=== PATIENT | female | born 1975 | race Caucasian/White ===

== ENCOUNTER 2022-05-01 17:00 | Outpatient (REF) | payer BC, SELFPAY ==
[2022-05-01 22:01] LABS: Abs Immature Grans 0.02 10^3/uL (0.0-0.06); Absolute Basophil Count 0.07 10^3/uL (0.0-0.2); Absolute Eosinophil Count 0.19 10^3/uL (0.0-0.7); Absolute Lymphocyte Count 3.91 10^3/uL (1.2-3.4); Absolute Monocyte Count 0.69 10^3/uL (0.1-0.8); Absolute Neutrophil Count 3.97 10^3/uL (1.2-6.7); Basophils % 0.8; Eosinophils % 2.1; HCT 37.6 % (36.0-46.0); HGB 12.4 g/dL (11.2-15.7); Immature Grans % 0.2; Lymphocytes % 44.2; MCH 29.2 pg (27.0-33.0); MCV 89 fL (80-95); MPV 9.2 fL (8.0-11.0); Monocytes % 7.8; Neutrophils % 44.9; Platelet Count 400 10^3/uL (130-400); RBC 4.25 10^6/uL (3.93-5.22); RDW 12.2 % (11.7-14.6); RDW-SD 39.8 fL; WBC 8.85 10^3/uL (4.4-10.8)
[2022-05-01 22:15] LABS: ALT 19 U/L (14-59); AST 20 U/L (15-37); Albumin 4.2 g/dL (3.4-5.0); Alkaline Phosphatase 46 U/L (46-116); BUN 7 mg/dL (7-18); Bilirubin, Total 0.7 mg/dL (0.2-1.0); CREATININE 0.8 mg/dL (0.55-1.02); Calcium 9.1 mg/dL (8.5-10.1); Calculated LDL 116 mg/dL (<100); Chloride 105 mmol/L (98-107); Cholesterol 203 mg/dL (<200); Estimated GFR 91.97 (mL/min/1.73m2); Glucose 81 mg/dL (74-106); HDL Cholesterol 64 mg/dL (40-60); Potassium 3.8 mmol/L (3.5-5.1); Sodium 138 mmol/L (136-145); TSH (W/Ref FT4) 3.64 uIU/mL (0.36-3.74); Triglyceride 115 mg/dL (<150)
[2022-05-01 22:28] LABS: Hemoglobin A1C 5.6 % (<5.7)
[2022-05-02 19:33] LABS: Rheumatoid Factor <8.6 IU/mL (<12.0)
[2022-05-02 20:15] LABS: Prolactin 121.3 ng/mL (See Note)
== END 2022-05-01 17:01 | disposition home or self-care (01) ==
LOC: NCHCN 17:00
PROVIDERS: Visit Provider Nurse Practitioner Family
DX: E22.1 Hyperprolactinemia (principal); Z13.0 Encounter for screening for diseases of the blood and blood-forming organs and certain disorders involving the immune mechanism; Z13.1 Encounter for screening for diabetes mellitus; Z13.29 Encounter for screening for other suspected endocrine disorder; Z13.220 Encounter for screening for lipoid disorders; Z00.00 Encounter for general adult medical examination without abnormal findings
CPT/HCPCS: 80053; 80061; 83036; 84146; 84443; 85025; 86431

== ENCOUNTER → 2023-11-04 00:36 | Outpatient (CLI) | payer BC, SELFPAY ==
--- NOTE | 2023-11-04 | DI.MAMMO_ITS ---
Exam(s) MAMMO SCREENING EXAM: MAMMO SCREENING CLINICAL HISTORY: Screening, Z12.31 TECHNIQUE: Mammograms were interpreted according to the usual protocol including computer analysis w [employer] CAD system, tomosynthesis and C-view imaging. COMPARISON: 2021 FINDINGS: The breasts are composed of scattered fibroglandular densities, Breast Density category B. No suspicious masses or suspicious microcalcifications are seen. No skin thickening or abnormal axillary lymph nodes are seen. There has been no significant change from prior exams. IMPRESSION: BI-RADS Category 1, Negative mammogram Yearly screening mammography is recommended. Breast Density - Category B, scattered fibroglandular densities. A negative radiographic report should not delay biopsy if a dominant or clinically suspicious mass is present. Up to ten percent of cancers are not identified on mammography. A negative report may reinforce clinical impression. Adenosis and dense breasts may obscure an underlying neoplasm. False positive reports average 6 to 10%. Patient will receive a letter notifying them of these results.
== END ==
PROVIDERS: PCP Family Medicine; Visit Provider Family Medicine
DX: Z12.31 Encounter for screening mammogram for malignant neoplasm of breast (principal)
CPT/HCPCS: 77063; 77067

== ENCOUNTER 2023-11-04 09:11 | Outpatient (CLI) | payer BC, SELFPAY ==
[2023-11-04 20:02] LABS: Prolactin 104.3 ng/mL (See Note)
== END 2023-11-04 09:12 | disposition home or self-care (01) ==
LOC: LBO 09:12
PROVIDERS: PCP Family Medicine; Visit Provider Student in an Organized Health Care Education/Training Program
DX: D35.2 Benign neoplasm of pituitary gland (principal); E22.9 Hyperfunction of pituitary gland, unspecified
CPT/HCPCS: 36415; 84146

== ENCOUNTER 2024-04-20 14:18 | Outpatient (CLI) | payer BC, SELFPAY ==
--- OUTSIDE RECORDS SUMMARY | 2024-04-20 14:21 | XMS_ITS | Encounter Summary ---
Author Organization [facility] Address [facility] [place] [address] Care Team Providers Care Rail Assembler Name Role Phone Melinda Espinoza MD Primary Care Provider [phone] Encounter Details Date Type Department Care Team (Latest Contact Info) Description 11/17/2023 Orders [place] [phone] Xiao Worthington MD [facility] [place] [address] Pituitary microadenoma with hyperprolactinemia (Primary Dx) Social History Tobacco Use Types Packs/Day Years Used Date Smoking Tobacco: Former Cigarettes Q uit: 1996 Smokeless Tobacco: Never Sex and Gender Information Value Date Recorded Sex Assigned at Not on file Gender Identity Not on file Sexual Orientation Not on file documented as of this encounter Plan of Treatment Upcoming Encounters Date Type Department Care Team (Late st Contact Info) Description 04/20/2024 3:30 PM EST Office Visit Neurology at [address] [address] Lazara Amaya MD [facility] [place] [address] 04/29/2024 4:40 PM EST Office [place] [phone] Mecca Frazier MD [facility] [place] [address] Scheduled Orders Name Type Priority Associated Diagnoses Orde r Schedule Prolactin Lab Routine Pituitary microadenoma with hyperprolactinemia Expected: 12/18/2023, Expires: 06/18/2024 documented as of this encounter Visit Diagnoses Diagnosis Pituitary microadenoma with hyperprolactinemia- Primary Other and unspecified anterior pituitary hyperfunction documented in this encounter Care Teams Rail Assembler Relationship Specialty Start Date End Date Melinda Espinoza MD [address] [place] [address] PCP - General Family Medicine 12/24/22 documented as of this encounter
--- OUTSIDE RECORDS SUMMARY | 2024-04-20 14:21 | XMS_ITS | Encounter Summary ---
Author Organization [facility] Address [facility] [place] [address] Care Team Providers Care Radar Engineer Name Role Phone Melinda Espinoza MD Primary Care Provider [phone] Reason for Referral * Diagnostic Test (Routine) - New Request Specialty Diagnoses / Procedures Referred By Olamide aldana Referred To Contact Radiology Diagnoses Prolactinoma Procedures MRI Pituitary wwo Contrast Erica Barr MD [facility] DR ENDOCRIN[place]Y [place] [address] [place] [address] Referral ID Status Reason Start Date Expiration Date Visits Requested Visits Authorized [id number] New Request Specialty Service Requested 02/05/2024 08/04/2025 1 1 Encounter Details Date Type Department Care Team (Late st Contact Info) Description 02/05/2024 10:00 AM EDT TH Visit (TeleHealth) [place] [address] Erica Barr MD [facility] DR ENDOCRINOLOG[place] [address] Prolactinoma Social History Tobacco Use Types Packs/Day Years Used Date Smoking Tobacco: Former Cigarettes Q uit: 1996 Smokeless Tobacco: Never Sex and Gender Information Value Date Recorded Sex Assigned at Not on file Gender Identity Not on file Sexual Orientation Not on file documented as of this encounter Progress Notes * Erica Barr MD - 02/05/2024 10:00 AM EDT Images from the original note were not included. Endocrinology Outpatient Follow up Name of patient: Juliana Cooley : 1975 Date of visit: 02/05/24 Patient verbally consents to this telehealth visit and understands that this visit may be billed, similar to a clinic office visit. I provided care to the patient today via video call. The total time associated with this visit, chart review, documentation, and coordination of care was 30 minutes. Reason for follow up: microprolactinoma HPI: Ms. Juliana Cooley is a 47 y.o. female with a PMH significant for adjustment disorder/depression, arthritis, is here for follow up of microprolactinoma, previously seen by Dr. Worthington: Patient had amenorrhea (2-3 periods a year) starting around 2012. [facility] just [facility]. She had a work up found to have hyperprolactinemia and pituitary adenoma seen on non-contrast MRI 10/2020. The prolactin level ranges between 80-130 in the past. The adenoma is located on the right, measuring 6 x 6 x 5.5 mm. Patient did not follow up afterward. Not planning to get . Mom had reaction with MRI contrast. 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 Never loss consciousness. Had a head injury, maybe 3rd grade. She was running on the playground and slipped near an exposed drainage grate and hit her head andlost consciousness for a bit. No recent brain injury. Takes Astaxanthin in the past. Has some depression. Denied manic episode or hallucination. Patient does not take any antipsychotic medications. Denied nipple stimulation. Age of menarche: 16 yo Cycle length: regular, every month until her 30s. 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 Today She reports she was taking Cabergoline bt stopped recently. In the meantime she was diagnosed with headache - hemicrania continua. Last time she took cabergoline 4 weeks ago, she was taking 0.25 mg once weekly. Her LMP January 05. She says her headaches are worsening. She denies galactorrhea. She is concerned whether her microprolactinoma is associated with the worsening headaches. Physical Exam: Limited due to televisit. General appearance: No apparent distress, resting comfortably in chair. Social History: Social History Socioeconomic History Marital status: Unknown Spouse name: Not on file Number of children: Not on file Years of education: Not on file Highest education level: Not on file Occupational History Not on file Tobacco Use Smoking status: Former Current packs/day: 0.00 Types: Cigarettes Quit date: 1996 Years since quittin.7 Smokeless tobacco: Never Vaping Use Vaping status: Never Used Substance and Sexual Activity Alcohol use: Not on file Drug use: Not on file Sexual activity: Not on file Other Topics Concern Not on file Social History Narrative Not on file Social Determinants of Health Financial Resource Strain: Not on file Food Insecurity: Not on file Transportation Needs: Not on file Physical Activity: Not on file Intimate Partner Violence: Not on file Housing Stability: Not on file PMH: Past Medical History: Diagnosis Date Prolactinoma Family History: No family history on file. Allergies: Allergies Allergen Reactions Banana Raw; GI upset Current Medications: pantoprazole EC (Protonix) [address] tablet indomethacin (Indocin) 50 mg capsule cabergoline (Dostinex) 0.5 mg tablet cyclobenzaprine (Flexeril) 5 mg tablet cholecalciferol, Vitamin D3, 50 mcg (2,000 unit) Capsule Recent Imaging and Labs: Latest Reference Range & Units 12/24/22 16:59 T3, Total 80 - 200 ng/dL 108 T4, total 5.3 - 11.6 mcg/dL 7.9 Free T4 0.93 - 1.70 ng/dL 1.14 TSH 0.27 - 4.20 mcIU/mL 3.07 T Uptake 0.80 - 1.30 ratio 1.07 FTI 4.4 - 11.4 mcg/dL 7.4 Prolactin 4.8 - 23.3 ng/mL 50.0 (H) MRI pituitary 12/11/22 FINDINGS: 7 mm x 4 mm focus which is hypoenhancing to background pituitary parenchyma and heterogeneously T2 hyperintense in the RIGHT posterior aspect of the pituitary gland. No extension into the suprasellar recess. There the hypoenhancing region abuts the cavernous segment of the RIGHT carotid artery without extension into the cavernous sinus. No abnormality of the visualized intracranial contents. IMPRESSION 7 mm hypoenhancing well-circumscribed focus in the RIGHT aspect of the pituitary gland likely represents a pituitary microadenoma. Assessment and Plan: Ms. Juliana Cooley is a 47 y.o. female with a PMH significant for adjustment disorder/depression, arthritis, is here for follow up of microprolactinoma. Microprolactinoma Patient has improvement in her period after starting on cabergoline previously, but has hasd some issues with tolerance and with obtaining the medication. She was diagnosed with worsening headaches -hemicrania continua and wonders if prolactinoma could be associated with this. We have explained that this could potentially be associated with worsening headaches in case there was any increase in size of the tumor, therefore we have recommended to obtain a repeat MRI. We have also recommended obtaining prolactin since now she has been off of it for 4 weeks to evaluate if she still needs Cabergoline. She is reaching menopause soon and we are not worried about osteoporosis if she has amenorrhea. - hold cabergoline - Prolactin ([facility]) - pituitary MRI - F/u in 6 months Thank you for allowing us to provide care for your patient. D/W Dr. Kimball. Erica Barr MD, PhD PGY-5 Endocrinology fellow * Kianna Kimball MD - 02/05/2024 10:00 AM EDT I saw this patient with Dr. Barr. I reviewed the bain portions of the history and physical exam, and reviewed pertinent lab data. I answered all patient questions. I was involved in all medical decision making and agree with this plan. Kianna Kimball MD documented in this encounter Plan of Treatment Upcoming Encounters Date Type Department Care Team (Late st Contact Info) Description 04/20/2024 3:30 PM EST Office Visit Neurology at [address] [address] Lazara Amaya MD [facility] [place] [address] 04/29/2024 4:40 PM EST Office [place] [address] Mecca Frazier MD [facility] [place] [address] Scheduled Orders Name Type Priority Associated Diagnoses Orde r Schedule MRI Pituitary wwo Contrast Imaging Routine Prolactinoma Expected: 02/05/2024, Expires: 08/06/2024 Prolactin Lab Routine Prolactinoma Expected: 02/05/2024, Expires: 08/06/2024 documented as of this encounter Visit Diagnoses Diagnosis Prolactinoma Benign neoplasm of pituitary gland and craniopharyngeal duct (pouch) documented in this encounter Care Teams Radar Engineer Relationship Specialty Start Date End Date Melinda Espinoza MD [address] [place] [address] PCP - General Family Medicine 12/24/22 documented as of this encounter
--- OUTSIDE RECORDS SUMMARY | 2024-04-20 14:21 | XMS_ITS | Clinical Summary ---
Author Organization [facility] Address [facility] [address] [place] [address] Care Team Providers Care Database Security Administrator Name Role Phone Melinda Espinoza MD Primary Care Provider [phone] Allergies Active Allergy Reactions Criticality Noted Date Comments Banana 07/29/2022 Raw; GI upset Medications Medication Sig Dispensed Refills Start Date End Date Status cholecalciferol, Vitamin D3, 50 mcg (2,000 unit) Capsule Take by mouth. Active cyclobenzaprine (Flexeril) 5 mg tablet Take 1 tablet by mouth nightly. 30 tablet 5 01/15/2023 Active cabergoline (Dostinex) 0.5 mg tablet Take 0.5 tablets by mouth once a week. 6 tablet 1 12/14/2023 Active indomethacin (Indocin) 50 mg capsuleIndications:H eadache, cervicogenic,Hemicra sammy continua Take 1 capsule by mouth 3 times daily (with meals). 90 capsule 01/10/2024 Active pantoprazole EC (Protonix) [address] tablet TAKE 1 TABLET BY MOUTH DAILY 30 tablet 1 01/18/2024 Active Active Problems Problem Noted Date Diagnosed Date Irregular periods 09/02/2022 Pituitary adenoma 0.6 cm with hyperprolactinemia (80s-130s) 09/02/2022 Sinus pain 04/23/2020 Overview (09/02/2022): Pain located in the angle of the jaw and swooping up to the frontal sinus and near the medial right epicanthus She has lived with this pain for about 10 years. If she takes Zyrtec, it seems to help prevent the pain No sinus discharge or drainage but the right side sinuses can feel blocked No symptoms of allergies or allergy triggers. No prior x-rays but she was seen by multiple ENT's in [place] Prior question of ETD Last Assessment & Plan: Abnormal sinus pain with seemingly response to antihistamines but unclear etiology. I do not think this represents an active infection however frontal sinus disease needs to be ruled out with a CT scan. The CT scan will also be helpful to determine if there are other factors such as failure frontal sinus drainage that could account for her symptoms. Hyperprolactinemia 06/01/2018 Family history of colon cancer 06/01/2018 Overview (09/02/2022): Father from metastatic colon cancer age 67 (diagnosed at age 66) 06/01/18- recommended referral to discuss colonoscopy. She declines at this time. Mixed hyperlipidemia 10/29/2017 Overview (09/02/2022): Last Assessment & Plan: Does not require medication. Briefly discussed therapeutic lifestyle change. Encounters Date Type Department Care Team Description 04/20/2024 Travel 03/08/2024 [place] [phone] Jenn Carvajal, RN Appointment (MRI) 02/22/2024 [place] [phone] Jenn Carvajal RN Appointment (MRI) 02/05/2024 10:00 AM EDT TH Visit (TeleHealth) [place] [phone] Erica Barr MD Prolactinoma from Last 3 Months Social History Tobacco Use Types Packs/Day Years Used Date Smoking Tobacco: Former Cigarettes Q uit: 1996 Smokeless Tobacco: Never Tobacco Cessation:Counseling Given: Not Answered Sex and Gender Information Value Date Recorded Sex Assigned at Not on file Gender Identity Not on file Sexual Orientation Not on file Last Filed Vital Signs Vital Sign Reading Time Taken Comments Blood Pressure 105/69 12/11/2023 10:30 AM EDT Pulse 80 12/11/2023 10:30 AM EDT Temperature 36.7 ??C (98.1 ??F) 12/24/2022 3:07 PM ED T Respiratory Rate - - Oxygen Saturation 98% 12/24/2022 3:07 PM EDT Inhaled Oxygen Concentration - - Weight 73.2 kg (161 lb 6.4 oz) 12/24/2022 3:07 P M EDT Height 172.7 cm (5' 8) 12/24/2022 3:07 PM EDT Body Mass Index 24.54 12/24/2022 3:07 PM EDT Plan of Treatment Upcoming Encounters Date Type Department Care Team (Late st Contact Info) Description 04/20/2024 3:30 PM EST Office Visit Neurology at [address] [address] Lazara Amaya MD [facility] [place] [address] 04/29/2024 4:40 PM EST Office [place] [address] Mecca Frazier MD [facility] [place] [address] Health Maintenance Due Date Last Done Comments CT Colonography 1975 Colonoscopy 1975 Colorectal Cancer Screening 1975 FIT DNA 1975 FIT 1975 Sigmoidoscopy (10 year) with FIT yearly 1975 Sigmoidoscopy 1975 HIV screen 11/15/1993 Hepatitis C Screening 11/15/1993 Hepatitis B vaccine (0-59 yrs) (1) 11/15/1994 Tetanus/Diphtheria/Pertussis Vaccines (1 - Tdap) 11/15/1994 HPV test 11/15/2005 PAP Smear 11/15/2005 Breast Cancer Share Decision Needed 2015 Breast Cancer screening 2015 Covid-19 Vaccine (1 - season) 2024 Influenza (Flu) vaccine (1 o f 1 - Influenza standard series) 01/10/2024 Diabetes Screening (HgbA1C or Glucose) Discontinued , 09/02/2022 Procedures Procedure Name Priority Date/Time Associated Diagnosis Comments COMPREHENSIVE METABOLIC PANEL Routine 12/11/2023 11:26 AM EDT Encounter for long-term (current) use of other medications from Last 3 Months or Most Recently Relevant to Health Maintenance Results * Comprehensive metabolic panel (non-fasting) (12/11/2023 11:26 AM EDT) Glucose 96 65 - 199 mg/dL [facility] Comment:Diabetes: >=200 mg/d L plus symptoms Blood Urea Nitrogen 11 8 - 18 mg/dL [facility] Creatinine 0.77 0.70 - 1.20 mg/dL [facility] Sodium 142 135 - 145 mmol/L [facility] Potassium 4.3 3.5 - 5.0 mmol/L [facility] Comment: Please note: ??Patients with WBC >100,000 may have falsely elevated Potassium levels. ??For accurate Potassium quantification in these patients send serum separator tube (gold top) for subsequent determinations. ??Contact the Clinical Chemistry Laboratory if there are any questions. Chloride 106 98 - 107 mmol/L [facility] Carbon Dioxide 25 22 - 31 mmol/L [facility] Anion Gap 11 5 - 15 mmol/L [facility] Calcium 10.1 8.5 - 10.5 mg/dL [facility] Protein, Total 7.2 6.1 - 8.0 g/dL [facility] Albumin 4.8 3.2 - 5.2 g/dL [facility] Aspartate Aminotransferase 15 0 - 30 unit/L [facility] Alanine Aminotransferase 10 0 - 30 unit/L [facility] Alkaline Phosphatase 47 35 - 105 unit/L [facility] Bilirubin, Total 0.9 0.2 - 1.3 mg/dL [facility] Est Glomerular Filtration Rate 95 >=60 mL/min/1. 73 m?? [facility] Comment: This patient's estimated GFR was calculated using the 2020 CKD-EPI equation. The estimated GFR can vary from the measured GFR by up to 30% in the absence of rapidly changing kidney function. Assessment of the estimated GFR is not appropriate when creatinine concentrations are rapidly changing. For clinical situations in which a more precise estimate of GFR is necessary, consider alternative methods of GFR estimation such as a 24-hour urine creatinine clearance. Assignment of CKD stage 1-5 for patients with an eGFR near the transition point between stages may be based on clinical assessment of muscle mass and symptoms in addition to eGFR. Blood 12/11/2023 11:2 6 AM EDT 12/11/2023 1:19 PM EDT Narrative Resulting Agency Comment Spec In Lab Monica Bush APRN CHEMISTRY ORDERABL ES [facility] [address] [phone] from Last 3 Months or Most Recently Relevant to Health Maintenance Care Teams Database Security Administrator Relationship Specialty Start Date End Date Melinda Espinoza MD [address] [place], [place] [address] PCP - General Family Medicine 12/24/22
--- OUTSIDE RECORDS SUMMARY | 2024-04-20 14:21 | XMS_ITS | Encounter Summary ---
Author Organization [facility] [place] [address] Care Team Providers Care Manager Wastewater Name Role Phone Melinda Espinoza MD Primary Care Provider [phone] Encounter Details Date Type Department Care Team (Late st Contact Info) Description 01/10/2024 Telephone [place] [address] Matt Clemens DO [facility] [place] [address] Social History Tobacco Use Types Packs/Day Years Used Date Smoking Tobacco: Former Cigarettes Q uit: 1996 Smokeless Tobacco: Never Sex and Gender Information Value Date Recorded Sex Assigned at Not on file Gender Identity Not on file Sexual Orientation Not on file documented as of this encounter Miscellaneous Notes * Telephone Encounter - Matt Clemens DO - 01/10/2024 12:39 PM EDT Entered in error documented in this encounter Plan of Treatment Upcoming Encounters Date Type Department Care Team (Late st Contact Info) Description 04/20/2024 3:30 PM EST Office Visit Neurology at [address] [address] Lazara Amaya MD [facility] [place] [address] 04/29/2024 4:40 PM EST Office Visit [place] [address] Mecca Frazier MD [facility] [place] [address] documented as of this encounter Visit Diagnoses Not on filedocumented in this encounter Care Teams Manager Wastewater Relationship Specialty Start Date End Date Melinda Espinoza MD [address] [place] [address] PCP - General Family Medicine 12/24/22 documented as of this encounter
--- OUTSIDE RECORDS SUMMARY | 2024-04-20 14:21 | XMS_ITS ---
Author Organization Unknown Address [address] [place] [address] [phone] Phone Care Team Providers Care Radiologist Physician Name Role Phone ARMIDA PRINCE Registered Nurse Unavailable DEEPTHI GONZALEZ Attending Unavailable JAIDA Ayala Primary Unavailable UNLISTED PROVIDER - REQUESTED Xhandoff Un available Results TEST QUAL SERUM* - Collect Date/Time: 02/09/2024 08:07 [facility] ID: [id number] [address] [place] [address], [address] LOINC: 2118-8 Test Value Unit Reference Range Code Code System Flag TEST NEGATIVE 6-3 LOINC CBC W/ DIFFERENTIAL* - Colle ct Date/Time: 02/09/2024 08:07 [facility] ID: [id number] [address] [place] [address], [address] LOINC: 23750-1 Test Value Unit Reference Range Code Code System Flag WBC 14.25 th/cmm L=5.00 H=10.00 6690-2 LOINC H NEUT % 89.2 % L=40.0 H=80.0 H LYMPH % 7.7 % L=10.0 H=50.0 L MONO % 2.2 % L=2.0 H=12.0 48401-9 LOINC EOS % 0.0 % L=0.0 H=8.0 BASO % 0.3 % L=0.0 H=3.0 IG % 0.6 % L=0.0 H=1.1 2514-8 LOINC NRBC % 0.0 % L=0.0 H=0.0 53483-9 LOINC NEUT abs count 12.7 th/cmm L=1.6 H=8.4 751-8 LOINC H LYMPH abs count 1.1 th/cmm L=1.5 H=4.0 731-0 LOINC L MONO abs count 0.3 th/cmm L=0.2 H=1.0 742-7 LOINC EOS abs count 0.0 th/cmm L=0.0 H=0.5 711-2 LOINC BASO abs count 0.0 th/cmm L=0.0 H=0.2 704-7 LOINC IG abs count 0.1 th/cmm L=0.0 H=0.1 06750-8 LOINC NRBC abs count 0.0 mil/cmm L=0.0 H=0.0 06253-6 LOINC RBC 4.12 mil/cmm L=3.90 H=5.40 789-8 LOINC HEMOGLOBIN 12.0 gm/dL L=12.0 H=16.0 718-7 LOINC HEMATOCRIT 36 % L=37 H=47 4544-3 LOINC L MCV 88 fL L=82 H=92 787-2 LOINC MCH 29.1 pg L=27.0 H=31.0 785-6 LOINC MCHC 33.1 % L=32.0 H=36.0 786-4 LOINC RDW-SD 40.5 fL L=39.0 H=49.0 788-0 LOINC PLATELET COUNT 433 th/cmm L=150 H=450 777-3 LOINC BASIC METABOLIC PANEL (BMP) - Collect Date/Time: 02/09/2024 08:07 [facility] ID: [id number] [address] [place], [place], [address] LOINC: 06544-6 Test Value Unit Reference Range Code Code System Flag GLUCOSE 231 mg/dL L=70 H=116 2345-7 LOINC H BUN 16 mg/dL L=6 H=25 3094-0 LOINC CREATININE 0.93 mg/dL L=0.51 H=0.95 2160-0 LOINC SODIUM SERUM 137 mmol/L L=136 H=145 2951-2 LOINC POTASSIUM SERUM 3.7 mmol/L L=3.4 H=5.2 2823-3 LOINC CHLORIDE SERUM 100 mmol/L L=96 H=110 2074-0 LOINC CARBON DIOXIDE (CO2) 23 mmol/L L=22 H=34 2027-9 LOINC ANION GAP 13.6 mmol/L 88773-5 LOINC CALCIUM SERUM 9.6 mg/dL L=8.2 H=10.2 12866-3 LOINC AGE 48 years eGFR (non-Afr.Amer.) 64 mL/min 89896-1 LOINC eGFR (Afr-Guyanese) 78 mL/min 67840-8 [facility] Social History Type Status Start Date End Date Code Code Syst em Smoking History Never smoker (Never Smoked) 858296507 SNOMED CT Sex Female Vital Signs Vital Sign Value Unit Dundee Value Dundee Unit Date/Time Recent/Initial? Code Code System Body Mass Index 16.73 kg/m2 02/09/2024 08:11 Initial 08514 -5 INC Systolic Blood Pressure 94 mm[Hg] 02/09/2024 11:00 Most Recent 8480- 6 INC Diastolic Blood Pressure 50 mm[Hg] 02/09/2024 11:00 Most Recent 8462- 4 INC Systolic Blood Pressure 126 mm[Hg] 02/09/2024 09:30 Initial 8480- 6 LOINC Diastolic Blood Pressure 82 mm[Hg] 02/09/2024 09:30 Initial 8462- 4 LOINC Body Surface Area 1.55 m2 02/09/2024 08:11 Initial 3140- 1 LOINC Height 172.720 0 cm 68.00 in 02/09/2024 08:11 Initial 8302- 2 INC O2 Saturation 98 % 2023 11:00 Most Recent 42951 -5 LOINC O2 Saturation 100 % 2023 08:18 Initial 11116 -5 LOINC Pulse 92.0 /min 02/09/2024 11:00 Most Recent 8867- 4 LOINC Pulse 72.0 /min 02/09/2024 08:18 Initial 8867- 4 LOINC Respiration 16 /min 02/09/20 11:00 Most Recent 9279- 1 LOINC Respiration 17 /min 02/09/20 08:18 Initial 9279- 1 LOINC Temperature 36.2 Pia 97.2 F 02/09/20 08:18 Initial 8310- 5 [facility] Weight 49.90 kg 110.00 lbs 02/09/2024 08:11 Initial 61699 -7 [facility] Hospital Discharge Instructions Should you have any questions prior to discharge, please contact a member of your healthcare team. If you have left the hospital and have any questions, please contact your primary care physician. Reason For Referral No Data Found Problems Problem Start Date Resolved Date Status Code Code System HEMICRANIA CONTINUA 12/27/2023 resolved 523310662 SNOMED-CT Allergies and Adverse Reactions Allergy Substance Reaction Severity Start Date Concern Status Co de Code System No Known Drug Allergies Active 548153865 SNOMED-CT Plan of Treatment No Data Found Encounters Encounter Diagnosis Start Date Code Code Sys tem Status migrainosus 02/09/2024 803735636 SNOMED-CT Personal Care Team Section Performer Name Performer Role Active Date Inactive Da adolfo
--- OUTSIDE RECORDS SUMMARY | 2024-04-20 14:21 | XMS_ITS | Encounter Summary ---
Author Organization [facility] Address [facility] [place] [address] Care Team Providers Care Cook Railroad Name Role Phone Melinda Espinoza MD Primary Care Provider [phone] Encounter Details Date Type Department Care Team (Latest Contact Info) Description 11/03/2023 2:45 PM EDT TH Visit (TeleHealth) [place] [phone] Xiao Worthington MD [facility] DR [place] [address] Pituitary microadenoma with hyperprolactinemia (Primary Dx) Social History Tobacco Use Types Packs/Day Years Used Date Smoking Tobacco: Former Cigarettes Q uit: 1996 Smokeless Tobacco: Never Sex and Gender Information Value Date Recorded Sex Assigned at Not on file Gender Identity Not on file Sexual Orientation Not on file documented as of this encounter Progress Notes * Xiao Worthington MD - 11/03/2023 2:45 PM EDT Endocrinology Outpatient Follow up Name of patient: Juliana Cooley : 1975 Date of visit: 11/03/23 Patient verbally consents to this telehealth visit and understands that this visit may be billed, similar to a clinic office visit. I provided care to the patient today via video call. The total time associated with this visit, chart review, documentation, and coordination of care was 30 minutes. Reason for follow up: microprolactinoma Plan from previous office note on 12/24/22 Microprolactinoma Patient has repeat MRI which showed stable size of prolactinoma. She was started on cabergoline without serious side effects and now resuming her period. We plan to repeat prolactin level today and adjust the medication if needed. Plan for 2- year treatment and repeat MRI at 2-year period. Her FSH and LH were slightly elevated. Probably she may be entering perimenopause period. Low FT4 (central hypothyroidism vs normal variance) Patient has low FT4. No s/s hypothyroidism. Does not have AI. She was started on levothyroxine but stop due to side effect. We plan to switch to brand Synthroid and repeat blood work again to see if she has true hypothyroid or a normal variance. - continue cabergoline 0.25 mg twice weekly - change to brand Synthroid 25 mcg daily - prolactin, TSH, FT4, TT4, TT3, T uptake - f/u in 6 months Interval History: Thyroid function has improved and now is normal. We don't need levothyroxine. Patient had VF testing on 10/19/23 which was normal. Patient has a regular menses since last clinic visit. In Spring, her menses is becoming irregular. Her period skipped twice. She has some breast tenderness before havingthe period. No . Patient took cabergoline for about 6 months. She felt that she has urinary retention 48 hours after taking it. She has not taken cabergoline for about 6-7 months now. Patient does not have any headache and dizziness. Her family reached menopause in the 50s. Summary: Ms. Juliana Cooley is a 47 y.o. female with a PMH significant for adjustment disorder/depression, arthritis, is here for follow up of microprolactinoma. 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 Physical Exam: There were no vitals taken for this visit. General appearance: No apparent distress, resting comfortably in chair. Social History: Social History Socioeconomic History Marital status: Unknown Spouse name: Not on file Number of children: Not on file Years of education: Not on file Highest education level: Not on file Occupational History Not on file Tobacco Use Smoking status: Former Current packs/day: 0.00 Types: Cigarettes Quit date: 1996 Years since quittin.4 Smokeless tobacco: Never Vaping Use Vaping status: [...] Reactions Banana Raw; GI upset Current Medications: cyclobenzaprine (Flexeril) 5 mg tablet cabergoline (Dostinex) 0.5 mg tablet cholecalciferol, Vitamin D3, 50 mcg (2,000 unit) Capsule OMEGA3,5,6,7,9 NO.1-SALMON OIL ORAL Recent Imaging and Labs: Latest Reference Range [...] improvement in her period after starting on cabergoline. She took the medication for 6 months and then stopped due to urinary retention. She is now without medication for 6-7 months. Her period becomes irregular again. We discussed about repeating serum prolactin. If her prolactin is normal, we will continue to monitor the level every 6 months and not resuming the cabergoline. If prolactin is elevated, she can try resuming on the low dose once weekly cabergoline to see if she can tolerate the medication. If prolactin is extremely elevated or she does not want to be on the medication, we plan to repeat MRI of the pituitary. She has an option to stop the medication if her MRI is stable and she is not symptomatic (galactorrhea). She is reaching menopause soon and we are not worried about osteoporosis if she has amenorrhea. - hold cabergoline - Prolactin ([facility]) - F/u in 3 months Thank you for allowing us to provide care for your patient. D/W Dr. Kimball. Xiao Worthington MD [facility] [place] PGY-5, Fellow Pager #[phone] * Kianna Kimball MD - 11/03/2023 2:45 PM EDT I saw this patient with Dr. Worthington. I reviewed the bain portions of the [...] 3:30 PM EST Office Visit Neurology at [address] [phone] Lazara Amaya MD [facility] [place] [address] 04/29/2024 4:40 PM EST Office Visit [place] [address] Mecca Frazier MD [facility] [place] [address] Scheduled Orders Name Type Priority Associated Diagnoses Orde r Schedule Prolactin Lab Routine Pituitary microadenoma with hyperprolactinemia Expected: 11/03/2023, Expires: 05/04/2024 documented as of this encounter Visit Diagnoses Diagnosis Pituitary microadenoma with hyperprolactinemia- Primary Other and unspecified anterior pituitary hyperfunction documented in this encounter Care Teams Cook Railroad Relationship Specialty Start Date End Date Melinda Espinoza MD [address] [place] [address] PCP - General Family Medicine 12/24/22 documented as of this encounter
--- OUTSIDE RECORDS SUMMARY | 2024-04-20 14:21 | XMS_ITS | Encounter Summary ---
Author Organization [facility] Address [facility] [place] [address] Care Team Providers Care Metal Weather Stripper Name Role Phone Melinda Espinoza MD Primary Care Provider [phone] Encounter Details Date Type Department Care Team (Late st Contact Info) Description 12/27/2023 Interpretation Only [facility] in [facility] [address] [place] [phone] Sebastián Watts MD [address] [place] [phone] Social History Tobacco Use Types Packs/Day Years [...] 3:30 PM EST Office Visit Neurology at [address] [address] Lazara Amaya MD [facility] [place] [address] 04/29/2024 4:40 PM EST Office [place] [address] Mecca Frazier MD [facility] [place] [address] documented as of this encounter Procedures Procedure Name Priority Date/Time Associated Diagnosis Comments CT CERVICAL SPINE WO CONTRAST STAT 12/27/2023 11:36 AM EDT documented in this encounter Results * CT Cervical Spine wo Contrast (12/27/2023 11:36 AM EDT) PT CLASS E RAD ADMITDTTM [id number] RAD PT RAD MD INFO [id number]^ANGELICA OLIVARES^SEBASTIÁN RAD EXAM DESC CTCSPI^CT CSPINE WO CONTRAST^RIS [facility] WORKSTATION ID [id number] [facility] Anatomical Region Laterality Modality C-spine Computed Tomogra phy Impressions 12/27/2023 11:49 AM EDT Cervical degenerative changes at C5-C6 with moderate to severe bilateral neural foraminal narrowing. Moderate left-sided neural foraminal narrowing at C6-C7. No acute cervical spine process is identified. Thank you for letting us participate in the care of this patient. ??If you are a health care provider and have any questions regarding this report, please contact the number below. ??For patients who have questions please contact the health critical care physician that requested your imaging first. ? Electronically signed by: Branden Bain [facility] ([phone]), at 12/27/2023 11:49 AM Narrative 12/27/2023 11:49 AM EDT EXAMINATION: CT CSPINE WO CONTRAST CLINICAL HISTORY: ??Reason for Spine: ??Pain ??Add'l Info: TECHNIQUE: CT cervical spine performed without intravenous contrast administration. COMPARISON: CT neck dated 09/05/2022. FINDINGS: Mild cervical disc degenerative change at C5-C6 and C6-C7. Uncovertebral osteophytes at C5-C6 result in moderate to severe bilateral neural foraminal narrowing. Mild left-sided neural foraminal narrowing at C6-C7. Several millimeters of degenerative retrolisthesis at C5-C6. Associated straightening of the normal cervical lordosis. Normal craniocervical junction. Visualized soft tissues unremarkable. No aggressive osseous lesions. 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 Procedure Note Branden Bain MD - 12/27/2023 EXAMINATION: CT CSPINE WO CONTRAST CLINICAL HISTORY: Reason for Spine: Pain Add'l Info: TECHNIQUE: CT cervical spine performed without intravenous contrast administration. COMPARISON: CT neck dated 09/05/2022. FINDINGS: Mild cervical disc degenerative change at C5-C6 and C6-C7. Uncovertebral osteophytes at C5-C6 result in moderate to severe bilateral neuralforaminal narrowing. Mild left-sided neural foraminal narrowing at C6-C7. Several millimeters of degenerative retrolisthesis at C5-C6. Associatedstraightening of the normal cervical lordosis. Normal craniocervical junction. Visualized soft tissues unremarkable. 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 IMPRESSION Cervical degenerative changes at C5-C6 with moderate to severe bilateralneural foraminal narrowing. Moderate left-sided neural foraminal narrowing at C6-C7. No acute cervical spine process is identified. Thank you for letting us participate in the care of this patient. If youare a health care provider and have any questions regarding this report,please contact the number below. For patients who have questions please contactthe health critical care physician that requested your imaging first. Electronically signed by: Branden Bain [facility]([phone]), at 12/27/2023 11:49 AM Sebastián Watts MD IMG CT ORDERABLES documented in this encounter Visit Diagnoses Not on filedocumented in this encounter Care Teams Metal Weather Stripper Relationship Specialty Start Date End Date Melinda Espinoza MD [address] [place] [address] PCP - General Family Medicine 12/24/22 documented as of this encounter
--- OUTSIDE RECORDS SUMMARY | 2024-04-20 14:21 | XMS_ITS | Encounter Summary ---
Author Organization [facility] Address [facility] [place] [address] Care Team Providers Care Market Investigator Name Role Phone Melinda Espinoza MD Primary Care Provider [phone] Reason for Visit * Reason Onset Date Comments Appointment 03/08/2024 MRI Encounter Details Date Type Department Care Team (Late st Contact Info) Description 03/08/2024 [place] [phone] Jenn Carvajal RN Appointment (MRI) Social History Tobacco Use Types Packs/Day Years Used Date Smoking Tobacco: Former Cigarettes Q uit: 1996 Smokeless Tobacco: Never Sex and Gender Information Value Date Recorded Sex Assigned at Not on file Gender Identity Not on file Sexual Orientation Not on file documented as of this encounter Miscellaneous Notes * Telephone Encounter - Jenn Carvajal RN - 03/08/2024 10:29 AM EDT Reached out to Juliana to assist in scheduling MRI/Pituitary Dr. Erica Barr ordered 02/05/24 Spoke with patient and she stated she would call Radiology/MRI to schedule the above imaging documented in this encounter Plan of Treatment Upcoming Encounters Date Type Department Care Team (Late st Contact Info) Description 04/20/2024 3:30 PM EST Office Visit Neurology at [address] [phone] Lazara Amaya MD [facility] [place] [address] 04/29/2024 4:40 PM EST Office [place] [address] Mecca Frazier MD [facility] [place] [address] documented as of this encounter Visit Diagnoses Not on filedocumented in this encounter Care Teams Market Investigator Relationship Specialty Start Date End Date Melinda Espinoza MD [address] [place] [address] PCP - General Family Medicine 12/24/22 documented as of this encounter
--- OUTSIDE RECORDS SUMMARY | 2024-04-20 14:21 | XMS_ITS | Encounter Summary ---
Author Organization [facility] Address [facility] [place] [address] Care Team Providers Care Evp Head [employer] Experience Strategy Name Role Phone Melinda Espinoza MD Primary Care Provider [phone] Encounter Details Date Type Department Care Team (Latest Contact Info) Description 11/02/2023 Travel Social History Tobacco Use Types Packs/Day Years [...] 3:30 PM EST Office Visit Neurology at [address] [phone] Lazara Amaya MD [facility] [place] [address] 04/29/2024 4:40 PM EST Office [place] [address] Mecca Frazier MD [facility] [place] [address] documented as of this encounter Visit Diagnoses Not on filedocumented in this encounter Care Teams Evp [employer] Experience Strategy Relationship Specialty Start Date End Date Melinda Espinoza MD [address] [place] [address] PCP - General Family Medicine 12/24/22 documented as of this encounter
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
--- OUTSIDE RECORDS SUMMARY | 2024-04-20 14:21 | XMS_ITS | Encounter Summary ---
Author Organization [facility] Address [facility] [place] [address] Care Team Providers Care Manager Urology Name Role Phone Melinda Espinoza MD Primary Care Provider [phone] Encounter Details Date Type Department Care Team (Late st Contact Info) Description 12/27/2023 Interpretation Only [facility] [address] [place] [phone] Sebastián Watts MD [address] [place] [phone] Social History Tobacco Use Types Packs/Day Years [...] 3:30 PM EST Office Visit Neurology at [address] [address] Lazara Amaya MD [facility] [address] 04/29/2024 4:40 PM EST Office [place] [address] Mecca Frazier MD [facility] [place] [address] documented as of this encounter Procedures Procedure Name Priority Date/Time Associated Diagnosis Comments CT THORACIC SPINE WO CONTRAST STAT 12/27/2023 11:36 AM EDT documented in this encounter Results * CT Thoracic Spine wo Contrast (Generic) (12/27/2023 11:36 AM EDT) PT CLASS E RAD ADMITDTTM [id number] RAD PT RAD MD INFO [id number]^ANGELICA OLIVARES^SEBASTIÁN RAD EXAM DESC CTTSPI^CT THORACIC SPINE WO CONTRAST^RIS [facility] WORKSTATION ID [id number] [facility] Anatomical Region Laterality Modality T-spine Computed Tomogra phy Impressions 12/27/2023 11:45 AM EDT No acute thoracic spine findings. Calcified right-sided hilar lymph nodes consistent with chronic granulomatous disease. Consider CT scan chest for complete evaluation. Thank you for letting us participate in the care of this patient. ??If you are a health care provider and have any questions regarding this report, please contact the number below. ??For patients who have questions please contact the health pharmacy care coordinator that requested your imaging first. ? Narrative 12/27/2023 11:45 AM EDT EXAMINATION: CT THORACIC SPINE WO CONTRAST CLINICAL HISTORY: ??Reason for Spine: ??Pain ??Add'l Info: strap around neck when carrying log, c/f L arm radicular symptom TECHNIQUE: CT thoracic spine performed without intravenous contrast administration. COMPARISON: None FINDINGS: No acute malalignment. No acute fracture deformities. Mild degenerative change. No aggressive osseous lesions. Calcified right-sided hilar lymph nodes incidentally identified. Procedure Note Branden Bain MD - 12/27/2023 EXAMINATION: CT THORACIC SPINE WO CONTRAST CLINICAL HISTORY: Reason for Spine: Pain Add'l Info: strap around neckwhen carrying log, c/f L arm radicular symptom TECHNIQUE: CT thoracic spine performed without intravenous contrast administration. COMPARISON: None FINDINGS: No acute malalignment. No acute fracture deformities. Mild degenerativechange. No aggressive osseous lesions. Calcified right-sided hilar lymph nodes incidentally identified. IMPRESSION No acute thoracic spine findings. Calcified right-sided hilar lymph nodes consistent with chronicgranulomatous disease. Consider CT scan chest for complete evaluation. Thank you for letting us participate in the care of this patient. If youare a health care provider and have any questions regarding this report,please contact the number below. For patients who have questions please contactthe health pharmacy care coordinator that requested your imaging first. Sebastián Watts MD IMG CT ORDERABLES documented in this encounter Visit Diagnoses Not on filedocumented in this encounter Care Teams Manager Urology Relationship Specialty Start Date End Date Melinda Espinoza MD [address] [place] [address] PCP - General Family Medicine 12/24/22 documented as of this encounter
--- OUTSIDE RECORDS SUMMARY | 2024-04-20 14:21 | XMS_ITS | Encounter Summary ---
Author Organization [facility] Address [facility] [place] [address] Care Team Providers Care Analytical Data Miner Name Role Phone Melinda Espinoza MD Primary Care Provider [phone] Encounter Details Date Type Department Care Team (Latest Contact Info) Description 04/20/2024 Travel Social History Tobacco Use Types Packs/Day [...] 3:30 PM EST Office Visit Neurology at [address] [phone] Lazara Amaya MD [facility] [place] [address] 04/29/2024 4:40 PM EST Office [place] [address] Mecca Frazier MD [facility] [place] [address] documented as of this encounter Visit Diagnoses Not on filedocumented in this encounter Care Teams Analytical Data Miner Relationship Specialty Start Date End Date Melinda Espinoza MD [address] [place] [address] PCP - General Family Medicine 12/24/22 documented as of this encounter
--- OUTSIDE RECORDS SUMMARY | 2024-04-20 14:21 | XMS_ITS | Encounter Summary ---
Author Organization [facility] Address [facility] [place] [address] Care Team Providers Care International Marketing Executive Name Role Phone Melinda Espinoza MD Primary Care Provider [phone] Encounter Details Date Type Department Care Team (Latest Contact Info) Description 12/11/2023 Travel Social History Tobacco Use Types Packs/Day [...] 3:30 PM EST Office Visit Neurology at [address] [phone] Lazara Amaya MD [facility] [place] [address] 04/29/2024 4:40 PM EST Office [place] [address] Mecca Frazier MD [facility] [place] [address] documented as of this encounter Visit Diagnoses Not on filedocumented in this encounter Care Teams International Marketing Executive Relationship Specialty Start Date End Date Melinda Espinoza MD [address] [place] [address] PCP - General Family Medicine 12/24/22 documented as of this encounter
--- OUTSIDE RECORDS SUMMARY | 2024-04-20 14:21 | XMS_ITS | Encounter Summary ---
Author Organization [facility] Address [facility] [address] Care Team Providers Care Auctioneer Art Name Role Phone Melinda Espinoza MD Primary Care Provider [phone] Encounter Details Date Type Department Care Team (Latest Contact Info) Description 09/01/2023 Travel Social History Tobacco Use Types Packs/Day [...] 3:30 PM EST Office Visit Neurology at [address] [phone] Lazara Amaya MD [facility] [place] [address] 04/29/2024 4:40 PM EST Office [place] [address] Mecca Frazier MD [facility] [place] [address] documented as of this encounter Visit Diagnoses Not on filedocumented in this encounter Care Teams Auctioneer Art Relationship Specialty Start Date End Date Melinda Espinoza MD [address] [place] [address] PCP - General Family Medicine 12/24/22 documented as of this encounter
--- OUTSIDE RECORDS SUMMARY | 2024-04-20 14:21 | XMS_ITS | Encounter Summary ---
Author Organization [facility] Address [facility] [place] [address] Care Team Providers Care Bolt Cutter Name Role Phone Melinda Espinoza MD Primary Care Provider [phone] Encounter Details Date Type Department Care Team (Latest Contact Info) Description 12/11/2023 11:30 AM EDT Laboratory Appointment Lab at [address] [phone] Encounter for long-term (current) use of other [...] 3:30 PM EST Office Visit Neurology at [address] [phone] Lazara Amaya MD [facility] [address] 04/29/2024 4:40 PM EST Office [place] [phone] Mecca Frazier MD [facility] [place] [address] documented as of this encounter Procedures Procedure Name Priority Date/Time Associated Diagnosis Comments HEMOGRAM Routine 12/11/2023 11:26 AM EDT Encounter for long-term (current) use of other medications DIFFERENTIAL, AUTOMATED Routine 12/11/2023 11:26 AM EDT Encounter for long-term (current) use of other medications CBC (WITH DIFF) Routine 12/11/2023 11:26 AM EDT Encounter for long-term (current) use of other medications COMPREHENSIVE METABOLIC PANEL Routine 12/11/2023 11:26 AM EDT Encounter for long-term (current) use of other medications documented in this encounter Results * (ABNORMAL) Differential, Automated (12/11/2023 11:26 AM EDT) Neutrophil % 49.5 % [facility] Neutrophil Absolute 4.75 1.70 - 6.10 x10(3)/mc L [facility] Lymph % 38.7 % [facility] Lymphocytes Abs 3.7(H) 0.9 - 3.2 x10(3)/mc L [facility] Monocyte % 9.0 % [facility] Monocyte Abs 0.9 0.3 - 0.9 x10(3)/mc L [facility] Eos % 1.6 % [facility] Eosinophils Abs 0.2 0.0 - 0.4 x10(3)/mc L [facility] Basophil % 0.9 % [facility] Baso Absolute 0.1 0.0 - 0.1 x10(3)/mc L [facility] Immature Gran % 0.30 % [facility] Comment: Immature granulocytes(IG's)percentage and absolute count will include metamyelocytes, myelocytes, and promyelocytes. Blood smears from CBCs yielding IG's will be scanned manually for concordance. If this scan disagrees with the automated IG or if promyelocytes are noted, a manual differential will be performed. Immature Gran Absolute 0.03 0.00 - 0.04 x10(3)/mc L [facility] Blood 12/11/2023 11:2 6 AM EDT 12/11/2023 1:29 PM EDT Narrative Resulting Agency Comment Spec In Lab Monica M Bush CARMELINA HEMATOLOGY ORDERAB LES [facility] [place] [address] * (ABNORMAL) Hemogram (12/11/2023 11:26 AM EDT) White Blood Cell 9.6(H) 4.0 - 9.5 x10(3)/[facility] Red Blood Cell 4.36 4.00 - 5.21 x10(6)/[facility] Hemoglobin 13.2 11.7 - 15.5 g/dL [facility] Hematocrit 39.7 35.7 - 45.8 % [facility] Mean Cell Volume 91.1 82.6 - 94.4 fL [facility] Mean Cell Hemoglobin 30.3 27.1 - 32.0 pg [facility] Mean Cell Hemoglobin Concentration 33.2 31.7 - 35.0 g/dL [facility] Platelet 377(H) 145 - 357 x10(3)/[facility] RDW Standard Deviation 41.7 37.0 - 46.0 [facility] RDW coefficient of variation 12.7 11.5 - 14.1 % [facility] Mean Platelet Volume 9.3 7.6 - 12.9 fL [facility] NRBC% auto 0.0 % [facility] NRBC Absolute 0.000 0.000 - 0.000 x10(3)/[facility] Blood 12/11/2023 11:2 6 AM EDT 12/11/2023 1:29 PM EDT Narrative Resulting Agency Comment Spec In Lab Monica Camachoth CARMELINA HEMATOLOGY ORDERAB LES [facility] [place] [address] * Comprehensive metabolic panel (non-fasting) (12/11/2023 11:26 AM EDT) Glucose 96 65 - 199 mg/dL [facility] Comment:Diabetes: >=200 mg/d L plus symptoms Blood Urea Nitrogen 11 8 - 18 mg/dL [facility] Creatinine 0.77 0.70 - 1.20 mg/dL [facility] Sodium 142 135 - 145 mmol/L [facility] Potassium 4.3 3.5 - 5.0 mmol/L [facility] Comment: Please note: ??Patients with WBC >100,000 may have falsely elevated Potassium levels. ??For accurate Potassium quantification in these patients send serum separator tube (gold top) for subsequent determinations. ??Contact the Clinical Chemistry Laboratory if there are any questions. Chloride 106 98 - 107 mmol/L [facility] Carbon Dioxide 25 22 - 31 mmol/L [facility] Anion Gap 11 5 - 15 mmol/L [facility] Calcium 10.1 8.5 - 10.5 mg/dL [facility] Protein, Total 7.2 6.1 - 8.0 g/dL [facility] Albumin 4.8 3.2 - 5.2 g/dL [facility] Aspartate Aminotransferase 15 0 - 30 unit/L [facility] Alanine Aminotransferase 10 0 - 30 unit/L [facility] Alkaline Phosphatase 47 35 - 105 unit/L [facility] Bilirubin, Total 0.9 0.2 - 1.3 mg/dL [facility] Est Glomerular Filtration Rate 95 >=60 mL/min/1. 73 m?? [facility] Comment: This patient's estimated GFR [...] Lab Monica Bush [place] [address] documented in this encounter Visit Diagnoses Diagnosis Encounter for long-term (current) use of other medications documented in this encounter Care Teams Bolt Cutter Relationship Specialty Start Date End Date Melinda Espinoza MD [address] [place] [address] PCP - General Family Medicine 12/24/22 documented as of this encounter
--- OUTSIDE RECORDS SUMMARY | 2024-04-20 14:21 | XMS_ITS | Encounter Summary ---
Author Organization [facility] Address [facility] [place] [address] Care Team Providers Care Assistant Professor Of Physics Name Role Phone Melinda Espinoza MD Primary Care Provider [phone] Reason for Visit * Reason Onset Date Comments Appointment 02/22/2024 MRI Encounter Details Date Type Department Care Team (Late st Contact Info) Description 02/22/2024 [place] [phone] Jenn Carvajal RN Appointment (MRI) Social History Tobacco Use Types Packs/Day Years Used Date Smoking Tobacco: Former Cigarettes Q uit: 1996 Smokeless Tobacco: Never Sex and Gender Information Value Date Recorded Sex Assigned at Not on file Gender Identity Not on file Sexual Orientation Not on file documented as of this encounter Miscellaneous Notes * Telephone Encounter - Jenn Carvajal RN - 02/22/2024 1:12 PM EDT Reached out to Juliana to assist in scheduling MRI/Pituitary Dr. Erica Barr ordered 02/05/24 Unable to leave a message, mailbox full, [facility] message sent documented in this encounter Plan of Treatment Upcoming Encounters Date Type Department Care Team (Late st Contact Info) Description 04/20/2024 3:30 PM EST Office Visit Neurology at [address] [phone] Lazara Amaya MD [facility] [address] [place] [place], [place] [id number] 04/29/2024 4:40 PM EST Office [place] [address] Mecca Frazier MD [facility] [place] [address] documented as of this encounter Visit Diagnoses Not on filedocumented in this encounter Care Teams Assistant Professor Of Physics Relationship Specialty Start Date End Date Melinda Espinoza MD [address] [place] [address] PCP - General Family Medicine 12/24/22 documented as of this encounter
--- OUTSIDE RECORDS SUMMARY | 2024-04-20 14:21 | XMS_ITS | Encounter Summary ---
Author Organization [facility] [place] [address] Care Team Providers Care Behavioral Sciences Department Chair Name Role Phone Melinda Espinoza MD Primary Care Provider [phone] Encounter Details Date Type Department Care Team (Late st Contact Info) Description 09/08/2023 [place]phone [place] [address] Monica Rodney Social History Tobacco Use Types Packs/Day Years Used Date Smoking Tobacco: Former Cigarettes Q uit: 1996 Smokeless Tobacco: Never Sex and Gender Information Value Date Recorded Sex Assigned at Not on file Gender Identity Not on file Sexual Orientation Not on file documented as of this encounter Miscellaneous Notes * Telephone Encounter - Monica Rodney - 09/08/2023 8:00 AM EDTSummary: [facility] appt cancellation Appointment canceled for Juliana Cooley ([id number]) Visit Type: FOLLOW UP FELLOW ADV Date Time Length Provider Department 09/07/2023 9:30 AM 30 mins. Xiao Worthington [facility] ENDOCRINOLOGY 3B 09/07/2023 9:30 AM 30 mins. Preceptor, [facility] Endocrinology [facility] ENDOCRINOLOGY 3B Reason for Cancellation: P-FAMILY/PERSONAL EMERGENCY/PT ILL documented in this encounter Plan of Treatment Upcoming Encounters Date Type Department Care Team (Late st Contact Info) Description 04/20/2024 3:30 PM EST Office Visit Neurology at [facility] [address] [place] [phone] Lazara Amaya MD [facility] [place] [address] 04/29/2024 4:40 PM EST Office Visit Otolaryngology at [facility] [place] [address] eMcca Frazier MD [facility] [place] [address] documented as of this encounter Visit Diagnoses Not on filedocumented in this encounter Care Teams Behavioral Sciences Department Chair Relationship Specialty Start Date End Date Melinda Espinoza MD [address] [place] [address] PCP - General Family Medicine 12/24/22 documented as of this encounter
--- OUTSIDE RECORDS SUMMARY | 2024-04-20 14:21 | XMS_ITS | Encounter Summary ---
Author Organization [place] [address] Care Team Providers Care Software Product Specialist Name Role Phone Melinda Espinoza MD Primary Care Provider [phone] Reason for Visit * Reason Comments Medication Refill Encounter Details Date Type Department Care Team (Late st Contact Info) Description 12/14/2023 Refill Neurology at [address] [phone] Monica Bush APRN [facility] [place] [address] Social History Tobacco Use Types Packs/Day Years Used Date Smoking Tobacco: Former Cigarettes Q uit: 1996 Smokeless Tobacco: Never Sex and Gender Information Value Date Recorded Sex Assigned at Not on file Gender Identity Not on file Sexual Orientation Not on file documented as of this encounter Miscellaneous Notes * Telephone Encounter - Harriet Gonzales RN - 12/14/2023 10:44 AM EDT Prescription Renewal Request Name: Juliana Cooley : 1975 Prescription(s) Requested: Requested Prescriptions Refused Prescriptions Disp Refills indomethacin (Indocin) 25 mg capsule [Pharmacy Med Name: INDOMETHACIN 25MG CAPSULES] 30 capsule 0 Sig: TAKE 1 CAPSULE BY MOUTH THREE TIMES DAILY WITH MEALS FOR 3 DAYS, THEN 2 CAPSULES THREE TIMES DAILY FOR 3 DAYS Refill too soon, just sent in 12/11/2023 Last office visit: 12/11/2023 Eleazar(note not complete at this time) Status of request: Refused Allergies Allergen Reactions Banana Raw; GI upset Harriet Gonzales RN 12/14/23 10:44 AM documented in this encounter Plan of Treatment Upcoming Encounters Date Type Department Care Team (Late st Contact Info) Description 04/20/2024 3:30 PM EST Office Visit Neurology at [address] [address] Lazara Amaya MD [facility] [place] [address] 04/29/2024 4:40 PM EST Office [place] [address] Mecca Frazier MD [facility] [place] [address] documented as of this encounter Visit Diagnoses Not on filedocumented in this encounter Care Teams Software Product Specialist Relationship Specialty Start Date End Date Melinda Espinoza MD [address] [place] [address] PCP - General Family Medicine 12/24/22 documented as of this encounter
--- OUTSIDE RECORDS SUMMARY | 2024-04-20 14:21 | XMS_ITS | Encounter Summary ---
Author Organization [place] [address] Care Team Providers Care Tape Calender Name Role Phone Melinda Espinoza MD Primary Care Provider [phone] Encounter Details Date Type Department Care Team (Late st Contact Info) Description 01/14/2024 Telephone Neurology at [address] [phone] Joceline Astorga Social History Tobacco Use Types Packs/Day Years Used Date Smoking Tobacco: Former Cigarettes Q uit: 1996 Smokeless Tobacco: Never Sex and Gender Information Value Date Recorded Sex Assigned at Not on file Gender Identity Not on file Sexual Orientation Not on file documented as of this encounter Miscellaneous Notes * Telephone Encounter - Joceline Astorga - 01/14/2024 2:23 PM EDT Please follow scheduling instructions below Schedule in person visit around 03/17/2024. Appt Notes: MEG Bush Visit Type: RE-ESTABLISH Provider: Dr. Rm Additional Info Needed: * Telephone Encounter - Joceline Astorga - 01/14/2024 2:23 PM EDT Copied from [facility] #[id number]. Topic: Specialty Dept CRMs - Generic Call >> Jan 14, 2024 11:52 AM Michelle Pelletier wrote: Specialist: Monica Bush APRN Relationship (if other than patient-full name): Juliana Cooley Reason for Call: Called patient to reschedule their upcoming FUV on 03/16/2024. Left a voicemail requesting patient to call back. CALL CENTER: Please reschedule appointment accordingly when the patient returns call. documented in this encounter Plan of Treatment Upcoming Encounters Date Type Department Care Team (Late st Contact Info) Description 04/20/2024 3:30 PM EST Office Visit Neurology at [address] [address] Lazara Amaya MD [facility] [place] [address] 04/29/2024 4:40 PM EST Office [place] [address] Mecca Frazier MD [facility] [place] [address] documented as of this encounter Visit Diagnoses Not on filedocumented in this encounter Care Teams Tape Calender Relationship Specialty Start Date End Date Melinda Espinoza MD [address] [place] [address] PCP - General Family Medicine 12/24/22 documented as of this encounter
--- OUTSIDE RECORDS SUMMARY | 2024-04-20 14:21 | XMS_ITS | Encounter Summary ---
Author Organization [facility] [place] [address] Care Team Providers Care Marine Engineering Consultant Name Role Phone Melinda Espinoza MD Primary Care Provider [phone] Reason for Visit * Reason Comments Medication Refill Encounter Details Date Type Department Care Team (Late st Contact Info) Description 01/18/2024 Refill Neurology at [address] [phone] Monica Bush APRN [facility] [place] [address] Social History Tobacco Use Types Packs/Day Years Used Date Smoking Tobacco: Former Cigarettes Q uit: 1996 Smokeless Tobacco: Never Sex and Gender Information Value Date Recorded Sex Assigned at Not on file Gender Identity Not on file Sexual Orientation Not on file documented as of this encounter Miscellaneous Notes * Telephone Encounter - Joceline Astorga - 02/25/2024 6:34 PM EDT Please follow scheduling instructions outside of [facility] Schedule in person visit next available. Appt Notes: re-est MANZO Visit Type: RE-ESTABLISH Provider: Dr. Rm or Dr. Robledo Additional Info Needed: * Telephone Encounter - Harriet Gonzales RN - 01/18/2024 12:29 PM EDT Prescription Renewal Request Name: Juliaan Suzy Lenora : 1975 Prescription(s) Requested: Requested Prescriptions Pending Prescriptions Disp Refills pantoprazole EC (Protonix) [address] tablet [Pharmacy Med Name: PANTOPRAZOLE 40MG TABLETS] 30 tablet5 Sig: TAKE 1 TABLET BY MOUTH DAILY Date of Encounter last in This Dept (If need an appointment send to secretaries to schedule): Monica Bush APRN (Nurse Practitioner) Neurology Encounter Date: 12/11/2023 Signed Next Encounter in This Dept: not scheduled; Recommended RTC 3 mths Date of Last Refill (for each medication): 12/11/2023 #30: 0 Medication category requirements (labs etc): N/A Status of request: Pended Allergies Allergen Reactions Banana Raw; GI upset Harriet Gonzales RN 01/18/24 12:29 PM documented in this encounter Plan of Treatment Upcoming Encounters Date Type Department Care Team (Late st Contact Info) Description 04/20/2024 3:30 PM EST Office Visit Neurology at [address] [address] Lazara Amaya MD [facility] [place] [address] 04/29/2024 4:40 PM EST Office [place] [address] Mecca Frazier MD [facility] [place] [address] documented as of this encounter Visit Diagnoses Not on filedocumented in this encounter Care Teams Marine Engineering Consultant Relationship Specialty Start Date End Date Melinda Espinoza MD [address] [place] [address] PCP - General Family Medicine 12/24/22 documented as of this encounter
--- OUTSIDE RECORDS SUMMARY | 2024-04-20 14:21 | XMS_ITS | Encounter Summary ---
Author Organization [facility] [place] [address] Care Team Providers Care Insurance Administrator Name Role Phone Melinda Espinoza MD Primary Care Provider [phone] Reason for Visit * Reason Onset Date Comments Medication Refill 12/14/2023 Encounter Details Date Type Department Care Team (Late st Contact Info) Description 12/14/2023 [place] [phone] Abigail Garcia RN Social History Tobacco Use Types Packs/Day Years [...] 3:30 PM EST Office Visit Neurology at [address] [address] Lazara Amaya MD [facility] [place] [address] 04/29/2024 4:40 PM EST Office [place] [address] Mecca Frazier MD [facility] [place] [address] documented as of this encounter Visit Diagnoses Not on filedocumented in this encounter Care Teams Insurance Administrator Relationship Specialty Start Date End Date Melinda Espinoza MD [address] [place] [address] PCP - General Family Medicine 12/24/22 documented as of this encounter
--- OUTSIDE RECORDS SUMMARY | 2024-04-20 14:21 | XMS_ITS | Encounter Summary ---
Author Organization [facility] Address [facility] [place] [address] Care Team Providers Care Merchandise Clerk Name Role Phone Melinda Espinoza MD Primary Care Provider [phone] Reason for Visit * Reason Onset Date Comments Medication Refill 01/08/2024 Encounter Details Date Type Department Care Team (Late st Contact Info) Description 01/08/2024 Telephone Neurology at [address] [phone] Monica Bush APRN [facility] [address] [place] [address] Medication Refill Social History Tobacco Use Types Packs/Day Years Used Date Smoking Tobacco: Former Cigarettes Q uit: 1996 Smokeless Tobacco: Never Sex and Gender Information Value Date Recorded Sex Assigned at Not on file Gender Identity Not on file Sexual Orientation Not on file documented as of this encounter Miscellaneous Notes * Telephone Encounter - Mireille Jolley RN - 01/12/2024 1:21 PM EDT [facility] message to check-in s/p dose increase to TID RODERICK Bautista * Telephone Encounter - Matt Clemens DO - 01/10/2024 12:34 PM EDT I received a page while on-call regarding 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 She states that she is currently taking 50 mg capsules twice daily with meals. She notes that it is improving her headache. She and I reviewed the notes from her last clinic encounter with the intention to increase to 50 mg 3 times a day. I sent a 30-day supply of 50 mg of indomethacin to be taken 3 times daily with meals to her pharmacy. She was in understanding with the plan. * Telephone Encounter - Tyesha Saleh - 01/08/2024 2:43 PM EDT Patient was advised to call in and report how the medication is working. States the med is working well changed my life and would like to get refills. Call Center / [facility] Message Prescription Refill Request Clinical Rogers message Provider patient sees in Clinic: Lila Caller and relationship (if other than patient-full name): self Call back Number: [phone] Ok to leave a message: yes Any issues needing to be addressed prior to medication refill? (ex: dose increase, not at pharmacy): no Name of Med: indomethacin (Indocin) 25 mg capsule Strength of Pills: 25MG Dosing Directions: One tablet three times per day with meals for 3 days then 2 tablets three times per day for 3 days. How Patient is Currently Taking Medication: One tablet three times per day with meals for 3 days then 2 tablets three times per day for 3 days. 30 or 90 Day Supply: 30 Pharmacy: [id number] - [facility] [place] - [address] [facility] [address] [facility] [address], [facility] [id number] Last Appointment: 12/11/23 Next Appointment: (IF CALL IS FROM PATIENT/FAMILY AND THERE IS NO FOLLOW UP SCHEDULED REVIEW CHART TO SEE WHEN APPOINTMENT IS NEEDED AND SCHEDULE BEFORE SENDING MESSAGE) 03/16/24 Is Patient out of Medication?: no documented in this encounter Plan of Treatment Upcoming Encounters Date Type Department Care Team (Late st Contact Info) Description 04/20/2024 3:30 PM EST Office Visit Neurology at [facility] [address] [place] [address] Lazara Amaya MD [facility] [place] [address] 04/29/2024 4:40 PM EST Office [place] [phone] Mecca Frazier MD [facility] [place] [address] documented as of this encounter Visit Diagnoses Diagnosis Headache, cervicogenic Headache Hemicrania continua documented in this encounter Care Teams Merchandise Clerk Relationship Specialty Start Date End Date Melinda Espinoza MD [address] [place] [address] PCP - General Family Medicine 12/24/22 documented as of this encounter
--- OUTSIDE RECORDS SUMMARY | 2024-04-20 14:22 | XMS_ITS | Encounter Summary ---
Author Organization Replaced By [facility] Address [facility] [place] [address] Care Team Providers Care Bonsai Culturist Name Role Phone None Primary Care Provider Unavailabl e Encounter Details Date Type Department Care Team (Latest Contact Info) Description 12/11/2022 Travel Social History Tobacco Use Types Packs/Day [...] 3:30 PM EST Office Visit Neurology at [address] [address] Lazara Amaya MD [facility] [place] [address] 04/29/2024 4:40 PM EST Office [place] [address] Mecca Frazier MD [facility] [place] [address] documented as of this encounter Visit Diagnoses Not on filedocumented in this encounter Care Teams Bonsai Culturist Relationship Specialty Start Date End Date None None PCP - General 09/02/22 12/23/22 documented as of this encounter
--- OUTSIDE RECORDS SUMMARY | 2024-04-20 14:22 | XMS_ITS | Encounter Summary ---
Author Organization [facility] Address [facility] [place] [address] Care Team Providers Care Nuclear Medical Technologist Name Role Phone Melinda Espinoza MD Primary Care Provider [phone] Reason for Referral * Chiropractic (Routine) - Closed Specialty Diagnoses / Procedures Referred By Contac t Referred To Contact Chiropractic Medicine Diagnoses Headache, cervicogenic Iban Samayoa MD [facility] [place] [address] Unknown None Referral ID Status Reason Start Date Expiration Date V isits Requested Visits Authorized [id number] Closed Consult, Test & Treat Non [facility] 01/15/2023 07/14/2023 1 1 Reason for Visit * Consultation (Routine) - Closed Specialty Diagnoses / Procedures Referred By Contac t Referred To Contact Neurology Diagnoses Facial pain Chronic nonintractable headache, unspecified headache type Mecca Frazier MD [facility] [place] [address] [facility] Neurology [address] [place] [address] Referral ID Status Reason Start Date Expiration Date V isits Requested Visits Authorized [id number] Closed Consult, Test & Treat 07/31/2022 07/31/2023 1 1 Encounter Details Date Type Department Care Team (Late st Contact Info) Description 01/15/2023 4:00 PM EDT Office Visit Neurology at [facility] [place] [address] Iban Samayoa MD [facility] [address] [place] [address] Headache, cervicogenic Social History Tobacco Use Types Packs/Day Years Used Date Smoking Tobacco: Former Cigarettes Q uit: 1996 Smokeless Tobacco: Never Sex and Gender Information Value Date Recorded Sex Assigned at Not on file Gender Identity Not on file Sexual Orientation Not on file documented as of this encounter Progress Notes * Iban Samayoa MD - 01/15/2023 4:00 PM EDT Images from the original note were not included[place] [address] 01/15/2023 Patient name: Juliana Cooley Date of : 1975 Referring provider: Mecca Frazier MD [facility] [place] [address] HISTORY REASON FOR REFERRAL/CHIEF COMPLAINT: Facial pain/ headache HISTORY OF PRESENTING COMPLAINTS: She says that for few years, she has problems with sensation around her ear on R side with pain that shoots up the side of head. She can have nausea and vomiting with that. It can last 1-2 days. She has tried sumatriptan. She feels its related to tonsil stone. It has flared recently. She felt her tonsils were red and swollen. Tonsil stones were seen on CT. There was concern for [place]'s syndrome. She has history of head trauma. No concussive symptoms. When she was 8 years old, she had a head injury where she was knocked out. She was off for a few days after that. She played hockey in her 20s but never had a major injury. Recently the symptoms have affected quality of life. 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 She had two such days during past 5 weeks. She has seen Neurology in the past for Prolactinoma in [facility] in 2020 Fall and had some workup. She has seen endocrinology and is on Cabergoline. She has history of ear infections in the past. A tympanogram in the past showed mild eustachian insufficiency. Sometimes the pain comes through the sinus and comes up to the head. If she catches it early she takes an advil or so and it may help. She has popping sensation in her head. She has neck issues at times. She can't find a real trigger. PMHx: Past Medical History: Diagnosis Date Prolactinoma No past surgical history on file. Family History: No family history on file. No family history of neurologic problems. Social History: reports that she quit smoking about 26 years ago. Her smoking use included cigarettes. She has never used smokeless tobacco. No data to display Occasional alcohol. Lives with Review of systems: [x] Review of systems otherwise negative Medications: Current Outpatient Medications on File Prior to Visit Medication Sig Dispense Refill cabergoline (Dostinex) 0.5 mg tablet Take 0.5 tablets by mouth twice a week. 12 tablet 3 cholecalciferol, Vitamin D3, 50 mcg (2,000 unit) Capsule Take by mouth. OMEGA3,5,6,7,9 NO.1-SALMON OIL ORAL Take by mouth daily. No current facility-administered medications on file prior to visit. Allergies: Allergies Allergen Reactions Banana Raw; GI upset EXAMINATION Vitals: There were no vitals taken for this visit. General Examination: Appearance: alert, no distress Cardiovascular: Rate regular, S1S2 normal, no murmur Respiratory: Symmetric expansion, lungs clear to auscultation Extremity: no edema Skin: No rashes noted Neurological Examination Higher functions: Speech: fluent, no aphasia/dysarthria or dysphonia Alert and oriented. Cranial Nerves II-XII: Pupils bilaterally equal and symmetric conjugate gaze, reacting to light. No ptosis/nystagmus. Vision normal. No field deficits. EOMI. No facial droop. Fundus: normal vessels and disc margin. Reflexes +2 Bilaterally biceps, BR , knees. Motor and Coordination Normal tone, bulk strength and coordination of right and left sided muscles Sensory Normal sensations bilaterally. Skull and Spine/ Gait Neck paraspinal spasm Normal gait Tandem: Imbalance. LABS AND IMAGING Labs GENERAL THYROID: Lab Results Component Value Date TSH 3.07 12/24/2022 [id number] 108 12/24/2022 FREET4 1.14 12/24/2022 TT4 7.9 12/24/2022 FolateNo results found for: SFOLATE ESRNo results found for: SEDRATE CRPNo results found for: CRP B12No results found for: [id number] CKNo results found for: CK Angiotensin ConvertaseNo results found for: ADRI INFECTIONS HIVNo results found for: HIV12 HEPATITIS PANELNo results found for: HAV, HEPBSAB, HBEAG, HEPBSAG, HEPCAB AUTOIMMUNE PANEL ANANo results found for: BABAR DSDNANo results found for: DNAABDS Jose M results found for: RAULITO C3,C4, COMPLEMENTSNo results found for: C3, C4 CARDIOLIPIN, LUPUSNo components found for: CARDIOLIPINANTIBODY, LUPUS, ANTICOAGULANT CELIAC: TTG, GLIADIN, ENDOMYSIALNo components found for: TTRANSGLUTAMINASEANTIBODY ANTIGLIADINANTIBODY VASCULITIS: C,P,ANCA, MPONo results found for: PANCA, CANCA, MYELOP, PR3AB NMONo components found for: NEUROMYELITISOPTICAANTIBODY MG: ACHRAB, Anit MuSK, LEMSNo components found for: ACETYLCHOLINERECEPTORABBINDING, LEMSANTIBODY, ANTISKELETALMUSCLEANTIBODY CRYOGLOBULINSNo components found for: CRYOGLOBULINS METABOLIC CERULOPLASMINNo components found for: CERULOPLASMIN BETA 2 MICROGLOBULINNo results found for: B2MG No results found for: TPROTEINPEP, ALBELECT, ALPHA1, ALPHA2, GAMMAGLOB, APB1 CORTISOL Lab Results Component Value Date CORTISOL 6.7 09/02/2022 LDH No results found for: LDH NUTRITIONAL VITAMIN D Lab Results Component Value Date 25OHVITD 31 09/02/2022 PRE ALBUMINNo results found for: PREALBUMIN FERRITINNo results found for: IRON COPPERNo results found for: COPPER PERIPHERAL NEUROPATHY HEMOGLOBIN A1CNo results found for: HA1C LIPID PROFILENo results found for: CHLPL, HDL, CHOLHDL, TRIG, LDLCHOL, LDLDIRECT GUILLERMINA 65No results found for: [id number] ANTI GM1,ANTI SGPG, MAG@RESUFAST (MAGAUTOAB,SGPG,MAGWB,GM1AB)@ HEAVY METAL SCREENNo results found for: LEAD, ARSENIC METHYLMLONIC ACIDNo results found for: METHYLMAL IgA, IGG No results found for: IGA, IGG CSF PANEL No results found for: NUCCELMANCSF, RBCCSFCT, SEGSCSF, LYMPHSCSF, NUMCELLCTCSF, CSFGLUC, CSFPROTEIN, XANTHOCHROM, MCSBFTYPE, MCS, CSFIGGINDEX, LYMEAB, VDRLSCRNCSF, OLIGOCSF, HSVDNA, ARBOWNILECSF, ENTVPCR, VZVPCR PARANEOPLASTIC PANEL No results found for: PARANEOINTRP, ANNA1, ANNA2, ANNA3, AGNA1, PCA1, PCA2, PCATYPETR, AMPHIPHYSIN,PCTY1CZZ, STRIATMSCLAB, CACHABPQTYPE, CACHABNTYPE, ACHRBINDAB, NEUROKCHAB, NMDARECEPTOR, [id number] THROMBOSIS HOMEOCYSTEINENo results found for: HOMOCYSTEINE THROMBOSIS PANELNo results found for: ACAIGM, [id number] FACTOR V LEIDEN No components found for: FACTORVLEIDEN PROTEIN C,SNo components found for: PROTEINC, PROTEINS ANTITHROMBIN IIINo components found for: ANTITHROMBINIII Miscellaneous Send outsNo results found for: MISCSENDOUT, MISCMAYO MRI Brain: Pituitary adenoma. CT neck: DJD C spine changes, asymmetric enlarge R IJV ASSESSMENT, PLAN & RECOMMENDATIONS ASSESSMENT: 47 Y F with history of pituitary adenoma on carbegoline, R ear issues, referred for evaluation of neck and R ear , head pains ongoing for years with recent worsening. On evaluation she has limitation of neck ROM on R side with muscle spasm and tenderness. Imaging of brain showed pituitary adenoma, C spine spondylosis on CT neck. IMPRESSION: Cerivcogenic pain vs Carotidynia PLAN/RECOMMENDATIONS: Her symptoms could be cerivcogenic or related to carotidynia. Neck therapy referral placed. Flexeril HS initiated. Neck massages local applicants etc discussed. Will consider additional workup for carotidynia and medications based on response to above. Will also consider gabapentin in future. Follow up in 2 months. Iban Samayoa MD Department of Neurology [facility] documented in this encounter Plan of Treatment Upcoming Encounters Date Type Department Care Team (Late st Contact Info) Description 04/20/2024 3:30 PM EST Office Visit Neurology at [facility] [address] [place] [address] Lazara Amaya MD [facility] [place] [address] 04/29/2024 4:40 PM EST Office [place] [address] Mecca Frazier MD [facility] [place] [address] Scheduled Referrals Name Type Priority Associated Diagnoses Orde r Schedule Referral to Chiropractic Outpatient Referral Routine Headache, cervicogenic Ordered: 01/15/2023 documented as of this encounter Visit Diagnoses Diagnosis Headache, cervicogenic Headache documented in this encounter Care Teams Nuclear Medical Technologist Relationship Specialty Start Date End Date Melinda Espinoza MD [address] [place] [address] PCP - General Family Medicine 12/24/22 documented as of this encounter
--- OUTSIDE RECORDS SUMMARY | 2024-04-20 14:22 | XMS_ITS | Clinical Summary ---
Author Organization [facility] Address [address] [place] [address] Care Team Providers Care Remote Mortgage Underwriter Name Role Phone Danielle White MD Unavailable Allergies Active Allergy Reactions Criticality Noted Date Comments Banana 03/31/2017 Stomach pains Other Unknown - not noted in history 10/29 [place] Pineapple Nausea Only 05/14/2020 Stomach issues Medications cholecalciferol 1000 UNIT Tab Take 1,000 Units by mouth 3 times daily Active cetirizine 5 MG Tab Take 10 mg by mouth daily as needed for Allergies Active Cod Liver Oil Oil Take by mouth 0 0 Active Unclassified (NON FORMULARY) Vitex Nagel Ac tive SUMAtriptan 25 MG Tab Take 1 Tab (25 mg total) by mouth once as needed for Migraine 10 Tab 3 1 Active Active Problems Problem Noted Date Diagnosed Date Sinus pain 04/23/2020 Overview (04/23/2020): Pain located in the angle of the [...] she was seen by multiple ENT's in [place] Prior question of ETD Assessment & Plan (04/23/2020 4:52 PM EST): Abnormal sinus pain with seemingly response to antihistamines but unclear etiology. I do not think this represents an active infection however frontal sinus disease needs to be ruled out with a CT scan. The CT scan will also be helpful to determine if there are other factors such as failure frontal sinus drainage that could account for her symptoms. Family history of colon cancer 06/01/2018 Overview (06/01/2018): Father from metastatic colon cancer age 67 (diagnosed at age 66) 06/01/18- recommended referral to discuss colonoscopy. She declines at this time. Hyperprolactinemia ([facility] V24) ([facility]) 06/01 Mixed hyperlipidemia 10/29/2017 Assessment & Plan (10/29/2017 10:34 AM EDT): Does not require medication. Briefly discussed therapeutic lifestyle change. Irregular periods Resolved Problems Problem Noted Date Diagnosed Date Resolved Date H/O headache 10/29/2017 06/01/2018 H/O hyperprolactinemia 10/29/201706/01 Assessment & Plan (10/29/2017 10:27 AM EDT): Will recheck prolactin levels today. If they continue to be abnormal then we will pursue imaging. Constipation 10/29/2017 Immunizations Name Administration Dates Next Due Influenza Vaccine 01/29/2020 Family History Medical History Relation Name Comments PTSD Brother Suicide Brother Colon Cancer Father Melanoma Maternal Grandfather Anesthesia Problems Maternal Grandmother Other Maternal Grandmother un expectedly post operatively from neck surgery Alcohol Abuse Mother Relation Name Status Comments Brother Father Maternal Grandfather Maternal Grandmother sudden after anesthesia. pt's MGGM also from anesthesia issues. Mother Alive Paternal Grandfather Paternal Grandmother Sister 1 Alive Sister 2 Alive Sister 3 Alive Social History Tobacco Use Types Packs/Day Years Used Date Smoking Tobacco: Former Cigarettes Smokeless Tobacco: Never Tobacco Cessation:Counseling Given: No Alcohol Use Standard Drinks/Week Comments Yes 3 (1 standard drink = 0.6 oz pur e alcohol) PHQ-2 Answer Date Recorded PHQ9 SCORE - Follow-up recommended for a score o f 5+ 0 05/15/2020 Substance Use Types Use/Week Comments No Comments No Sex and Gender Information Value Date Recorded Sex Assigned at Not on file Legal Sex Female 3:57 PM EDT Gender Identity Not on file Sexual Orientation Not on file 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 Not on file Not on file Last Filed Vital Signs Vital Sign Reading Time Taken Comments Blood Pressure 109/62 10/29/2020 8:44 AM EDT Pulse 90 10/29/2020 8:44 AM EDT Temperature 35.2 ??C (95.4 ??F) 10/29/2020 8 :44 AM EDT Thermometer was cold Respiratory Rate 18 10/29/2020 8:44 AM EDT Oxygen Saturation 98% 10/29/2020 8:4 4 AM EDT Inhaled Oxygen Concentration 98% 10/29/2020 8:44 AM EDT Weight 76.4 kg (168 lb 6.4 oz) 10/29/2020 8:44 AM EDT Height 172.7 cm (5' 7.99) 10/29/2020 8 :44 AM EDT Body Mass Index 25.61 10/29/2020 8:44 AM EDT Plan of Treatment Health Maintenance Due Date Last Done Comments HIV Screening with Documented Verbal Consent 11/15/1990 Colonoscopy 11/15/1993 Colorectal Cancer Screening 11/15/1993 Hepatitis C Screening 11/15/1993 TDAP/TD Vaccine 18+ 11/15/1993 Hepatitis B Vaccines (1 of 3 - 19+ 3-dose series) 11/15/1994 CT Colonography 1995 FIT 1995 Sigmoidoscopy 1995 Stool DNA 1995 Breast Cancer Screening 11/15/2005 Depression Screening 05/15/2021 05/15/2020, 05/15/2020, 06/21/2019, Additional history exists COVID-19 Vaccine ( season) 2024 05/10/2020 Influenza Vaccine (#1) 2024 01/29/2020 Cervical Cancer Screening 05/15/2024 05/15/2019, 05/2013 Lipid Screening 07/10/2025 07/10/2020, 10/23/2017 Pneumococcal: Peds (0-5y) OR At-Risk Patient (6-64y) Aged Out No longer eligib le based on patient's age to complete this topic Procedures Procedure Name Priority Date/Time Associated Diagnosis Comments LIPID PANEL Routine 07/10/2020 3:43 PM EST Mixed hyperlipidemia PAP SMEAR THIN PREP SCREENING Routine 05/15/2019 12:00 AM EST Healthcare maintenance from Last 3 Months or Most Recently Relevant to Health Maintenance Results * (ABNORMAL) LIPID PANEL (07/10/2020 3:43 PM EST) Cholesterol 256(H) 112 - 199 mg/dL [facility] Triglycerides 109 mg/dL [facility] Comment: REFERENCE RANGE: < 150 mg/dl FOR FASTING < 175 mg/dl FOR NON-FASTING (BASED ON LITERATURE) HDL Cholesterol 72 40 - 100 mg/dL [facility] Comment: HDL REFERENCE RANGES Low: ? <40 mg/dL Normal: ?40-60 mg/dL Desirable: >60 mg/dL LDL Cholesterol Calculation 162(H) 0 - 99 mg/dL [facility] Non HDL Cholesterol Calculation 184.0(H) 0.0 - 129.0 mg/dL [facility] Blood 07/10/2020 3:43 PM EST 07/10/2020 3:43 PM EST Manisha Mane RETAIL SALESWORKER CHEMISTRY ORDERABLES nal Result [facility] [address] [place] [address] Sealer Sander: Laurie Kendall MD * Pap Smear Thin Prep, Screening (05/15/2019 12:00 AM EST) Genital 05/15/2019 05/16/2019 Narrative SERVICES PROVIDED BY [facility] - 05/21/2020 2:00 PM EST CASE: [id number] PATIENT: JULIANA KINNEY Cytology Report with HPV Clinical History: Previous Pap Results: None Provided Last Menstrual Period: 04/05/2020 Source of Specimen: Cervical/Endocervical Reason for Pap: Routine Pap Smear HPV: Regardless of Diagnosis ?Client: PLAB SPECIMEN: A. THINPREP PAP SMEAR, SCREENING SPECIMEN ADEQUACY: Satisfactory for evaluation. ? -Transformation zone component present. DESCRIPTIVE DIAGNOSIS Negative for intraepithelial lesion or malignancy. RECOMMENDATIONS: Appropriate management for women with negative cytology results is outlined in the current 2012 ASCCP Consensus guidelines as outlined by Tiff et al. Obstetrics ??Gynecology August 2012; 121: 829-46 or at the ASCCP website (www.asccp.org/Guidelines) Final Diagnoses performed by ??Lillie LUZ([facility]) Wind Turbine Sheet Metal Worker Electronically signed 05/18/2020 9:48:37AM The above diagnosis reflects review of microscopic slides. Technical Histology and Cytology services provided by [facility] [place], [place], , Ishaan Mcdonnell MD, Ream Cutter. This test performed at [facility], [address] [place] [address], [id number] ??NDX, , CLIA ID: [id number], Ishaan Mcdonnell MD, Director HPV RESULTS: HP1: NEGATIVE for HPV types: 16, 18, 31, 33, 35, 39, 45, 51, 52, 56, 58, 59, 66 and 68 DNA. INTERPRETATION: The absence of any detectable high risk HPV predicts a very low (<1-2%) likelihood of harboring an underlying high grade squamous lesion. METHOD: Real-time PCR is used to detect HPV DNA using the Perry Chaka(r) 4800 system. ??This test specifically identifies types HPV 16 and HPV 18, while concurrently detecting 12 other high risk types (31, 33, 35, 39, 45, 51, 52, 56, 58, 59, 66 and 68) as one group. A negative result does not preclude the presence of HPV infection because results depend on adequate specimen collection, absence of inhibitors and sufficient DNA to be detected. The PAP smear is a screening test designed to aid in the detection of premalignant and malignant conditions of the uterine cervix. It is not a diagnostic procedure and should not be used as the sole means of detecting cervical cancer. Both false-positive and false-negative results do occur. The PAP test is neither sensitive nor specific for the screening of endometrial lesions and should not be used as a follow-up in patients with clinical suspicion of endometrial pathology. Manisha Mane RETAIL SALESWORKER PATHOLOGY/CYTOLOGY TRELL GARCIA Final Result SERVICES PROVIDED BY [facility] from Last 3 Months or Most Recently Relevant to Health Maintenance Care Teams Remote Mortgage Underwriter Relationship Specialty Start Date End Date Danielle White MD [address] [place] [address] Physician Neurology 10/29/20
--- OUTSIDE RECORDS SUMMARY | 2024-04-20 14:22 | XMS_ITS | Encounter Summary ---
Author Organization [facility] Address [address] [place] [address] Care Team Providers Care Microbiology Professor Name Role Phone Manisha Mane Primary Care Provider Reason for Visit * Reason Onset Date Comments Other 06/27/2020 Encounter Details Date Type Department Care Team (Late st Contact Info) Description 06/27/2020 Telephone [facility] Primary Care Family Medicine [place] [address] [place] [address] Manisha Mane FNP [address] [place] [address] Other Social History Tobacco Use Types Packs/Day Years Used Date Smoking Tobacco: Former Cigarettes Smokeless Tobacco: Never Alcohol Use Standard Drinks/Week Comments Yes 3 [...] file Not on file Not on file documented as of this encounter Functional Status * Are you deaf or do you have serious difficulty hearing? Answer Date of Assessment Author Status No 10/29/2017 9:49 AM EDT Tari Hudson * Are you blind or do you have serious difficulty seeing, even when wearing glasses? Answer Date of Assessment Author Status No 10/29/2017 9:49 AM EDT Lead, Tari Ac tive * Do you have serious difficulty walking or climbing stairs? (5 years old or older) Answer Date of Assessment Author Status No 10/29/2017 9:49 AM EDT Tari Hudson Ac tive * Do you have difficulty dressing or bathing? (5 years old or older) Answer Date of Assessment Author Status No 10/29/2017 9:49 AM EDT TristanFarhan greenessy Ac tive * Because of a physical, mental, or emotional condition, do you have difficulty doing errands alone such as visiting a doctor's office or shopping? (15 years old or older) Answer Date of Assessment Author Status No 10/29/2017 9:49 AM EDT Tristan Tari Ac tive documented as of this encounter Mental Status * Because of a physical, mental, or emotional condition, do you have serious difficulty concentrating, remembering, or making decisions? (5 years old or older) Answer Entry Date Author Status No 10/29/2017 9:49 AM EDT Lead, Tari Ac tive documented in this encounter Miscellaneous Notes * Telephone Encounter - Margareth Barcenas RN - 07/02/2020 8:56 AM EST Attempted to reach patient regarding request for referral - unable to reach [facility] to call [facility] * Telephone Encounter - Margareth Barcenas RN - 06/29/2020 8:54 AM EST Attempted to reach patient - [facility] to call [facility] * Telephone Encounter - Manisha Mane FNP - 06/27/2020 10:11 AM EST I saw her in May, I have not seen her or spoken with her since she has gotten her second Covid vaccine. I have no idea who referred her to ENT to begin with. She may have made this appointment onher own. I strongly question why she needs to go to neurology at this point? I need to have a specific diagnoses in order to complete the referral * Telephone Encounter - Margareth Barcenas RN - 06/27/2020 9:50 AM EST Patient has ongoing symptoms after the covid shot Those symptoms include:Joint, muscle pain, swollen lymph nodes, fatigue and rash that is going away. Dr. Rowan (3rd ENT she has seen and pt states he thought she should have been to a neurologist) Dr. Rowan was going to do a referral to neurology She called Dr. Rowan's office today about and they are out this week. She would like to be referred to neurology as soon as possible and asked if Manisha Bernstein could do the referral documented in this encounter Plan of Treatment Not on file documented as of this encounter Visit Diagnoses Not on filedocumented in this encounter Care Teams Microbiology Professor Relationship Specialty Start Date End Date Manisha Mane FNP [address] [place] [address] PCP - General Nurse Practitioner 05/15/20 12/15/21 documented as of this encounter
--- OUTSIDE RECORDS SUMMARY | 2024-04-20 14:22 | XMS_ITS | Encounter Summary ---
Author Organization [facility] Address [address] [place] [address] Care Team Providers Care Compression Molding Machine Setter Name Role Phone Manisha Mane Primary Care Provider Reason for Visit * Radiology Services (Routine) - Closed Specialty Diagnoses / Procedures Referred By Contjose t Referred To Contact Radiology Diagnoses Increased prolactin level Procedures MR BRAIN WO CONTRAST MR BRAIN W WO CONTRAST MR BRAIN W CONTRAST Manisha Mane FNP [address] [place] [address] Phone: tel: fax: [facility] Radiology MRI [address] [place] [address] Phone: tel: fax: Referral ID Status Reason Start Date Expiration Date Visits Re quested Visits Authorized [id number] Closed 07/30/2020 07/30/2021 1 1 Encounter Details Date Type Department Care Team (Latest Contact Info) Description 10/10/2020 12:01 PM EDT - 10/10/2020 11:59 PM EDT Hospital Encounter [facility] Radiology MRI [address] [place] [address] Manisha Mane FNP [address] [place] [address] Discharge Disposition: Home or Self Care Social History Tobacco Use Types Packs/Day Years [...] Author Status No 10/29/2017 9:49 AM EDT TristanFarhanTari Ac tive * Are you blind or do you have serious difficulty seeing, even when wearing glasses? Answer Date of Assessment Author Status No 10/29/2017 9:49 AM EDT Farhan Hudsonssy Ac tive * Do you have serious difficulty walking or climbing stairs? (5 years old or older) Answer Date of Assessment Author Status No 10/29/2017 9:49 AM EDT Farhan Hudsonssy Ac tive * Do you have difficulty dressing or bathing? (5 years old or older) Answer Date of Assessment Author Status No 10/29/2017 9:49 AM EDT Tristan Tari Ac tive * Because of a physical, mental, or emotional condition, do you have difficulty doing errands alone such as visiting a doctor's office or shopping? (15 years old or older) Answer Date of Assessment Author Status No 10/29/2017 9:49 AM EDT Farhan Hudsonssy Ac tive documented as of this encounter Mental Status * Because of a physical, mental, or emotional condition, do you have serious difficulty concentrating, remembering, or making decisions? (5 years old or older) Answer Entry Date Author Status No 10/29/2017 9:49 AM EDT Farhan Hudsonssy Ac tive documented in this encounter Medications at Time of Discharge cetirizine 5 MG Tab Take 10 mg by mouth daily as needed for Allergies Cod Liver Oil Oil Take by mouth 0 04/23/2020 cholecalciferol 1000 UNIT Tab Take 1,000 Units by mouth 3 times daily documented as of this encounter Progress Notes * Manisha Mane FNP - 10/10/2020 12:30 PM EDT Could you please let patient know that radiology put in an addendum in her brain MRI report that states that patient does not have infertility or galactorrhea. Thank you * Emery Garcia MA - 10/10/2020 12:30 PM EDT See phone encounter documented in this encounter Plan of Treatment Not on file documented as of this encounter Procedures Procedure Name Priority Date/Time Associated Diagnosis Comments MR BRAIN WO CONTRAST Routine 10/10/2020 12:41 PM EDT Increased prolactin level ([facility]) documented in this encounter Results * MR Brain WO Contrast (10/10/2020 12:41 PM EDT) Anatomical Region Laterality Modality Head Magnetic Resonan ce 10/10/2020 12:3 0 PM EDT Narrative 10/10/2020 12:59 PM EDT ADDENDUM #1 BEGIN ADDENDUM: Addendum created to address error in autopopulated indication section. The patient does not have infertility or galactorrhea. * * ??THIS IS AN ELECTRONICALLY VERIFIED REPORT CREATED USING VOICE RECOGNITION * * 10/26/2020 6:01 PM ??Murray Mckeon MD END ADDENDUM ORIGINAL REPORT EXAM: MR BRAIN WO CONTRAST INDICATION: ??Infertility, galactorrhea. Patient has had an increasing prolactin level ??Patient is new to my practice, has had years of increased prolactin levels. ??Patient has had MRIs of her brain ordered in the past, but has not had these completed. ?? Her last prolactin level was elevated, has a appointment in neurology in October Recommend MRI of the pituitary with gadolinium COMPARISON: None. TECHNIQUE: Noncontrast sagittal T1-weighted, along with axial FLAIR and T2- weighted imaging of the brain. Axial diffusion imaging and axial susceptibility sequences. Coronal T2 imaging. ?? FINDINGS: There is asymmetrical thickening along the right pituitary with suggestion of a nodular density demonstrating slight T1 signal reduction compared to the surrounding gland with displacement of the posterior T1 bright spot. This area of abnormality measures approximately 6 mm craniocaudal by 6 mm AP by 5.5 mm transverse (see series 4 image 11, series 2 image 80). This lesion would be better assessed with the presence of dynamic contrast imaging if patient accepting future date. Roach and white matter demonstrate normal signal intensity pattern. There is suggestion of a dilated perivascular space in the posterior left parietal lobe. There is no evidence of any intracranial mass or mass effect. Ventricles are within normal limits in overall size and configuration and there is no evidence of midline shift. No hemorrhage. No abnormal extra-axial fluid collection is present. Vascular structures as covered demonstrate a normal flow void. Region of the craniocervical junction is normal. Bilateral maxillary retention cysts or polyps are seen. The bilateral orbits are unremarkable. IMPRESSION: Findings concerning for 6 x 6 x 5.5 mm right pituitary adenoma. Dynamic contrast enhanced imaging is offered when clinically appropriate if patient willing to receive contrast in the future. * * ??THIS IS AN ELECTRONICALLY VERIFIED REPORT CREATED USING VOICE RECOGNITION * * 10/10/2020 12:57 PM ??Murray Mckeon MD Procedure Note Murray Mckeon MD - 10/26/2020 ADDENDUM #1 BEGIN ADDENDUM: Addendum created to address error in autopopulated indication section. Thepatient does not have infertility or galactorrhea. * * THIS IS AN ELECTRONICALLY VERIFIED REPORT CREATED USING VOICERECOGNITION * * 10/26/2020 6:01 PM Murray Mckeon MD END ADDENDUM ORIGINAL REPORT EXAM: MR BRAIN WO CONTRAST INDICATION: Infertility, galactorrhea. Patient has had an increasingprolactin level Patient is new to my practice, has had years of increasedprolactin levels. Patient has had MRIs of her brain ordered in the past,but has not had these completed. Her last prolactin level was elevated, [facility] with gadolinium COMPARISON: None. TECHNIQUE: Noncontrast sagittal T1-weighted, along with axial FLAIR andT2- weighted imaging of the brain. Axial diffusion imaging and axialsusceptibility sequences. Coronal T2 imaging. FINDINGS: There is asymmetrical thickening along the right pituitary withsuggestion of a nodular density demonstrating slight T1 signal reductioncompared to the surrounding gland with displacement of the posterior [id number] spot. This area of abnormality measures approximately 6 mm craniocaudal by 6 mm AP by 5.5 mmtransverse (see series 4 image 11, series 2 image 80). This lesion wouldbe better assessed with the presence of dynamic contrast imaging ifpatient accepting future date. Roach and white matter demonstrate normal signal intensity pattern. Thereis suggestion of a dilated perivascular space in the posterior leftparietal lobe. There is no evidence of any intracranial mass or masseffect. Ventricles are within normal limits in overall size and configuration and there is no evidence of midlineshift. No hemorrhage. No abnormal extra-axial fluid collection is present.Vascular structures as covered demonstrate a normal flow void. Region of the craniocervical junction is normal. Bilateral maxillaryretention cysts or polyps are seen. The bilateral orbits areunremarkable. IMPRESSION: Findings concerning for 6 x 6 x 5.5 mm right pituitaryadenoma. Dynamic contrast enhanced imaging is offered when clinicallyappropriate if patient willing to receive contrast in the future. * * THIS IS AN ELECTRONICALLY VERIFIED REPORT CREATED USING VOICERECOGNITION * * 10/10/2020 12:57 PM Murray Mckeon MD Manisha TAYLOR IM MRI ORDERABLES Edit ed documented in this encounter Visit Diagnoses Diagnosis Increased prolactin level Other and unspecified anterior pituitary hyperfunction documented in this encounter Care Teams Compression Molding Machine Setter Relationship Specialty Start Date End Date Manisha Mane FNP [address] [place] [address] PCP - General Nurse Practitioner 05/15/20 12/15/21 documented as of this encounter
--- OUTSIDE RECORDS SUMMARY | 2024-04-20 14:22 | XMS_ITS | Encounter Summary ---
Author Organization [facility] Address [facility] [place] [address] Care Team Providers Care Carbonating Stone Cleaner Name Role Phone None Primary Care Provider Unavailabl e Encounter Details Date Type Department Care Team (Latest Contact Info) Description 09/05/2022 Travel Social History Tobacco Use Types Packs/Day [...] PM EST Office Visit Neurology at [address] [address] Lazara Amaya MD [facility] [place] [address] 04/29/2024 4:40 PM EST Office [place] [address] Mecca Frazier MD [facility] [place] [address] documented as of this encounter Visit Diagnoses Not on filedocumented in this encounter Care Teams Carbonating Stone Cleaner Relationship Specialty Start Date End Date None None PCP - General 09/02/22 12/23/22 documented as of this encounter
--- OUTSIDE RECORDS SUMMARY | 2024-04-20 14:22 | XMS_ITS | Encounter Summary ---
Author Organization [facility] Address [address] [place] [address] Care Team Providers Care Cell Attendant Helper Name Role Phone Manisha Mane TYPEWRITER ALIGNER Primary Care Provider Encounter Details Date Type Department Care Team (Late st Contact Info) Description 10/10/2020 Patient Outreach [facility] Care Management Virtual [address] [place] [phone] Betzy Gómez Social History Tobacco Use Types Packs/Day Years [...] Assessment Author Status No 10/29/2017 9:49 AM ALET Tari Hudson * Do you have serious difficulty walking or climbing stairs? (5 years old or older) Answer Date of Assessment Author Status No 10/29/2017 9:49 AM EDT Tari Hudson Ac tive * Do you have difficulty dressing or bathing? (5 years old or older) Answer Date of Assessment Author Status No 10/29/2017 9:49 AM EDT Tari Hudson Ac tive * Because of a physical, mental, or emotional condition, do you have difficulty doing errands alone such as visiting a doctor's office or shopping? (15 years old or older) Answer Date of Assessment Author Status No 10/29/2017 9:49 AM EDT Tari Hudson Ac tive documented as of this encounter Mental Status * Because of a physical, mental, or emotional condition, do you have serious difficulty concentrating, remembering, or making decisions? (5 years old or older) Answer Entry Date Author Status No 10/29/2017 9:49 AM EDT Tari Hudson Ac tive documented in this encounter Progress Notes * Betzy Gómez - 10/10/2020 12:33 PM EDT [facility] Per Access GABE note patient will call financial services independently, does not want assistance thru us, doesn ot think they will qualify. Has our phone number if needed documented in this encounter Plan of Treatment Not on file documented as of this encounter Visit Diagnoses Not on filedocumented in this encounter Care Teams Cell Attendant Helper Relationship Specialty Start Date End Date Manisha Mane, TYPEWRITER ALIGNER [address] [place] [address] PCP - General Nurse Practitioner 05/15/20 12/15/21 documented as of this encounter
--- OUTSIDE RECORDS SUMMARY | 2024-04-20 14:22 | XMS_ITS | Encounter Summary ---
Author Organization [place] [address] Care Team Providers Care Block Captain Name Role Phone Unavailable Primary Care Provider Unavailabl e Reason for Referral * Consultation (Routine) - Closed Specialty Diagnoses / Procedures Referred By Olamide aldana Referred To Contact Otolaryngology Diagnoses Frontal sinus pain Melinda Frias APRN [address] [place] [address] [facility] [address] [place] [phone] Referral ID Status Reason Start Date Expiration Date V isits Requested Visits Authorized [id number] Closed Consult, Test & Treat PCP Updated and/or Approved 06/07/2022 06/07/2023 1 1 Encounter Details Date Type Department Care Team (Late st Contact Info) Description 06/07/2022 Transcribe [place] [phone] Harriet Jameson Frontal sinus pain Social History Tobacco Use Types Packs/Day Years Used Date Smoking Tobacco: Never Assessed Sex and Gender Information Value Date Recorded Sex Assigned at Not on file Gender Identity Not on file Sexual Orientation Not on file documented as of this encounter Plan of Treatment Upcoming Encounters Date Type Department Care Team (Late st Contact Info) Description 04/20/2024 3:30 PM EST Office Visit Neurology at [facility] [address] [place] [phone] Lazara Amaya MD [facility] [place] [address] 04/29/2024 4:40 PM EST Office [place] [address] Mecca Frazier MD [facility] [place] [address] Scheduled Referrals Name Type Priority Associated Diagnoses Orde r Schedule Referral to ENT Outpatient Referral Routine Frontal sinus pain Ordered: 06/07/2022 documented as of this encounter Visit Diagnoses Diagnosis Frontal sinus pain Other diseases of nasal cavity and sinuses documented in this encounter
--- OUTSIDE RECORDS SUMMARY | 2024-04-20 14:22 | XMS_ITS | Encounter Summary ---
Author Organization [facility] Address [facility] [address] Care Team Providers Care Foundry Worker General Name Role Phone None Primary Care Provider Unavailabl e Encounter Details Date Type Department Care Team (Latest Contact Info) Description 12/23/2022 Travel Social History Tobacco Use Types Packs/Day [...] PM EST Office Visit Neurology at [address] [address] Lazara Amaya MD [facility] [place] [address] 04/29/2024 4:40 PM EST Office [place] [address] Mecca Frazier MD [facility] [place] [address] documented as of this encounter Visit Diagnoses Not on filedocumented in this encounter Care Teams Foundry Worker General Relationship Specialty Start Date End Date None None PCP - General 09/02/22 12/23/22 documented as of this encounter
--- OUTSIDE RECORDS SUMMARY | 2024-04-20 14:22 | XMS_ITS | Encounter Summary ---
Author Organization [facility] Address [facility] [place] [address] Care Team Providers Care Twist Tester Name Role Phone Melinda Espinoza MD Primary Care Provider [phone] Reason for Visit * Reason Onset Date Comments Appointment 01/16/2023 Encounter Details Date Type Department Care Team (Late st Contact Info) Description 01/16/2023 Telephone Neurology at [facility] [place] [phone] Iban Samayoa [place] [address] Appointment Social History Tobacco Use Types Packs/Day Years Used Date Smoking Tobacco: Former Cigarettes Q uit: 1996 Smokeless Tobacco: Never Sex and Gender Information Value Date Recorded Sex Assigned at Not on file Gender Identity Not on file Sexual Orientation Not on file documented as of this encounter Miscellaneous Notes * Telephone Encounter - Anna Cheatham - 01/16/2023 3:11 PM EDT Patient has been scheduled for 03/23/23 * Telephone Encounter - Susanna Chapa - 01/16/2023 9:20 AM EDT Scheduling Instructions Provider: Dr Samayoa Visit Type (paste EDWAR Instructions or manually enter): Return in about 2 months (around 03/17/2023) for Telehealth If EMG Visit needed list diagnosis for the EMG to be used in Decision Tree: Appt Note: Headache Additional Info Needed: documented in this encounter Plan of Treatment Upcoming Encounters Date Type Department Care Team (Late st Contact Info) Description 04/20/2024 3:30 PM EST Office Visit Neurology at [address] [address] Lazara Amaya MD [facility] [place] [address] 04/29/2024 4:40 PM EST Office [place] [address] Mecca Frazier MD [facility] [place] [address] documented as of this encounter Visit Diagnoses Not on filedocumented in this encounter Care Teams Twist Tester Relationship Specialty Start Date End Date Melinda Espinoza MD [address] [place] [address] PCP - General Family Medicine 12/24/22 documented as of this encounter
--- OUTSIDE RECORDS SUMMARY | 2024-04-20 14:22 | XMS_ITS | Encounter Summary ---
Author Organization [facility] [place] [address] Care Team Providers Care Fisher Hand Line Name Role Phone Melinda Espinoza MD Primary Care Provider [phone] Reason for Referral * Consultation (Routine) - Closed Specialty Diagnoses / Procedures Referred By Olamide t Referred To Contact Neurology Diagnoses Facial pain Chronic nonintractable headache, unspecified headache type Mecca Frazier MD [facility] [place] [address] [facility] Neurology [address] [place] [phone] Referral ID Status Reason Start Date Expiration Date V isits Requested Visits Authorized [id number] Closed Consult, Test & Treat 07/31/2022 07/31/2023 1 1 * Diagnostic Test (Routine) - Closed Specialty Diagnoses / Procedures Referred By Contac t Referred To Contact Radiology Diagnoses Facial pain Throat fullness Procedures CT Neck Soft Tissue w Contrast (Generic) Mecca Frazier MD [facility] [place] [address] [facility] [place] [address] Referral ID Status Reason Start Date Expiration Date V isits Requested Visits Authorized [id number] Closed Specialty Service Requested 07/31/2022 02/01/2024 1 1 Reason for Visit * Reason Comments Sinus Problem Head pain sinus pain * Consultation (Routine) - Closed Specialty Diagnoses / Procedures Referred By Olamide aldana Referred To Contact Otolaryngology Diagnoses Frontal sinus pain Melinda Frias APRN [address] [place] [address] [facility] Otolaryngology [address] [place] [phone] Referral ID Status Reason Start Date Expiration Date V isits Requested Visits Authorized [id number] Closed Consult, Test & Treat PCP Updated and/or Approved 06/07/2022 06/07/2023 1 1 Encounter Details Date Type Department Care Team (Latest Contact Info) Description 07/29/2022 1:40 PM EDT Office [place] [phone] Mecca Frazier MD [facility] [place] [address] Facial pain; Throat fullness; Chronic nonintractable headache, unspecified headache type Social History Tobacco Use Types Packs/Day Years [...] Sign Reading Time Taken Comments Blood Pressure - - Pulse - - Temperature - - Respiratory Rate - - Oxygen Saturation - - Inhaled Oxygen Concentration - - Weight 74.8 kg (165 lb) 07/29/2022 2:05 PM EDT Height 172.7 cm (5' 8) 07/29/2022 2:05 PM EDT Body Mass Index 25.09 07/29/2022 2:05 PM EDT documented in this encounter Progress Notes * Mecca Frazier MD - 07/29/2022 1:40 PM EDT [facility] Otolaryngology - Head and Neck Surgery Mecca Frazier MD 07/29/22 2:25 PM [place] [id number] Office Patient Name: Juliana Cooley Date of : 1975 PCP: No primary care provider on file. Chief Complaint/ History of Present Illness: Juliana Cooley is a 46 y.o. year old who was seen today at the request of Melinda Frias in consultation for facial pain, headaches, nausea. History was obtained from the patient as well as information from chart review. For years patient has had right sided facial pain and headaches. She notes at baseline she feels a sense of congestion and pressure, this also extends towards the throat as well at times. She will have episodes where she describes a sharp, stabbing pain over the right side of the face and neck as well as over the ear, this pain and pressure also extend up over the head as well. She also notes nausea and sometimes vomiting during these acute episodes. These typically last about a day and then improve. She has a history of a prolactinoma and has been seen by Neurology regarding this, per the patient she also mentioned the headaches and she was placed on a trial of sumatriptan without improvement. She has seen several otolaryngologists in the past, per the patient she hasundergone CT of the sinuses twice before and was told there were no abnormal findings. No bleeding from the nose. NO fevers or chills. No vision changes. No TMJ pain or tooth grinding. Patient becametearful during the visit discussing her symptoms. 10 point Review of Systems was normal except for pertinent positives and negatives included in the History of Present Illness. Past Medical and Surgical History There is no problem list on file for this patient. Current Outpatient Medications on File Prior to Visit Medication Sig Dispense Refill ??? cholecalciferol, Vitamin D3, 50 mcg (2,000 unit) Capsule Take by mouth. ??? OMEGA3,5,6,7,9 NO.1-SALMON OIL ORAL Take by mouth. No current facility-administered medications on file prior to visit. Allergies: Banana Surgical History: No past surgical history on file. Family and Social History Family History: No family history on file. Social History: Lives in [place] [address] Social History Socioeconomic History ??? Marital status: Not on file Spouse name: Not on file ??? Number of children: Not on file ??? Years of education: Not on file ??? Highest education level: Not on file Occupational History ??? Not on file Tobacco Use ??? Smoking status: Former Types: Cigarettes Quit date: 1996 Years since quittin.2 ??? Smokeless tobacco: Never Vaping Use ??? Vaping Use: Never used Substance and Sexual Activity ??? Alcohol use: Not on file ??? Drug use: Not on file ??? Sexual activity: Not on file Other Topics Concern ??? Not on file Social History Narrative ??? Not on file Social Determinants of Health Financial Resource Strain: Not on file Food Insecurity: Not on file Transportation Needs: Not on file Physical Activity: Not on file Housing Stability: Not on file Physical Exam Temperature: Heart Rate: Blood Pressure: Respiratory Rate: SpO2: General: Awake, alert, and oriented to person, place and time. No acute distress. Head and Face: Head is normocephalic, atraumatic. Facial resting tone symmetric. Eyes: Conjugate gaze, ocular motility intact bilaterally. PERRL. Neurologic: Cranial Nerves II-XII grossly intact and symmetric. Ears: External ear and ear canal are without deformity. Hearing is grossly normal. Nose: External nose is midline without deformity or lesion. Anterior rhinoscopy reveals a septal deviation to the left, healthy mucosa, turbinates normal in size. Oral: There are no visible or palpable buccal, gingival, lingual, or palatal lesions. The floor of mouth is soft and flat. Oropharynx: Symmetric without tonsillar pathology. No other concerning lesions or masses Larynx: No stridor, no hoarseness. External laryngeal structures normal to palpation. Face and sinuses are non tender. Salivary glands are soft, non tender, without palpable masses. No temporomandibular joint grinding or locking. Neck: Symmetric. No scars, palpable masses, or crepitus. Midline trachea. Thyroid normal in size, non tender, no palpable mass. Lymphatic: no palpable cervical lymphadenopathy. Pulmonary: Breathing comfortably. Symmetric chest expansion without use of accessory muscles or retraction. Skin: Good skin turgor, no pallor, no icterus. Extremities: No gross deformities, no peripheral edema. Labs and Imaging Significant lab values are as follows: I reviewed the following imaging studies: Procedures Flexible laryngoscopy was performed. The nose was sprayed with topical lidocaine and decongestant. Septum was deviated to the LEFT, middle meatus is without mucosal edema or drainage, no polyps or masses. Nasopharynx was normal without lesions or masses. Base of tongue wnl, pharyngeal clark wnl. Epiglottis and false cords were wnl. Piriform sinuses clear. True vocal cords were fully mobile without concerning lesions or masses noted. ASSESSMENT & RECOMMENDATIONS Juliana Cooley is a 46 y.o. with chronic right facial pain and headache. Recommendations: 1. Findings were reviewed with the patient. CT of the neck was ordered to rule out sinus disease aswell as any deep lobe parotid or pharyngeal lesions that could explain her symptoms of chronic pressure. We also offered a referral to Neurology/headache clinic as it sounds like she has not been seen for this issue specifically in the past, and it's possible she could have a variant of migraine orcluster headache. I will notify her with results of the CT when they are available, neurology referral has also been placed. Mecca Frazier MD Otolaryngology - Head and Neck Surgery 07/29/22 2:25 PM documented in this encounter Plan of Treatment Upcoming Encounters Date Type Department Care Team (Late st Contact Info) Description 04/20/2024 3:30 PM EST Office Visit Neurology at [facility] [address] [place] [address] Lazara Amaya MD [facility] [place] [address] 04/29/2024 4:40 PM EST Office [place] [address] Mecca Frazier MD [facility] [place] [address] Scheduled Referrals Name Type Priority Associated Diagnoses Orde r Schedule Referral to Neurology Outpatient Referral Routine Facial pain Chronic nonintractable headache, unspecified headache type Ordered: 07/31/2022 documented as of this encounter Results * CT Neck Soft Tissue w Contrast (Generic) (09/05/2022 9:58 AM EDT) Anatomical Region Laterality Modality Neck, Head Computed Tomogra phy Impressions 09/05/2022 11:57 AM EDT No soft tissue mass or evidence of infection in the neck. Possible microadenoma in the right pituitary gland. I have personally reviewed the image(s) and the resident's interpretation and agree with the findings, Carlita Ding at 09/05/2022 11:57 AM Thank you for letting us participate in the care of this patient. ??If you are a health care provider and have any questions regarding this report, please contact the number below. ??For patients who have questions please contact the health child care centre director that requested your imaging first. ? Electronically signed by: Carlita Ding [facility] ([phone]), at 09/05/2022 11:57 AM Narrative 09/05/2022 11:57 AM EDT EXAMINATION: CT NECK SOFT TISSUE W CONTRAST (GENERIC) CLINICAL HISTORY: throat pain, pressure TECHNIQUE: CT neck performed after the intravenous administration of contrast. COMPARISON: None FINDINGS: PHARYNGEAL MUCOSA: Normal nasopharynx, oropharynx and hypopharynx. ORAL CAVITY: Normal including tongue and floor of mouth. Multiple calcifications in the region of the palatine tonsils likely reflecting tonsilloliths. Unremarkable appearance of the lingual tonsils. LARYNX: Normal supraglottic, glottic and subglottic larynx. Parapharyngeal fat is normal. LYMPH NODES: No suspicious lymph nodes. SALIVARY GLANDS: Normal parotid, submandibular and sublingual glands. THYROID: Normal. VESSELS AND CAROTID SPACE: Normal. Asymmetrically prominent right external jugular vein. BONES: Mild changes of cervical spondylosis at C4-5, C5-6 and C6-7 without significant canal stenosis. C4-5 and C5-6 neural foraminal stenosis and mild to moderate left C7 neural foraminal narrowing. Uncovertebral arthropathy contributes to neural foraminal stenosis Left maxillary sinus mucous retention cyst. The remaining paranasal sinuses and mastoid air cells are clear. OTHER: Visualized lung apices are clear. Asymmetric fullness of the right pituitary gland, possibly reflecting underlying microadenoma. Visualized intracranial contents are otherwise unremarkable. Normal appearance of the skull base. Procedure Note Carlita Ding MD - 09/05/2022 EXAMINATION: CT NECK SOFT TISSUE W CONTRAST (GENERIC) CLINICAL HISTORY: throat pain, pressure TECHNIQUE: CT neck performed after the intravenous administration of contrast. COMPARISON: None FINDINGS: PHARYNGEAL MUCOSA: Normal nasopharynx, oropharynx and hypopharynx. ORAL CAVITY: Normal including tongue and floor of mouth. Multiplecalcifications in the region of the palatine tonsils likely reflecting tonsilloliths. Unremarkable appearance of the lingual tonsils. LARYNX: Normal supraglottic, glottic and subglottic larynx. Parapharyngealfat is normal. LYMPH NODES: No suspicious lymph nodes. SALIVARY GLANDS: Normal parotid, submandibular and sublingual glands. THYROID: Normal. VESSELS AND CAROTID SPACE: Normal. Asymmetrically prominent rightexternal jugular vein. BONES: Mild changes of cervical spondylosis at C4-5, C5-6 and C6-7without significant canal stenosis. C4-5 and C5-6 neural foraminal stenosis andmild to moderate left C7 neural foraminal narrowing. Uncovertebral arthropathy contributes to neural foraminal stenosis Left maxillary sinus mucousretention cyst. The remaining paranasal sinuses and mastoid air cells are clear. OTHER: Visualized lung apices are clear. Asymmetric fullness of theright pituitary gland, possibly reflecting underlying microadenoma. Visualized intracranial contents are otherwise unremarkable. Normal appearance of theskull base. IMPRESSION No soft tissue mass or evidence of infection in the neck. Possible microadenoma in the right pituitary gland. I have personally reviewed the image(s) and the resident's interpretationand agree with the findings, Carlita Ding at 09/05/2022 11:57 AM Thank you for letting us participate in the care of this patient. If youare a health care provider and have any questions regarding this report,please contact the number below. For patients who have questions please contactthe health child care centre director that requested your imaging first. Electronically signed by: Carlita Ding [facility]([phone]), at 09/05/2022 11:57 AM Mecca Frazier MD IMG CT ORDERABLES documented in this encounter Visit Diagnoses Diagnosis Facial pain Headache Throat fullness Other symptoms involving head and neck Chronic nonintractable headache, unspecified headache type Facial pain Headache Throat fullness Other symptoms involving head and neck documented in this encounter Care Teams Fisher Hand Line Relationship Specialty Start Date End Date Melinda Espinoza MD [address] [place] [address] PCP - General Family Medicine 12/24/22 documented as of this encounter
--- OUTSIDE RECORDS SUMMARY | 2024-04-20 14:22 | XMS_ITS | Encounter Summary ---
Author Organization [facility] Address [address] [place] [address] Care Team Providers Care Pilot Steam Yacht Name Role Phone Manisha ManeP Primary Care Provider Reason for Visit * Reason Onset Date Comments Discuss Patient Care 10/10/2020 Encounter Details Date Type Department Care Team (Late st Contact Info) Description 10/10/2020 Telephone [facility] Primary Care Family Medicine [place] [address] [place] [address] Manisha Mane FNP [address] [place] [address] Discuss Patient Care Social History Tobacco Use Types Packs/Day [...] [place] Ac tive * Do you have serious [...] 10/29/2017 9:49 AM EDT Tari Hudson Ac tikecia documented in this encounter Miscellaneous Notes * Telephone Encounter - Manisha Mane FNP - 10/10/2020 1:07 PM EDT I did receive the imaging results of patient's MRI of her brain. It does appear that she has a right pituitary adenoma. I did call and discuss this with her today. She does have an appointment to follow-up in neurology in a few weeks. documented in this encounter Plan of Treatment Not on file documented as of this encounter Visit Diagnoses Not on filedocumented in this encounter Care Teams Pilot Steam Yacht Relationship Specialty Start Date End Date Manisha Mane FNP [address] [place] [phone] PCP - General Nurse Practitioner 05/15/20 12/15/21 documented as of this encounter
--- OUTSIDE RECORDS SUMMARY | 2024-04-20 14:22 | XMS_ITS | Encounter Summary ---
Author Organization [facility] Address [address] [place] [address] Care Team Providers Care Research Center Director Name Role Phone Manisha Mane Primary Care Provider Danielle White MD Unavailable [phone] Reason for Referral * Consult, Test & Treat (Next available appt) - Closed Specialty Diagnoses / Procedures Referred By Contjose t Referred To Contact Endocrinology / Internal Medicine Diagnoses Pituitary adenoma ([facility]) Manisha Mane FNP [address] [place] [phone] Phone: tel: fax: Ishaan Matthew MD [address] [place] [address] Phone: tel: fax: Referral ID Status Reason Start Date Expiration Date Visits Re quested Visits Authorized [id number] Closed 10/31/2020 10/31/2021 6 6 Reason for Visit * Reason Onset Date Comments Referral 10/30/2020 Encounter Details Date Type Department Care Team (Late st Contact Info) Description 10/30/2020 Telephone [facility] Primary Care Family Medicine [place] [address] [place] [address] Manisha Mane FNP [address] [place] [address] Referral Social History Tobacco Use Types Packs/Day Years [...] AM EDT Tristan Tari Ac tive * Are you blind or do you have serious difficulty seeing, even when wearing glasses? Answer Date of Assessment Author Status No 10/29/2017 9:49 AM EDT Tristan Tari Ac tive * Do you have serious difficulty walking or climbing stairs? (5 years old or older) Answer Date of Assessment Author Status No 10/29/2017 9:49 AM EDT [place] Tari Ac tive * Do you have difficulty [...] Author Status No 10/29/2017 9:49 AM EDT [place], Tari Ac tive documented as of this encounter Mental Status * Because of a physical, mental, or emotional condition, do you have serious difficulty concentrating, remembering, or making decisions? (5 years old or older) Answer Entry Date Author Status No 10/29/2017 9:49 AM EDT [place] Tari Ac tive documented in this encounter Miscellaneous Notes * Telephone Encounter - Manisha Mane FNP - 10/31/2020 9:10 AM EDT I did place a referral today to endocrinology. * Telephone Encounter - Danielle White MD - 10/31/2020 7:47 AM EDT Olegario Dyer,This is in the latter part of my note, pretty far down:We agreed on several courses of action. First, I do think she should see an emergency medcl emt. This will allow for further testing of hormones that her presumed adenoma is producing. I think she probably can be premedicated for a study with contrast. If she cannot be premedicated for MRI contrast, a CT scan, with contrast, may provide the required information.The reason for referral is pituitary adenoma. This is clearly producing hormones, given her hyperprolactinemia. My question was whether it is producing other hormones, which could be influencing her headaches. I think, given that she has a mass, which is endocrinologically ac tive, it is reasonable for her to see an emergency medcl emt.Thanks, Danielle White * Telephone Encounter - Manisha Mane FNP - 10/30/2020 9:48 AM EDT Good morning, I just reviewed your note and I did not see anything about a referral to endocrinology. I will be happy to place the referral for her if you feel that she needs to go. I just need a diagnosis as well. Thank you * Telephone Encounter - Emery Garcia MA - 10/30/2020 9:40 AM EDT Spoke with patient she would like a referral to endocrinology, She saw neurology yesterday and thisis what they told her documented in this encounter Plan of Treatment Scheduled Referrals Name Type Priority Associated Diagnoses Order Schedule AMB REFERRAL TO [facility] Outpatient Referral Routine Pituitary adenoma ([facility]) Ordered: 10/31/2020 documented as of this encounter Visit Diagnoses Diagnosis Pituitary adenoma ([facility])- Primary Benign neoplasm of pituitary gland and craniopharyngeal duct (pouch) documented in this encounter Care Teams Research Center Director Relationship Specialty Start Date End Date Manisha Mane, [employer]STRUCTION [employer] TE[employer]ER [address] [place] [address] PCP - General Nurse Practitioner 05/15/20 12/15/21 Danielle White MD [address] [place] [address] Physician Neurology 10/29/20 documented as of this encounter
--- OUTSIDE RECORDS SUMMARY | 2024-04-20 14:22 | XMS_ITS | Encounter Summary ---
Author Organization [facility] Address [facility] [place] [address] Care Team Providers Care Data Analytics Architect Name Role Phone None Primary Care Provider Unavailabl e Encounter Details Date Type Department Care Team (Late st Contact Info) Description 09/04/2022 Orders [place] [phone] Xiao Worthington MD [facility] [place] [address] Social History Tobacco Use Types Packs/Day Years [...] 3:30 PM EST Office Visit Neurology at [address] [phone] Lazara Amaya MD [facility] [place] [address] 04/29/2024 4:40 PM EST Office [place] [phone] Mecca Frazier MD [facility] [place] [address] documented as of this encounter Visit Diagnoses Not on filedocumented in this encounter Care Teams Data Analytics Architect Relationship Specialty Start Date End Date None None PCP - General 09/02/22 12/23/22 documented as of this encounter
--- OUTSIDE RECORDS SUMMARY | 2024-04-20 14:22 | XMS_ITS | Encounter Summary ---
Author Organization [facility] Address [facility] [place] [address] Care Team Providers Care Track Supervisor Name Role Phone Melinda Espinoza MD Primary Care Provider Reason for Visit * Reason Onset Date Comments Bumped Appointment 04/07/2023 Encounter Details Date Type Department Care Team (Late st Contact Info) Description 04/07/2023 Telephone [place] [address] Iban Samayoa MD [facility] [address] [place] [address] Bumped Appointment Social History Tobacco Use Types Packs/Day Years Used Date Smoking Tobacco: Former Cigarettes Q uit: 1996 Smokeless Tobacco: Never Sex and Gender Information Value Date Recorded Sex Assigned at Not on file Gender Identity Not on file Sexual Orientation Not on file documented as of this encounter Miscellaneous Notes * Telephone Encounter - Abbie Escudero - 04/07/2023 12:08 PM EST Please warm transfer to Abbie 04/14/2023 MEG documented in this encounter Plan of Treatment Upcoming Encounters Date Type Department Care Team (Late st Contact Info) Description 04/20/2024 3:30 PM EST Office Visit Neurology at [address] [phone] Lazara Amaya MD [facility] [place] [address] 04/29/2024 4:40 PM EST Office Visit [place] [address] Mecca Frazier MD [facility] [place] [address] documented as of this encounter Visit Diagnoses Not on filedocumented in this encounter Care Teams Track Supervisor Relationship Specialty Start Date End Date Melinda Espinoza MD [address] [place] [address] PCP - General Family Medicine 12/24/22 documented as of this encounter
--- OUTSIDE RECORDS SUMMARY | 2024-04-20 14:22 | XMS_ITS | Encounter Summary ---
Author Organization [facility] Address [facility] [place] [address] Care Team Providers Care Coin Counter And Wrapper Name Role Phone Melinda Espinoza MD Primary Care Provider [phone] Encounter Details Date Type Department Care Team (Latest Contact Info) Description 12/24/2022 3:15 PM EDT Office [place] [phone] Xiao Worthington MD [facility] [place] [address] Pituitary microadenoma with hyperprolactinemia (Primary Dx); Hypothyroidism, unspecified type Social History Tobacco Use Types Packs/Day Years Used Date Smoking Tobacco: Former Cigarettes Q uit: 1996 Smokeless Tobacco: Never Sex and Gender Information Value Date Recorded Sex Assigned at Not on file Gender Identity Not on file Sexual Orientation Not on file documented as of this encounter Last Filed Vital Signs Vital Sign Reading Time Taken Comments Blood Pressure 106/64 12/24/2022 3:07 PM EDT Pulse 118 12/24/2022 3:07 PM EDT Temperature 36.7 ??C (98.1 ??F) 12/24/2022 3:07 PM ED T Respiratory Rate - - Oxygen Saturation 98% 12/24/2022 3:07 PM EDT Inhaled Oxygen Concentration - - Weight 73.2 kg (161 lb 6.4 oz) 12/24/2022 3:07 P M EDT Height 172.7 cm (5' 8) 12/24/2022 3:07 PM EDT Body Mass Index 24.54 12/24/2022 3:07 PM EDT documented in this encounter Progress Notes * Xiao Worthington MD - 12/24/2022 3:15 PM EDT Endocrinology Outpatient Follow up Name of patient: Juliana Cooley : 1975 Date of visit: 12/24/22 Reason for follow up: microprolactinoma Plan from previous office note on 09/02/22 Hyperprolactinemia and pituitary microadenoma Patient has history of secondary amenorrhea starting 10 years ago. She was found to have mildly elevated prolactin and found to have pituitary microadenoma 2 years ago. Was treated with 1 dose of cabergoline without any side effect at that time. Patient does not have galactorrhea, visual field defect or s/s other pituitary dysfunction. Patient does not have any other possible causes of hyperprolactinemia including medications, brain injury, liver/kidney disease. 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 We recommend getting MRI brain w wo contrast to better characterize the adenoma and getting blood work for pituitary hormone excess/deficiency. She will probably need DXA once she reaches menopause due to high risk of bone loss with amenorrhea history. We discuss the treatment including cabergoline and surgery. Due to small size of adenoma, cabergoline is the first line to decrease prolactin level and size of the tumor. We discussed about side effects of medication including orthostasis, somnolence, cardiac vulvulopathy (dose-dependent), and psychiatric disorder. Patient agrees with the plan. We plan to start the medication once the blood work is back with anticipation of 2-yearscourse of treatment. Will monitor prolactin level and MRI brain while patient is on the medication. - MRI w wo contrast (pituitary protocol), prolactin, FSH, LH, estradiol, IGF-1, ACTH, cortisol, TSH, FT4, CMP, vit D - plan to start cabergoline once result is back - DXA in the future - f/u in 3 months Interval History: Patient was started on cabergoline 0.25 mg twice a week due to elevated prolactin of 137 and levothyroxine 25 mcg daily due to low FT4 0.92. Patient has some flashing in her eyes while taking the levothyroxine. Patient took the medication only 2 weeks. Patient did not have much side effects from cabergoline only stomach upset which she managed to take it at night. She started having period 2 weeks after starting the medication. Her period has been regular every 4 weeks. Denied vision loss, . Patient is taking vitD 2000 units daily. Has some acne. Summary: Ms. Juliana Cooley is a 47 [...] college for 5-6 years. Never loss consciousness. No recent brain injury. 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 Physical Exam: BP 106/64 Pulse (!) 118 Temp 36.7 ??C (98.1 ??F) Ht 172.7 cm (5' 8) Wt 73.2 kg (161 lb 6.4oz) SpO2 98% BMI 24.54 kg/m?? General appearance: No apparent distress, resting comfortably in chair. HEENT: Moist mucous membranes, Neck supple CVS: Tachycardia, regular rhythm, normal S1/S2, No mumur. Pulmonary: equal chest expansion GI: Abdomen soft, no tenderness Derm: no hyperpigmentation, acanthosis nigricans, ulcers. Neuro: Grossly non focal. No peripheral vision loss Social History: Social History Socioeconomic History Marital status: Unknown Spouse name: Not on file Number of children: Not on file Years of education: Not on file Highest education level: Not on file Occupational History Not on file Tobacco Use Smoking status: Former Types: Cigarettes Quit date: 1996 Years since quittin.6 Smokeless tobacco: Never Vaping Use Vaping Use: Never used Substance and Sexual Activity Alcohol use: Not on file Drug use: Not on file Sexual activity: Not on file Other Topics Concern Not on file Social History Narrative Not on file Social Determinants of Health Financial Resource Strain: Not on file Food Insecurity: Not on file Transportation Needs: Not on file Physical Activity: Not on file Housing Stability: Not on file PMH: No past medical history on file. Family History: No family history on file. Allergies: Allergies Allergen Reactions Banana Raw; GI upset Current Medications: cabergoline (Dostinex) 0.5 mg tablet cholecalciferol, Vitamin D3, 50 mcg (2,000 unit) Capsule OMEGA3,5,6,7,9 NO.1-SALMON OIL ORAL Synthroid 25 mcg tablet Recent Imaging and Labs: Latest Reference Range & Units 09/02/22 12:37 Free T4 0.93 - 1.70 ng/dL 0.92 (L) TSH 0.27 - 4.20 mcIU/mL 1.72 Estradiol pg/mL 20 FSH mlU/ML 26.9 LH mlU/ML 16.0 Prolactin 4.8 - 23.3 ng/mL 137.0 (H) ACTH (Adrenocorticotropic Hormone) pg/mL 26 Cortisol mcg/dL 6.7 DHEAS 35.4 - 256.0 mcg/dL 255.0 IgF-1 44 - 227 ng/mL 128 IGF-1 Z-score -2.0 - 2.0 SD 0.39 Latest Reference Range & Units 09/02/22 12:37 Sodium 135 - 145 mmol/L 142 Potassium 3.5 - 5.0 mmol/L 4.4 Chloride 98 - 107 mmol/L 107 CO2 22 - 31 mmol/L 27 Anion Gap 5 - 15 mmol/L 8 BUN 8 - 18 mg/dL 11 Creatinine 0.70 - 1.20 mg/dL 0.74 Estimated GFR >=60 mL/min/1.73 m?? 101 Calcium 8.5 - 10.5 mg/dL 9.5 Glucose Lvl 65 - 199 mg/dL 88 Total Protein 6.1 - 8.0 g/dL 6.6 Albumin 3.2 - 5.2 g/dL 4.6 Total Bilirubin 0.2 - 1.3 mg/dL 0.6 Alk Phos 35 - 105 unit/L 42 AST 0 - 30 unit/L 13 ALT 0 - 30 unit/L 8 25-OH Vit D Total 21 - 100 ng/mL 31 25-OH Vit D Interp Sufficient MRI pituitary 12/11/22 FINDINGS: 7 mm x [...] follow up of microprolactinoma. Microprolactinoma Patient has repeat MRI which showed [...] T uptake - f/u in 6 months Thank you for allowing us to provide care for your patient. D/W Dr. Hayes. Xiao Worthington MD [facility] Endocrinology PGY-5, Fellow Pager #[phone] * Kenneth Hayes MD - 12/24/2022 3:15 PM EDT I have seen the patient and reviewed Dr Worthington's history and I agree with the details as written. The assessment and plan were formulated in discussion with me and I agree with them as documented. Her thyroid function returned as normal, so there is no indication to restart levothyroxine at thistime Component Latest Ref Rng 12/24/2022 TSH 0.27 - 4.20 mcIU/mL 3.07 Free T4 0.93 - 1.70 ng/dL 1.14 T4, total 5.3 - 11.6 mcg/dL 7.9 T3, Total 80 - 200 ng/dL 108 T Uptake 0.80 - 1.30 ratio 1.07 Prolactin 4.8 - 23.3 ng/mL 50.0 (H) FTI 4.4 - 11.4 mcg/dL 7.4 (H) High Kenneth Hayes MD Games Dealerautomotive glass installer Endocrinology Section [facility] documented in this encounter Miscellaneous Notes * Addendum Note - Kenneth Hayes MD - 12/24/2022 3:15 PM EDTAddended by: KENNETH HAYES on: 12/28/2022 07:33 PM Modules accepted: Level of Service documented in this encounter Plan of Treatment Upcoming Encounters Date Type Department Care Team (Late st Contact Info) Description 04/20/2024 3:30 PM EST Office Visit Neurology at [address] [address] Lazara Amaya MD [facility] [address] 04/29/2024 4:40 PM EST Office Visit [place] [address] Mecca Frazier MD [facility] [place] [address] Scheduled Orders Name Type Priority Associated Diagnoses Orde r Schedule T4, free Lab Routine Hypothyroidism, unspecified type Pituitary microadenoma with hyperprolactinemia Expected: 12/24/2022 (Approximate), Expires: 06/25/2023 TSH Lab Routine Hypothyroidism, unspecified type Pituitary microadenoma with hyperprolactinemia Expected: 12/24/2022 (Approximate), Expires: 06/25/2023 documented as of this encounter Procedures Procedure Name Priority Date/Time Associated Diagnosis Comments FREE THYROXINE INDEX Routine 12/24/2022 4:59 PM EDT PROLACTIN Routine 12/24/2022 4:59 PM EDT Hypothyroidism, unspecified type Pituitary microadenoma with hyperprolactinemia T3 TOTAL Routine 12/24/2022 4:59 PM EDT Hypothyroidism, unspecified type Pituitary microadenoma with hyperprolactinemia T UPTAKE Routine 12/24/2022 4:59 PM EDT Hypothyroidism, unspecified type Pituitary microadenoma with hyperprolactinemia TSH Routine 12/24/2022 4:59 PM EDT Hypothyroidism, unspecified type T4, FREE Routine 12/24/2022 4:59 PM EDT Hypothyroidism, unspecified type T4 TOTAL Routine 12/24/2022 4:59 PM EDT Hypothyroidism, unspecified type documented in this encounter Results * Free Thyroxine Index (12/24/2022 4:59 PM EDT) Free Thyroxine Index 7.4 4.4 - 11.4 mcg/dL [facility] Comment: FTI Reference Interval (mcg/dL): Females: First Trimester: 5.4-11.1 ??Second Trimester: 5.3-10.8 ??Third Trimester: 5.2-10.8 Blood 12/24/2022 4:59 PM EDT 12/24/2022 5:03 PM EDT Narrative Resulting Agency Comment Spec In Lab Xiao Worthington MD CHEMISTRY OR DERABLES Performing Organization Address [facility] Co de Phone Number [facility] [place] [address] * T4, free (12/24/2022 4:59 PM EDT) Free T4 1.14 0.93 - 1.70 ng/dL [facility] Comment: Reference Interval (ng/dL): Females: ??First Trimester: 0.97-1.68 ??Second Trimester: 0.77-1.51 ??Third Trimester: 0.77-1.49 Blood 12/24/2022 4:59 PM EDT 12/24/2022 5:03 PM EDT Narrative Resulting Agency Comment Spec In Lab Jose Mcleod MD CHEMISTRY ORDERAB LES Performing Organization Address [facility] Co de Phone Number [facility] [place] [address] * TSH (12/24/2022 4:59 PM EDT) Thyroid Stimulating Hormone 3.07 0.27 - 4.20 mcIU/mL [facility] Comment: Reference Interval (mcIU/mL): Females: ??First Trimester: 0.23-3.88 ??Second Trimester: 0.22-3.90 ??Third Trimester: 0.44-4.66 Blood 12/24/2022 4:59 PM EDT 12/24/2022 5:03 PM EDT Narrative Resulting Agency Comment Spec In Lab Jose Mcleod MD CHEMISTRY ORDERAB LES Performing Organization Address City/[facility] Co de Phone Number [facility] [place] [address] * T4 Total (12/24/2022 4:59 PM EDT) T4 Total 7.9 5.3 - 11.6 mcg/dL [facility] Comment: Reference Interval (mcg/dL): Females: ??First Trimester: 6.3-13.5 ??Second Trimester: 7.1-14.3 ??Third Trimester: 6.9-14.1 Blood 12/24/2022 4:59 PM EDT 12/24/2022 5:03 PM EDT Narrative Resulting Agency Comment Spec In Lab Kenneth Hayes MD CHEMISTRY ORDERABLE S Performing Organization Address City/[facility]/ZIP Co de Phone Number [facility] [place] [address] * T3 Total (12/24/2022 4:59 PM EDT) T3 Total 108 80 - 200 ng/dL [facility] Blood 12/24/2022 4:59 PM EDT 12/24/2022 5:03 PM EDT Narrative Resulting Agency Comment Spec In Lab Kenneth Hayes MD CHEMISTRY ORDERABLE S Performing Organization Address [facility] Co de Phone Number [facility] [place] [address] * T Uptake (12/24/2022 4:59 PM EDT) T Uptake 1.07 0.80 - 1.30 ratio [facility] Comment: T Uptake is directly proportional to thyroid binding protein concentration. Free Thyroxine Index = TT4/Tup. T Uptake Reference Interval: Females: ??First Trimester: 0.97-1.38 ??Second Trimester: 1.14-1.50 ??Third Trimester: 1.22-1.50 Blood 12/24/2022 4:59 PM EDT 12/24/2022 5:03 PM EDT Narrative Resulting Agency Comment Spec In Lab Kenneth Hayes MD CHEMISTRY ORDERABLE S Performing Organization Address City/[facility] Co de Phone Number [facility] [place] [address] * (ABNORMAL) Prolactin (12/24/2022 4:59 PM EDT) Prolactin 50.0(H) 4.8 - 23.3 ng/mL [facility] Blood 12/24/2022 4:59 PM EDT 12/24/2022 5:03 PM EDT Narrative Resulting Agency Comment Spec In Lab Kenneth Hayes MD CHEMISTRY ORDERABLE S Performing Organization Address City/State/[facility] Co de Phone Number [facility] [place] [address] documented in this encounter Visit Diagnoses Diagnosis Pituitary microadenoma with hyperprolactinemia- Primary Other and unspecified anterior pituitary hyperfunction Hypothyroidism, unspecified type documented in this encounter Care Teams Coin Counter And Wrapper Relationship Specialty Start Date End Date Melinda Espinoza MD [address] [place] [address] PCP - General Family Medicine 12/24/22 documented as of this encounter
--- OUTSIDE RECORDS SUMMARY | 2024-04-20 14:22 | XMS_ITS | Encounter Summary ---
Author Organization [facility] Address [facility] [place] [address] Care Team Providers Care Drilling Field Operator Name Role Phone None Primary Care Provider Unavailabl e Encounter Details Date Type Department Care Team (Late st Contact Info) Description 09/17/2022 Orders [place] [phone] Xiao Worthington MD [facility] [place] [address] Hypothyroidism, unspecified type (Primary Dx) Social History Tobacco Use Types [...] 3:30 PM EST Office Visit Neurology at [address] [phone] Lazara Amaya MD [facility] [place] [address] 04/29/2024 4:40 PM EST Office [place] [phone] Mecca Frazier MD [facility] [place] [address] documented as of this encounter Results * TSH (12/24/2022 4:59 PM EDT) Thyroid Stimulating Hormone 3.07 0.27 - 4.20 mcIU/mL [facility] Comment: Reference Interval (mcIU/mL): Females: ??First Trimester: 0.23-3.88 ??Second Trimester: 0.22-3.90 ??Third Trimester: 0.44-4.66 Blood 12/24/2022 4:59 PM EDT 12/24/2022 5:03 PM EDT Narrative Resulting Agency Comment Spec In Lab Jose Mcleod MD CHEMISTRY ORDERAB LES Performing Organization Address City/[facility] Co de Phone Number [facility] [address] * T4, free (12/24/2022 4:59 PM EDT) Free T4 1.14 0.93 - 1.70 ng/dL [facility] Comment: Reference Interval (ng/dL): Females: ??First Trimester: 0.97-1.68 ??Second Trimester: 0.77-1.51 ??Third Trimester: 0.77-1.49 Blood 12/24/2022 4:59 PM EDT 12/24/2022 5:03 PM EDT Narrative Resulting Agency Comment Spec In Lab Jose Mcleod MD CHEMISTRY ORDERAB LES [facility] [place] [address] documented in this encounter Visit Diagnoses Diagnosis Hypothyroidism, unspecified type- Primary documented in this encounter Care Teams Drilling Field Operator Relationship Specialty Start Date End Date None None PCP - General 09/02/22 12/23/22 documented as of this encounter
--- OUTSIDE RECORDS SUMMARY | 2024-04-20 14:22 | XMS_ITS | Encounter Summary ---
Author Organization [facility] Address [address] [place] [address] Care Team Providers Care Collarette Separator Name Role Phone Manisha Mane Primary Care Provider Danielle White MD Unavailable [phone] Reason for Visit * Reason Onset Date Comments Question 10/24/2020 Encounter Details Date Type Department Care Team (Late st Contact Info) Description 10/24/2020 Telephone [facility] Primary Care Family Medicine [place] [address] [place] [address] Manisha Mane FNP [address] [place] [address] Question Social History Tobacco Use Types Packs/Day Years [...] [place] [facility] documented in this encounter Miscellaneous Notes * Telephone Encounter - Manisha Mane FNP - 10/24/2020 7:55 AM EDT I did attempt to call Racheal back at radiology, she does have Wednesdays off. I did leave her message that I would be returning to the office on October 29, 2020 and that I would be happy to talk to her at that time. * Telephone Encounter - Emery Garcia MA - 10/24/2020 6:58 AM EDT Racheal from radiology would like her to call you back extension [phone] * Telephone Encounter - Emery Garcia MA - 10/24/2020 6:57 AM EDT ----- Message from Day Lew sent at 10/23/2020 5:24 PM EDT ----- Racheal from radiology called to talk to Manisha Mane regarding Juliana. If Manisha could call her back her extension is [phone]. Thank you. documented in this encounter Plan of Treatment Not on file documented as of this encounter Visit Diagnoses Not on filedocumented in this encounter Care Teams Collarette Separator Relationship Specialty Start Date End Date Manisha Mane, DATA COLLECTION INTERVIEWER [address] [place] [address] PCP - General Nurse Practitioner 05/15/20 12/15/21 Danielle White MD [address] [place] [address] Physician Neurology 10/29/20 documented as of this encounter
--- OUTSIDE RECORDS SUMMARY | 2024-04-20 14:22 | XMS_ITS | Encounter Summary ---
Author Organization [facility] [place] [address] Care Team Providers Care Inside Solar Sales Consultant Name Role Phone None Primary Care Provider Unavailabl e Reason for Visit * Reason Onset Date Comments Other 10/28/2022 LM for patient t o call MRI directly at [phone] to set up MRI Brain that was ordered 09/02/22. Encounter Details Date Type Department Care Team (Late st Contact Info) Description 10/28/2022 Telephone [place] [phone] Joceline Carrasco, RN Other (LM for patient to call MRI directly at [phone] to set up MRI Brain that was ordered 09/02/22.) Social History Tobacco Use Types Packs/Day Years Used Date Smoking Tobacco: Former Cigarettes Q uit: 1996 Smokeless Tobacco: Never Sex and Gender Information Value Date Recorded Sex Assigned at Not on file Gender Identity Not on file Sexual Orientation Not on file documented as of this encounter Miscellaneous Notes * Telephone Encounter - Joceline Carrasco RN - 10/28/2022 1:03 PM EDT LM for patient to call MRI directly at [phone] to set up MRI Brain that was ordered 09/02/22. documented in this encounter Plan of Treatment Upcoming Encounters Date Type Department Care Team (Late st Contact Info) Description 04/20/2024 3:30 PM EST Office Visit Neurology at [facility] [address] [place] [phone] Lazara Amaya MD [facility] [place] [address] 04/29/2024 4:40 PM EST Office [place] [address] Mecca Frazier MD [facility] [place] [address] documented as of this encounter Visit Diagnoses Not on filedocumented in this encounter Care Teams Inside Solar Sales Consultant Relationship Specialty Start Date End Date None None PCP - General 09/02/22 12/23/22 documented as of this encounter
--- OUTSIDE RECORDS SUMMARY | 2024-04-20 14:22 | XMS_ITS | Encounter Summary ---
Author Organization [facility] Address [facility] [place] [address] Care Team Providers Care Therapist Physical Name Role Phone Unavailable Primary Care Provider Unavailabl e Encounter Details Date Type Department Care Team (Latest Contact Info) Description 08/26/2022 Travel Social History Tobacco Use Types Packs/Day [...] 3:30 PM EST Office Visit Neurology at [address] [phone] Lazara Amaya MD [facility] [place] [address] 04/29/2024 4:40 PM EST Office [place] [address] Mecca Frazier MD [facility] [place] [address] documented as of this encounter Visit Diagnoses Not on filedocumented in this encounter
--- OUTSIDE RECORDS SUMMARY | 2024-04-20 14:22 | XMS_ITS | Encounter Summary ---
Author Organization [facility] Address [address] [place] [address] Care Team Providers Care Technical Sales Representatives Name Role Phone VenturaGerberDayManisha Lina ALARM INSTALLATION TECHNICIAN Primary Care Provider Danielle White MD Unavailable [phone] Reason for Visit * Reason Comments Consult Facial Pain Results MRI found Tumor * Consult, Test & Treat (Routine) - Closed Specialty Diagnoses / Procedures Referred By Olamide aldana Referred To Contact Neurology Diagnoses Facial pain Sinus pain Frederick Carrasco MD Phone: tel: fax: [facility] [place] [address] [place] [address] Phone: tel: fax: Referral ID Status Reason Start Date Expiration Date Visits Re quested Visits Authorized [id number] Closed 07/04/2020 07/04/2021 3 3 Encounter Details Date Type Department Care Team (Late st Contact Info) Description 10/29/2020 9:00 AM EDT Office Visit [facility] [place] [address] [place] [address] Danielle White MD [address] [place] [address] Atypical migraine (Primary Dx); Pituitary adenoma (CMS-HCC) Social History Tobacco Use Types Packs/Day Years [...] Mass Index 25.61 10/29/2020 8:44 AM EDT documented in this encounter Functional Status * Are you deaf or do you have serious difficulty hearing? Answer Date of Assessment Author Status No 10/29/2017 9:49 AM EDT Tari Hudson tive * Are you blind or do [...] Assessment Author Status No 10/29/2017 9:49 AM ALEElidia TristanLily greenealy heathkecia documented as of this encounter Mental Status * Because of a physical, mental, or emotional condition, do you have serious difficulty concentrating, remembering, or making decisions? (5 years old or older) Answer Entry Date Author Status No 10/29/2017 9:49 AM Tari Acosta documented in this encounter Progress Notes * Danielle White MD - 10/29/2020 6:38 PM EDT [facility] Neurology Consult Note Name: Juliana Cooley : 1975 MR#: [id number] CSN#: [id number] Age: 44 y.o. Sex: female Chief Complaint: Headache Juliana Cooley is a 44 y.o. year old female with a past medical Hx of a recently found pituitary mass,as well as hyperprolactinemia, whom Frederick Carrasco MD has asked us to see about unusual pain in the head. The history comes from chart review and my conversations with Ms. Cooley and her , Branden Crow, who accompanies her today. HPI: Describes episodes of discomfort in her face and head which began in approximately 2013. They have been increasing in frequency since then, such that they now interfere with her life. She has missed work because of them. She has anywhere from 3-6 of these events per month. She describes discomfort the begins in her right ear and radiates to the orbit. She says that her head feels stuffy. She has a constant dull pressure there, which becomes sharp from time to time. The episodes last anywhere from 6 to 8 hours. Sometimes, when the pain is especially severe, she vomits. There is no associated numbness or weakness, and no visual change. She manages them with ibuprofen, and has recently been taking of supplement which she finds helpful. The only identifiable trigger that she can pinpoint is alcohol. Even small amounts can precipitatethese events. She saw Dr. Wei Rowan, because of concern that there was fluid in her ear, or her sinuses.Imaging revealed these to be completely clear, and Dr. Rowan did not think that there was an ENT explanation for her symptoms. He wondered if she might have an atypical migraine. She gets motion sick in the car if she reads. She recently had an MRI scan of her brain, without contrast. This is completely normal, apart from the presence of an intrasellar pituitary mass. There is no impingement on the optic chiasm. Enhancement cannot be assessed. PMH: Notable For: She has had several concussions. She has hyperlipidemia. Her menstrual periods are regular; she has hyperprolactinemia. She only recently had an MRI scan, which was done without contrast; her mother had renal failure in response to gadolinium, and she prefers to avoid contrast. FH: Notable For: She has 1 adult daughter. Her daughter had migraines when she was an adolescent. Social Hx: She is oringinally from [place]. She lives at home with her . She went to school through 2 associates degrees.,. 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 ROS as per the HPI, as well as these questions: How is your sleep? Good, though she has occasionally been awakened by these headaches. Do you have pets? A dog, 2 cats, as well as goats and chickens. How is your mood ? Somewhat down What do you do for fun? She likes to garden, go boating, and hike. Do you exercise? She does yoga Current Medications: Current Outpatient Medications Medication ??? Unclassified (NON FORMULARY) ??? SUMAtriptan 25 MG Tab ??? cetirizine 5 MG Tab ??? Cod Liver Oil Oil ??? cholecalciferol 1000 UNIT Tab Allergies Allergen Reactions ??? Banana Stomach pains ??? Other Unknown - not noted in history [place] ??? Pineapple Nausea Only Stomach issues Neurologic Exam: BP 109/62 Pulse 90 Temp 35.2 ??C (95.4 ??F) (Tympanic) Comment: Thermometer was cold Resp 18 Ht 1.727 m (5' 7.99) Wt 76.4 kg (168 lb 6.4 oz) SpO2 98% BMI 25.61 kg/m?? On exam Juliana Cooley was a well-developed well-nourished middle-aged woman who was forthright and cooperative with the exam. Her neck was supple, without rigidity or tenderness. Mental Status: Was awake, alert, oriented, and attentive. Her speech was fluent, with normal use oflanguage. Her fund of knowledge was good. Her memory for the recent and remote details of her life and medical history was good. There was no left right confusion, apraxia, or neglect. Her comportment was appropriate. Cranial Nerves: Visual jha were full. The optic fundi were benign, with well- defined disc margins and spontaneous venous pulsations. The pupils were 3 mm and reactive. The extraocular movements were normal. Facial sensation was normal. Her face moved symmetrically. Her hearing was normal. Her palate flaco symmetrically. Her tongue was in the midline with normal movements. Her shrug was symmetric. Motor: Bulk, tone, and power were normal. The plantar response was flexor bilaterally. The reflexeswere normal and symmetrical. Sensory: Normal perception of light touch, temperature, and vibratory sense. Coordination: Ohbawv-ml-ijyn and rapid alternating movements were performed without difficulty. Gait & Station: Gait was steady and narrow based. There was no posturing on the stressed gait. The tandem gait was performed without difficulty. The Romberg was negative. Assessment & Plan: She is a woman with episodes of unilateral discomfort, involving her right shinto and periorbital region. Though she has a subjective sense that there is fluid either in her ear or her sinuses, thereis none visible on imaging. Her neurologic exam is normal. Imaging has identified a pituitary mass, which likely is the source of her hyperprolactinemia. I do not think that the pituitary mass is likely to be causing her symptoms on the basis of any mass-effect. I think it is reasonable to think of her episodes as manifestations of atypical migraine. They havemany migraine characteristics, including periodicity, triggering by alcohol, unilaterality, nausea and vomiting. She has a family history of migraine. We discussed the fact that migraines can be related to hormonal fluctuations. It is possible that her pituitary mass, given that it is presumably producing prolactin, may be having other hormonal effects, and thus contributing to her headaches. She understood. We agreed on several courses of action. First, I do think she should see an senior research associate. This will allow for further testing of hormones that her presumed adenoma is producing. I think she probably can be premedicated for a study with contrast. If she cannot be premedicated for MRI contrast, a CT scan, with contrast, may provide the required information. To help with her attacks, I think it is reasonable for her to start magnesium, between 205 100 mg daily, and riboflavin 400 mg a day. I think it is also reasonable for her to try Imitrex for rescue. We agreed that should return in 3 months. She will call and come back sooner if there are problems in the meantime. Danielle White MD 10/29/20 A total of 86 minutes were spent in the care and management of the patient today, including face toface time as well as activities including but not limited to case review, counseling, education, care coordination and documentation. Time excludes separately reportable procedures. This note was created using voice recognition software; despite proofreading, errors may be present. documented in this encounter Plan of Treatment Not on file documented as of this encounter Visit Diagnoses Diagnosis Atypical migraine- Primary Other forms of migraine, without mention of intractable migraine without mention of status migrainosus Pituitary adenoma ([facility]) Benign neoplasm of pituitary gland and craniopharyngeal duct (pouch) documented in this encounter Care Teams Technical Sales Representatives Relationship Specialty Start Date End Date Ventura-Manisha Bernstein, ALARM INSTALLATION TECHNICIAN [address] [place] [address] PCP - General Nurse Practitioner 05/15/20 12/15/21 Danielle White MD [address] [place], [place] [id number] Physician Neurology 10/29/20 documented as of this encounter
--- OUTSIDE RECORDS SUMMARY | 2024-04-20 14:22 | XMS_ITS | Encounter Summary ---
Author Organization [facility] Address [address] [place] [address] Care Team Providers Care Base Draw Operator Name Role Phone Manisha Mane Primary Care Provider Reason for Visit * Reason Onset Date Comments Returning Call 07/02/2020 Encounter Details Date Type Department Care Team (Late st Contact Info) Description 07/02/2020 Telephone [facility] [place] [address] [place] [address] Manisha Mane FNP [address] [place] [address] Returning Call Social History Tobacco Use Types Packs/Day Years [...] Author Status No 10/29/2017 9:49 AM EDT [place], Tari Ac tive * Because of a [...] Author Status No 10/29/2017 9:49 AM EDT [place], Tari Ac tive documented in this encounter Miscellaneous Notes * Telephone Encounter - Margareth Barcenas RN - 07/02/2020 11:18 AM EST CC: Previous phone calls regarding neurology referral Per Manisha Mane: I have no idea who referred her to ENT to begin with. She may have made this appointment on her own. I strongly question why she needs to go to neurology at this point? I needto have a specific diagnoses in order to complete the referral No idea who referred her to ENT. Patient notified PCP is not in the office this week but did offer to make an appointment if that would help. Patient stated neurology was because of the vomiting and headache or describes it as pressure Lately, she has baseline sinus pressure but has had she clear sinuses It's a sharpness that comes and goes PLAN: Patient declined to make appointment with PCP but asked her to call back if she has any further needs or if we can be of assistance She is going to wait to hear back from Dr. Rowan's office documented in this encounter Plan of Treatment Not on file documented as of this encounter Visit Diagnoses Not on filedocumented in this encounter Care Teams Base Draw Operator Relationship Specialty Start Date End Date Ventura-Manisha Bernstein, COLOR MAKER FORMULATOR [address] [place] [address] PCP - General Nurse Practitioner 05/15/20 12/15/21 documented as of this encounter
--- OUTSIDE RECORDS SUMMARY | 2024-04-20 14:22 | XMS_ITS | Encounter Summary ---
Author Organization [facility] [employer] [place] [address] Care Team Providers Care Crew Team Member Name Role Phone None Primary Care Provider Unavailabl e Reason for Visit * Reason Onset Date Comments Other 11/04/2022 LM to call MRI d irectly at [phone] to set up MRI Brain that was ordered 09/02/22. Encounter Details Date Type Department Care Team (Late Contact Info) Description 11/04/2022 Telephone [place] [phone] Joceline Carrasco, RN Other (LM to call MRI directly at [phone] to set up MRI Brain that was [...] Telephone Encounter - Joceline Carrasco RN - 11/04/2022 1:53 PM EDT LM to call MRI directly at [phone] to set up MRI Brain that was ordered 09/02/22. documented in this encounter Plan of Treatment Upcoming Encounters Date Type Department Care Team (Late st Contact Info) Description 04/20/2024 3:30 PM EST Office Visit Neurology at [facility] [address] [place] [phone] Lazara Amaya MD [facility] [address] 04/29/2024 4:40 PM EST Office Visit [place] [id number] Mecca Frazier MD [facility] [place] [address] documented as of this encounter Visit Diagnoses Not on filedocumented in this encounter Care Teams Crew Team Member Relationship Specialty Start Date End Date None None PCP - General 09/02/22 12/23/22 documented as of this encounter
--- OUTSIDE RECORDS SUMMARY | 2024-04-20 14:22 | XMS_ITS | Encounter Summary ---
Author Organization [facility] Address [address] [place] [address] Care Team Providers Care Administrator Pesticide Name Role Phone Manisha Mane Primary Care Provider Danielle White MD Unavailable [phone] Reason for Visit * Reason Onset Date Comments Results 10/29/2020 Encounter Details Date Type Department Care Team (Late st Contact Info) Description 10/29/2020 Telephone [facility] [place] [address] [place] [address] Manisha Mane FNP [address] [place] [address] Results Social History Tobacco Use Types Packs/Day Years [...] Author Status No 10/29/2017 9:49 AM EDT Lily Hudsony Ac tive * Do you have difficulty dressing or bathing? (5 years old or older) Answer Date of Assessment Author Status No 10/29/2017 9:49 AM EDT Lily Hudsony Ac tive * Because of a physical, mental, or emotional condition, do you have difficulty doing errands alone such as visiting a doctor's office or shopping? (15 years old or older) Answer Date of Assessment Author Status No 10/29/2017 9:49 AM EDT Lily Hudsony Ac tive documented as of this encounter Mental Status * Because of a physical, mental, or emotional condition, do you have serious difficulty concentrating, remembering, or making decisions? (5 years old or older) Answer Entry Date Author Status No 10/29/2017 9:49 AM EDT Tristan Tari Ac tive documented in this encounter Miscellaneous Notes * Telephone Encounter - Emery Garcia MA - 10/30/2020 9:38 AM EDT Patient notified of addenum * Telephone Encounter - Emery Garcia MA - 10/29/2020 10:43 AM EDT Could you please let patient know that radiology put in an addendum in her brain MRI report that states that patient does not have infertility or galactorrhea left message for patient to call back documented in this encounter Plan of Treatment Not on file documented as of this encounter Visit Diagnoses Not on filedocumented in this encounter Care Teams Administrator Pesticide Relationship Specialty Start Date End Date Manisha Mane, BRANDON [address] [place] [address] PCP - General Nurse Practitioner 05/15/20 12/15/21 Danielle White MD [address] [address] Physician Neurology 10/29/20 documented as of this encounter
--- OUTSIDE RECORDS SUMMARY | 2024-04-20 14:22 | XMS_ITS | Encounter Summary ---
Author Organization [facility] Address [address] [place] [address] Care Team Providers Care Development Technician Name Role Phone Manisha Mane Primary Care Provider Encounter Details Date Type Department Care Team (Latest Contact Info) Description 07/10/2020 3:37 PM EST - 07/10/2020 11:59 PM [facility] Hospital Encounter [facility] [address] [place] [phone] Manisha Mane FNP [address] [place] [phone] Discharge Disposition: Home or Self Care Social [...] Assessment Author Status No 10/29/2017 9:49 AM EDElidia VelazquezTristan Tari Ac tive * Do you have serious difficulty walking or climbing stairs? (5 years old or older) Answer Date of Assessment Author Status No 10/29/2017 9:49 AM RAQUEL VelazquezTristanTari greene Ac tive * Do you have difficulty dressing or bathing? (5 years old or older) Answer Date of Assessment Author Status No 10/29/2017 9:49 AM EDTari Contreras Ac tive * Because of a physical, mental, or emotional condition, do you have difficulty doing errands alone such as visiting a doctor's office or shopping? (15 years old or older) Answer Date of Assessment Author Status No 10/29/2017 9:49 AM ALETari Contreras Ac tive documented as of this encounter Mental Status * Because of a physical, mental, or emotional condition, do you have serious difficulty concentrating, remembering, or making decisions? (5 years old or older) Answer Entry Date Author Status No 10/29/2017 9:49 AM RAQUEL Pryor, Tari Ac tive documented in this encounter Medications at Time of Discharge cetirizine 5 MG Tab Take 10 mg by mouth daily as needed for Allergies Cod Liver Oil Oil Take by mouth 0 04/23/2020 cholecalciferol 1000 UNIT Tab Take 1,000 Units by mouth 3 times daily documented as of this encounter Plan of Treatment Not on file documented as of this encounter Procedures Procedure Name Priority Date/Time Associated Diagnosis Comments TICK PANEL PCR AND LYME SEROLOGY Routine 07/10/2020 3:43 PM EST Rash Night sweats COMMENT PROLACTIN Routine 07/10/2020 3:4 3 PM EST TSH REFLEX THYROXINE FREE Routine 07/10/2020 3:43 PM EST Hyperprolactinemia (CMS-HCC) PROLACTIN Routine 07/10/2020 3:43 PM EST Hyperprolactinemia (CMS-HCC) CBC W/O DIFFERENTIAL Routine 07/10/2020 3:43 PM EST Healthcare maintenance LIPID PANEL Routine 07/10/2020 3:43 PM EST Mixed hyperlipidemia COMPREHENSIVE METABOLIC PANEL Routine 07/10/2020 3:43 PM EST Healthcare maintenance documented in this encounter Results * Comment Prolactin (07/10/2020 3:43 PM EST) Pathologist [facility] Comment Prolactin see below [facility] Comment: Prolactin values greater than the reference range values may be due to macroprolactin (prolactin bound to immunoglobulin). If signs and symptoms of hyperprolactinemia are absent, the presence of macroprolactin should be evaluated. 07/10/2020 3:43 PM EST 07/10/2020 3:43 PM EST Manisha Mane FLATBED OWNER OPERATOR CHEMISTRY ORDERABLES Fi nal Result [facility] [address] [place] [address] * TICK PANEL PCR AND LYME SEROLOGY (07/10/2020 3:43 PM EST) Pathologist [facility] Lyme Disease Ab IgG IgM NEGATIVE NEGATIVE [facility] Comment: No detectable antibodies to B.burgdorferi. ??A negative result should not be the basis for excluding B. burgdorferi as the cause of illness. ??If Lyme disease is strongly suspected, a second specimen should be collected and tested 2 to 4 weeks after the first specimen. Anaplasma Phagocytophilum NOT DETECTED [facility] Babesia Microti DNA by PCR NOT DETECTED [facility] Test Method SEE BELOW [facility] Comment: Test Method: PCR-based test used for the detection Babesia, Anaplasma, and/or Ehrlichia DNA in whole blood specimens. This test was developed and its performance characteristics determined by [employer]. It has not been cleared or approved by the U.S. Food and Drug Administration (FDA). The FDA does not require this test to go through premarket FDA review. This test is used for clinical purposes. It should not be regarded as investigational or for research. This laboratory is certified under the Clinical Laboratory Improvement Amendments (CLIA) as qualified to perform high complexity clinical laboratory testing. Blood 07/10/2020 3:43 PM EST 07/10/2020 3:43 PM EST us Manisha Headley Antonietta FLATBED OWNER OPERATOR IMMUNOLOGY ORDERABLES F inal Result [facility] [address] [place] [id number] * (ABNORMAL) COMPREHENSIVE METABOLIC PANEL (07/10/2020 3:43 PM EST) Sodium 135 135 - 145 mEq/L [facility] Potassium 4.4 3.3 - 5.3 mEq/L [facility] Chloride 100 96 - 108 mEq/L [facility] Carbon Dioxide 25 21 - 30 mEq/L [facility] Anion Gap 10 mEq/L [facility] Blood Urea Nitrogen 14 6 - 19 mg/dL [facility] Creatinine 0.86 0.50 - 1.30 mg/dL [facility] BUN Creatinine Ratio 16.3 [facility] Glucose 104(H) 70 - 99 mg/dL [facility] Protein 7.1 5.9 - 8.4 g/dL [facility] Albumin 5.0 3.2 - 5.2 g/dL [facility] Globulin 2.1 g/dL [facility] Albumin/Globulin Ratio 2.4 [facility] Bilirubin 0.8 0.0 - 1.0 mg/dL [facility] Calcium 9.9 8.6 - 10.4 mg/dL [facility] Alkaline Phosphatase 61 39 - 117 U/L [facility] AST 21 5 - 37 IU/L [facility] ALT 18 0 - 40 U/L [facility] EGFR (MDRD) >60 >60 [facility] Comment: -- eGFR UNITS OF MEASURE -- mL/min/1.73m(2) Comment EGFR SEE BELOW [facility] Comment:This test has multip le limitations. Please see [email or web address]. Blood 07/10/2020 3:43 PM EST 07/10/2020 3:43 PM EST Manisha Mane FLATBED OWNER OPERATOR CHEMISTRY ORDERABLES Fi nal Result Performing Organization Address [facility] Co de Phone Number [facility] [address] [place] [address] Cashier Assistant: Laurie Kendall MD * CBC W/O DIFFERENTIAL (07/10/2020 3:43 PM EST) [facility] Leukocytes 8.9 4.2 - 10.2 thou/uL [facility] Erythrocytes 4.38 3.80 - 5.10 mil/uL [facility] Hemoglobin 12.8 11.8 - 15.8 g/dL [facility] Hematocrit 39.1 35.0 - 47.0 % [facility] Mean Corpuscular Volume 89.3 80.0 - 100.0 fL [facility] Mean Corpuscular Hemoglobin 29.2 26.0 - 34.0 pg [facility] Mean Corpuscular Hemoglobin Conc 32.7 32.0 - 36.0 g/dL [facility] Platelet Count 401 140 - 440 thou/uL [facility] Mean Platelet Volume 8.9 8.6 - 12.7 fL [facility] Erythrocyte Distribution Width SD 42.0 37.0 - 48.0 fL [facility] Erythrocyte Distribution Width CV 12.8 12.0 - 14.6 % [facility] Blood 07/10/2020 3:43 PM EST 07/10/2020 3:43 PM EST Manisha Mane FLATBED OWNER OPERATOR HEMATOLOGY ORDERABLES F inal Result Performing Organization Address City/[facility]/ZIP Co de Phone Number [facility] [address] [place] [address] Cashier Assistant: Laurie Kendall MD * (ABNORMAL) LIPID PANEL (07/10/2020 3:43 PM EST) Pathologist [facility] Cholesterol 256(H) 112 - 199 mg/dL [facility] Triglycerides 109 mg/dL [facility] Comment: REFERENCE RANGE: < 150 mg/dl FOR FASTING < 175 mg/dl FOR NON-FASTING (BASED ON LITERATURE) HDL Cholesterol 72 40 - 100 mg/dL [facility] Comment: HDL REFERENCE RANGES Low: ? <40 mg/dL Normal: ?40-60 mg/dL Desirable: >60 mg/dL LDL Cholesterol Calculation 162(H) 0 - 99 mg/dL [facility] Non HDL Cholesterol Calculation 184.0(H) 0.0 - 129.0 mg/dL [facility] Blood 07/10/2020 3:43 PM EST 07/10/2020 3:43 PM EST [facility] Fi nal Result Performing Organization Address [facility] Co de Phone Number [facility] [address] [place] [address] Cashier Assistant: Laurie Kendall MD * (ABNORMAL) PROLACTIN (07/10/2020 3:43 PM EST) Prolactin 145.0(H) 3.4 - 24.1 ng/mL [facility] Comment: Please interpret with caution. High doses of biotin (for MS treatment, oncology patients, or beauty products) can falsely decrease the result. Blood 07/10/2020 3:43 PM EST 07/10/2020 3:43 PM EST [facility] CHEMISTRY ORDERABLES Fi nal Result Performing Organization Address City/[facility]/ZIP Co de Phone Number [facility] [address] [place], [place] [id number] * TSH REFLEX THYROXINE FREE (07/10/2020 3:43 PM EST) TSH 1.270 0.270 - 4.200 uIU/mL [facility] Comment: Please interpret with caution. High doses of biotin (for MS treatment, oncology patients, or beauty products) can falsely decrease the result. Blood 07/10/2020 3:43 PM EST 07/10/2020 3:43 PM EST us Manisha TAYLOR CHEMISTRY ORDERABLES Fi nal Result [facility] [address] [place] [address] Cashier Assistant: Laurie Kendall MD documented in this encounter Visit Diagnoses Diagnosis Hyperprolactinemia (CMS-HCC V24) (CMS/HHS) Other and unspecified anterior pituitary hyperfunction Mixed hyperlipidemia Healthcare maintenance Routine general medical examination at a health care facility Rash Rash and other nonspecific skin eruption Night sweats Generalized hyperhidrosis documented in this encounter Care Teams Development Technician Relationship Specialty Start Date End Date Manisha Mane, BRANDON [address] [place] [phone] PCP - General Nurse Practitioner 05/15/20 12/15/21 documented as of this encounter
--- OUTSIDE RECORDS SUMMARY | 2024-04-20 14:22 | XMS_ITS | Referral Summary ---
Author Organization [facility] Address [address] [place] [address] Care Team Providers Care Display Associate Name Role Phone Danielle White MD Unavailable [phone] Allergies Active Allergy Reactions Criticality Noted Date [...] 0 0 Active Unclassified (NON FORMULARY) [employer] Angel Ac tive SUMAtriptan 25 MG Tab Take [...] she was seen by multiple ENT's in [place] Prior question of ETD Assessment & Plan [...] colonoscopy. She declines at this time. Hyperprolactinemia ([facility]-HCC V24) ([facility]) 06/01 Mixed hyperlipidemia 10/29/2017 Assessment & Plan [...] Administration Dates Next Due Influenza Vaccine 01/29/2020 Social History Tobacco Use Types Packs/Day Years [...] Mass Index 25.61 10/29/2020 8:44 AM EDT Functional Status * Are you deaf or do you have serious difficulty hearing? Answer Date of Assessment Author Status No 10/29/2017 9:49 AM EDT Tari Hudson Ac tive * Are you blind or [...] 9:49 AM EDT Tari Hudson Ac tive Mental Status * Because of a physical, mental, or emotional condition, do you have serious difficulty concentrating, remembering, or making decisions? (5 years old or older) Answer Entry Date Author Status No 10/29/2017 9:49 AM EDT Tari Hudson Ac tive Plan of Treatment Not on file Procedures Procedure Name Priority Date/Time Associated Diagnosis Comments LIPID PANEL Routine 07/10/2020 3:43 PM EST Mixed hyperlipidemia PAP SMEAR THIN PREP SCREENING Routine 05/15/2019 12:00 AM EST Healthcare maintenance from Last 3 Months or Most Recently Relevant to Health Maintenance Results * (ABNORMAL) LIPID PANEL (07/10/2020 3:43 PM EST) Cholesterol 256(H) 112 - 199 mg/dL [facility] Triglycerides 109 mg/dL [facility] Comment: REFERENCE RANGE: < 150 mg/dl FOR FASTING < 175 mg/dl FOR NON-FASTING (BASED ON LITERATURE) HDL Cholesterol 72 40 - 100 mg/dL [facility] Comment: HDL REFERENCE RANGES Low: ? <40 mg/dL Normal: ?40-60 mg/dL Desirable: >60 mg/dL LDL Cholesterol Calculation 162(H) 0 - 99 mg/dL [facility] Non HDL Cholesterol Calculation 184.0(H) 0.0 - 129.0 mg/dL [facility] Blood 07/10/2020 3:43 PM EST 07/10/2020 3:43 PM EST Manisha Mane PROOF TECHNICIAN CHEMISTRY ORDERABLES Fi nal Result [facility] [address] [place] [address] Tongue Stitcher: Laurie Kendall MD * Pap Smear Thin Prep, Screening (05/15/2019 12:00 AM EST) Genital 05/15/2019 05/16/2019 Narrative SERVICES PROVIDED BY [facility] - 05/21/2020 2:00 PM EST CASE: [id number] PATIENT: JULIANA KINNEY Cytology Report with HPV [...] website ([email or web address]/[email or web address]) Final Diagnoses performed by ??Lillie LUZ(ASC) Traffic Supervisor Electronically signed 05/18/2020 9:48:37AM The above diagnosis reflects review of microscopic slides. Technical Histology and Cytology services provided by [facility] [place], , Ishaan Mcdonnell MD, Mosaicist. This test performed at [facility], [address] [place] [address], [address] ??[place], , CLIA ID: [id number], Ishaan Mcdonnell MD, Director HPV RESULTS: HP1: [...] clinical suspicion of endometrial pathology. Manisha Mane PROOF TECHNICIAN PATHOLOGY/CYTOLOGY TRELL GARCIA Final Result SERVICES PROVIDED BY [facility] from Last 3 Months or Most Recently Relevant to Health Maintenance Care Teams Display Associate Relationship Specialty Start Date End Date Danielle White MD [address] [place] [address] Physician Neurology 10/29/20
--- OUTSIDE RECORDS SUMMARY | 2024-04-20 14:22 | XMS_ITS | Encounter Summary ---
Author Organization [facility] Address [address] [place] [id number] Care Team Providers Care Ball Winder Name Role Phone WhiteheadGerberDayManisha Lina FLOORMAN Primary Care Provider Encounter Details Date Type Department Care Team ([facility] st Contact Info) Description 06/18/2020 11:35 AM EST Clinical Support [facility] [address] [place] [id number] Social History Tobacco Use Types Packs/Day Years [...] 10/29/2017 9:49 AM ALET Tari Hudson * Are you blind or do you have serious difficulty seeing, even when wearing glasses? Answer Date of Assessment Author Status No 10/29/2017 9:49 AM Tari Acosta * Do you have serious difficulty walking or climbing stairs? (5 years old or older) Answer Date of Assessment Author Status No 10/29/2017 9:49 AM EDT Tristan, Tari Ac tive * Do you have [...] 10/29/2017 9:49 AM EDTari Contreras Ac tive documented as of this encounter Mental Status * Because of a physical, mental, or emotional condition, do you have serious difficulty concentrating, remembering, or making decisions? (5 years old or older) Answer Entry Date Author Status No 10/29/2017 9:49 AM Tari Acosta Ac tive documented in this encounter Progress Notes * Joceline Graham - 06/18/2020 12:55 PM EST Name and confirmed with patient at [facility]. Verbal consent obtained A Nasopharyngeal swab was collected Insert a swab into the nostril parallel to the palate. The swab was in place for a few seconds to absorb secretions. Swabs placed immediately into steriletubes containing 1ml of viral transport media. [facility] patient education for COVID 19 infection provided if results positive. Advised we will follow up with results. Appropriate PPE utilized. * Earnestine Velazco MA - 06/18/2020 11:58 AM EST Name and confirmed with patient at [facility]. Verbal consent obtained A Nasopharyngeal swab was collected Insert a swab into the nostril parallel to the palate. The swab was in place for a few seconds to absorb secretions. Swabs placed immediately into steriletubes containing 1ml of viral transport media. [facility] patient education for COVID 19 infection provided if results positive. Advised we will follow up with results. Appropriate PPE utilized. documented in this encounter Plan of Treatment Not on file documented as of this encounter Visit Diagnoses Diagnosis Suspected 2019 novel coronavirus infection- Primary documented in this encounter Additional Health Concerns Infection Onset Date Last Indicated Resolved Time R/O COVID-19 06/18/2020 06/18/2020 06/19/2020 12:2 4 AM EST documented as of this encounter Care Teams Ball Winder Relationship Specialty Start Date End Date Manisha Mane, FLOORMAN [address] [place] [phone] PCP - General Nurse Practitioner 05/15/20 12/15/21 documented as of this encounter
--- OUTSIDE RECORDS SUMMARY | 2024-04-20 14:22 | XMS_ITS | Encounter Summary ---
Author Organization [facility] [place] [address] Care Team Providers Care Bowling Alley Attendant Name Role Phone None Primary Care Provider Unavailabl e Encounter Details Date Type Department Care Team (Late st Contact Info) Description 08/26/2022 Telephone [place] [address] Abigail Garcia RN Social History Tobacco Use Types Packs/Day Years Used Date Smoking Tobacco: Former Cigarettes Q uit: 1996 Smokeless Tobacco: Never Sex and Gender Information Value Date Recorded Sex Assigned at Not on file Gender Identity Not on file Sexual Orientation Not on file documented as of this encounter Miscellaneous Notes * Telephone Encounter - Abigail Garcia RN - 08/26/2022 9:47 AM EDT Pt called saying that she has a order for a CT on her neck with contrast. She is wondering if you wanted to add her head as well. Her ct is on Thursday. documented in this encounter Plan of Treatment Upcoming Encounters Date Type Department Care Team (Late st Contact Info) Description 04/20/2024 3:30 PM EST Office Visit Neurology at [address] [phone] Lazara Amaya MD [facility] [place] [address] 04/29/2024 4:40 PM EST Office [place] [address] Mecca Frazier MD [facility] [place] [address] documented as of this encounter Visit Diagnoses Not on filedocumented in this encounter Care Teams Bowling Alley Attendant Relationship Specialty Start Date End Date None None PCP - General 09/02/22 12/23/22 documented as of this encounter
--- OUTSIDE RECORDS SUMMARY | 2024-04-20 14:22 | XMS_ITS | Encounter Summary ---
Author Organization [facility] Address [address] [place] [address] Care Team Providers Care Rn First Assist Name Role Phone Manisha Mane Primary Care Provider Dainelle Whiet MD Unavailable [phone] Reason for Visit * Reason Onset Date Comments Question 12/10/2021 Encounter Details Date Type Department Care Team (Late st Contact Info) Description 12/10/2021 Telephone [facility] [address] [place] [address] Manisha Mane FNP [address] [place] [address] Question Social History Tobacco Use [...] encounter Miscellaneous Notes * Telephone Encounter - Nancy Diaz MA - 12/10/2021 3:13 PM EDT Called pt and let her know she will need to call medical records at [phone]. Pt stated understanding * Telephone Encounter - Daniel Vaughn - 12/10/2021 1:21 PM EDT Patient left a message requesting a transfer of care as she has moved. She is requesting her records be sent to [facility]. [address] [facility] [address]. She is wanting her records be sent there but I dont think she can come in to fill out an EDIL. How do we go about this? [phone] fax number documented in this encounter Plan of Treatment Not on file documented as of this encounter Visit Diagnoses Not on filedocumented in this encounter Care Teams Rn First Assist Relationship Specialty Start Date End Date Manisha Mane, REGIONAL SALES CONSULTANT [address] [place] [address] PCP - General Nurse Practitioner 05/15/20 12/15/21 Danielle White MD [address] [place] [address] Physician Neurology 10/29/20 documented as of this encounter
--- OUTSIDE RECORDS SUMMARY | 2024-04-20 14:22 | XMS_ITS | Encounter Summary ---
Author Organization [facility] Address [facility] [place] [address] Care Team Providers Care Senior Chemist Name Role Phone None Primary Care Provider Unavailabl e Reason for Referral * Diagnostic Test (Routine) - Closed Specialty Diagnoses / Procedures Referred By Olamide aldana Referred To Contact Radiology Diagnoses Facial pain Throat fullness Procedures CT Neck Soft Tissue w Contrast (Generic) Mecca Frazier MD [facility] [place] [address] [facility] [place] [address] Referral ID Status Reason Start Date Expiration Date V isits Requested Visits Authorized [id number] Closed Specialty Service Requested 07/31/2022 02/01/2024 1 1 Reason for Visit * Diagnostic Test (Routine) - Closed Specialty Diagnoses / Procedures Referred By Contjose aldana Referred To Contact Radiology Diagnoses Facial pain Throat fullness Procedures CT Neck Soft Tissue w Contrast (Generic) Mecca Frazier MD [facility] [place] [address] [facility] [place] [address] Referral ID Status Reason Start Date Expiration Date V isits Requested Visits Authorized [id number] Closed Specialty Service Requested 07/31/2022 02/01/2024 1 1 Encounter Details Date Type Department Care Team (Latest Contact Info) Description 09/05/2022 9:31 AM EDT - 09/05/2022 11:59 PM EDT Hospital [place] [address] Mecca Frazier MD [facility] [place] [address] Facial pain; Throat fullness Discharge Disposition: Home Social History Tobacco Use Types Packs/Day Years Used Date Smoking Tobacco: Former Cigarettes Q uit: 1996 Smokeless Tobacco: Never Sex and Gender Information Value Date Recorded Sex Assigned at Not on file Gender Identity Not on file Sexual Orientation Not on file documented as of this encounter Medications at Time of Discharge Medication Sig Dispensed Refills Start Date End Date cholecalciferol, Vitamin D3, 50 mcg (2,000 unit) Capsule Take by mouth. cabergoline (Dostinex) 0.5 mg tablet Take 0.5 tablets by mouth twice a week. 12 tablet 3 09/04/2022 11/03/2023 OMEGA3,5,6,7,9 NO.1-SALMON OIL ORAL Take by mouth daily. 11/03/2023 documented as of this encounter Plan of Treatment Upcoming Encounters Date Type Department Care Team (Late st Contact Info) Description 04/20/2024 3:30 PM EST Office Visit Neurology at [address] [address] Lazara Amaya MD [facility] [place] [address] 04/29/2024 4:40 PM EST Office [place] [address] Mecca Frazier MD [facility] [place] [address] documented as of this encounter Procedures Procedure Name Priority Date/Time Associated Diagnosis Comments CT NECK SOFT TISSUE W CONTRAST Routine 09/05/2022 9:58 AM EDT Facial pain Throat fullness documented in this encounter Results * CT Neck Soft [...] who have questions please contact the health director of managed care that requested your imaging first. ? Narrative 09/05/2022 11:57 AM EDT EXAMINATION: CT [...] patients who have questions please contactthe health director of managed care that requested your imaging first. Mecca Frazier MD IMG CT ORDERABLES documented in this encounter Visit Diagnoses Diagnosis Facial pain Headache Throat fullness Other symptoms involving head and neck documented in this encounter Administered Medications Inactive Administered Medications - up to 3 most recent administrations Medication Order MAR Action Action Date Dose Rate Site iohexoL (Omnipaque) (350 mg/mL) solution 0-200 mL 0-200 mL, Intravenous, ONCE PRN, 1 dose, Starting on Thu09/05/22 at 0958, Until Thu09/05/22 at 0958, Per Protocol, Warning Vesicant/Irritant Medication , Radiology Contrast, Routine Given 09/05/2022 9:58 AM EDT 110 mLs documented in this encounter Care Teams Senior Chemist Relationship Specialty Start Date End Date None None PCP - General 09/02/22 12/23/22 documented as of this encounter
--- OUTSIDE RECORDS SUMMARY | 2024-04-20 14:22 | XMS_ITS | Encounter Summary ---
Author Organization [facility] Address [address] [place] [address] Care Team Providers Care Maint Mechanic Name Role Phone Manisha Mane Primary Care Provider Reason for Visit * Reason Onset Date Comments Advice Only 06/13/2020 Encounter Details Date Type Department Care Team (Late st Contact Info) Description 06/13/2020 Telephone [facility] [place] [address] [place] [address] Manisha Mane FNP [address] [place] [address] Advice Only Social History Tobacco Use Types Packs/Day Years [...] encounter Miscellaneous Notes * Telephone Encounter - Zandra Early RN - 06/13/2020 4:37 PM EST Pt notified. * Telephone Encounter - Manisha Mane FNP - 06/13/2020 3:52 PM EST I do think that her symptoms are most likely from her second Covid shot. Patients can have a delayed reaction. If she is Covid negative today, I do not feel that she needs to have any additional blood work at this time, instead we will wait and watch a few days. If her symptoms worsen she should certainly call back * Telephone Encounter - Zandra Early RN - 06/13/2020 3:42 PM EST Pt calls saying that she got her 2nd COVID vaccine on 06/07/20. She says that she has swelling in her L hand , the Side where she got the vaccine & swollen lymph nodes in her neck on the L side, muscle aches & joint pain. Today she has a temp 102. She did have a COVID test today. She is asking about some additional blood work if she is COVID negative? documented in this encounter Plan of Treatment Not on file documented as of this encounter Visit Diagnoses Not on filedocumented in this encounter Additional Health Concerns Infection Onset Date Last Indicated Resolved Time R/O COVID-19 06/13/2020 06/13/2020 06/13/2020 10:3 9 PM EST documented as of this encounter Care Teams Maint Mechanic Relationship Specialty Start Date End Date Manisha Mane, SIGN PAINTER [address] [place] [address] PCP - General Nurse Practitioner 05/15/20 12/15/21 documented as of this encounter
--- OUTSIDE RECORDS SUMMARY | 2024-04-20 14:22 | XMS_ITS | Encounter Summary ---
Author Organization [facility] Address [facility] [place] [address] Care Team Providers Care Multimedia Authoring Specialist Name Role Phone None Primary Care Provider Unavailabl e Encounter Details Date Type Department Care Team (Latest Contact Info) Description 09/02/2022 Travel Social History Tobacco Use Types Packs/Day [...] 3:30 PM EST Office Visit Neurology at [address] [address] Lazara Amaya MD [facility] [place] [address] 04/29/2024 4:40 PM EST Office [place] [address] Mecca Frazier MD [facility] [place] [address] documented as of this encounter Visit Diagnoses Not on filedocumented in this encounter Care Teams Multimedia Authoring Specialist Relationship Specialty Start Date End Date None None PCP - General 09/02/22 12/23/22 documented as of this encounter
--- OUTSIDE RECORDS SUMMARY | 2024-04-20 14:22 | XMS_ITS | Encounter Summary ---
Author Organization [facility] Address [address] [place] [address] Care Team Providers Care Credit Front Office Developer Name Role Phone Manisha Mane Primary Care Provider Reason for Visit * Reason Onset Date Comments Imaging Orders 07/30/2020 Encounter Details Date Type Department Care Team (Late st Contact Info) Description 07/30/2020 Telephone [facility] [place] [address] [place] [address] Manisha Mane FNP [address] [place] [address] Imaging Orders Social History Tobacco Use Types Packs/Day Years [...] Author Status No 10/29/2017 9:49 AM EDT [place], Jessy Ac tive * Do you have difficulty dressing or bathing? (5 years old or older) Answer Date of Assessment Author Status No 10/29/2017 9:49 AM EDT [place] green[place] Ac tive * Because of a physical, mental, or emotional condition, do you have difficulty doing errands alone such as visiting a doctor's office or shopping? (15 years old or older) Answer Date of Assessment Author Status No 10/29/2017 9:49 AM EDT [place] Tari Ac tive documented as of this encounter Mental Status * Because of a physical, mental, or emotional condition, do you have serious difficulty concentrating, remembering, or making decisions? (5 years old or older) Answer Entry Date Author Status No 10/29/2017 9:49 AM EDT Tari [place] Ac tive documented in this encounter Miscellaneous Notes * Telephone Encounter - Manisha Mane FNP - 07/30/2020 2:25 PM EDT I will go ahead and order a brain MRI due to her increased prolactin level. She has a history of elevated prolactin levels but has not had a brain MRI. She does have an appointment to see neurology in October documented in this encounter Plan of Treatment Not on file documented as of this encounter Visit Diagnoses Diagnosis Increased prolactin level- Primary Other and unspecified anterior pituitary hyperfunction documented in this encounter Care Teams Credit Front Office Developer Relationship Specialty Start Date End Date Manisha Mane FNP [address] [place] [phone] PCP - General Nurse Practitioner 05/15/20 12/15/21 documented as of this encounter
--- OUTSIDE RECORDS SUMMARY | 2024-04-20 14:22 | XMS_ITS | Encounter Summary ---
Author Organization [facility] Address [facility] [place] [address] Care Team Providers Care Electronic News Gathering Camera Person Name Role Phone Melinda Espinoza MD Primary Care Provider [phone] Encounter Details Date Type Department Care Team (Latest Contact Info) Description 01/15/2023 Travel Social History Tobacco Use Types Packs/Day [...] 3:30 PM EST Office Visit Neurology at [address] [phone] Lazara Amaya MD [facility] [place] [address] 04/29/2024 4:40 PM EST Office [place] [address] [facility] [place] [address] documented as of this encounter Visit Diagnoses Not on filedocumented in this encounter Care Teams Electronic News Gathering Camera Person Relationship Specialty Start Date End Date Melinda Espinoza MD [address] [place] [address] PCP - General Family Medicine 12/24/22 documented as of this encounter
--- OUTSIDE RECORDS SUMMARY | 2024-04-20 14:22 | XMS_ITS | Encounter Summary ---
[place] [address] Care Team Providers Care Digital Tech Name Role Phone None Primary Care Provider Unavailabl e Reason for Referral * Diagnostic Test (Routine) - Closed Specialty Diagnoses / Procedures Referred By Olamide aldana Referred To Contact Radiology Diagnoses Pituitary microadenoma with hyperprolactinemia Procedures MRI Pituitary wwo Contrast MRI Brain wwo Contrast (Generic) Susy Worthington MD [facility] ENDOCRIN[place] [address] [facility] [place] [address] Referral ID Status Reason Start Date Expiration Date V isits Requested Visits Authorized [id number] Closed Specialty Service Requested 12/10/2022 02/07/2023 1 1 Reason for Visit * Consultation (Routine) - Closed Specialty Diagnoses / Procedures Referred By Olamide aldana Referred To Contact Endocrinology Diagnoses Hyperprolactinemia Benign neoplasm of pituitary gland Melinda Frias APRN [address] [place] [address] [facility] [address] [place] [address] Referral ID Status Reason Start Date Expiration Date Visits Re quested Visits Authorized [id number] Closed 05/15/2022 05/15/2023 1 1 Encounter Details Date Type Department Care Team (Latest Contact Info) Description 09/02/2022 11:00 AM EDT Office [place] [address] Susy Worthington MD [facility] [place] [address] Pituitary microadenoma with hyperprolactinemia (Primary Dx) Social [...] Sign Reading Time Taken Comments Blood Pressure 102/49 09/02/2022 11:04 AM EDT Pulse 80 09/02/2022 11:04 AM EDT Temperature - - Respiratory Rate - - Oxygen Saturation 98% 09/02/2022 11:04 AM EDT Inhaled Oxygen Concentration - - Weight 77.6 kg (171 lb) 09/02/2022 11:04 AM EDT Height 172.7 cm (5' 8) 09/02/2022 11:04 AM EDT Body Mass Index 26 09/02/2022 11:04 AM EDT documented in this encounter Progress Notes * Susy Worthington MD - 09/02/2022 11:00 AM EDT Images from the original note were not included. Endocrinology Outpatient Visit Name: Juliana Cooley Date of visit: 09/02/22 Referral requested by: Melinda Frias APRN Reason for referral: hyperprolactinemia HPI: Ms. Juliana Cooley is a 46 y.o. female with a PMH significant for adjustment disorder/depression, arthritis, is here for evaluation of hyperprolactinemia. Patient had amenorrhea (2-3 periods a year) [...] . Mom had reaction with MRI contrast. Notices more acne 4-5 years ago. Last period was 5 months ago. Denied hot flashes. Played [employer] for 5-6 years. Never loss consciousness. No recent brain injury. Takes Astaxanthin in the past. Has some depression. Denied manic episode or hallucination. Patient does not take any antipsychotic medications. Denied nipple stimulation. Patient denied fatigue, cold intolerance, heat intolerance, constipation, diarrhea, muscle weakness, hair loss, hyperactivity, extremity edema, weight loss, easily bruising, purple striae, hirsutism,changing in shoe/glove size, joint pain, deepening of the voice, polyuria, polydipsia, nipple discharge, dizziness, orthostasis, abdominal pain, nausea, vomiting or vision changes Age of menarche: 16 yo Cycle length: regular, every month until her 30s. 6-8 years started to have period 3-4 times/year Duration: 5-7 days Child: no No family history of pituitary tumor or MEN Current Outpatient Medications: ??? cholecalciferol, Vitamin D3, 50 mcg (2,000 unit) Capsule, Take by mouth., Disp: , Rfl: ??? OMEGA3,5,6,7,9 NO.1-SALMON OIL ORAL, Take by mouth daily., Disp: , Rfl: has no past medical history on file. No past surgical history on file. Social History Tobacco Use ??? Smoking status: Former Types: Cigarettes Quit date: 1996 Years since quittin.3 ??? Smokeless tobacco: Never Vaping Use ??? Vaping Use: Never used family history is not on file. Allergies Allergen Reactions ??? Banana Raw; GI upset Physical Exam: Patient Vitals for the past 24 hrs: Pulse BP SpO2 09/02/22 1104 80 102/49 98 % General: No acute distress, pleasant, sitting comfortably Face: not round or red Eyes: no lid lag; normal eye movements Nose/mouth: Nose not enlarged, mucous membranes moist Neck: no supraclavicular fat pads; no palpable thyroid enlargement Lymphatic: no palpable cervical lymph nodes Respiratory: symmetrical chest expansion Cardiovascular: normal S1, S2 Musculoskeletal: normal gait; normal female musculature Skin: normal temperature/texture, no purple striae, no bruises Neurological: no tremors, no visual field defect Breast: no galactorrhea Radiology Studies: Laboratory Data: 05/01/22 Prolactin 121.3 A1C 5.6% Calcium 9.1 Alb 4.2 Cr 0.8 TSH 3.64 Hb 12.4 Hct 37.6 Assessment / Plan: Ms. Juliana Cooley is a 46 y.o. female with a PMH significant for adjustment disorder/depression, arthritis, is here for evaluation of hyperprolactinemia. Hyperprolactinemia and pituitary microadenoma Patient has history [...] the future - f/u in 3 months Thank you for allowing me participate in the care of this pleasant patient. D/W Dr. Shani Worthington MD [facility] Endocrinology PGY-4, Fellow Pager #[phone] * Jose Mcleod MD - 09/02/2022 11:00 AM EDT I have seen the patient and reviewed Dr. Soraya Worthington's above history and I agreewith the details as written. The assessment and plan were formulated in discussion with me and I agree with them as documented. Jose Mcleod MD, PhD, FACP, FACE documented in this encounter Miscellaneous Notes * Addendum Note - Susy Worthington MD - 09/02/2022 11:00 AM EDT Addended by: SUSY WORTHINGTON on: 09/04/2022 10:05 PM Modules accepted: Orders documented in this encounter Plan of Treatment Upcoming Encounters Date Type Department Care Team (Late st Contact Info) Description 04/20/2024 3:30 PM EST Office Visit Neurology at [address] [address] Lazara Amaya MD [facility] [place] [address] 04/29/2024 4:40 PM EST Office [place] [address] Mecca Frazier MD [facility] [place] [address] documented as of this encounter Procedures Procedure Name Priority Date/Time Associated Diagnosis Comments INSULIN LIKE GF-1 Routine 09/02/2022 12: 37 PM EDT Pituitary microadenoma with hyperprolactinemia HC VITAMIN D TOTAL-25 HYDROXY Routine 09/02/2022 12:37 PM EDT Pituitary microadenoma with hyperprolactinemia HC PROLACTIN ASSAY, SERUM Routine 09/02/2022 12:37 PM EDT Pituitary microadenoma with hyperprolactinemia DHEA-SULFATE Routine 09/02/2022 12:37 PM EDT ESTRADIOL Routine 09/02/2022 12:37 PM EDT Pituitary microadenoma with hyperprolactinemia ACTH Routine 09/02/2022 12:37 PM EDT Pituitary microadenoma with hyperprolactinemia TSH Routine 09/02/2022 12:37 PM EDT Pituitary microadenoma with hyperprolactinemia T4, FREE Routine 09/02/2022 12:37 PM EDT Pituitary microadenoma with hyperprolactinemia HC LH ASSAY, SERUM Routine 09/02/2022 12 :37 PM EDT Pituitary microadenoma with hyperprolactinemia FOLLICLE STIMULATING HORMONE Routine 09/02/2022 12:37 PM EDT Pituitary microadenoma with hyperprolactinemia CORTISOL Routine 09/02/2022 12:37 PM EDT Pituitary microadenoma with hyperprolactinemia COMPREHENSIVE METABOLIC PANEL Routine 09/02/2022 12:37 PM EDT Pituitary microadenoma with hyperprolactinemia documented in this encounter Results * MRI Pituitary wwo Contrast (12/11/2022 6:22 PM EDT) Anatomical Region Laterality Modality Head Magnetic Resonan ce Impressions 12/12/2022 4:56 PM EDT 7 mm hypoenhancing well-circumscribed focus in the RIGHT aspect of the pituitary gland likely represents a pituitary microadenoma. I have personally reviewed the image(s) and the resident's interpretation and agree with the findings, Vj Wheat MD at 12/12/2022 4:56 PM Thank you for letting us participate in the care of this patient. ??If you are a health care provider and have any questions regarding this report, please contact the number below. ??For patients who have questions please contact the health dog day care attendant that requested your imaging first. ? Narrative 12/12/2022 4:56 PM EDT EXAMINATION: MRI PITUITARY WWO CONTRAST CLINICAL HISTORY: Pituitary/endocrine dysfunction; pituitary adenoma 6 mm; elevated prolactin and pituitary adenoma 6 mm elevated prolactin and pituitary adenoma 6 mm TECHNIQUE: MRI of the pituitary was performed before and after the intravenous administration of 15cc Dotarem. COMPARISON: CT neck 08/28/2022 FINDINGS: 7 mm x 4 mm focus which is hypoenhancing to background pituitary parenchyma and heterogeneously T2 hyperintense in the RIGHT posterior aspect of the pituitary gland. No extension into the suprasellar recess. There the hypoenhancing region abuts the cavernous segment of the RIGHT carotid artery without extension into the cavernous sinus. No abnormality of the visualized intracranial contents. Procedure Note Vj Wheat MD - 12/12/2022 EXAMINATION: MRI PITUITARY WWO CONTRAST CLINICAL HISTORY: Pituitary/endocrine dysfunction; pituitary adenoma 6mm; elevated prolactin and pituitary adenoma 6 mm elevated prolactin and pituitary adenoma 6 mm TECHNIQUE: MRI of the pituitary was performed before and after the intravenous administration of 15cc Dotarem. COMPARISON: CT neck 08/28/2022 FINDINGS: 7 mm x 4 mm focus which is hypoenhancing to background pituitaryparenchyma and heterogeneously T2 hyperintense in the RIGHT posterior aspect of thepituitary gland. No extension into the suprasellar recess. There the hypoenhancingregion abuts the cavernous segment of the RIGHT carotid artery without extensioninto the cavernous sinus. No abnormality of the visualized intracranialcontents. IMPRESSION 7 mm hypoenhancing well-circumscribed focus in the RIGHT aspect of thepituitary gland likely represents a pituitary microadenoma. I have personally reviewed the image(s) and the resident's interpretationand agree with the findings, Vj Wheat MD at 12/12/2022 4:56 PM Thank you for letting us participate in the care of this patient. If youare a health care provider and have any questions regarding this report,please contact the number below. For patients who have questions please contactthe health dog day care attendant that requested your imaging first. Jose Mcleod MD IMG MRI ORDERABLE S * DHEA-sulfate (09/02/2022 12:37 PM EDT) Dehydroepiandrosterone Sulfate 255.0 35.4 - 256.0 mcg/dL [facility] Blood Venous Draw / Unknown 09/02/2022 12:37 PM EDT 09/02/2022 1:08 PM EDT Narrative Resulting Agency Comment Spec In Lab Susy Worthington MD CHEMISTRY OR DERABLES [facility] [place] [address] * TSH (09/02/2022 12:37 PM EDT) Thyroid Stimulating Hormone 1.72 0.27 - 4.20 mcIU/mL [facility] Comment: Reference Interval (mcIU/mL): Females: ??First Trimester: 0.23-3.88 ??Second Trimester: 0.22-3.90 ??Third Trimester: 0.44-4.66 Blood 09/02/2022 12:3 7 PM EDT 09/02/2022 1:00 PM EDT Narrative Resulting Agency Comment Spec In Lab Jose Mcleod MD CHEMISTRY ORDERAB LES Performing Organization Address [facility] Co de Phone Number [facility] [place] [address] * (ABNORMAL) T4, free (09/02/2022 12:37 PM EDT) Free T4 0.92(L) 0.93 - 1.70 ng/dL [facility] Comment: Reference Interval (ng/dL): Females: ??First Trimester: 0.97-1.68 ??Second Trimester: 0.77-1.51 ??Third Trimester: 0.77-1.49 Blood 09/02/2022 12:3 7 PM EDT 09/02/2022 1:00 PM EDT Narrative Resulting Agency Comment Spec In Lab Jose Mcleod MD CHEMISTRY ORDERAB LES Performing Organization Address [facility] Co de Phone Number [facility] [place] [address] * (ABNORMAL) Prolactin (09/02/2022 12:37 PM EDT) Prolactin 137.0(H) 4.8 - 23.3 ng/mL [facility] Blood 09/02/2022 12:3 7 PM EDT 09/02/2022 1:00 PM EDT Narrative Resulting Agency Comment Spec In Lab Jose Mcleod MD CHEMISTRY ORDERAB LES Performing Organization Address [facility] Co de Phone Number [facility] [place] [address] * Luteinizing Hormone (09/02/2022 12:37 PM EDT) Luteinizing Hormone 16.0 mlU/ML [facility] Comment: Reference Ranges Male: ? 1.7-8.6 mIU/mL Female ?? Follicular: ?2.4-12.6 mIU/mL ?? Ovulation: ? 14.0-95.6 mIU/mL ?? Luteal: ?1.0-11.4 mIU/mL ?? Postmenopausal: ?7.7-58.5 mIU/mL Blood 09/02/2022 12:3 7 PM EDT 09/02/2022 1:00 PM EDT Narrative Resulting Agency Comment Spec In Lab Jose Mcleod MD CHEMISTRY ORDERAB LES [facility] [place] [address] * Insulin Like GF-1 (09/02/2022 12:37 PM EDT) Igf-1 Z-Score (SEPTEMBER) 128 44 - 227 ng/mL [facility] Comment: Test Performed by: [facility] [place] [address] Guide Changer: Robert Aguila M.D. Ph.D.; CLIA# [id number] IGF-1 Z-score 0.39 -2.0 - 2.0 SD [facility] Comment: ADDITIONAL INFORMATION This test was developed and its performance characteristics determined by [facility] in a manner consistent with CLIA requirements. This test has not been cleared or approved by the U.S. Food and Drug Administration. Test Performed by: [facility] [place] [address] Guide Changer: Robert Aguila M.D. Ph.D.; CLIA# [id number] Blood 09/02/2022 12:3 7 PM EDT 09/02/2022 3:40 PM EDT Narrative Resulting Agency Comment Spec In Lab Jose Mcleod MD LAB SEND OUT ORDE RABLES Performing Organization Address [facility] Co de Phone Number [facility] [place] [address] * Follicle Stimulating Hormone (09/02/2022 12:37 PM EDT) Follicle Stimulating Hormone 26.9 mlU/ML [facility] Comment: Reference Ranges Male: ? 1.5-12.4 mIU/mL Female ?? Follicular: ?3.5-12.5 mIU/mL ?? Ovulation: ? 4.7-21.5 mIU/mL ?? Luteal: ?1.7-7.7 mIU/mL ?? Postmenopausal: ?25.8-134.8 mIU/mL Blood 09/02/2022 12:3 7 PM EDT 09/02/2022 1:00 PM EDT Narrative Resulting Agency Comment Spec In Lab Jose Mcleod MD CHEMISTRY ORDERAB LES Performing Organization Address [facility] de Phone Number [facility] [place] [address] * Estradiol (09/02/2022 12:37 PM EDT) Estradiol 20 pg/mL [facility] Comment: Reference ranges: Males: Adult: ? 11 to 43 pg/mL Females: Non- females: ?Follicular: ??12-233 pg/mL ?Ovulation: ?? 41-398 pg/mL ?Luteal: ?22-341 pg/mL ?Postmenopausal: ?? <5 - 138 pg/mL females: ?1st trimester: ??154-3243 pg/mL ?2nd trimester: ??1561-28981 pg/mL ?3rd trimester: ??8525- >89784 pg/mL Blood 09/02/2022 12:3 7 PM EDT 09/02/2022 1:00 PM EDT Narrative Resulting Agency Comment Spec In Lab Jose Mcleod MD CHEMISTRY ORDERAB LES Performing Organization Address [facility] Co de Phone Number [facility] [place] [address] * ACTH (09/02/2022 12:37 PM EDT) ACTH (SEPTEMBER) 26 pg/mL [facility] Comment: REFERENCE VALUE 7.2-63 (a.m. collection) Test Performed by: [facility] [address] [place] [address] Guide Changer: Robert Aguila M.D. Ph.D.; CLIA# [id number] Blood 09/02/2022 12:3 7 PM EDT 09/02/2022 3:40 PM EDT Narrative Resulting Agency Comment Spec In Lab Jose Mcleod MD LAB SEND OUT ORDE RABLES Performing Organization Address [facility] Co de Phone Number [facility] [place] [address] * Vitamin D, 25-Hydroxy (09/02/2022 12:37 PM EDT) Vitamin D Total 25 OH 31 21 - 100 ng/mL [facility] Vit D Interp Sufficient [facility] Blood 09/02/2022 12:3 7 PM EDT 09/02/2022 1:00 PM EDT Narrative Resulting Agency Comment Spec In Lab Jose Mcleod MD CHEMISTRY ORDERAB LES Performing Organization Address City/[facility]/ZIP Co de Phone Number [facility] [place] [address] * Cortisol (09/02/2022 12:37 PM EDT) Cortisol 6.7 mcg/dL [facility] Comment: Reference ranges: ??AM (6-10am): ??4.8-19.5 mcg/dL ??PM (4-8pm) : ??2.5-11.9 mcg/dL Blood 09/02/2022 12:3 7 PM EDT 09/02/2022 1:00 PM EDT Narrative Resulting Agency Comment Spec In Lab Jose Mcleod MD CHEMISTRY ORDERAB LES Performing Organization Address [facility] Co de Phone Number [facility] [place] [address] * Comprehensive metabolic panel (non-fasting) (09/02/2022 12:37 PM EDT) Glucose 88 65 - 199 mg/dL [facility] Comment:Diabetes: >=200 mg/d L plus symptoms Blood Urea Nitrogen 11 8 - 18 mg/dL [facility] Creatinine 0.74 0.70 - 1.20 mg/dL [facility] Sodium 142 135 - 145 mmol/L [facility] Potassium 4.4 3.5 - 5.0 mmol/L [facility] Comment: Please note: ??Patients with WBC >100,000 may have falsely elevated Potassium levels. ??For accurate Potassium quantification in these patients send serum separator tube (gold top) for subsequent determinations. ??Contact the Clinical Chemistry Laboratory if there are any questions. Chloride 107 98 - 107 mmol/L [facility] Carbon Dioxide 27 22 - 31 mmol/L [facility] Anion Gap 8 5 - 15 mmol/L [facility] Calcium 9.5 8.5 - 10.5 mg/dL [facility] Protein, Total 6.6 6.1 - 8.0 g/dL [facility] Albumin 4.6 3.2 - 5.2 g/dL [facility] Aspartate Aminotransferase 13 0 - 30 unit/L [facility] Alanine Aminotransferase 8 0 - 30 unit/L [facility] Alkaline Phosphatase 42 35 - 105 unit/L [facility] Bilirubin, Total 0.6 0.2 - 1.3 mg/dL [facility] Est Glomerular Filtration Rate 101 >=60 mL/min/1. 73 m?? [facility] Comment: This patient's estimated GFR was [...] and symptoms in addition to eGFR. Blood 09/02/2022 12:3 7 PM EDT 09/02/2022 1:00 PM EDT Narrative Resulting Agency Comment Spec In Lab Jose Mcleod MD CHEMISTRY ORDERAB LES [facility] [place] [address] documented in this encounter Visit Diagnoses Diagnosis Pituitary microadenoma with hyperprolactinemia- Primary Other and unspecified anterior pituitary hyperfunction Pituitary microadenoma with hyperprolactinemia Other and unspecified anterior pituitary hyperfunction documented in this encounter Care Teams Digital Tech Relationship Specialty Start Date End Date None None PCP - General 09/02/22 12/23/22 documented as of this encounter
--- OUTSIDE RECORDS SUMMARY | 2024-04-20 14:22 | XMS_ITS | Encounter Summary ---
Author Organization [facility] Address [facility] [place] [address] Care Team Providers Care Talent Engineer Name Role Phone Melinda Espinoza MD Primary Care Provider [phone] Encounter Details Date Type Department Care Team (Late st Contact Info) Description 06/30/2023 Telephone [place] [address] Monica Rodney Social History Tobacco Use Types [...] 3:30 PM EST Office Visit Neurology at [address] [address] Lazara Amaya MD [facility] [place] [address] 04/29/2024 4:40 PM EST Office Visit [place] [address] Mecca Frazier MD [facility] [place] [address] documented as of this encounter Visit Diagnoses Not on filedocumented in this encounter Care Teams Talent Engineer Relationship Specialty Start Date End Date Melinda Espinoza MD [address] [place] [address] PCP - General Family Medicine 12/24/22 documented as of this encounter
--- OUTSIDE RECORDS SUMMARY | 2024-04-20 14:22 | XMS_ITS | Encounter Summary ---
Author Organization [facility] Address [facility] [place] [address] Care Team Providers Care Shearing Supervisor Name Role Phone None Primary Care Provider Unavailabl e Reason for Referral * Diagnostic Test (Routine) - Closed Specialty Diagnoses / Procedures Referred By Olamide aldana Referred To Contact Radiology Diagnoses Pituitary microadenoma with hyperprolactinemia Procedures MRI Pituitary wwo Contrast MRI Brain wwo Contrast (Generic) Xiao Worthington MD [facility] [place] [address] [place] [address] Referral ID Status Reason Start Date Expiration Date V isits Requested Visits Authorized [id number] Closed Specialty Service Requested 12/10/2022 02/07/2023 1 1 Reason for Visit * Diagnostic Test (Routine) - Closed Specialty Diagnoses / Procedures Referred By Olamide aldana Referred To Contact Radiology Diagnoses Pituitary microadenoma with hyperprolactinemia Procedures MRI Pituitary wwo Contrast MRI Brain wwo Contrast (Generic) Xiao Worthington MD [facility] [place] [address] [place] [address] Referral ID Status Reason Start Date Expiration Date V isits Requested Visits Authorized [id number] Closed Specialty Service Requested 12/10/2022 02/07/2023 1 1 Encounter Details Date Type Department Care Team (Latest Contact Info) Description 12/11/2022 5:26 PM EDT - 12/11/2022 11:59 PM EDT Hospital [place] [phone] Jose Mcleod MD [facility] [address] Pituitary microadenoma with hyperprolactinemia Discharge Disposition: Home Social History Tobacco Use [...] mcg (2,000 unit) Capsule Take by mouth. levothyroxine (Synthroid) 25 mcg tablet Take 1 tablet by mouth daily. 90 tablet 3 09/17/2022 12/24/2022 cabergoline (Dostinex) 0.5 mg tablet Take 0.5 tablets by mouth twice a week. 12 tablet 3 09/04/2022 11/03/2023 OMEGA3,5,6,7,9 NO.1-SALMON OIL ORAL Take by mouth daily. 11/03/2023 documented as of this encounter Plan of Treatment Upcoming Encounters Date Type Department Care Team (Late st Contact Info) Description 04/20/2024 3:30 PM EST Office Visit Neurology at [address] [phone] Lazara Amaya MD [facility] [place] [address] 04/29/2024 4:40 PM EST Office [place] [phone] Mecca Frazier MD [facility] [address] documented as of this encounter Procedures Procedure Name Priority Date/Time Associated Diagnosis Comments MRI PITUITARY WWO CONTRAST Routine 12/11/2022 6:22 PM EDT Pituitary microadenoma with hyperprolactinemia documented [...] who have questions please contact the health ambulatory care that requested your imaging first. ? Electronically signed by: Vj Wheat MD, [facility] ([phone]), at 12/12/2022 4:56 PM Narrative 12/12/2022 4:56 PM EDT EXAMINATION: MRI [...] patients who have questions please contactthe health ambulatory care that requested your imaging first. Jose Mcleod MD IMG MRI ORDERABLE S documented in this encounter Visit Diagnoses Diagnosis Pituitary microadenoma with hyperprolactinemia Other and unspecified anterior pituitary hyperfunction documented in this encounter Administered Medications Inactive Administered Medications - up to 3 most recent administrations Medication Order MAR Action Action Date Dose Rate Site gadoterate meglumine (Dotarem) (0.5 mMol/mL) injection solution 0-100 mL 0-100 mL, Intravenous, ONCE PRN, 1 dose, Starting on Mandie 12/11/22 at 1746, Until Mandie 12/11/22 at 1810, Per Protocol, Radiology Contrast, Routine Given 12/11/2022 6:10 PM EDT 15 mLs documented in this encounter Care Teams Shearing Supervisor Relationship Specialty Start Date End Date None None PCP - General 09/02/22 12/23/22 documented as of this encounter
--- OUTSIDE RECORDS SUMMARY | 2024-04-20 14:22 | XMS_ITS | Encounter Summary ---
Author Organization [facility] Address [facility] [place] [address] Care Team Providers Care Manager Behavior Name Role Phone Unavailable Primary Care Provider Unavailabl e Encounter Details Date Type Department Care Team (Latest Contact Info) Description 07/29/2022 Travel Social History Tobacco Use Types Packs/Day [...] 3:30 PM EST Office Visit Neurology at [address] [phone] Lazara Amaya MD [facility] [place] [address] 04/29/2024 4:40 PM EST Office [place] [address] Mecca Frazier MD [facility] [place] [address] documented as of this encounter Visit Diagnoses Not on filedocumented in this encounter
--- OUTSIDE RECORDS SUMMARY | 2024-04-20 14:22 | XMS_ITS | Encounter Summary ---
Author Organization [facility] Address [address] [place] [address] Care Team Providers Care Financial Administrator Name Role Phone Manisha Mane CASTING MACHINE ADJUSTER Primary Care Provider Reason for Visit * Reason Onset Date Comments Appointment 06/18/2020 Covid Test 06/18/2020 Encounter Details Date Type Department Care Team (Late st Contact Info) Description 06/18/2020 Telephone [facility] [address] [place] [address] Ishaan Falk MD [address] [phone] Appointment; Covid Test Social History Tobacco Use Types Packs/Day Years [...] Status No 10/29/2017 9:49 AM EDTari Contreras tive documented as of this encounter Mental Status * Because of a physical, mental, or emotional condition, do you have serious difficulty concentrating, remembering, or making decisions? 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 No terminal operations manager care or senior living? No Does the patient live in a congregate setting No Patient above 60: No Any known exposure to confirmed case? No Any recent travel? 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 If yes please schedule. If unknown ask patient Patient has been scheduled for testing ??? Does patient have mychart: yes . ??? If no please get their email and send them an activation code to create account to receive covid test results if done . ??? If pediatric patient ages 0-11 yo please use the [email or web address] to get verbal permission to activate their mychart account COVID-19 Risk of Complications: 0 Values used to calculate this score: Age: 44 Sex: Female Has Congestive Heart Failure: No Has Congenital Heart Disease : No Has Coronary Artery Disease: No Has End-Stage Renal Disease: No Has End-Stage Liver Disease: No Has Chronic Obstructive Pulmonary Disease: No Has Hypertension: No Has Diabetes: No Is Obese : No Is Immunocompromised : No Resides in Retirement: No : No documented in this encounter Plan of Treatment Not on file documented as of this encounter Procedures Procedure Name Priority Date/Time Associated Diagnosis Comments CORONAVIRUS COVID-19 STAT 06/18/2020 11:15 AM EST Exposure to 2019 novel coronavirus documented in this encounter Results * CORONAVIRUS COVID-19 (06/18/2020 11:15 AM EST) Coronavirus COVID-19 NOT DETECTED NOT DETECTED [facility] Comment: NOTE: Negative results do not preclude SARS-CoV-2 infection and should not be used as the sole basis for patient management decisions. This SARS-CoV-2 assay is a real-time RT-PCR test intended for the qualitative detection of nucleic acid from the SARS-CoV-2 in respiratory specimens from individuals suspected of having COVID-19 infection. This test was developed and its performance characteristics determined by [facility]. This test has not been FDA cleared or approved. This test has been authorized by the FDA under an Emergency Use Authorization (EUA). This test has been validated in accordance with the FDA's Guidance Document Policy for Diagnostics Testing in Laboratories Certified to Perform High Complexity Testing under CLIA prior to Emergency Use Authorization for Coronavirus Disease-2019 during the Public Health Emergency issued on July 09, 2019. CDC 2019-nCoV Real Time RT-PCR Diagnostic Panel (CDC) Centers for Disease Control and Preventions (CDC) Swab 06/18/2020 11:1 5 AM EST 06/18/2020 2:38 PM EST us Ishaan Falk MD MICROBIOLOGY - GENERAL ORDER LEO Final Result [id number] [place] [address] documented in this encounter Visit Diagnoses Diagnosis Exposure to 2019 novel coronavirus- Primary documented in this encounter Additional Health Concerns Infection Onset Date Last Indicated Resolved Time R/O COVID-19 06/18/2020 06/18/2020 06/19/2020 12:2 4 AM EST documented as of this encounter Care Teams Financial Administrator Relationship Specialty Start Date End Date Manisha Mane, CASTING MACHINE ADJUSTER [address] [place] [address] PCP - General Nurse Practitioner 05/15/20 12/15/21 documented as of this encounter
--- OUTSIDE RECORDS SUMMARY | 2024-04-20 14:23 | XMS_ITS | Encounter Summary ---
Author Organization [facility] Address [address] [place] [address] Care Team Providers Care Founder President And Ceo Name Role Phone Eliseo Quinonez MD Primary Care Provider Reason for Visit * Reason Comments New Patient Return To Work Encounter Details Date Type Department Care Team (Late st Contact Info) Description 06/01/2018 1:15 PM EST Office Visit [facility] Primary Care [address] [place] [address] Mariann Rangel, EDGER MACHINE SETTER [address] [place] [address] Return to work exam (Primary Dx); Elevated prolactin level (CMS-HCC); Family history of colon cancer Social History Tobacco Use Types Packs/Day Years Used Date Smoking Tobacco: Former Cigarettes Smokeless Tobacco: Never Alcohol Use Standard Drinks/Week Comments Yes 3 (1 standard drink = 0.6 oz pur e alcohol) Substance Use Types Use/Week Comments No Comments [...] Sign Reading Time Taken Comments Blood Pressure 106/80 06/01/2018 1:19 PM EST Pulse - - Temperature - - Respiratory Rate - - Oxygen Saturation - - Inhaled Oxygen Concentration - - Weight 74.8 kg (165 lb) 06/01/2018 1:19 PM EST Height 172.7 cm (5' 8) 06/01/2018 1:19 PM EST Body Mass Index 25.09 06/01/2018 1:19 PM EST documented in this encounter Functional Status * Are you deaf or do you have serious difficulty hearing? Answer Date of Assessment Author Status No 10/29/2017 9:49 AM EDT [place] Tari Ac tive * Are you blind or do you have serious difficulty seeing, even when wearing glasses? Answer Date of Assessment Author Status No 10/29/2017 9:49 AM EDT [place] Tari Ac tive * Do you have serious difficulty walking or climbing stairs? (5 years old or older) Answer Date of Assessment Author Status No 10/29/2017 9:49 AM EDT [place], Tari Ac tive * Do you have difficulty dressing or bathing? (5 years old or older) Answer Date of Assessment Author Status No 10/29/2017 9:49 AM EDT [place], Tari Ac tive * Because of a physical, mental, or emotional condition, do you have difficulty doing errands alone such as visiting a doctor's office or shopping? (15 years old or older) Answer Date of Assessment Author Status No 10/29/2017 9:49 AM EDT [place], Tari Ac tive documented as of this encounter Mental Status * Because of a physical, mental, or emotional condition, do you have serious difficulty concentrating, remembering, or making decisions? (5 years old or older) Answer Entry Date Author Status No 10/29/2017 9:49 AM EDT [place] Tari Ac tive documented in this encounter Progress Notes * Mariann Rangel NP - 06/01/2018 1:22 PM EST Juliana Cooley is a 42 y.o. female Chief Complaint Patient presents with ??? New Patient ??? Return To Work S:Juliana presents to establish care and return to work note. HPI- Here to get a note allowing her to return to work. She missed 3 days due to viral gastroenteritis 2 weeks ago. She has been symptom free for the last week. Normal bowel movements, appetite is normal, no vomiting. 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 She also has history of hyperprolactinemia for the last 3-4 years. Was diagnosed due to her irregular menses. She has 3-4 periods per month. Denies any breast discharge. She has not pursued any imaging for this. Had MRI ordered, but did not follow through to concern about IV contrast. Reports her mother almost lost her kidneys due to IV contrast dye. She denies any hot/cold intolerance, constipation, dry skin, fatigue, palpitations, unexplained weight loss/gain, headaches, vision changes. Shereports that prior provider tested full hormones at time of diagnosis. Father from metastatic colon cancer at age 66. Was stage 4 when diagnosed. Juliana has not done any colon cancer screening at this point. She is concerned about colonoscopy procedure. Wants to do pill camera endoscopy instead. ROS- no CP, SOB, coughing. O: Blood pressure 106/80, height 1.727 m (5' 8), weight 74.8 kg (165 lb), last menstrual period 03/11/2018. Physical Examination: alert, not distressed Neck- no thyromegaly or adenopathy Cardiac- HR regular rate and rhythm. No murmur, rub, or gallop. Skin warm and pink. No edema Resp- Lungs clear with good air movement. No cough or SOB. GI- Abd soft, non distended. Active bowel sounds. No tenderness, rebound, or guarding. No HSM or mass. Prolactin level 124.3 on 01/27/18 A/P: Orders Placed This Encounter Procedures ??? TSH REFLEX THYROXINE FREE ??? LUTEINIZING HORMONE ??? FOLLICLE STIMULATING HORMONE ??? INSULIN GROWTH FACTOR 1 1. Return to work exam Resolved viral gastroenteritis. Work note provided. 2. Elevated prolactin level Not on any medications that could be causing elevated prolactin. Discussed importance of determining cause of her hyperprolactinemia. She will consider MRI, but does not want to use contrast. Will discuss recommendations with Dr Ambrosio, who will be her PCP. OrderedTSH, LH, FSH, insulin growth factor labs. TSH REFLEX THYROXINE FREE LUTEINIZING HORMONE FOLLICLE STIMULATING HORMONE INSULIN GROWTH FACTOR 1 3. Family history of colon cancer Recommended referral for colonoscopy. She declines at this time. Reviewed early detection benefits, earlier screening with family history, and colonoscopy safety. Return for Annual physical with PCP. Future Appointments Date Time Provider Department Center 12/24/2018 11:00 AM Eliseo Quinonez MD [facility] Patient was discussed at daily huddle. The benefits and risks of preventive health measures were discussed: ?? Influenza immunization was declined by the patient ([id number], [id number]) documented in this encounter Plan of Treatment Not on file documented as of this encounter Visit Diagnoses Diagnosis Return to work exam- Primary Other specified examination Elevated prolactin level Other and unspecified anterior pituitary hyperfunction Family history of colon cancer Family history of malignant neoplasm of gastrointestinal tract documented in this encounter Care Teams Founder President And Ceo Relationship Specialty Start Date End Date Eliseo Quinonez MD PCP - General Internal Medicine 06/01/18 10/19/18 documented as of this encounter
--- OUTSIDE RECORDS SUMMARY | 2024-04-20 14:23 | XMS_ITS | Encounter Summary ---
Author Organization [facility] Address [address] [place] [address] Care Team Providers Care Plastic Printer Name Role Phone Lelia Valle MD Primary Care Provider Unavail able Reason for Visit * Reason Onset Date Comments Covid Test 01/26/2020 Encounter Details Date Type Department Care Team (Late st Contact Info) Description 01/26/2020 1:10 PM EDT Clinical Support [facility] [address] [place] [id number] Social History Tobacco Use Types Packs/Day Years Used Date Smoking Tobacco: Former Cigarettes Smokeless Tobacco: Never Alcohol Use Standard Drinks/Week Comments Yes 3 (1 standard drink = 0.6 oz pur e alcohol) PHQ-2 Answer Date Recorded PHQ-2 Score 0 06/21/2019 Substance Use Types Use/Week Comments No Comments [...] AM Tari Acosta * Do you have difficulty dressing or bathing? (5 years old or older) Answer Date of Assessment Author Status No 10/29/2017 9:49 AM EDT Tari Hudson * Because of a physical, mental, or emotional condition, do you have difficulty doing errands alone such as visiting a doctor's office or shopping? (15 years old or older) Answer Date of Assessment Author Status No 10/29/2017 9:49 AM EDT Tari Hudson documented as of this encounter Mental Status * Because of a physical, mental, or emotional condition, do you have serious difficulty concentrating, remembering, or making decisions? (5 years old or older) Answer Entry Date Author Status No 10/29/2017 9:49 AM EDT Tari Hudson documented in this encounter Progress Notes * Pamela Ang MA - 01/26/2020 10:48 AM EDT Name and confirmed with patient at [facility] thru testing site. Verbal consent obtained A Nasopharyngeal swab was collected Insert a swab into the nostril parallel to the palate. The swab was in place for a few seconds to absorb secretions. Swabs placed immediately into steriletubes containing 1ml of viral transport media. CDC patient education for COVID 19 infection provided if results positive. Advised we will follow up with results. Appropriate PPE utilized. documented in this encounter Plan of Treatment Not on file documented as of this encounter Procedures Procedure Name Priority Date/Time Associated Diagnosis Comments CORONAVIRUS COVID-19 STAT 01/26/2020 1:10 PM EDT Suspected 2019 novel coronavirus infection documented in this encounter Results * CORONAVIRUS COVID-19 (01/26/2020 1:10 PM EDT) Coronavirus COVID-19 NOT DETECTED NOT DETECTED [facility] Comment: NOTE: Negative results do not preclude SARS-CoV-2 infection and should not be used as the sole basis for patient management decisions. This SARS-CoV-2 assay is a real-time RT-PCR test intended for the qualitative detection of nucleic acid from the SARS-CoV-2 in respiratory specimens from individuals suspected of having COVID-19 infection. This test was developed and its performance characteristics determined by [facility]. This test has not been FDA cleared [...] Centers for Disease Control and Preventions (CDC) Specimen from nasopharyngeal structure (specimen) 01/26/2020 1:10 PM EDT 01/26/2020 2:20 PM EDT us Chica Leija CORK FLOOR INSTALLER MICROBIOLOGY - GENERAL ORDERABLE S Final Result [facility] [place] [place] [id number] [place] [address] documented in this encounter Visit Diagnoses Diagnosis Suspected 2019 novel coronavirus infection- Primary documented in this encounter Additional Health Concerns Infection Onset Date Last Indicated Resolved Time R/O COVID-19 01/26/2020 01/26/2020 01/26/2020 11:3 6 PM EDT documented as of this encounter Care Teams Plastic Printer Relationship Specialty Start Date End Date Lelia Valle MD PCP - General Internal Medicine 10/20/18 05/14/20 documented as of this encounter
--- OUTSIDE RECORDS SUMMARY | 2024-04-20 14:23 | XMS_ITS | Encounter Summary ---
Author Organization [facility] Address [address] [place] [address] Care Team Providers Care Blender / Cook Name Role Phone Debra Tyson MD Primary Care Provider [phone] Encounter Details Date Type Department Care Team (Latest Contact Info) Description 01/27/2018 11:51 AM EDT - 01/27/2018 1:18 PM EDT Hospital Encounter [facility] [address] [place] [address] Debra Tyson MD [address] [place] [address] Discharge Disposition: Home or Self Care Social History Tobacco Use Types Packs/Day Years Used Date Smoking Tobacco: Never Smokeless Tobacco: Never Comments Unknown Sex and Gender Information Value Date Recorded [...] 10/29/2017 9:49 AM EDT Tari Hudson * Do you have serious difficulty walking or climbing stairs? (5 years old or older) Answer Date of Assessment Author Status No 10/29/2017 9:49 AM ALETari Contreras * Do you have difficulty dressing or bathing? (5 years old or older) Answer Date of Assessment Author Status No 10/29/2017 9:49 AM Tari Acosta * Because of a physical, mental, or emotional condition, do you have difficulty doing errands alone such as visiting a doctor's office or shopping? (15 years old or older) Answer Date of Assessment Author Status No 10/29/2017 9:49 AM Tari Acosta documented as of this encounter Mental Status * Because of a physical, mental, or emotional condition, do you have serious difficulty concentrating, remembering, or making decisions? (5 years old or older) Answer Entry Date Author Status No 10/29/2017 9:49 AM Tari Acosta documented in this encounter Medications at Time of Discharge cholecalciferol 1000 UNIT Tab Take 1,000 Units by mouth 3 times daily documented as of this encounter Plan of Treatment Not on file documented as of this encounter Visit Diagnoses Not on filedocumented in this encounter Care Teams Blender / Cook Relationship Specialty Start Date End Date Debra Tyson MD PCP - General Family Medicine 10/23/17 03/06/18 documented as of this encounter
--- OUTSIDE RECORDS SUMMARY | 2024-04-20 14:23 | XMS_ITS | Encounter Summary ---
[facility] [address] [place] [address] Care Team Providers Care Child Caregiver Private Home Name Role Phone Lelia Valle MD Primary Care Provider Unavail able Reason for Referral * Radiology Services (Routine) - Closed Specialty Diagnoses / Procedures Referred By Olamide aldana Referred To Contact Radiology Diagnoses Sinus pain Facial pain Procedures CT SINUS WO CONTRAST Frederick Carrasco MD Phone: tel: fax: [facility] Radiology CT Scan [address] [place] [address] Phone: tel: fax: Referral ID Status Reason Start Date Expiration Date Visits Re quested Visits Authorized [id number] Closed 04/23/2020 04/23/2021 1 1 Reason for Visit * Reason Comments Sinus Problems * Consult, Test & Treat (Routine) - Closed Specialty Diagnoses / Procedures Referred By Olamide aldana Referred To Contact Otolaryngology Diagnoses Chronic sinusitis, unspecified location Michelle Irwin DO [address] [place] [address] Phone: tel: fax: [facility] [address] [place] [address] Phone: tel: fax: Referral ID Status Reason Start Date Expiration Date Visits Re quested Visits Authorized [id number] Closed 01/27/2020 01/26/2021 6 6 Encounter Details Date Type Department Care Team (Late st Contact Info) Description 04/23/2020 3:40 PM EST Office Visit [facility] [address] [place] [address] Frederick Carrasco MD [address] [place] [address] Facial pain (Primary Dx); Sinus pain Social History Tobacco Use Types Packs/Day [...] Sign Reading Time Taken Comments Blood Pressure 137/79 04/23/2020 3:54 PM EST Pulse 80 04/23/2020 3:54 PM EST Temperature - - Respiratory Rate - - Oxygen Saturation 98% 04/23/2020 3:54 PM EST Inhaled Oxygen Concentration 98% 04/23/2020 3 :54 PM EST Weight - - Height - - Body Mass Index - - documented in this encounter Functional Status * Are you deaf or do you have serious difficulty hearing? Answer Date of Assessment Author Status No 10/29/2017 9:49 AM ALET Tari Hudson * Are you blind or do you have serious difficulty seeing, even when wearing glasses? Answer Date of Assessment Author Status No 10/29/2017 9:49 AM Tari Acostave * Do you have serious difficulty walking or climbing stairs? (5 years old or older) Answer Date of Assessment Author Status No 10/29/2017 9:49 AM Tari Acostave * Do you have difficulty dressing or [...] Status No 10/29/2017 9:49 AM Tari Acosta tikecia documented as of this encounter Mental Status * Because of a physical, mental, or emotional condition, do you have serious difficulty concentrating, remembering, or making decisions? (5 years old or older) Answer Entry Date Author Status No 10/29/2017 9:49 AM EDElidia VelazquezTristan, Jessy Ac tive documented in this encounter Progress Notes * Frederick Carrasco MD - 04/23/2020 4:52 PM EST Subjective Patient ID: Juliana Cooley is an 44 y.o. female. She is a new patient. Chief Complaint Patient presents with ??? Sinus Problems HPI Problem Sinus Pain Pain located in the angle of the jaw and swooping up to the frontal sinus and near the medial rightepicanthus She has lived with this pain for about 10 years. If she takes Zyrtec, it seems to help prevent the pain No sinus discharge or drainage but the right side sinuses can feel blocked No symptoms of allergies or allergy triggers. No prior x-rays but she was seen by multiple ENT's in [place] Prior question of ETD ROS A comprehensive review of systems was performed and documented in the electronic record dated 04/23/2020. Allergies: ??? Banana Current Medications (taking): ??? cetirizine 5 MG Tab, Take 10 mg by mouth daily as needed for Allergies Vitals: 04/23/20 1554 BP: 137/79 Pulse: 80 SpO2: 98% PainSc: 0 - No pain Physical Exam General: Healthy, alert, cooperative, oriented, and in no acute distress Speech: No observed speech problems. Communicates without difficulty. Face: Good facial symmetry. Normal ocular mobility. No masses or lesions. No sinus tenderness. Salivary glands are normal to palpation. Healthy appearing skin of ears and nose. Left Ear: EAC is patent. Tympanic membrane is intact and mobile. No fluid or infection. Right Ear: EAC is patent. Tympanic membrane is intact and mobile. No fluid or infection. Hearing: Hearing intact to clinical conversation Nose: Nares normal. Mucosa normal. No drainage or sinus tenderness. Septum healthy and intact. Middle meatus is clear bilaterally with no edema or obstruction. No purulence is seen. No polyps. Oral: Mucous membranes moist, pharynx normal without lesions. Tongue normal. Palate normal. Tonsilsnormal. Dental hygiene good. No trismus and no temporomandibular joint tenderness. Neck: Adenopathy:none; Tissues are soft to palpation. Heart: Regular rate and rhythm Lung: Bilateral breath sounds, clear to auscultation ASSESSMENT & PLAN: 1. Facial pain (Primary) - CT Sinus WO Contrast; Future; Expected date: 04/23/2020 2. Sinus pain Assessment & Plan: Abnormal sinus pain with seemingly response to antihistamines but unclear etiology. I do not think this represents an active infection however frontal sinus disease needs to be ruled out with a CT scan. The CT scan will also be helpful to determine if there are other factors such as failure frontal sinus drainage that could account for her symptoms. Orders: - CT Sinus WO Contrast; Future; Expected date: 04/23/2020 * Frederick Carrasco MD - 04/23/2020 4:51 PM ESTAssociated Problem(s): Sinus pain Abnormal sinus pain with seemingly response to antihistamines but unclear etiology. I do not think this represents an active infection however frontal sinus disease needs to be ruled out with a CT scan. The CT scan will also be helpful to determine if there are other factors such as failure frontal sinus drainage that could account for her symptoms. * Janine Ward - 04/23/2020 3:53 PM EST Review of Systems Constitutional: Negative. HENT: Negative. Eyes: Negative. Respiratory: Negative. Cardiovascular: Negative. Gastrointestinal: Negative. Genitourinary: Negative. Musculoskeletal: Negative. Skin: Negative. Neurological: Negative. Endo/Heme/Allergies: Negative. Psychiatric/Behavioral: Positive for depression. documented in this encounter Plan of Treatment Not on file documented as of this encounter Results * CT Sinus WO Contrast (06/04/2020 11:38 AM EST) Anatomical Region Laterality Modality Head Computed Tomogra phy 06/04/2020 11:4 0 AM EST Narrative 06/04/2020 11:48 AM EST EXAM: CT SINUS WO CONTRAST INDICATION: ??sinus pain, facial pain. ??third ENT provider with no help so far. ?? COMPARISON: None. TECHNIQUE: Axial noncontrast 2.[address] images through the paranasal sinuses were obtained. Coronal and sagittal reformats were created. FINDINGS: The paranasal sinuses are well-aerated with no active mucosal disease. The infundibulae, frontal and sphenoethmoidal recesses are patent. There are no erosive or chronic proliferative changes. The nasal septum is midline. Mastoid air cells and middle ear cavities are clear. Brain shows no mass effect or midline shift. No hydrocephalus. The orbits are within normal limits. IMPRESSION: No evidence for active or chronic sinusitis. * * ??THIS IS AN ELECTRONICALLY VERIFIED REPORT CREATED USING VOICE RECOGNITION * * 06/04/2020 11:46 AM ??Willard Fang MD Procedure Note Willard Fang MD - 06/04/2020 EXAM: CT SINUS WO CONTRAST INDICATION: sinus pain, facial pain. third ENT provider with no help sofar. COMPARISON: None. TECHNIQUE: Axial noncontrast 2.[address] images through the paranasalsinuses were obtained. Coronal and sagittal reformats were created. FINDINGS: The paranasal sinuses are well-aerated with no active mucosaldisease. The infundibulae, frontal and sphenoethmoidal recesses arepatent. There are no erosive or chronic proliferative changes. The nasalseptum is midline. Mastoid air cells and middle ear cavities are clear. Brain shows no masseffect or midline shift. No hydrocephalus. The orbits are within normallimits. IMPRESSION: No evidence for active or chronic sinusitis. * * THIS IS AN ELECTRONICALLY VERIFIED REPORT CREATED USING VOICERECOGNITION * * 06/04/2020 11:46 AM Willard Fang MD [facility] Wei Carrasco MD IMG CT ORDERABLES Final R esult documented in this encounter Visit Diagnoses Diagnosis Facial pain- Primary Headache Sinus pain Other diseases of nasal cavity and sinuses Sinus pain Other diseases of nasal cavity and sinuses Facial pain Headache documented in this encounter Care Teams Child Caregiver Private Home Relationship Specialty Start Date End Date Lelia Valle MD PCP - General Internal Medicine 10/20/18 05/14/20 documented as of this encounter
--- OUTSIDE RECORDS SUMMARY | 2024-04-20 14:23 | XMS_ITS | Encounter Summary ---
Author Organization [facility] Address [address] [place] [address] Care Team Providers Care Traffic Workforce Representative Name Role Phone Manisha Mane Primary Care Provider Reason for Visit * Reason Comments Annual Exam Encounter Details Date Type Department Care Team (Latest Contact Info) Description 05/15/2020 3:00 PM EST Office Visit [facility] Family [facility] [place] [address] [place] [address] Manisha Mane FNP [address] [place] [address] Healthcare maintenance (Primary Dx); Hyperprolactinemia (CMS-HCC); Mixed hyperlipidemia Social History Tobacco Use Types Packs/Day Years [...] Sign Reading Time Taken Comments Blood Pressure 128/74 05/15/2020 3:02 PM EST Pulse 68 05/15/2020 3:02 PM EST Temperature 36.3 ??C (97.4 ??F) 05/15/2020 3:02 PM ES T Respiratory Rate 16 05/15/2020 3:02 PM EST Oxygen Saturation 99% 05/15/2020 3:02 PM EST Inhaled Oxygen Concentration 99% 05/15/2020 3 :02 PM EST Weight 83.9 kg (185 lb) 05/15/2020 3:02 PM EST Height 172.7 cm (5' 8) 05/15/2020 3:02 PM EST Body Mass Index 28.13 05/15/2020 3:02 PM EST documented in this encounter Functional Status * Are you deaf or do you have serious difficulty hearing? Answer Date of Assessment Author Status No 10/29/2017 9:49 AM EDT TristanFarhanTari Ac tive * Are you blind or do you have serious difficulty seeing, even when wearing glasses? Answer Date of Assessment Author Status No 10/29/2017 9:49 AM EDT RosineFarhan greenessy Ac tive * Do you have serious difficulty walking or climbing stairs? (5 years old or older) Answer Date of Assessment Author Status No 10/29/2017 9:49 AM EDT TristanFarhanTari Ac tive * Do you have difficulty [...] Hudsonssy Ac tive documented in this encounter Patient Instructions * Patient Instructions* Manisha Mane, BRANDON - 05/15/2020 3:17 PM EST Images from the original note were not included. Well Visit, Ages 18 to 50: Care Instructions Your Care Instructions Physical exams can help you stay healthy. Your doctor has checked your overall health and may have suggested ways to take good care of yourself. He or she also may have recommended tests. At home, you can help prevent illness with healthy eating, regular exercise, and other steps. Follow-up care is a bain part of your treatment and safety. Be sure to make and go to all appointments, and call your doctor if you are having problems. It's also a good idea to know your test resultsand keep a list of the medicines you take. How can you care for yourself at home? ?? Reach and stay at a healthy weight. This will lower your risk for many problems, such as obesity, diabetes, heart disease, and high blood pressure. ?? Get at least 30 minutes of physical activity on most days of the week. Walking is a good choice.You also may want to do other activities, such as running, swimming, cycling, or playing tennis or team sports. Discuss any changes in your exercise program with your doctor. ?? Do not smoke or allow others to smoke around you. If you need help quitting, talk to your doctorabout stop-smoking programs and medicines. These can increase your chances of quitting for good. ?? Talk to your doctor about whether you have any risk factors for sexually transmitted infections (STIs). Having one sex partner (who does not have STIs and does not have sex with anyone else) is a good way to avoid these infections. ?? Use control if you do not want to have children at this time. Talk with your doctor about the choices available and what might be best for you. ?? Protect your skin from too much sun. When you're outdoors from 10 a.m. to 4 p.m., stay in the shade or cover up with clothing and a hat with a wide brim. Wear sunglasses that block UV rays. Even when it's cloudy, put broad-spectrum sunscreen (SPF 30 or higher) on any exposed skin. ?? See a dentist one or two times a year for checkups and to have your teeth cleaned. ?? Wear a seat belt in the car. ?? Drink alcohol in moderation, if at all. That means no more than 2 drinks a day for men and 1 drink a day for women. Follow your doctor's advice about when to have certain tests. These tests can spot problems early. For everyone ?? Cholesterol. Have the fat (cholesterol) in your blood tested after age 20. Your doctor will tellyou how often to have this done based on your age, family history, or other things that can increase your risk for heart disease. ?? Blood pressure. Have your blood pressure checked during a routine doctor visit. Your doctor willtell you how often to check your blood pressure based on your age, your blood pressure results, andother factors. ?? Vision. Talk with your doctor about how often to have a glaucoma test. ?? Diabetes. Ask your doctor whether you should have tests for diabetes. ?? Colon cancer. Have a test for colon cancer at age 50. You may have one of several tests. If you are younger than 50, you may need a test earlier if you have any risk factors. Risk factors include whether you already had a precancerous polyp removed from your colon or whether your parent, brother, sister, or child has had colon cancer. For women ?? Breast exam and mammogram. Talk to your doctor about when you should have a clinical breast examand a mammogram. Medical experts differ on whether and how often women under 50 should have these tests. Your doctor can help you decide what is right for you. ?? Pap test and pelvic exam. Begin Pap tests at age 21. A Pap test is the best way to find cervicalcancer. The test often is part of a pelvic exam. Ask how often to have this test. ?? Tests for sexually transmitted infections (STIs). Ask whether you should have tests for STIs. You may be at risk if you have sex with more than one person, especially if your partners do not wear condoms. For men ?? Tests for sexually transmitted infections (STIs). Ask whether you should have tests for STIs. You may be at risk if you have sex with more than one person, especially if you do not wear a condom. ?? Testicular cancer exam. Ask your doctor whether you should check your testicles regularly. ?? Prostate exam. Talk to your doctor about whether you should have a blood test (called a PSA test) for prostate cancer. Experts differ on whether and when men should have this test. Some experts suggest it if you are older than 45 and are -[place] or have a father or brother who got prostate cancer when he was younger than 65. When should you call for help? Watch closely for changes in your health, and be sure to contact your doctor if you have any problems or symptoms that concern you. Where can you learn more? Visit [employer]'s health reference library for more information on Well Visit, Ages 18 to 50: Care Instructions and other health topics. In Be Here https://TM3 Software.Gritness.org, go to the Resources icon, and then click ???Search [employer] Reference Library?? . Enter P072 in the search box. You can also get to the library through the [employer] website at https://www.Splinter.me/[employer]ness. Current as of: September 23, 2016 Content Version: 11.6 ?? [id number] [employer]. Care instructions adapted under license by [employer]. Thiscare instruction is for use with your licensed healthcare professional AND IS NOT A SUBSTITUTE FOR PROFESSIONAL MEDICAL ADVICE. If you have questions about a medical condition or this instruction, always ask your healthcare professional. [employer] disclaims any warranty or liability for your use of this information. documented in this encounter Progress Notes * Manisha Mane FNP - 05/15/2020 3:36 PM EST Subjective: Chief Complaint Patient presents with ??? Annual Exam HPI: Juliana Kinney is a 44 y.o. female who presents for a routine health care maintenance exam. Patient is new to the practice today. She is here for new patient physical. 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 She does not use any alcohol or any recreational drugs. She does drink occasional alcohol. She states that she does enjoy walking, hiking, skiing, and boating. She is active 5 times per week for at least 20 minutes to 3 hours. She does have a daughter who is in medical school who is 26 years old. She has received her first Covid vaccine, toleratedwell mild side effects noted Patient does have a history of elevated prolactin levels. She states that she was [place] at for a brain MRI, was canceled due to questions about contrast. She also saw Dr. London April 23, [address] scan appointment ROS: History obtained from the patient General: denies sleep disturbance, weight loss; fatigue, weakness or fevers Psychological: negative Ophthalmic: negative for - changes in vision, no recent eye pain, redness, or excessive tearing, orblurred vision Head: No new head trauma, dizziness, lightheadedness ENT: no hearing change or visual changes, no enlarged lymph nodes; no tinnitus, vertigo, earaches; no changes in dentition, bleeding gums, dry mouth; hoarseness Neck: no new lumps, bumps, swelling, redness, stiffness Endocrine: no breast changes, galactorrhea, skin changes or unexpected weight changes; no heat or cold intolerances; No excessive sweating or hunger, polyuria, Breast: no galactorrhea, new or changing breast lumps, nipple changes or nipple discharge; no breast pain Respiratory: no cough, shortness of breath, or wheezing Cardiovascular: no chest pain, dyspnea on exertion, leg edema; no palpitations, Gastrointestinal: no abdominal pain, change in bowel habits, or black or bloody stools; no heartburn, troubles swallowing, constipation, diarrhea; no excessive belching or gas Urinary: no hematuria Female Reproductive: no abnormal vaginal bleeding or discharge Musculoskeletal: negative Neurological: negative Dermatological: No mole changes or skin lesion changes; no skin dryness, color changes, changes in hair or nails. Allergies Allergen Reactions ??? Banana Stomach pains ??? Pineapple Nausea Only Stomach issues Past Medical History: Diagnosis Date ??? Constipation ??? Irregular periods Past Surgical History: Procedure Laterality Date ??? HX WISDOM TOOTH EXTRACTION Bilateral 1993 Social History Socioeconomic History ??? Marital status: Spouse name: Not on file ??? Number of children: 1 ??? Years of education: Associates Degree ??? Highest education level: Not on file Occupational History ??? 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 Financial resource strain: Not on file ??? Food insecurity Worry: Not on file Inability: Not on file ??? Transportation needs Medical: Not on file Non-medical: Not on file Tobacco Use ??? Smoking status: Former Smoker Years: 10.00 ??? Smokeless tobacco: Never Used Substance and Sexual Activity ??? Alcohol use: Yes Alcohol/week: 3.0 - 4.0 standard drinks Types: 3 - 4 Standard drinks or equivalent per week ??? Drug use: No ??? Sexual activity: Yes Partners: Male Lifestyle ??? Physical activity Days per week: Not on file Minutes per session: Not on file ??? Stress: Not on file Relationships ??? Social connections Talks on phone: Not on file Gets together: Not on file Attends scientology service: Not on file Active member of club or organization: Not on file Attends meetings of clubs or organizations: Not on file Relationship status: Not on file ??? Intimate partner violence Fear of current or ex partner: Not on file Emotionally abused: Not on file Physically abused: Not on file Forced sexual activity: Not on file Other Topics Concern ??? Not on file Social History Narrative ??? Not on file Family History Problem Relation Age of Onset ??? Alcohol Abuse Mother ??? Colon Cancer Father 67 ??? Suicide Brother ??? PTSD Brother ??? Other Maternal Grandmother unexpectedly post operatively from neck surgery ??? Anesthesia Problems Maternal Grandmother ??? Melanoma Maternal Grandfather Medications, labs, recent imaging and consults reviewed Current Outpatient Medications on File Prior to Visit Medication Sig Dispense Refill ??? cetirizine 5 MG Tab Take 10 mg by mouth daily as needed for Allergies ??? Cod Liver Oil Oil Take by mouth 0 ??? cholecalciferol 1000 UNIT Tab Take 1,000 Units by mouth 3 times daily No current facility-administered medications on file prior to visit. Results for orders placed or performed in visit on 01/26/20 CORONAVIRUS COVID-19 Specimen: Nasopharyngeal Result Value Ref Range Coronavirus COVID-19 NOT DETECTED NOT DETECTED Objective: Vitals: 05/15/20 1502 BP: 128/74 Pulse: 68 Resp: 16 Temp: 36.3 ??C (97.4 ??F) SpO2: 99% PE: General: Alert, cooperative, no distress, normal. Head: Normocephalic, without obvious abnormality, atraumatic. Eyes: Lids and conjunctivae normal, sclera non icteric, PERRL. Ears: External exam normal. TM's normal. Hearing grossly intact Nose: Wearing a mask Throat: Wearing a mask Neck: Supple, symmetrical, trachea midline. Thyroid: no enlargement/tenderness/nodules. Back: Symmetric, no curvature. Lungs: Clear to auscultation bilaterally. Chest wall: Normal shape and expansion. Heart: Normal rate, regular rhythm, no murmur. Breast Exam: Patient deferred Abdomen: Soft, non-tender. Bowel sounds normal. No masses, No organomegaly. Gynecology: normal external genitalia, labia - unremarkable, vagina - pink moist mucosa, no lesionsor abnormal discharge, cervix- no discharge or lesions or CMT, adnexa - no masses or tenderness, uterus - nontender and normal size on palpation, rectal exam deferred Extremities: Unremarkable, no edema. Psychiatric: Alert and oriented, Eye contact is direct, Speech is coherent, Appears to have good judgement, Affect appropriate, Linear thought, Properly dressed and groomed. Pulses: Normal pulse. Skin: Warm, no rashes or lesions, benign appearing moles Lymph Nodes: No cervical, supraclavicular, and axillary nodes. Neurologic: Unremarkable. Juliana was seen today for annual exam. Diagnoses and all orders for this visit: Healthcare maintenance - PAP SMEAR THIN PREP SCREENING; Future - COMPREHENSIVE METABOLIC PANEL; Future - CBC W/O DIFFERENTIAL; Future Hyperprolactinemia (CMS-HCC) - PROLACTIN; Future - TSH REFLEX THYROXINE FREE; Future Mixed hyperlipidemia - LIPID PANEL; Future Age and gender related screenings/recommendations and health promotion/counseling provided. Patientallowed time to ask questions and voice concerns. Diet recommendations provided according to age and current diagnoses/symtoms Daily Moderate exercise for at least 30 minutes recommended. Screening for colorectal cancer discussed. Pap-2013, repeat Pap and HPV today Mammogram-patient declines Colonoscopy-initial colonoscopy at age 45 due to family history, will order next year I will go ahead and order fasting labs at this time. I will also include a prolactin level and a TSH. We will reevaluate the need for head imaging after labs have resulted. We did discuss this today We will plan to follow-up in 1 year, sooner if needed Patient agrees with this plan documented in this encounter Plan of Treatment Not on file documented as of this encounter Results * TSH REFLEX THYROXINE FREE (07/10/2020 3:43 PM EST) TSH 1.270 0.270 - 4.200 uIU/mL [facility] Comment: Please interpret with caution. High doses of biotin (for MS treatment, oncology patients, or beauty products) can falsely decrease the result. Blood 07/10/2020 3:43 PM EST 07/10/2020 3:43 PM EST [facility] CHEMISTRY ORDERABLES Fi nal Result Performing Organization Address [facility] Co de Phone Number [facility] [address] [place] [address] Cotton Expert: Laurie Kendall MD * (ABNORMAL) PROLACTIN (07/10/2020 3:43 PM EST) Pathologist [facility] Prolactin 145.0(H) 3.4 - 24.1 ng/mL [facility] Comment: Please interpret with caution. High doses of biotin (for MS treatment, oncology patients, or beauty products) can falsely decrease the result. Blood 07/10/2020 3:43 PM EST 07/10/2020 3:43 PM EST [facility] CHEMISTRY ORDERABLES nal Result Performing Organization Address [facility] de Phone Number [facility] [address] [place], [place] [id number] * (ABNORMAL) LIPID PANEL (07/10/2020 3:43 PM EST) Cholesterol 256(H) 112 - 199 mg/dL [facility] Triglycerides 109 mg/dL [facility] Comment: REFERENCE RANGE: < 150 mg/dl FOR FASTING < 175 mg/dl FOR NON-FASTING (BASED ON LITERATURE) HDL Cholesterol 72 40 - 100 mg/dL [facility] Comment: HDL REFERENCE RANGES Low: ? <40 mg/dL Normal: ?40-60 mg/dL Desirable: >60 mg/dL LDL Cholesterol Calculation 162(H) 0 - 99 mg/dL [facility] Non HDL Cholesterol Calculation 184.0(H) 0.0 - 129.0 mg/dL [facility] Blood 07/10/2020 3:43 PM EST 07/10/2020 3:43 PM EST Manisha Mane PAINT LINE SUPERVISOR CHEMISTRY ORDERABLES Fi nal Result Performing Organization Address City/[facility]/ZIP Co de Phone Number [facility] [address] [place] [address] Cotton Expert: Laurie Kendall MD * CBC W/O DIFFERENTIAL (07/10/2020 3:43 PM EST) Leukocytes 8.9 4.2 - 10.2 thou/uL [facility] Erythrocytes 4.38 3.80 - 5.10 mil/uL [facility] Hemoglobin 12.8 11.8 - 15.8 g/dL [facility] Hematocrit 39.1 35.0 - 47.0 % [facility] Mean Corpuscular Volume 89.3 80.0 - 100.0 fL [facility] Mean Corpuscular Hemoglobin 29.2 26.0 - 34.0 pg [facility] Mean Corpuscular Hemoglobin Conc 32.7 32.0 - 36.0 g/dL [facility] Platelet Count 401 140 - 440 thou/uL [facility] Mean Platelet Volume 8.9 8.6 - 12.7 fL [facility] Erythrocyte Distribution Width SD 42.0 37.0 - 48.0 fL [facility] Erythrocyte Distribution Width CV 12.8 12.0 - 14.6 % [facility] Blood 07/10/2020 3:43 PM EST 07/10/2020 3:43 PM EST Manisha Mane PAINT LINE SUPERVISOR HEMATOLOGY ORDERABLES F inal Result Performing Organization Address City/[facility]/ZIP Co de Phone Number [facility] [address] [place] [address] Cotton Expert: Laurie Kendall MD * (ABNORMAL) COMPREHENSIVE METABOLIC PANEL (07/10/2020 3:43 PM EST) Sodium 135 135 - 145 mEq/L [facility] Potassium 4.4 3.3 - 5.3 mEq/L [facility] Chloride 100 96 - 108 mEq/L [facility] Carbon Dioxide 25 21 - 30 mEq/L [facility] Anion Gap 10 mEq/L [facility] Blood Urea Nitrogen 14 6 - 19 mg/dL [facility] Creatinine 0.86 0.50 - 1.30 mg/dL [facility] BUN Creatinine Ratio 16.3 [facility] Glucose 104(H) 70 - 99 mg/dL [facility] Protein 7.1 5.9 - 8.4 g/dL [facility] Albumin 5.0 3.2 - 5.2 g/dL [facility] Globulin 2.1 g/dL [facility] Albumin/Globulin Ratio 2.4 [facility] Bilirubin 0.8 0.0 - 1.0 mg/dL [facility] Calcium 9.9 8.6 - 10.4 mg/dL [facility] Alkaline Phosphatase 61 39 - 117 U/L [facility] AST 21 5 - 37 IU/L [facility] ALT 18 0 - 40 U/L [facility] EGFR (MDRD) >60 >60 [facility] Comment: -- eGFR UNITS OF MEASURE -- mL/min/1.73m(2) Comment EGFR SEE BELOW [facility] Comment:This test has multip le limitations. Please see www.[employer].org. Blood 07/10/2020 3:43 PM EST 07/10/2020 3:43 PM EST us Manisha Mane PAINT LINE SUPERVISOR CHEMISTRY ORDERABLES Fi nal Result [facility] [address] [place] [address] Cotton Expert: Laurie Kendall MD * Pap Smear Thin Prep, Screening (05/15/2019 12:00 AM EST) Genital 05/15/2019 05/16/2019 Narrative SERVICES PROVIDED BY [email or web address] - 05/21/2020 2:00 PM EST CASE: [id number] PATIENT: JULIANA KINNEY Cytology Report with HPV [...] 2012 ASCCP Consensus guidelines as outlined by Hayesad et al. Obstetrics ??Gynecology August 2012; 121: 829-46 or at the ASCCP website (www.asccp.org/Guidelines) Final Diagnoses performed by ??Lillie LUZ([facility]) Electrical Panel Builder Electronically signed 05/18/2020 9:48:37AM The above diagnosis reflects review of microscopic slides. Technical Histology and Cytology services provided by [facility] [place], [place], , Ishaan Mcdonnell MD, Principal Systems Architect. This test performed at [facility], [address] [place] [address], [id number] ??NDX, , CLIA ID: [id number], Ishaan Mcdonnell MD, Director HPV RESULTS: HP1: [...] with clinical suspicion of endometrial pathology. Manisha TAYLOR PATHOLOGY/CYTOLOGY TRELL GARCIA Final Result SERVICES PROVIDED BY [email or web address] documented in this encounter Visit Diagnoses Diagnosis Healthcare maintenance- Primary Routine general medical examination at a health care facility Hyperprolactinemia ([facility]-HCC V24) (CMS/[facility]) Other and unspecified anterior pituitary hyperfunction Mixed hyperlipidemia Healthcare maintenance Routine general medical examination at a health care facility documented in this encounter Care Teams Traffic Workforce Representative Relationship Specialty Start Date End Date Manisha Mane, BRANDON [address] [place] [address] PCP - General Nurse Practitioner 05/15/20 12/15/21 documented as of this encounter
--- OUTSIDE RECORDS SUMMARY | 2024-04-20 14:23 | XMS_ITS | Encounter Summary ---
Author Organization [facility] Address [address] [place] [address] Care Team Providers Care Corrosion Technician Name Role Phone Lelia Valle MD Primary Care Provider Unavail able Encounter Details Date Type Department Care Team (Latest Contact Info) Description 11/17/2018 6:05 PM EDT - 11/17/2018 11:59 PM EDT Hospital Encounter [facility] [address] [place] [phone] Margareth Oliveira, LAURIE [address] [place] [address] Discharge Disposition: Home or Self Care Social [...] AM EDT Lily Hudsony Ac tive documented in this encounter Medications at Time of Discharge cholecalciferol 1000 UNIT Tab Take 1,000 Units by mouth 3 times daily documented as of this encounter Progress Notes * Pauline Alcazar RN - 11/17/2018 11:59 PM EDT Pt notified by letter. documented in this encounter Plan of Treatment Not on file documented as of this encounter Procedures Procedure Name Priority Date/Time Associated Diagnosis Comments CULTURE THROAT Routine 11/17/2018 2:27 PM EDT Tonsillar enlargement documented in this encounter Results * CULTURE THROAT (11/17/2018 2:27 PM EDT) Culture Throat NO BETA STREP TO DATE FURTHER EVALUATION TO FOLLOW FINAL REPORT: NO BETA STREP [facility] Comment:All routine bacterio logical identification and susceptibility testing is performed at the [facility] Specimen from throat (specimen) 11/17/2018 2:27 PM EDT 11/17/2018 6:38 PM EDT us Margareth Oliveira NP MICROBIOLOGY - GENERAL ORDERA BLES Final Result [facility] [address] [place] [address] [place] [id number] [place] [address] [place] [address] documented in this encounter Visit Diagnoses Diagnosis Tonsillar enlargement Hypertrophy of tonsils alone documented in this encounter Care Teams Corrosion Technician Relationship Specialty Start Date End Date Lelia Valle MD PCP - General Internal Medicine 10/20/18 05/14/20 documented as of this encounter
--- OUTSIDE RECORDS SUMMARY | 2024-04-20 14:23 | XMS_ITS | Encounter Summary ---
Author Organization [facility] Address [address] [place] [address] Care Team Providers Care Database Programmer Analyst Name Role Phone Lelia Valle MD Primary Care Provider Unavail able Reason for Referral * Consult, Test & Treat (Routine) - Closed Specialty Diagnoses / Procedures Referred By Olamide aldana Referred To Contact Otolaryngology Diagnoses Chronic sinusitis, unspecified location Michelle Irwin DO [address] [place] [address] Phone: tel: fax: [facility] [address] [place] [phone] Phone: tel: fax: Referral ID Status Reason Start Date Expiration Date Visits Re quested Visits Authorized [id number] Closed 01/27/2020 01/26/2021 6 6 Reason for Visit * Reason Onset Date Comments Referral 01/27/2020 Encounter Details Date Type Department Care Team (Late st Contact Info) Description 01/27/2020 Telephone [facility] [place] [address] [place] [phone] Michelle Irwin DO [address] [place] [address] Referral Social History Tobacco Use Types Packs/Day [...] Status No 10/29/2017 9:49 AM EDT [place] Tari Ac tive * Are you blind or do you have serious difficulty seeing, even when wearing glasses? Answer Date of Assessment Author Status No 10/29/2017 9:49 AM EDT [place] Tari Ac tive * Do you have serious difficulty walking or climbing stairs? (5 years old or older) Answer Date of Assessment Author Status No 10/29/2017 9:49 AM EDT [place] Tari Ac tive * Do you have difficulty dressing or bathing? (5 years old or older) Answer Date of Assessment Author Status No 10/29/2017 9:49 AM EDT [place] Tari Ac tive * Because of a [...] Status No 10/29/2017 9:49 AM EDT [place] Tari Ac tive documented in this encounter Miscellaneous Notes * Telephone Encounter - Samantha Payne RN - 01/27/2020 10:56 AM EDT Call from pt stating that she had a previous referral to [facility] for chronic sinus issues but was never able to get an appointment d/t COVID. She is now asking for referral to be changed to Dr Carrasco at [facility]. She also reports that she had vomiting yesterday and her employee health recommended that she checkin with PCP. COVID yesterday was negative. She says that she has not vomited today and thinks that it was something that she ate. She says that she will f/u if she needs to. Previous referral canceled. New referral pended. documented in this encounter Plan of Treatment Scheduled Referrals Name Type Priority Associated Diagnoses Orde r Schedule AMB [facility] Outpatient Referral Routine Chronic sinusitis, unspecified location Ordered: 01/27/2020 documented as of this encounter Visit Diagnoses Diagnosis Chronic sinusitis, unspecified location- Primary documented in this encounter Care Teams Database Programmer Analyst Relationship Specialty Start Date End Date Lelia Valle MD PCP - General Internal Medicine 10/20/18 05/14/20 documented as of this encounter
--- OUTSIDE RECORDS SUMMARY | 2024-04-20 14:23 | XMS_ITS | Encounter Summary ---
Author Organization [facility] Address [address] [place] [address] Care Team Providers Care Principal Systems Engineer Name Role Phone Manisha Mane Primary Care Provider Reason for Visit * Reason Onset Date Comments Chills 06/12/2020 Fatigue 06/12/2020 Nausea 06/12/2020 Nasal Congestion 06/12/2020 Swollen Lymph Nodes 06/12/2020 Encounter Details Date Type Department Care Team (Late st Contact Info) Description 06/12/2020 Telephone [facility] [address] [place] [address] Manisha Mane FNP [address] [place] [phone] Chills; Fatigue; Nausea; Nasal Congestion; Swollen Lymph Nodes Social History Tobacco Use Types Packs/Day Years [...] Author Status No 10/29/2017 9:49 AM EDT [place], Tari Ac tive * Are you blind or do you have serious difficulty seeing, even when wearing glasses? Answer Date of Assessment Author Status No 10/29/2017 9:49 AM EDT Lily Hudsony Ac tive * Do you have serious difficulty walking or climbing stairs? (5 years old or older) Answer Date of Assessment Author Status No 10/29/2017 9:49 AM EDT Lily Hudsony Ac tive * Do you have difficulty dressing or bathing? 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 No assisted care or detention? No Does the patient live in a congregate setting No Patient above 60: No Any known exposure to confirmed case? No Any recent travel? 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 they attended work: 06/07/2020 Does Employee Health RN think this patient [...] patient ages 0-11 yo please use the smartphrase .proxyconsent to get verbal permission to activate their [employer] labshart account COVID-19 Risk of Complications: 0 Values [...] No Is Immunocompromised : No Resides in Long-Term: No : No * Telephone Encounter - Ursula Nair - 06/12/2020 12:17 PM EST From EH hot line that patient needed to be tested Left message for patient to call back documented in this encounter Plan of Treatment Not on file documented as of this encounter Visit Diagnoses Not on filedocumented in this encounter Care Teams Principal Systems Engineer Relationship Specialty Start Date End Date Manisha Mane, WAFER SUBSTRATE TESTER [address] [place] [phone] PCP - General Nurse Practitioner 05/15/20 12/15/21 documented as of this encounter
--- OUTSIDE RECORDS SUMMARY | 2024-04-20 14:23 | XMS_ITS | Encounter Summary ---
Author Organization [facility] Address [address] [place] [address] Care Team Providers Care Furnace Reliner Name Role Phone WhiteheadGerberDayManisha Lina [employer] Primary Care Provider Reason for Visit * Reason Onset Date Comments Covid Test 05/17/2020 Encounter Details Date Type Department Care Team ([facility] st Contact Info) Description 05/17/2020 10:20 AM EST Clinical Support [facility] [address] [place] [id number] Social History Tobacco Use Types Packs/Day Years [...] encounter Progress Notes * Joceline Graham - 05/17/2020 10:46 AM EST Name and confirmed with patient at [facility] testing site. Verbal consent obtained A Nasopharyngeal [...] Date/Time Associated Diagnosis Comments CORONAVIRUS COVID-19 STAT 05/17/2020 10:20 AM EST Exposure to 2019 novel coronavirus documented in this encounter Results * CORONAVIRUS COVID-19 (05/17/2020 10:20 AM EST) Coronavirus COVID-19 NOT DETECTED NOT DETECTED [facility] Comment: NOTE: Negative results do not preclude SARS-CoV-2 infection and should not be used as the sole basis for patient management decisions. This SARS-CoV-2 assay is a real-time RT-PCR test intended for the qualitative detection of nucleic acid from the SARS-CoV-2 in respiratory specimens from individuals suspected of having COVID-19 infection. This test was developed and its performance characteristics determined by [facility]. This test has not been FDA [...] for Disease Control and Preventions (CDC) Swab 05/17/2020 10:2 0 AM EST 05/17/2020 2:44 PM EST Jannet Ferguson PAC MICROBIOLOGY - GENERAL ORDER LEO Final Result Performing Organization Address City/State/[facility] Co de Phone Number [place] [id number] [place] [address] documented in this encounter Visit Diagnoses Diagnosis Exposure to 2019 novel coronavirus- Primary documented in this encounter Additional Health Concerns Infection Onset Date Last Indicated Resolved Time R/O COVID-19 05/17/2020 05/17/2020 05/17/2020 10:3 2 PM EST documented as of this encounter Care Teams Furnace Reliner Relationship Specialty Start Date End Date Manisha Mane, [employer] [address] [place] [phone] PCP - General Nurse Practitioner 05/15/20 12/15/21 documented as of this encounter
--- OUTSIDE RECORDS SUMMARY | 2024-04-20 14:23 | XMS_ITS | Encounter Summary ---
Author Organization [facility] Address [address] [place] [address] Care Team Providers Care Agricultural Service Worker Name Role Phone Lelia Valle MD Primary Care Provider Unavail able Reason for Visit * Reason Onset Date Comments Emesis 09/05/2019 Encounter Details Date Type Department Care Team (Late st Contact Info) Description 09/05/2019 Telephone [facility] [place] [address] [place] [phone] Lelia Valle MD Emesis Social History Tobacco Use Types Packs/Day Years [...] 9:49 AM EDT Tari Hudson tive * Do you have difficulty dressing [...] Author Status No 10/29/2017 9:49 AM EDT [place]Tari Ac tive documented as of this encounter Mental Status * Because of a physical, mental, or emotional condition, do you have serious difficulty concentrating, remembering, or making decisions? (5 years old or older) Answer Entry Date Author Status No 10/29/2017 9:49 AM EDT Tari Hudson tive documented in this encounter Miscellaneous Notes * Telephone Encounter - Samantha Payne RN - 09/05/2019 1:40 PM EDT Message from answering service from 09/03/19 at 11:02 am. Pt states that she has non-stop vomiting episodes, abd pain, fever, diarrhea, COVID-19 questions. 09/05/19 at 8:01 am. Call to pt, LM to call office. documented in this encounter Plan of Treatment Not on file documented as of this encounter Visit Diagnoses Not on filedocumented in this encounter Care Teams Agricultural Service Worker Relationship Specialty Start Date End Date Lelia Valle MD PCP - General Internal Medicine 10/20/18 05/14/20 documented as of this encounter
--- OUTSIDE RECORDS SUMMARY | 2024-04-20 14:23 | XMS_ITS | Encounter Summary ---
Author Organization [facility] Address [address] [place] [address] Care Team Providers Care Security Researcher Name Role Phone Eliseo Quinonez MD Primary Care Provider Reason for Visit * Reason Comments Cough Fever Encounter Details Date Type Department Care Team (Latest Contact Info) Description 07/23/2018 10:45 AM EDT [facility] [place] [address] [place] [phone] Neida Mccabe NP [address] [place] [address] Nonintractable headache, unspecified chronicity pattern, unspecified headache type (Primary Dx); Fever, unspecified fever cause; Cough; Body aches Social History Tobacco Use Types Packs/Day Years [...] Sign Reading Time Taken Comments Blood Pressure 102/60 07/23/2018 10:55 AM EDT Pulse 70 07/23/2018 10:55 AM EDT Temperature 36.7 ??C (98 ??F) 07/23/2018 10:55 AM EDT Respiratory Rate - - Oxygen Saturation 97% 07/23/2018 10:55 AM EDT Inhaled Oxygen Concentration 97% 07/23/2018 1 0:55 AM EDT Weight - - Height - - Body [...] documented in this encounter Progress Notes * Neida Mccabe NP - 07/23/2018 11:02 AM EDT Juliana returns due to onset of fever, chills, body aches and cough yesterday. No ear pain, no sore throat. No nausea/vomiting. Nonsmoker, no asthma. 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 Meant to get flu shot but did not. Chief Complaint Patient presents with ??? Cough ??? Fever Review of Systems Constitutional: Positive for chills, fever and malaise/fatigue. HENT: Positive for congestion (mild). Negative for ear pain and sore throat. Respiratory: Positive for cough. Negative for shortness of breath and wheezing. Gastrointestinal: Negative for nausea. Musculoskeletal: Positive for myalgias. Neurological: Positive for headaches. Blood pressure 102/60, pulse 70, temperature 36.7 ??C (98 ??F), temperature source Oral, SpO2 97 %. Physical Exam Constitutional: She is oriented to person, place, and time and well-developed, well-nourished, and in no distress. HENT: Right Ear: External ear normal. Left Ear: External ear normal. Mouth/Throat: Oropharynx is clear and moist. Eyes: Conjunctivae are normal. Neck: Neck supple. Cardiovascular: Normal rate and regular rhythm. Pulmonary/Chest: Effort normal and breath sounds normal. No respiratory distress. She has no wheezes. Lymphadenopathy: She has no cervical adenopathy. Neurological: She is alert and oriented to person, place, and time. Skin: Skin is warm and dry. Psychiatric: Memory and affect normal. 1. Nonintractable headache, unspecified chronicity pattern, unspecified headache type oseltamivir (TAMIFLU) 75 MG Cap INFLUENZA A+B PCR, [facility]APID [facility] 2. Fever, unspecified fever cause oseltamivir (TAMIFLU) 75 MG Cap INFLUENZA A+B PCR, [facility] 3. Cough oseltamivir (TAMIFLU) 75 MG Cap INFLUENZA A+B PCR, [facility] 4. Body aches oseltamivir (TAMIFLU) 75 MG Cap INFLUENZA A+B PCR, [facility]ID [facility] Influenza positive, called with results. Call if no improvement or worsening symptoms * Marisa Whitfield MA - 07/23/2018 10:50 AM EDT Juliana Cooley has been roomed and discussed at daily huddle Health Maintenance Due Topic Date Due ??? TDAP/TD Vaccine 18+ 11/15/1993 ??? Influenza Vaccine (1) 01/09/2018 ??? Cervical Cancer Screening 05/11/2018 documented in this encounter Plan of Treatment Not on file documented as of this encounter Results * (ABNORMAL) INFLUENZA A+B PCR, [facility]APID [facility] (07/23/2018 11:10 AM EDT) Influenza A Rapid PCR DETECTED(A) NOT DETECT [facility] Influenza B Rapid PCR NOT DETECTED NOT DETECT [facility] Nasal / Nasopharyngeal 07/23/2018 11:10 AM EDT 07/23/2018 11:51 AM EDT Neida Mccabe NP MICROBIOLOGY - GENERAL ORDERA BLES Final Result [facility] [address] [place] [address] Avionics Installer: Jovi Barton, PhD [phone] documented in this encounter Visit Diagnoses Diagnosis Nonintractable headache, unspecified chronicity pattern, unspecified headache type- Primary Fever, unspecified fever cause Cough Body aches Generalized pain documented in this encounter Care Teams Security Researcher Relationship Specialty Start Date End Date Eliseo Quinonez MD PCP - General Internal Medicine 06/01/18 10/19/18 documented as of this encounter
--- OUTSIDE RECORDS SUMMARY | 2024-04-20 14:23 | XMS_ITS | Encounter Summary ---
Author Organization [facility] Address [address] [place] [address] Care Team Providers Care Job Tracer Name Role Phone Unavailable Primary Care Provider Unavailabl e Encounter Details Date Type Department Care Team ([facility] st Contact Info) Description 03/31/2017 Abstract [facility] Primary Care Family Medicine [address] [phone] Debra Tyson MD [facility] [place] [phone] Social History Tobacco Use Types Packs/Day Years Used Date Smoking Tobacco: Never Assessed Comments Unknown Sex and Gender Information Value [...] as of this encounter Visit Diagnoses Diagnosis Constipation, unspecified constipation type Irregular periods Irregular menstrual cycle documented in this encounter
--- OUTSIDE RECORDS SUMMARY | 2024-04-20 14:23 | XMS_ITS | Encounter Summary ---
Author Organization [facility] Address [address] [place] [address] Care Team Providers Care Ob/Gyn Nurse Name Role Phone Unavailable Primary Care Provider Unavailabl e Reason for Visit * Reason Onset Date Comments Orders 07/01/2017 Encounter Details Date Type Department Care Team ([facility] st Contact Info) Description 07/01/2017 Telephone [facility] Primary Care Family Medicine [address] [phone] Debra Tyson MD [address] [place] [phone] Orders Social History Tobacco Use Types Packs/Day [...] encounter Miscellaneous Notes * Telephone Encounter - Manasa Pollack - 07/01/2017 12:08 PM EST ----- Message from Svetlana Leiva sent at 07/01/2017 11:15 AM EST ----- Regarding: Order Bloodwork Please order bloodwork for Juliana Cooley scheduled for labs 08/11/17 and new patient physical 08/17/17. Thank you. documented in this encounter Plan of Treatment Not on file documented as of this encounter Visit Diagnoses Diagnosis Wellness examination- Primary Constipation, unspecified constipation type documented in this encounter
--- OUTSIDE RECORDS SUMMARY | 2024-04-20 14:23 | XMS_ITS | Encounter Summary ---
Author Organization [facility] Address [address] [place] [address] Care Team Providers Care Financial Services Associate Name Role Phone Lelia Valle MD Primary Care Provider Unavail able Reason for Visit * Reason Onset Date Comments Pharyngitis 2018 Encounter Details Date Type Department Care Team (Late st Contact Info) Description 2018 Telephone [facility] [place] [address] [place] [phone] Lelia Valle MD Pharyngitis Social History Tobacco Use Types Packs/Day Years [...] No 10/29/2017 9:49 AM Tari Acosta * Are you blind or do you have serious difficulty seeing, even when wearing glasses? Answer Date of Assessment Author Status No 10/29/2017 9:49 AM Tari Acosta * Do you have serious difficulty walking or climbing stairs? (5 years old or older) Answer Date of Assessment Author Status No 10/29/2017 9:49 AM EDT [place], Tari Ac tive * Do you have difficulty dressing or bathing? (5 years old or older) Answer Date of Assessment Author Status No 10/29/2017 9:49 AM EDT Tari Hudson tive * Because of a physical, mental, or emotional condition, do you have difficulty doing errands alone such as visiting a doctor's office or shopping? (15 years old or older) Answer Date of Assessment Author Status No 10/29/2017 9:49 AM EDT Tari Hudson tive documented as of this encounter Mental Status * Because of a physical, mental, or emotional condition, do you have serious difficulty concentrating, remembering, or making decisions? (5 years old or older) Answer Entry Date Author Status No 10/29/2017 9:49 AM EDT Tari Hudson tive documented in this encounter Miscellaneous Notes * Telephone Encounter - Jennifer La RN - 2018 5:18 PM EDT Left message reporting sore throat on one side and looks like a tonsil stone. Questioning if Referral is necessary. Called patient back and no answer. Left message recommending an OV and to call the office starting at 8AM tomorrow for an appt. FYI documented in this encounter Plan of Treatment Not on file documented as of this encounter Visit Diagnoses Not on filedocumented in this encounter Care Teams Financial Services Associate Relationship Specialty Start Date End Date Lelia Valle MD PCP - General Internal Medicine 10/20/18 05/14/20 documented as of this encounter
--- OUTSIDE RECORDS SUMMARY | 2024-04-20 14:23 | XMS_ITS | Encounter Summary ---
Author Organization [facility] Address [address] [place] [address] Care Team Providers Care Rehab Services Aide Name Role Phone Lelia Valle MD Primary Care Provider Unavail able Reason for Visit * Reason Onset Date Comments Tick Bite 02/20/2020 Encounter Details Date Type Department Care Team (Late st Contact Info) Description 02/20/2020 Telephone [facility] [place] [address] [place] [phone] Lelia Valle MD Tick Bite Social History Tobacco Use Types Packs/Day Years [...] No 10/29/2017 9:49 AM ALET Tari Hudson Ac tive * Do you [...] encounter Miscellaneous Notes * Telephone Encounter - Beth Orozco RN - 02/20/2020 5:08 PM EDT EW sent script for doxycycline. Informed Branden that script for doxycycline was sent to [facility]. He will let Juliana know. * Telephone Encounter - Beth Orozco RN - 02/20/2020 4:44 PM EDT Juliana calls stating tick bite. Date first noticed: 02/19/2020 8 pm Tick observed: deer tick, uncertain if engorged or not Removed: yes Duration: Less than 24 hours Symptoms: Mid abdomen reddened area less than dime sized. No s/sx of infection. No other symptoms. Patient is requesting prophylactic doxycycline. Advised not indicated if attached for less than 24 hours. Patient would still like prescription. Pended script. Juliana will monitor for symptoms of increased erythema, swelling, drainage, infection, fever, chills, flu like symptoms and seek medical attention if any occur. documented in this encounter Plan of Treatment Not on file documented as of this encounter Visit Diagnoses Not on filedocumented in this encounter Care Teams Rehab Services Aide Relationship Specialty Start Date End Date Lelia Valle MD PCP - General Internal Medicine 10/20/18 05/14/20 documented as of this encounter
--- OUTSIDE RECORDS SUMMARY | 2024-04-20 14:23 | XMS_ITS | Encounter Summary ---
Author Organization [facility] Address [address] [place] [address] Care Team Providers Care Mold Repairer Name Role Phone Lelia Valle MD Primary Care Provider Unavail able Reason for Visit * Reason Comments Pharyngitis Encounter Details Date Type Department Care Team ([facility] st Contact Info) Description 11/17/2018 11:00 AM EDT Office Visit [facility] Primary Care Family Medicine [place] [address] [place] [address] Margareth Oliveira NP [address] [place] [address] Tonsillar enlargement (Primary Dx) Social History Tobacco Use Types [...] Sign Reading Time Taken Comments Blood Pressure 100/59 11/17/2018 11:12 AM EDT Pulse 69 11/17/2018 11:12 AM EDT Temperature 36.3 ??C (97.4 ??F) 11/17/2018 11:12 AM E DT Respiratory Rate - - Oxygen Saturation 99% 11/17/2018 11:12 AM EDT Inhaled Oxygen Concentration 99% 11/17/2018 1 1:12 AM EDT Weight - - Height - - Body Mass Index - - documented in this encounter Functional Status * Are you deaf or do you have serious difficulty hearing? Answer Date of Assessment Author Status No 10/29/2017 9:49 AM EDT Lily Hudsony Ac tive * Are you blind or [...] Author Status No 10/29/2017 9:49 AM EDT [place] * Because of a physical, mental, or emotional condition, do you have difficulty doing errands alone such as visiting a doctor's office or shopping? (15 years old or older) Answer Date of Assessment Author Status No 10/29/2017 9:49 AM EDT [place] t[place] documented as of this encounter Mental Status * Because of a physical, mental, or emotional condition, do you have serious difficulty concentrating, remembering, or making decisions? (5 years old or older) Answer Entry Date Author Status No 10/29/2017 9:49 AM EDT Lily Hudsony Ac tive documented in this encounter Progress Notes * Margareth Oliveira NP - 11/17/2018 11:20 AM EDT Juliana Cooley is a 43 y.o. female Chief Complaint Patient presents with ??? Pharyngitis SUBJECTIVE: Juliana comes to the office today for the following reasons: 1. Right swollen tonsil Juliana is a Dr. Valle patient here today complaining of about a week or so of swelling of the right tonsil without pain or any discomfort. She can feel it when she swallows and feels strange and swollen but is not uncomfortable. She has had a little bit of throat clearing and postnasal drainage and did start some Zyrtec. This has helped. She has not had fever, chills, malaise, nausea, cough, earache or facial pain. Past Medical History: Diagnosis Date ??? Constipation ??? Irregular periods No past surgical history on file. Current Outpatient Medications on File Prior to Visit Medication Sig Dispense Refill ??? cholecalciferol 1000 UNIT Tab Take 1,000 Units by mouth 3 times daily No current facility-administered medications on file prior to visit. Allergies Allergen Reactions ??? Banana Stomach pains OBJECTIVE: Blood pressure 100/59, pulse 69, temperature 36.3 ??C (97.4 ??F), temperature source Tympanic, SpO2 99 %. Physical Examination: GENERAL: alert, non toxic appearing, in no distress. Ear exam : bilateral normal, TM's intact without perforation or effusion, external canal normal. Mouth / Oral Pharynx:Throat exam normal. Oral cavity, tongue, pharynx and palate have no inflammation or suspicious lesions. Tonsils: The right tonsil is very minimally enlarged without significant erythema or exudate. There does appear to be a small somewhere at the base of the tonsil. Negative rapid strep. Neck: supple and free of adenopathy or masses DIAGNOSES / PATIENT INSTRUCTIONS / ASSESSMENT AND PLANS: 1. Tonsillar enlargement POC RAPID STREP A CULTURE THROAT ?? Right tonsillar enlargement without evidence of strep throat or tonsillar abscess at this point. ?? Culture sent ?? Monitor and reviewed comfort measures including gargling with salt water. ?? Encouraged prompt follow-up if developing fever, worsening tonsillar enlargement or change in symptoms Future Appointments Date Time Provider Department Center 12/24/2018 11:00 AM Neida Mccabe NP [facility] (Documentation by [employer] Naturally Speaking voice recognition) * Monique Williamson MA - 11/17/2018 11:17 AM EDT Pt roomed and vital signs obtained. Chief complaint noted. Blood pressure 100/59, pulse 69, temperature 36.3 ??C (97.4 ??F), temperature source Tympanic, [id number] %. Ht Readings from Last 1 Encounters: 06/01/18 1.727 m (5' 8) Referred self to specialist: no Advanced Directive: None in Existence Pre-visit planning done for this visit. Facility Charge Documentation Column A Review of chief complaint Vital signs (at least 3 of 7) Column B Column C 1 or more lab tests/x-rays are ordered or scheduled documented in this encounter Plan of Treatment Not on file documented as of this encounter Procedures Procedure Name Priority Date/Time Associated Diagnosis Comments POC RAPID STREP A Routine 11/17/2018 11: 33 AM EDT Tonsillar enlargement documented in this encounter Results * CULTURE THROAT (11/17/2018 2:27 PM EDT) Culture Throat NO BETA STREP TO DATE FURTHER EVALUATION TO FOLLOW FINAL REPORT: NO BETA STREP ISOLATED [facility] Comment:All routine bacterio logical identification and susceptibility testing is performed at the [facility] [place] Specimen from throat (specimen) 11/17/2018 2:27 PM EDT 11/17/2018 6:38 PM EDT us Margareth Oliveira NP MICROBIOLOGY - GENERAL ORDERA BLES Final Result Performing Organization Address [facility] Co de Phone Number [place] [id number] [place] [address] [facility] [address] [place] [address] [place] [address] * POC RAPID STREP A (11/17/2018 11:33 AM EDT) Strep A Ag, POC Negative Negative, Indeterminate .MANUAL ENTRY (EXTERNAL LAB) Margareth Oliveira NP POINT OF CARE TEST ENTER/EDIT ORDERABLES Final Result Performing Organization Address [facility]/ZIP Co de Phone Number .MANUAL ENTRY (EXTERNAL LAB) Please Refer to Scanned Lab Report documented in this encounter Visit Diagnoses Diagnosis Tonsillar enlargement- Primary Hypertrophy of tonsils alone documented in this encounter Care Teams Mold Repairer Relationship Specialty Start Date End Date Lelia Valle MD PCP - General Internal Medicine 10/20/18 05/14/20 documented as of this encounter
--- OUTSIDE RECORDS SUMMARY | 2024-04-20 14:23 | XMS_ITS | Encounter Summary ---
Author Organization [facility] Address [address] [place] [address] Care Team Providers Care Gluing Pressman Name Role Phone Debra Tyson MD Primary Care Provider [phone] Reason for Visit * Reason Comments Annual Exam Encounter Details Date Type Department Care Team (Late st Contact Info) Description 10/29/2017 10:00 AM EDT Office Visit [facility] Primary Care Family Medicine [address] [address] Debra Tyson MD [address] [place] [address] Routine general medical examination at a health care facility (Primary Dx); H/O headache; H/O hyperprolactinemia; Mixed hyperlipidemia Social History Tobacco Use Types [...] Sign Reading Time Taken Comments Blood Pressure 115/74 10/29/2017 9:45 AM EDT Pulse 88 10/29/2017 9:45 AM EDT Temperature - - Respiratory Rate - - Oxygen Saturation - - Inhaled Oxygen Concentration - - Weight 68.9 kg (152 lb) 10/29/2017 9:45 AM EDT Height 172.7 cm (5' 8) 10/29/2017 9:45 AM EDT Body Mass Index 23.11 10/29/2017 9:45 AM EDT documented in this encounter Functional [...] Author Status No 10/29/2017 9:49 AM EDT [place], Tari Ac tive documented in this encounter Progress Notes * Debra Tyson MD - 10/29/2017 10:34 AM EDTAssociated Problem(s): Mixed hyperlipidemia Does not require medication. Briefly discussed therapeutic lifestyle change. * Debra Tyson MD - 10/29/2017 10:32 AM EDT Chief complaint: Annual Exam Subjective: This is a very pleasant 41-year-old female who comes in today as a new patient for an annual physical. She is overall in excellent health. She reports that 4 years ago when she had her Pap smear she had laboratory evaluation to see why she had only 3-4 menstrual cycles a year. They found her prolactin level was slightly elevated. They recommended a hate head CT but this was never approved by her health insurance so it was not pursued. She has had no change in her menstrual cycles and would like to evaluate this again. She does occasionally have headaches but notes no vision changes.She has occasional acne but not severe. She otherwise has no chronic medical problems and takes no prescription medications. She is not on control at this time and does not desire to start. Recent lab work is reviewed with patient. Show slight hyperlipidemia with an elevated LDL but an excellent HDL. The remainder of her lab work is normal. Review of systems Gen: No significant weight change, sleep disturbance, night sweats, HEENT: No decreased hearing acuity, tinnitus, changes in vision, change in voice, difficulty swallowing, sore throat Respiratory: No shortness of breath, cough, Cardiovascular: No chest pain, palpitations, dyspnea on exertion, claudication, edema GI: No heartburn, nausea, vomiting, change of stools, melena, abdominal pain : No dysuria, urgency, frequency, hematuria, + only 3-4 menstrual cycles a year. Musculoskeletal: No joint or muscle pain Psychiatric: Normal affect. No mental status changes Neurologic: No focal weakness or numbness, + occasional headaches. Skin: No lesions of concern Allergies Allergen Reactions ??? Banana Stomach pains No outpatient prescriptions have been marked as taking for the 10/29/17 encounter (Office Visit) with Debra Tyson MD. Patient Active Problem List Diagnosis ??? Irregular periods ??? H/O headache ??? H/O hyperprolactinemia No past surgical history on file. Social History Social History ??? Marital status: Spouse name: N/A ??? Number of children: 1 ??? 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 Smoking status: Never Smoker ??? Smokeless tobacco: Never Used ??? Alcohol use Not on file ??? Drug use: Unknown ??? Sexual activity: Not on file Other Topics Concern ??? Not on file Social History Narrative ??? No narrative on file Family History Problem Relation Age of Onset ??? Alcohol Abuse Mother ??? Colon Cancer Father ??? Suicide Brother ??? PTSD Brother ??? Mental Retardation Sister Objective: BP 115/74 Pulse 88 Ht 1.727 m (5' 8) Wt 68.9 kg (152 lb) LMP 10/24/2017 (Exact Date) BMI 23.11 kg/m?? General: Alert, cooperative, no distress. HEENT: Normocephalic, Conjunctivae clear, EOMI. Normal TMs and external canals. Normal posterior oropharynx, gingiva and dentition. Neck: Supple, symmetrical,no adenopathy. Normal thyroid: no enlargment/tenderness/nodules. Lungs: Clear to auscultation without rales, rhonchi or wheezing. Normal work of breathing. Cardiac: Regular rate, Regular rhythm. No rubs, murmurs or gallops. No lower extremity edema, no carotid bruits. Normal distal pulses. Abdomen: Soft, non-tender, non-distended, positive bowel sounds, no masses. Musculoskeletal: 5/5 strength throughout, range of motion within normal limits. Neurologic: No focal weakness or numbness. Normal tone. Skin: No abnormal lesions noted. No abnormal hair growth noted. Psychiatric: Normal affect. Assessment and Plan: H/O hyperprolactinemia Will recheck prolactin levels today. If they continue to be abnormal then we will pursue imaging. Mixed hyperlipidemia Does not require medication. Briefly discussed therapeutic lifestyle change. Health maintenance. Consider Pap smear next year, Tdap was given through her employer. Will notify patient of results of prolactin lab test. Follow up : 1 year. * Debra Tyson MD - 10/29/2017 10:27 AM EDTAssociated Problem(s): H/O hyperprolactinemia (Resolved 06/01/2018) Will recheck prolactin levels today. If they continue to be abnormal then we will pursue imaging. documented in this encounter Plan of Treatment Not on file documented as of this encounter Procedures Procedure Name Priority Date/Time Associated Diagnosis Comments PAP SMEAR THIN PREP SCREENING Routine 05/11/2013 documented in this encounter Results * PAP SMEAR THIN PREP SCREENING (05/11/2013) Specimen from genital system (specimen) 05/11/2013 us Historical Provider PATHOLOGY/CYTOLOGY ORDERABLE S Final Result .MANUAL ENTRY (EXTERNAL LAB) Please Refer to Scanned Lab Report documented in this encounter Visit Diagnoses Diagnosis Routine general medical examination at a health care facility- Primary H/O headache Personal history of other specified diseases H/O hyperprolactinemia Personal history of other endocrine, metabolic, and immunity disorders Mixed hyperlipidemia documented in this encounter Care Teams Gluing Pressman Relationship Specialty Start Date End Date Debra Tyson MD PCP - General Family Medicine 10/23/17 03/06/18 documented as of this encounter
--- OUTSIDE RECORDS SUMMARY | 2024-04-20 14:23 | XMS_ITS | Encounter Summary ---
Author Organization [facility] Address [address] [place] [address] Care Team Providers Care Cardiology Clinical Consultant Name Role Phone Manisha Mane Primary Care Provider Encounter Details Date Type Department Care Team (Latest Contact Info) Description 05/15/2020 12:10 AM EST - 05/15/2020 11:59 PM [facility] Hospital Encounter [facility] [address] [place] [phone] Manisha Mane FNP [address] [place] [phone] Discharge Disposition: Home or Self Care Social [...] Author Status No 10/29/2017 9:49 AM EDT Tair Hudson * Are you blind or do you have serious difficulty seeing, even when wearing glasses? Answer Date of Assessment Author Status No 10/29/2017 9:49 AM Tari Acosta tive * Do you have serious difficulty walking or climbing stairs? (5 years old or older) Answer Date of Assessment Author Status No 10/29/2017 9:49 AM Tari Acosta tive * Do you have difficulty dressing or bathing? (5 years old or older) Answer Date of Assessment Author Status No 10/29/2017 9:49 AM Tari Acosta tive * Because of a physical, mental, or emotional condition, do you have difficulty doing errands alone such as visiting a doctor's office or shopping? (15 years old or older) Answer Date of Assessment Author Status No 10/29/2017 9:49 AM Tari Acosta tive documented as of this encounter Mental Status * Because of a physical, mental, or emotional condition, do you have serious difficulty concentrating, remembering, or making decisions? (5 years old or older) Answer Entry Date Author Status No 10/29/2017 9:49 AM Tari Acosta tive documented in this encounter Medications at [...] Comments PAP SMEAR THIN PREP SCREENING Routine 05/15/2019 12:00 AM EST Healthcare maintenance documented in this encounter Results * Pap Smear Thin Prep, Screening (05/15/2019 12:00 AM EST) Genital 05/15/2019 05/16/2019 Narrative SERVICES PROVIDED BY [facility] - 05/21/2020 2:00 PM EST CASE: [id number] PATIENT: JULIANA KINNEY Cytology Report with HPV [...] website (www.asccp.org/Guidelines) Final Diagnoses performed by ??Lillie LUZ([facility]) Salt Maker Electronically signed 05/18/2020 9:48:37AM The above diagnosis reflects review of microscopic slides. Technical Histology and Cytology services provided by [facility], [place], , Ishaan Mcdonnell MD, Institutional Cook. This test performed at [facility], [address] [place] [address], [address] ??NDX, , CLIA ID: [id number], Ishaan Mcdonnell MD, Director HPV RESULTS: HP1: [...] TRELL GARCIA Final Result SERVICES PROVIDED BY [facility] documented in this encounter Visit Diagnoses Diagnosis Healthcare maintenance Routine general medical examination at a health care facility documented in this encounter Care Teams Cardiology Clinical Consultant Relationship Specialty Start Date End Date Manisha Mane, BRANDON [address] [place] [address] PCP - General Nurse Practitioner 05/15/20 12/15/21 documented as of this encounter
--- OUTSIDE RECORDS SUMMARY | 2024-04-20 14:23 | XMS_ITS | Encounter Summary ---
Author Organization [facility] Address [address] [place] [address] Care Team Providers Care Boilermaker Fitter Name Role Phone Eliseo Quinonez MD Primary Care Provider Reason for Visit * Reason Onset Date Comments Fever 07/22/2018 Encounter Details Date Type Department Care Team (Late st Contact Info) Description 07/22/2018 Telephone [facility] [address] [place] [phone] Neida Mccabe NP [address] [place] [address] Fever Social History Tobacco Use Types Packs/Day Years [...] Telephone Encounter - Samantha Payne RN - 07/22/2018 5:19 PM EDT Call from pt stating that this morning she developed fever, chills, bad cough with minimal sputum, congested nose. 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 Request appointment, none available today. OV scheduled tomorrow at 1045. documented in this encounter Plan of Treatment Not on file documented as of this encounter Visit Diagnoses Not on filedocumented in this encounter Care Teams Boilermaker Fitter Relationship Specialty Start Date End Date Eliseo Quinonez MD PCP - General Internal Medicine 06/01/18 10/19/18 documented as of this encounter
--- OUTSIDE RECORDS SUMMARY | 2024-04-20 14:23 | XMS_ITS | Encounter Summary ---
Author Organization [facility] Address [address] [place] [address] Care Team Providers Care Rv Service Technician Name Role Phone Manisha Mane PRIMARY EDUCATION PROFESSOR Primary Care Provider Reason for Referral * Radiology Services (Routine) - Closed Specialty Diagnoses / Procedures Referred By Olamide aldana Referred To Contact Radiology Diagnoses Sinus pain Facial pain Procedures CT SINUS WO CONTRAST Frederick Carrasco MD Phone: tel: fax: [facility] Radiology CT Scan [address] [place] [address] Phone: tel: fax: Referral ID Status Reason Start Date Expiration Date Visits Re quested Visits Authorized [id number] Closed 04/23/2020 04/23/2021 1 1 Reason for Visit * Radiology Services (Routine) - Closed Specialty Diagnoses / Procedures Referred By Olamide aldana Referred To Contact Radiology Diagnoses Sinus pain Facial pain Procedures CT SINUS WO CONTRAST Frederick Carrasco MD Phone: tel: fax: [facility] Radiology CT Scan [address] [place] [address] Phone: tel: fax: Referral ID Status Reason Start Date Expiration Date Visits Re quested Visits Authorized [id number] Closed 04/23/2020 04/23/2021 1 1 Encounter Details Date Type Department Care Team (Latest Contact Info) Description 06/04/2020 11:29 AM EST - 06/04/2020 11:59 PM EST Hospital Encounter [facility] Radiology CT Scan [address] [place] [address] Frederick Carrasco MD [address] [place] [phone] Discharge Disposition: Home or Self Care Social [...] 10/29/2017 9:49 AM Tari Acosta tive * Are you blind or do you have serious difficulty seeing, even when wearing glasses? Answer Date of Assessment Author Status No 10/29/2017 9:49 AM Tari Acosta Ac tive * Do you have serious difficulty walking or climbing stairs? (5 years old or older) Answer Date of Assessment Author Status No 10/29/2017 9:49 AM Tari Acosta Ac tive * Do you have difficulty [...] EDT Tari Hudson documented in this encounter Medications at Time [...] Name Priority Date/Time Associated Diagnosis Comments CT SINUS WO CONTRAST Routine 06/04/2020 11:38 AM EST Sinus pain Facial pain documented in this encounter Results * CT Sinus WO [...] * 06/04/2020 11:46 AM Willard Fang MD [facility] Wei Carrasco MD IMG CT ORDERABLES Final R esult documented in this encounter Visit Diagnoses Diagnosis Sinus pain Other diseases of nasal cavity and sinuses Facial pain Headache documented in this encounter Care Teams Rv Service Technician Relationship Specialty Start Date End Date Manisha Mane, BRANDON [address] [place] [address] PCP - General Nurse Practitioner 05/15/20 12/15/21 documented as of this encounter
--- OUTSIDE RECORDS SUMMARY | 2024-04-20 14:23 | XMS_ITS | Encounter Summary ---
Author Organization [facility] Address [address] [place] [address] Care Team Providers Care Data Entry Assistant Name Role Phone Lelia Valle MD Primary Care Provider Unavail able Encounter Details Date Type Department Care Team (Late st Contact Info) Description 06/21/2019 11:00 AM EST Office Visit [facility] Primary Care [address] [place] [address] Lelia Valle MD Chronic sinusitis, unspecified location (Primary Dx) Social History Tobacco Use Types [...] Sign Reading Time Taken Comments Blood Pressure 130/75 06/21/2019 11:09 AM EST Pulse 79 06/21/2019 11:09 AM EST Temperature - - Respiratory Rate - - Oxygen Saturation 97% 06/21/2019 11:09 AM EST Inhaled Oxygen Concentration 97% 06/21/2019 1 1:09 AM EST Weight 72.6 kg (160 lb) 06/21/2019 11:09 AM EST Height 172.7 cm (5' 8) 06/21/2019 11:09 AM EST Body Mass Index 24.33 06/21/2019 11:09 AM EST documented in this encounter Functional Status [...] [place] Ac tive documented in this encounter Patient Instructions * Patient Instructions* Lelia Valle MD - 06/21/2019 11:32 AM EST Images from the original note were not included. Chronic Sinusitis: Care Instructions Your Care Instructions Sinusitis is an infection of the lining of the sinus cavities in your head. It causes pain and pressure in your head and face. Sinusitis can be short-term (acute) or long-term (chronic). Chronic sinusitis lasts 12 weeks or longer. It is often caused by a bacterial or fungal infection. Other things, such as allergies, may also be involved. Chronic sinusitis may be hard to treat. It can lead to permanent changes in the mucous membranes that line the sinuses. It may make future sinus infections more likely. The infection may take some time to treat. Antibiotics are usually used if the infection is caused by bacteria. You may also need to use a corticosteroid nasal spray. If the infection is not cured after you try two or more different antibiotics, you may want to talk with your doctor about surgery or allergy testing. If the sinusitis is caused by a fungal infection, you may need to take antifungals or other medicines. You may also need surgery. Follow-up care is a bain part of your treatment and safety. Be sure to make and go to all appointments, and call your doctor if you are having problems. It's also a good idea to know your test resultsand keep a list of the medicines you take. How can you care for yourself at home? Medicines ? Be safe with medicines. Take your medicines exactly as prescribed. Call your doctor if you think you are having a problem with your medicine. You will get more details on the specific medicinesyour doctor prescribes. ? Take your antibiotics as directed. Do not stop taking them just because you feel better. You need to take the full course of antibiotics. ? Your doctor may recommend a corticosteroid nasal spray, wash, drops, or pills. Take this medicine exactly as prescribed. ??At home ? Breathe warm, moist air. You can use a steamy shower, a hot bath, or a sink filled with hot water. Avoid cold, dry air. Using a humidifier in your home may help. Follow the instructions for cleaning the machine. ? Use saline (saltwater) nasal washes every day. This helps keep your nasal passages open. It also can wash out mucus and bacteria. ?? You can buy saline nose drops at a grocery store or drugstore. ?? You can make your own at home. Add 1 teaspoon of salt and 1 teaspoon of baking soda to 2 cups ofdistilled water. If you make your own, fill a bulb syringe with the solution. Then insert the tip into your nostril and squeeze gently. Blow your nose. ? Put a warm, wet towel or a warm gel pack on your face 3 or 4 times a day. Leave it on 5 to 10minutes each time. ? Do not smoke or breathe secondhand smoke. Smoking can make sinusitis worse. If you need help quitting, talk to your doctor about stop-smoking programs and medicines. These can increase your chances of quitting for good. When should you call for help? Call your doctor now or seek immediate medical care if: ? You have new or worse symptoms of infection, such as: ?? Increased pain, swelling, warmth, or redness. ?? Red streaks leading from the area. ?? Pus draining from the area. ?? A fever. ??Watch closely for changes in your health, and be sure to contact your doctor if: ? The mucus from your nose becomes thicker (like pus) or has new blood in it. ? You do not get better as expected. Where can you learn more? Visit [employer]'s [employer] reference library for more information on Chronic Sinusitis: Care Instructions and other health topics. In [employer] https://[employer].Mobile Pulse, go to the Resources icon, and then click ???Search [employer]?? . Enter F824 in the search box. You can also get to the library through the [employer] website at https://www.[employer]/Yoopay. Current as of: September 19, 2016 Content Version: 11.6 ?? [id number] [employer]. Care instructions adapted under license by [employer]. Thiscare instruction is for use with your licensed healthcare professional AND IS NOT A SUBSTITUTE FOR PROFESSIONAL MEDICAL ADVICE. If you have questions about a medical condition or this instruction, always ask your healthcare professional. [employer] disclaims any warranty or liability for your use of this information. documented in this encounter Progress Notes * Diomedes Acosta RN - 07/11/2019 10:40 AM ESTAddended by: DIOMEDES ACOSTA on: 07/11/2019 10:40 AM Modules accepted: Orders * Lelia Valle MD - 06/21/2019 11:32 AM EST [facility] Office Visit Note No chief complaint on file. SUBJECTIVE: Juliana is a 43 y.o. female here today with complaint of ongoing chronic sinus issues. Patient reports that in the past she has seen ENT twice, was recommended to be on allergy medication, patient reports because it did not work she stopped taking it. She is very emotional and frustrated because of her ongoing sinus issues. Currently denies nasal congestion, cough, fevers, ear pressure. States it is more right-sided and inside of her face. Denies headache, eye pain, fevers, weight loss. Reports she is suffered with this for greater than 10 years and wants to get to the bottom of it. 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 Review of Systems Constitutional: Negative. HENT: Positive for sinus pain. Negative for congestion, ear discharge, ear pain, hearing loss, nosebleeds, sore throat and tinnitus. Eyes: Negative. Respiratory: Negative. Negative for stridor. Cardiovascular: Negative. Gastrointestinal: Negative. Genitourinary: Negative. Musculoskeletal: Negative. Skin: Negative. Neurological: Negative. Psychiatric/Behavioral: Negative for depression, hallucinations, memory loss, substance abuse and suicidal ideas. The patient is nervous/anxious. The patient does not have insomnia. Past Medical History: Diagnosis Date ??? Constipation ??? Irregular periods No past surgical history on file. Family History Problem Relation Name Age of Onset ??? Alcohol Abuse Mother ??? Colon Cancer Father 67 ??? Suicide Brother ??? PTSD Brother ??? Other Maternal Grandmother unexpectedly post operatively from neck surgery ??? Melanoma Maternal Grandfather Current allergies and medications confirmed. OBJECTIVE: Vitals: 06/21/19 1109 BP: 130/75 Pulse: 79 SpO2: 97% Gen: Pleasant, emotional HEENT: PERRL, conjunctiva pink, sclera non-injected and anicteric, tympanic membranes pearly castorena with normal landmarks, oropharynx free of exudate and erythema. Sinus: report no tenderness , but states its in the inside of right side of face. No redness , swelling or warmth present. Neck: supple, no palpable lymphadenopathy Resp: CTAB no wheezing, rales or rhonchi, moving air well CV: RRR, no murmurs, rubs or gallops ASSESSMENT/PLAN: Diagnoses and all orders for this visit: Chronic sinusitis, unspecified location Comments: Patient states that she was advised Zyrtec in past which has not worked We will send to ENT further for further evaluation Orders: - AMB REFERRAL TO [facility] Defers flu shot #) HCM Health Maintenance Due Topic Date Due ??? TDAP/TD Vaccine 18+ 11/15/1993 ??? Cervical Cancer Screening 05/11/2018 ??? Influenza Vaccine (1) 01/09/2019 Note: Please be advised that portions of the text in this document were created using voice recognition software and may contain verbal and syntax anomalies. If you find language that is silly, confusing, nonsensical, or ridiculous and you require clarification then please contact me and I will do my best to reconstruct the intended meaning. * Tyesha Cooper - 06/21/2019 11:10 AM EST Juliana Cooley has been roomed and discussed at daily huddle Health Maintenance Due Topic Date Due ??? TDAP/TD Vaccine 18+ 11/15/1993 ??? Cervical Cancer Screening 05/11/2018 ??? Depression Screening 10/29/2018 ??? Influenza Vaccine (1) 01/09/2019 documented in this encounter Plan of Treatment Not on file documented as of this encounter Visit Diagnoses Diagnosis Chronic sinusitis, unspecified location- Primary documented in this encounter Care Teams Data Entry Assistant Relationship Specialty Start Date End Date Lelia Valle MD PCP - General Internal Medicine 10/20/18 05/14/20 documented as of this encounter
--- OUTSIDE RECORDS SUMMARY | 2024-04-20 14:23 | XMS_ITS | Encounter Summary ---
Author Organization [facility] Address [address] [place] [address] Care Team Providers Care Stroke Belt Sander Operator Name Role Phone Lelia Valle MD Primary Care Provider Unavail able Reason for Visit * Reason Onset Date Comments Swollen Lymph Nodes 11/23/2018 Encounter Details Date Type Department Care Team (Late st Contact Info) Description 11/23/2018 Telephone [facility] Primary [facility] [place] [address] [place] [address] Lelia Valle MD Swollen Lymph Nodes Social History Tobacco Use [...] encounter Miscellaneous Notes * Telephone Encounter - Denisse Esparza RN - 11/23/2018 10:23 AM EDT LM informing patient of below. Advised to call office back with further questions. * Telephone Encounter - Michelle Irwin DO - 11/23/2018 10:15 AM EDT Would advise her to monitor the site for the next couple of days and call if it is worsening or notimproving * Telephone Encounter - Denisse Esparza RN - 11/23/2018 9:58 AM EDT Swollen lymph node on back of neck, removed tick from that area. Was seen in [facility] for this same issue. Denies rash, joint pain, fever. Sore around the bite. Dr. Irwin - Should patient be seen again? documented in this encounter Plan of Treatment Not on file documented as of this encounter Visit Diagnoses Not on filedocumented in this encounter Care Teams Stroke Belt Sander Operator Relationship Specialty Start Date End Date Lelia Valle MD PCP - General Internal Medicine 10/20/18 05/14/20 documented as of this encounter
--- OUTSIDE RECORDS SUMMARY | 2024-04-20 14:23 | XMS_ITS | Encounter Summary ---
Author Organization [facility] Address [address] [place] [id number] Care Team Providers Care Custodial Operations Manager Name Role Phone WhiteheadGerberDayManisha Lina SENIOR QA TESTER Primary Care Provider Reason for Visit * Reason Onset Date Comments Covid Test 06/13/2020 Encounter Details Date Type Department Care Team ([facility] st Contact Info) Description 06/13/2020 9:15 AM EST Clinical Support [facility] [address] [place] [id number] Social History Tobacco Use Types Packs/Day Years [...] documented in this encounter Progress Notes * Marielle Randolph - 06/13/2020 11:10 AM EST Name and confirmed with patient at [facility] testing site. Verbal consent obtained A Nasopharyngeal [...] Date/Time Associated Diagnosis Comments CORONAVIRUS COVID-19 STAT 06/13/2020 9:15 AM EST Exposure to 2019 novel coronavirus documented in this encounter Results * CORONAVIRUS COVID-19 (06/13/2020 9:15 AM EST) Coronavirus COVID-19 NOT DETECTED NOT DETECTED [facility] Comment: NOTE: Negative results do not preclude SARS-CoV-2 infection and should not be used as the sole basis for patient management decisions. This SARS-CoV-2 assay is a real-time RT-PCR test intended for the qualitative detection of nucleic acid from the SARS-CoV-2 in respiratory specimens from individuals suspected of having COVID-19 infection. This test was developed and its performance characteristics determined by [facility]. This test has not been FDA cleared [...] for Disease Control and Preventions (CDC) Swab 06/13/2020 9:15 AM EST 06/13/2020 2:28 PM EST Jannet Ferguson PAC MICROBIOLOGY - GENERAL ORDER LEO Final Result Performing Organization Address City/State/[facility] Co de Phone Number [facility] [place] [id number] [place] [address] documented in this encounter Visit Diagnoses Diagnosis Exposure to 2019 novel coronavirus- Primary documented in this encounter Additional Health Concerns Infection Onset Date Last Indicated Resolved Time R/O COVID-19 06/13/2020 06/13/2020 06/13/2020 10:3 9 PM EST documented as of this encounter Care Teams Custodial Operations Manager Relationship Specialty Start Date End Date Manisha Mane, BRANDON [address] [place] [address] PCP - General Nurse Practitioner 05/15/20 12/15/21 documented as of this encounter
--- OUTSIDE RECORDS SUMMARY | 2024-04-20 14:23 | XMS_ITS | Encounter Summary ---
Author Organization [facility] Address [address] [place] [address] Care Team Providers Care Quill Picking Machine Operator Name Role Phone Debra Tyson MD Primary Care Provider [phone] Reason for Visit * Reason Onset Date Comments Updates 11/06/2017 Encounter Details Date Type Department Care Team ([facility] st Contact Info) Description 11/06/2017 Telephone [facility] Primary Care Family [address] [address] Debra Tyson MD [facility] [place] [address] Updates Social History Tobacco Use Types Packs/Day Years [...] Status No 10/29/2017 9:49 AM EDT Tari Hudsonve documented in this encounter Miscellaneous Notes * Telephone Encounter - Tari Hudson - 11/06/2017 8:09 AM EDT Patient called to say that when she was here for her physical blood work was ordered. The MA attempted to get her blood however the vein rolled and the patient jump. The patient did not want a secondattempt done. She reports that her arm really hurt after that and continued to hurt. She believes that she may have nerve damage and wanted to make us aware. She feels that we may need more training with blood draws over here. documented in this encounter Plan of Treatment Not on file documented as of this encounter Visit Diagnoses Not on filedocumented in this encounter Care Teams Quill Picking Machine Operator Relationship Specialty Start Date End Date Debra Tyson MD PCP - General Family Medicine 10/23/17 03/06/18 documented as of this encounter
--- OUTSIDE RECORDS SUMMARY | 2024-04-20 14:23 | XMS_ITS | Encounter Summary ---
Author Organization [facility] Address [address] [place] [address] Care Team Providers Care Exchange Administrator Name Role Phone Eliseo Quinonez MD Primary Care Provider Encounter Details Date Type Department Care Team (Latest Contact Info) Description 07/23/2018 11:48 AM EDT - 07/23/2018 11:59 PM EDT Hospital Encounter [facility] [address] [place] [phone] Neida Mccabe, LAURIE [address] [place] [address] Discharge Disposition: Home or Self Care Social [...] Author Status No 10/29/2017 9:49 AM EDT Kunia Tari Ac tive * Because of a [...] Author Status No 10/29/2017 9:49 AM EDT Kunia, Tari Ac tive documented in this encounter Medications at Time of Discharge cholecalciferol 1000 UNIT Tab Take 1,000 Units by mouth 3 times daily documented as of this encounter Progress Notes * Neida Mccabe NP - 07/23/2018 1:03 PM EDT Called with result documented in this encounter Plan of Treatment Not on file documented as of this encounter Procedures Procedure Name Priority Date/Time Associated Diagnosis Comments INFLUENZA A+B PCR, [facility]ID [facility] TEST Routine 07/23/2018 11:10 AM EDT Nonintractable headache, unspecified chronicity pattern, unspecified headache type Fever, unspecified fever cause Cough Body aches documented in this encounter Results * (ABNORMAL) INFLUENZA A+B PCR, [facility]APID [facility] TEST (07/23/2018 11:10 AM EDT) Pathologist [facility] Influenza A Rapid PCR DETECTED(A) NOT DETECT [facility] Influenza B Rapid PCR NOT DETECTED NOT DETECT [facility] Nasal / Nasopharyngeal 07/23/2018 11:10 AM EDT 07/23/2018 11:51 AM EDT us Neida Mccabe NP MICROBIOLOGY - GENERAL ORDERA BLES Final Result Performing Organization Address City/State/[facility] Co de Phone Number [facility] [address] [address] Literacy Coordinator: Jovi Barton, PhD [phone] documented in this encounter Visit Diagnoses Diagnosis Nonintractable headache, unspecified chronicity pattern, unspecified headache type Fever, unspecified fever cause Cough Body aches Generalized pain documented in this encounter Care Teams Exchange Administrator Relationship Specialty Start Date End Date Eliseo Quinonez MD PCP - General Internal Medicine 06/01/18 10/19/18 documented as of this encounter
--- OUTSIDE RECORDS SUMMARY | 2024-04-20 14:23 | XMS_ITS | Encounter Summary ---
Author Organization [facility] Address [address] [place] [address] Care Team Providers Care Sugar Laboratory Assistant Name Role Phone WhiteheadGerberDayManisha Lina ELECTRICAL DESIGN TECHNOLOGIST Primary Care Provider Reason for Visit * Reason Onset Date Comments Appointment 06/05/2020 Encounter Details Date Type Department Care Team (Late st Contact Info) Description 06/05/2020 Telephone [facility] Procedure [place] [address] [place] [address] Frederick Carrasco MD [address] [place] [address] Appointment Social History Tobacco Use Types Packs/Day [...] encounter Miscellaneous Notes * Telephone Encounter - Janine Ward - 06/05/2020 8:47 AM EST Called and left a message for patient to call to schedule a follow up appointment to go over the results of her CT scan. * Telephone Encounter - Janine Ward - 06/05/2020 8:46 AM EST ----- Message from Frederick Carrasco MD sent at 06/04/2020 4:38 PM EST ----- Please schedule patient for follow-up to review CT scan and treatment options. 30 minutes but wouldbe ideal. documented in this encounter Plan of Treatment Not on file documented as of this encounter Visit Diagnoses Not on filedocumented in this encounter Care Teams Sugar Laboratory Assistant Relationship Specialty Start Date End Date Manisha Mane, BRANDON [address] [phone] PCP - General Nurse Practitioner 05/15/20 12/15/21 documented as of this encounter
--- OUTSIDE RECORDS SUMMARY | 2024-04-20 14:23 | XMS_ITS | Clinical Summary ---
Author Organization [facility] Address [address] [place] [address] Care Team Providers Care Director Of Entertainment Name Role Phone Out Of Area, Pcp-Mp Primary Care Provider Honey ceja Allergies No known active allergies Medications Cod Liver Oil oil Take 750 mg by mouth daily. Active MAGNESIUM ORAL Take by mouth daily. Active ibuprofen (ADVIL) 200 mg tablet Take 400 mg by mouth every 6 hours as needed for Pain. Active B Complex Vitamins tablet Take 1 Tablet by mouth if needed. Active acetaminophen (TYLENOL) 500 mg tablet Take 500 mg by mouth every 6 hours as needed for Pain. Active TURMERIC ORALIndications: supplement Take 1 Each by mouth. Active Active Problems No known active problems Surgical History Surgery Date Site/Laterality Comments BREAST BIOPSY 05/11/1993 - 05/10/1994 Left Benign Family History Medical History Relation Comments Cancer Father Colon Cancer Father Relation Status Comments Father colon CA Mother Alive spinal stenosis Social History Tobacco Use Types Packs/Day Years Used Date Smoking Tobacco: Former Cigarettes Smokeless Tobacco: Never Alcohol Use Standard Drinks/Week Comments Yes 2 (1 standard drink = 0.6 oz pur e alcohol) Comments No Sex and Gender Information Value Date Recorded Sex Assigned at Not on file Legal Sex Female 18:01 EST Gender Identity Female 03/07/2021 13:29 EDT Sexual Orientation Not on file Obstetrics History Para Term AB IAB SAB Ectopic Multiple Livin g Live Births 1 1 Date Outcome GA Total Labor Labor/2nd/3rd Weight Sex Type Anes PTL Eunice A1 A5 Name Clin Para Last Filed Vital Signs Vital Sign Reading Time Taken Comments Blood Pressure 107/74 10/28/2021 0924 EDT Pulse 91 07/11/2021 0833 EST Temperature 36.7 ??C (98 ??F) 10/28/2021 0820 EDT Respiratory Rate 25 10/28/2021 0924 EDT Oxygen Saturation 88% 10/28/2021 0924 EDT Inhaled Oxygen Concentration - - Weight 73 kg (161 lb) 10/28/2021 0820 EDT Height 172.7 cm (5' 8) 10/28/2021 0820 EDT Body Mass Index 24.48 10/28/2021 0820 EDT Plan of Treatment Health Maintenance Due Date Last Done Comments Hepatitis C Screen 1975 Hepatitis B Vaccine (1 of 3 - 19+ 3-dose series) 11/15 COVID-19 Vaccine (2023- season) 2024 Insurance [facility] [address] [address] [facility] Care Teams Director Of Entertainment Relationship Specialty Start Date End Date Out Of Area, Pcp-Mp PCP - General 06/21/21
--- OUTSIDE RECORDS SUMMARY | 2024-04-20 14:23 | XMS_ITS | Encounter Summary ---
Author Organization [facility] Address [address] [place] [address] Care Team Providers Care Expert Medical Writer Name Role Phone Manisha Mane Primary Care Provider Reason for Visit * Reason Onset Date Comments Nausea 05/17/2020 Emesis 05/17/2020 Headache 05/17/2020 Encounter Details Date Type Department Care Team ([facility] st Contact Info) Description 05/17/2020 Telephone [facility] [address] [place] [address] Manisha Mane FNP [address] [place] [phone] Nausea; Emesis; Headache Social History Tobacco Use Types Packs/Day Years [...] encounter Miscellaneous Notes * Telephone Encounter - Rebecca Graff - 05/17/2020 9:12 AM EST Shanon from Employee line left message: .Called by [employer] or patient has been notified by [employer] of need for covid testing: Date of Symptom Onset: 05/17/20 Is this your first covid test No 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 No intermediate designer care or custodial? No Does the patient live in a congregate setting No Patient above 60: No Any known exposure to confirmed case? No Any recent travel? 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 If yes please schedule. Ifunknown ask patient Patient has been scheduled for testing ??? Does patient have mychart: yes . ??? If no please get their email and send them an activation code to create account to receive covid test results if done . ??? If pediatric patient ages 0-11 yo please use the smartphrase .[email or web address] to get verbal permission to activate their [employer] account COVID-19 Risk of Complications: 0 Values [...] No Is Immunocompromised : No Resides in Correction: No : No documented in this encounter Plan of Treatment Not on file documented as of this encounter Visit Diagnoses Not on filedocumented in this encounter Care Teams Expert Medical Writer Relationship Specialty Start Date End Date Manisha Mane, SALES CLERK SUPERVISOR [address] [place] [phone] PCP - General Nurse Practitioner 05/15/20 12/15/21 documented as of this encounter
--- OUTSIDE RECORDS SUMMARY | 2024-04-20 14:23 | XMS_ITS | Encounter Summary ---
Author Organization [facility] Address [address] [place] [address] Care Team Providers Care Summer Counselor Name Role Phone Debra Tyson MD Primary Care Provider [phone] Reason for Visit * Reason Onset Date Comments Labs Only 01/27/2018 Encounter Details Date Type Department Care Team ([facility] st Contact Info) Description 01/27/2018 Telephone [facility] [place] [address] [place] [address] Kate Castillo, LAURIE [address] [address] Labs Only Social History Tobacco Use Types Packs/Day [...] Author Status No 10/29/2017 9:49 AM Tari Acsota * Do you have serious difficulty walking or climbing stairs? (5 years old or older) Answer Date of Assessment Author Status No 10/29/2017 9:49 AM EDT [place], Tari Ac tive * Do you have [...] EDT Tari Hudson documented in this encounter Miscellaneous Notes * Telephone Encounter - Lynn Reese MA - 01/27/2018 12:08 PM EDT [facility] called order put in from placed new order. documented in this encounter Plan of Treatment Not on file documented as of this encounter Results * (ABNORMAL) PROLACTIN (01/27/2018 12:00 PM EDT) Prolactin 124.3(H) 3.4 - 24.1 ng/mL [facility] Comment: Please interpret with caution. High doses of biotin (for MS treatment, oncology patients, or beauty products) can falsely decrease the result. Blood specimen (specimen) 01/27/2018 12:00 PM EDT 01/27/2018 1:22 PM EDT us Kate Castillo NP CHEMISTRY ORDERABLES Final Resu lt [facility] [address] [place] [address] documented in this encounter Visit Diagnoses Diagnosis H/O hyperprolactinemia- Primary Personal history of other endocrine, metabolic, and immunity disorders documented in this encounter Care Teams Summer Counselor Relationship Specialty Start Date End Date Debra Tyson MD PCP - General Family Medicine 10/23/17 03/06/18 documented as of this encounter
--- OUTSIDE RECORDS SUMMARY | 2024-04-20 14:23 | XMS_ITS | Encounter Summary ---
Author Organization [facility] Address [address] [place] [address] Care Team Providers Care Sap Basis Administrator Name Role Phone Debra Tyson MD Primary Care Provider [phone] Encounter Details Date Type Department Care Team (Latest Contact Info) Description 01/27/2018 11:45 AM EDT - 01/27/2018 11:50 AM EDT Hospital Encounter [facility] [address] [place] [address] Jameson Orellana, PAC [address] [place] [phone] Discharge Disposition: Home or Self Care Social [...] on filedocumented in this encounter Care Teams Sap Basis Administrator Relationship Specialty Start Date End Date Debra Tyson MD PCP - General Family Medicine 10/23/17 03/06/18 documented as of this encounter
--- OUTSIDE RECORDS SUMMARY | 2024-04-20 14:23 | XMS_ITS | Encounter Summary ---
Author Organization [facility] Address [address] [place] [address] Care Team Providers Care Dental Technician Instructor Name Role Phone Debra Tyson MD Primary Care Provider [phone] Reason for Visit * Reason Onset Date Comments Error 10/23/2017 Encounter Details Date Type Department Care Team ([facility] st Contact Info) Description 10/23/[address] [facility] Family [address] [address] Ana Porter FNP [address] [place] [address] [phone] [place] [address] Error Social History Tobacco Use Types Packs/Day Years [...] encounter Miscellaneous Notes * Telephone Encounter - Ana Porter FNP - 10/23/2017 8:46 PM EDT A user error has taken place: encounter opened in error, closed for administrative reasons. documented in this encounter Plan of Treatment Not on file documented as of this encounter Visit Diagnoses Not on filedocumented in this encounter Care Teams Dental Technician Instructor Relationship Specialty Start Date End Date Debra Tyson MD PCP - General Family Medicine 10/23/17 03/06/18 documented as of this encounter
--- OUTSIDE RECORDS SUMMARY | 2024-04-20 14:23 | XMS_ITS | Encounter Summary ---
Author Organization [facility] Address [address] [place] [address] Care Team Providers Care Pump Oiler Name Role Phone Debra Tyson MD Primary Care Provider [phone] Encounter Details Date Type Department Care Team (Latest Contact Info) Description 10/23/2017 12:36 PM EDT - 10/23/2017 11:59 PM EDT Hospital Encounter [facility] [address] [place] [phone] Debra Tyson MD [facility] [place] [address] Discharge Disposition: Home or Self [...] Procedure Name Priority Date/Time Associated Diagnosis Comments CBC W/O DIFFERENTIAL Routine 10/23/2017 12:37 PM EDT Annual physical exam LIPID PANEL Routine 10/23/2017 12:37 PM EDT Annual physical exam COMPREHENSIVE METABOLIC PANEL Routine 10/23/2017 12:37 PM EDT Annual physical exam documented in this encounter Results * (ABNORMAL) LIPID PANEL (10/23/2017 12:37 PM EDT) [facility] Cholesterol 260(H) 112 - 199 mg/dL [facility] Triglycerides 112 mg/dL [facility] Comment: REFERENCE RANGE: < 150 mg/dl FOR FASTING < 175 mg/dl FOR NON-FASTING (BASED ON LITERATURE) HDL Cholesterol 79 40 - 100 mg/dL [facility] Comment: HDL REFERENCE RANGES Low: ? <40 mg/dL Normal: ?40-60 mg/dL Desirable: >60 mg/dL LDL Cholesterol Calculation 159(H) 57 - 99 mg/dL [facility] Blood specimen (specimen) 10/23/2017 12:37 PM EDT 10/23/2017 12:37 PM EDT Debra Tyson MD CHEMISTRY ORDERABLES Final Resul t [facility] [address] [place] [address] Spray Operator: Laurie Kendall MD * CBC W/O DIFFERENTIAL (10/23/2017 12:37 PM EDT) [facility] Leukocytes 6.9 4.2 - 10.2 thou/uL [facility] Erythrocytes 4.48 3.80 - 5.10 mil/uL [facility] Hemoglobin 13.3 11.8 - 15.8 g/dL [facility] Hematocrit 40.0 35.0 - 47.0 % [facility] Mean Corpuscular Volume 89.3 80.0 - 100.0 fL [facility] Mean Corpuscular Hemoglobin 29.7 26.0 - 34.0 pg [facility] Mean Corpuscular Hemoglobin Conc 33.3 32.0 - 36.0 g/dL [facility] Platelet Count 396 140 - 440 thou/uL [facility] Mean Platelet Volume 9.6 8.6 - 12.7 fL [facility] Erythrocyte Distribution Width SD 42.0 37.0 - 48.0 fL [facility] Erythrocyte Distribution Width CV 13.0 12.0 - 14.6 % [facility] Blood specimen (specimen) 10/23/2017 12:37 PM EDT 10/23/2017 12:37 PM EDT Debra Tyson MD HEMATOLOGY ORDERABLES Final Resu lt [facility] [address] [place] [address] Spray Operator: Laurie Kendall MD * (ABNORMAL) COMPREHENSIVE METABOLIC PANEL (10/23/2017 12:37 PM EDT) Sodium 139 135 - 145 mEq/L [facility] Potassium 4.7 3.3 - 5.3 mEq/L [facility] Chloride 102 96 - 108 mEq/L [facility] Carbon Dioxide 24 21 - 30 mEq/L [facility] Anion Gap 13 mEq/L [facility] Blood Urea Nitrogen 10 6 - 19 mg/dL [facility] Creatinine 0.77 0.50 - 1.30 mg/dL [facility] BUN Creatinine Ratio 13.0 [facility] Glucose 94 70 - 99 mg/dL [facility] Protein 6.9 5.9 - 8.4 g/dL [facility] Albumin 4.9 3.2 - 5.2 g/dL [facility] Globulin 2.0 g/dL [facility] Albumin/Globulin Ratio 2.5 [facility] Bilirubin 1.4(H) 0.0 - 1.0 mg/dL [facility] Calcium 10.1 8.6 - 10.4 mg/dL [facility] Alkaline Phosphatase 40 39 - 117 U/L [facility] AST 15 5 - 37 IU/L [facility] ALT 9 0 - 40 U/L [facility] EGFR Non- >60 >60 [facility] EGFR >60 >60 [facility] Comment: -- eGFR UNITS OF MEASURE -- mL/min/1.73m(2) Comment EGFR SEE BELOW MARLENE Ayala [facility] Comment:This test has multip le limitations. Please see [email or web address]. Blood specimen (specimen) 10/23/2017 12:37 PM EDT 10/23/2017 12:37 PM EDT us Debra Tyson MD CHEMISTRY ORDERABLES Final Resul t [facility] [address] [place] [address] Spray Operator: Laurie Kendall MD documented in this encounter Visit Diagnoses Diagnosis Annual physical exam Routine general medical examination at a health care facility documented in this encounter Care Teams Pump Oiler Relationship Specialty Start Date End Date Debra Tyson MD PCP - General Family Medicine 10/23/17 03/06/18 documented as of this encounter
--- OUTSIDE RECORDS SUMMARY | 2024-04-20 14:23 | XMS_ITS | Encounter Summary ---
Author Organization [facility] Address [address] [place] [address] Care Team Providers Care Pot Filler Name Role Phone Lelia Valle MD Primary Care Provider Unavail able Reason for Visit * Reason Onset Date Comments Covid Test 01/17/2020 Encounter Details Date Type Department Care Team (Late st Contact Info) Description 01/17/2020 2:00 PM EDT Clinical Support [facility] [address] [place] [address] Social History Tobacco Use Types Packs/Day Years [...] documented in this encounter Progress Notes * Yumiko Barnes MD - 01/18/2020 5:36 AM EDT Please notify patient of the following: Negative Result: Your Covid-19 Results are negative please contact your employer, if applicable. Please follow-up with your primary care physician with any worsening or changes in symptoms. If you donot have a PCP please call [employer] at [phone] If you are a [employer] employee please call [phone] for return to work. Reminder if you have had a confirmed COVID -19 positive contact you must remain in quarantine for 14 days from your day of exposure. * Katheryn Murguia DO - 01/18/2020 5:35 AM EDT Negative Result: Your Covid-19 Results are negative please contact your employer, if applicable. Please follow-up with your primary care physician with any worsening or changes in symptoms. If you donot have a PCP please call [employer] at [phone] If you are a [employer] employee please call [phone] for return to work. Reminder if you have had a confirmed COVID -19 positive contact you must remain in quarantine for 14 days from your day of exposure. documented in this encounter Plan of Treatment Not on file documented as of this encounter Procedures Procedure Name Priority Date/Time Associated Diagnosis Comments CORONAVIRUS COVID-19 STAT 01/17/2020 9:39 AM EDT Suspected 2019 novel coronavirus infection documented in this encounter Results * CORONAVIRUS COVID-19 (01/17/2020 9:39 AM EDT) Coronavirus COVID-19 NOT DETECTED NOT DETECTED [facility] Comment: NOTE: Negative results do not preclude SARS-CoV-2 infection and should not be used as the sole basis for patient management decisions. This SARS-CoV-2 assay is a real-time RT-PCR test intended for the qualitative detection of nucleic acid from the SARS-CoV-2 in respiratory specimens from individuals suspected of having COVID-19 infection. This test was developed and its performance characteristics determined by [facility]. This test has not been FDA [...] Preventions (CDC) Specimen from nasopharyngeal structure (specimen) 01/17/2020 9:39 AM EDT 01/17/2020 2:49 PM EDT us Yumiko Barnes MD MICROBIOLOGY - GENERAL OR DERABLES Final Result [facility] [address] [place] [address] documented in this encounter Visit Diagnoses Diagnosis Suspected 2019 novel coronavirus infection- Primary documented in this encounter Additional Health Concerns Infection Onset Date Last Indicated Resolved Time R/O COVID-19 01/17/2020 01/17/2020 01/18/2020 12:3 5 AM EDT documented as of this encounter Care Teams Pot Filler Relationship Specialty Start Date End Date Lelia Valle MD PCP - General Internal Medicine 6/12/19 1/4/21 documented as of this encounter
--- OUTSIDE RECORDS SUMMARY | 2024-04-20 14:23 | XMS_ITS | Encounter Summary ---
Author Organization [facility] Address [address] [place] [address] Care Team Providers Care Welding Supervisor Name Role Phone Lelia Valle MD Primary Care Provider Unavail able Reason for Visit * Reason Comments Cough Encounter Details Date Type Department Care Team ([facility] st Contact Info) Description 01/26/2020 Telephone [facility] [address] [place] [phone] Chica Leija, LAURIE [address] [place] [phone] Cough Social History Tobacco Use Types Packs/Day Years [...] encounter Miscellaneous Notes * Telephone Encounter - Pamela Ang MA - 01/26/2020 10:39 AM EDT [facility] hotline calls requesting testing for Juliana. She is experiencing cough, congestion and vomiting. DTT 1 scheduled today @ 1:10 PM documented in this encounter Plan of Treatment Not on file documented as of this encounter Visit Diagnoses Not on filedocumented in this encounter Care Teams Welding Supervisor Relationship Specialty Start Date End Date Lelia Valle MD PCP - General Internal Medicine 10/20/18 05/14/20 documented as of this encounter
--- OUTSIDE RECORDS SUMMARY | 2024-04-20 14:23 | XMS_ITS | Encounter Summary ---
Author Organization [facility] Address [address] [place] [address] Care Team Providers Care Financial Assistance Specialist Name Role Phone Debra Tyson MD Primary Care Provider [phone] Reason for Visit * Reason Comments Labs Only Encounter Details Date Type Department Care Team ([facility] st Contact Info) Description 10/23/2017 7:30 AM EDT Clinical Support [facility] [address] [address] Social History Tobacco Use Types Packs/Day Years [...] as of this encounter Results * (ABNORMAL) LIPID PANEL (10/23/2017 12:37 PM EDT) Cholesterol 260(H) 112 - 199 mg/dL [facility] Triglycerides 112 mg/dL [facility] Comment: REFERENCE RANGE: < 150 mg/dl FOR FASTING < 175 mg/dl FOR NON-FASTING (BASED ON LITERATURE) HDL Cholesterol 79 40 - 100 mg/dL [facility] Comment: HDL REFERENCE RANGES Low: ? <40 mg/dL Normal: ?40-60 mg/dL Desirable: >60 mg/dL LDL Cholesterol Calculation 159(H) 57 - 99 mg/dL [facility] Blood specimen (specimen) 10/23/2017 12:37 PM EDT 10/23/2017 12:37 PM EDT Debra Tyson MD CHEMISTRY ORDERABLES Final Resul t Performing Organization Address [facility] Co de Phone Number [facility] [address] [place] [address] Ehs Specialist: Laurie Kendall MD * CBC W/O DIFFERENTIAL (10/23/2017 12:37 PM EDT) Pathologist [facility] Leukocytes 6.9 4.2 - 10.2 thou/uL [facility] Erythrocytes 4.48 3.80 - 5.10 mil/uL [facility] Hemoglobin 13.3 11.8 - 15.8 g/dL [facility] Hematocrit 40.0 35.0 - 47.0 % [facility] Mean Corpuscular Volume 89.3 80.0 - 100.0 fL [facility] Mean Corpuscular Hemoglobin 29.7 26.0 - 34.0 pg [facility] Mean Corpuscular Hemoglobin Conc 33.3 32.0 - 36.0 g/dL [facility] Platelet Count 396 140 - 440 thou/uL [facility] Mean Platelet Volume 9.6 8.6 - 12.7 fL [facility] Erythrocyte Distribution Width SD 42.0 37.0 - 48.0 fL [facility] Erythrocyte Distribution Width CV 13.0 12.0 - 14.6 % [facility] Blood specimen (specimen) 10/23/2017 12:37 PM EDT 10/23/2017 12:37 PM EDT us Debra Tyson MD HEMATOLOGY ORDERABLES Final Resu lt Performing Organization Address City/[facility]/ZIP Co de Phone Number [facility] [address] [place] [address] Ehs Specialist: Laurie Kendall MD * (ABNORMAL) COMPREHENSIVE METABOLIC PANEL (10/23/2017 12:37 PM EDT) Sodium 139 135 - 145 mEq/L [facility] Potassium 4.7 3.3 - 5.3 mEq/L [facility] Chloride 102 96 - 108 mEq/L [facility] Carbon Dioxide 24 21 - 30 mEq/L [facility] Anion Gap 13 mEq/L [facility] Blood Urea Nitrogen 10 6 - 19 mg/dL [facility] Creatinine 0.77 0.50 - 1.30 mg/dL [facility] BUN Creatinine Ratio 13.0 [facility] Glucose 94 70 - 99 mg/dL [facility] Protein 6.9 5.9 - 8.4 g/dL [facility] Albumin 4.9 3.2 - 5.2 g/dL [facility] Globulin 2.0 g/dL [facility] Albumin/Globulin Ratio 2.5 [facility] Bilirubin 1.4(H) 0.0 - 1.0 mg/dL [facility] Calcium 10.1 8.6 - 10.4 mg/dL [facility] Alkaline Phosphatase 40 39 - 117 U/L [facility] AST 15 5 - 37 IU/L [facility] ALT 9 0 - 40 U/L [facility] EGFR Non- >60 >60 [facility] EGFR >60 >60 [facility] Comment: -- eGFR UNITS OF MEASURE -- mL/min/1.73m(2) Comment EGFR SEE BELOW [facility] Comment:This test has multip le limitations. Please see [email or web address]. Blood specimen (specimen) 10/23/2017 12:37 PM EDT 10/23/2017 12:37 PM EDT us Debra Tyson MD CHEMISTRY ORDERABLES Final Resul t [facility] [address] [place] [address] Ehs Specialist: Laurie Kendall MD documented in this encounter Visit Diagnoses Diagnosis Annual physical exam- Primary Routine general medical examination at a health care facility documented in this encounter Care Teams Financial Assistance Specialist Relationship Specialty Start Date End Date Debra Tyson MD PCP - General Family Medicine 6/15/18 10/27/18 documented as of this encounter
--- OUTSIDE RECORDS SUMMARY | 2024-04-20 14:23 | XMS_ITS | Encounter Summary ---
Author Organization [facility] Address [address] [place] [address] Care Team Providers Care Conciliation Court Judge Name Role Phone Debra Tyson MD Primary Care Provider [phone] Encounter Details Date Type Department Care Team (Latest Contact Info) Description 01/27/2018 1:19 PM EDT - 01/27/2018 11:59 PM EDT Hospital Encounter [facility] [address] [place] [address] Kate Castillo, LAURIE [address] [address] Discharge Disposition: Home or Self Care Social [...] Author Status No 10/29/2017 9:49 AM EDT BaudetteTari tikecia documented as of this encounter Mental [...] as of this encounter Progress Notes * Kate Castillo NP - 01/27/2018 11:59 PM EDT Juliana's prolactin remains elevated. I have never seen her. We need to get her in for exam and to look into reasons for her elevated prolactin (will include MRI of the brain) documented in this encounter Plan of Treatment Not on file documented as of this encounter Procedures Procedure Name Priority Date/Time Associated Diagnosis Comments COMMENT PROLACTIN Routine 01/27/2018 12: 00 PM EDT PROLACTIN Routine 01/27/2018 12:00 PM EDT H/O hyperprolactinemia documented in this encounter Results * Comment Prolactin (01/27/2018 12:00 PM EDT) Comment Prolactin see below [facility] Comment: Prolactin values greater than the reference range values may be due to macroprolactin (prolactin bound to immunoglobulin). If signs and symptoms of hyperprolactinemia are absent, the presence of macroprolactin should be evaluated. 01/27/2018 12:0 0 PM EDT 01/27/2018 1:22 PM EDT Kate Castillo COMMUNITY REPRESENTATIVE CHEMISTRY ORDERABLES Final Resu Performing Organization Address [facility] de Phone Number [place] [phone] [place] [address] * (ABNORMAL) PROLACTIN (01/27/2018 12:00 PM EDT) Prolactin 124.3(H) 3.4 - 24.1 ng/mL [facility] Comment: Please interpret with caution. High doses of biotin (for MS treatment, oncology patients, or beauty products) can falsely decrease the result. Blood specimen (specimen) 01/27/2018 12:00 PM EDT 01/27/2018 1:22 PM EDT Kate Castillo NP CHEMISTRY ORDERABLES Final Resu Performing Organization Address [facility] Co de Phone Number [address] [place] [address] documented in this encounter Visit Diagnoses Diagnosis H/O hyperprolactinemia Personal history of other endocrine, metabolic, and immunity disorders documented in this encounter Care Teams Conciliation Court Judge Relationship Specialty Start Date End Date Debra Tyson MD PCP - General Family Medicine 10/23/17 03/06/18 documented as of this encounter
--- OUTSIDE RECORDS SUMMARY | 2024-04-20 14:23 | XMS_ITS | Encounter Summary ---
Author Organization [facility] Address [address] [place] [address] Care Team Providers Care Reporting Consultant Name Role Phone Lelia Valle MD Primary Care Provider Unavail able Reason for Visit * Reason Onset Date Comments Pharyngitis 01/17/2020 Encounter Details Date Type Department Care Team (Late st Contact Info) Description 01/17/2020 Telephone [facility] [address] [place] [address] Lelia Valle MD Pharyngitis Social History Tobacco [...] encounter Miscellaneous Notes * Telephone Encounter - Ave Forte - 01/17/2020 9:11 AM EDT Patient works for [employer]. She has a new sore throat. Called and scheduled DTT 1 for today. documented in this encounter Plan of Treatment Not on file documented as of this encounter Visit Diagnoses Not on filedocumented in this encounter Care Teams Reporting Consultant Relationship Specialty Start Date End Date Lelia Valle MD PCP - General Internal Medicine 10/20/18 05/14/20 documented as of this encounter
--- OUTSIDE RECORDS SUMMARY | 2024-04-20 14:23 | XMS_ITS | Encounter Summary ---
Author Organization [facility] Address [address] [place] [address] Care Team Providers Care Production Support Supervisor Name Role Phone Unavailable Primary Care Provider Unavailabl e Reason for Visit * Reason Onset Date Comments New Patient 02/11/2017 Encounter Details Date Type Department Care Team (Late st Contact Info) Description 02/11/2017 Telephone [facility] Family Medicine [address] [phone] Debra Tyson MD [address] [place] [address] New Patient Social History Tobacco Use Types Packs/Day Years Used Date Smoking Tobacco: Never Assessed Comments Unknown Sex and Gender Information Value Date Recorded Sex Assigned at Not on file Legal Sex Female 3:57 PM EDT Gender Identity Not on file Sexual Orientation Not on file documented as of this encounter Miscellaneous Notes * Telephone Encounter - Zandra Sánchez - 03/09/2017 11:24 AM EDT LEFT MESSAGE TO CALL TO BOOK APPOINTMENT * Telephone Encounter - Zandra Sánchez - 03/09/2017 11:17 AM EDT RECEIVED PATIENT'S INFORMATION BACK WILL LET HER KNOW IT IS OK TO BOOK APPOINTMENT * Telephone Encounter - Kat Sewell - 02/11/2017 4:00 PM EDT Juliana called in would like to become a new patient of Dr. Tyson. Will send out new patient packet & she will call [facility] to let them know she will be coming here. documented in this encounter Plan of Treatment Not on file documented as of this encounter Visit Diagnoses Not on filedocumented in this encounter
--- OUTSIDE RECORDS SUMMARY | 2024-04-20 14:23 | XMS_ITS | Encounter Summary ---
Author Organization [facility] Address [address] [place] [address] Care Team Providers Care Record Producer Name Role Phone Lelia Valle MD Primary Care Provider Unavail able Reason for Visit * Reason Onset Date Comments Referral 07/11/2019 Encounter Details Date Type Department Care Team (Late st Contact Info) Description 07/11/2019 Telephone [facility] [address] [place] [address] Lelia Valle MD Referral Social History Tobacco Use Types Packs/Day [...] Tari Hudson tive documented in this encounter Progress Notes * Diomedes Acosta RN - 01/27/2020 11:03 AM EDTAddended by: DIOMEDES ACOSTA on: 01/27/2020 11:03 AM Modules accepted: Orders documented in this encounter Miscellaneous Notes * Telephone Encounter - Diomedes Acosta RN - 07/11/2019 10:34 AM EST VM from pt stating that she was seen her a couple weeks ago and a referral to [facility], Dr Rowan. She states that she would like this changed to [facility], phone [phone], fax [phone]. Previous referral canceled. New one done. documented in this encounter Plan of Treatment Not on file documented as of this encounter Visit Diagnoses Diagnosis Chronic sinusitis, unspecified location- Primary documented in this encounter Additional Health Concerns Infection Onset Date Last Indicated Resolved Time R/O COVID-19 01/17/2020 01/17/2020 01/18/2020 12:3 5 AM EDT R/O COVID-19 01/26/2020 01/26/2020 01/26/2020 11:3 6 PM EDT documented as of this encounter Care Teams Record Producer Relationship Specialty Start Date End Date Lelia Valle MD PCP - General Internal Medicine 10/20/18 05/14/20 documented as of this encounter
--- OUTSIDE RECORDS SUMMARY | 2024-04-20 14:24 | XMS_ITS | Encounter Summary ---
Author Organization [facility] Address [address] [place] [address] Care Team Providers Care Engagement Director Name Role Phone Out Of Area, Pcp-Mp Primary Care Provider Honey ceja Encounter Details Date Type Department Care Team (Late st Contact Info) Description 10/28/2021 Prep for Procedure [facility] Endoscopy [address] [place] [address] Avi Pedraza MD [facility] [address] [place] [address] Social History Tobacco Use Types Packs/Day Years Used Date Smoking Tobacco: Former Cigarettes Smokeless Tobacco: Never Alcohol Use Standard Drinks/Week Comments Yes 2 (1 standard drink = 0.6 oz pur e alcohol) Comments No Sex and Gender Information Value Date Recorded Sex Assigned at Not on file Legal Sex Female 18:01 EST Gender Identity Female 03/07/2021 13:29 EDT Sexual Orientation Not on file documented as of this encounter Functional Status * Are you deaf or do you have serious difficulty hearing? Answer Date of Assessment Author No 06/21/2021 18:32 EST Moni Painter RN * Because of a physical, mental, or emotional condition, does this person have difficulty doing errands alone such as visiting a doctor's office or shopping? Answer Date of Assessment Author No 07/11/2021 8:33 EST documented as of this encounter Mental Status * Because of a physical, mental, or emotional condition, does this person have serious difficulty concentrating, remembering, or making decisions? Answer Entry Date Author No 07/11/2021 8:33 EST documented in this encounter Plan of Treatment Not on file documented as of this encounter Visit Diagnoses Not on filedocumented in this encounter Care Teams Engagement Director Relationship Specialty Start Date End Date Out Of Area, Pcp-Mp PCP - General 06/21/21 documented as of this encounter
--- OUTSIDE RECORDS SUMMARY | 2024-04-20 14:24 | XMS_ITS | Encounter Summary ---
Author Organization [facility] Address [address] [place] [address] Care Team Providers Care Stone Splitter Name Role Phone Blanche Holder NP Primary Care Provider Encounter Details Date Type Department Care Team ([facility] st Contact Info) Description 03/07/2021 13:30 EDT Phlebotomy Only [facility] Laboratory Services - [address] [address] [facility] Lab Immunity status testing; Screening examination for pulmonary tuberculosis Social History Tobacco Use Types Packs/Day Years [...] Procedure Name Priority Date/Time Associated Diagnosis Comments QUANTIFERON MITOGEN (PERFORMABLE) Routine 03/07/2021 13:36 EDT Screening examination for pulmonary tuberculosis QUANTIFERON TB2 (PERFORMABLE) Routine 03/07/2021 13:36 EDT Screening examination for pulmonary tuberculosis QUANTIFERON TB1 (PERFORMABLE) Routine 03/07/2021 13:36 EDT Screening examination for pulmonary tuberculosis QUANTIFERON NIL (PERFORMABLE) Routine 03/07/2021 13:36 EDT Screening examination for pulmonary tuberculosis QUANTIFERON INTERPRETATION (PERFORMABLE) Today 03/07/2021 13:36 EDT Screening examination for pulmonary tuberculosis QUANTIFERON TB GOLD PLUS Routine 03/07/2021 13:36 EDT Screening examination for pulmonary tuberculosis HEPATITIS B SURFACE ANTIBODY Routine 03/07/2021 13:36 EDT Immunity status testing VARICELLA IGG ANTIBODY Routine 13:36 EDT Immunity status testing documented in this encounter Results * QUANTIFERON INTERPRETATION (PERFORMABLE) (03/07/2021 13:36 EDT) Quantiferon Interpretation Negative Negative 03/08/2021 13:[address] [facility] Comment:No interferon-gamma response to M. tuberculosis antigens was detected. ??Infection with M. tuberculosis is unlikely. A single negative result does not exclude infection with M. tuberculosis. ??In patients at high risk for M. tuberculosis infection, a second test should be considered. TB1 Ag minus Nil 0.03 IU/ml 03/08/20 13:[address] [facility] TB2 Ag minus Nil 0.33 IU/mL 03/08/20 13:[address] [facility] Blood VENOUS BLOOD / Unknown Venipuncture / Unknown 03/07/2021 13:36 EDT 03/08/2021 12:41 EDT Narrative [facility] - 03/08/2021 13:42 EDT Results were obtained with the [employer] QuantiFERON-TB Gold Plus CLIA. New platform in use 01/16/2021 Roger Pabon MD IMMUNOLOGY AND SEROLOGY ORDERABLES Final Result Performing Organization Address City/State/[facility] Co de Phone Number [facility] [address] [place] [address] * QUANTIFERON MITOGEN (PERFORMABLE) (03/07/2021 13:36 EDT) Blood VENOUS BLOOD / Unknown Venipuncture / Unknown 03/07/2021 13:36 EDT 03/07/2021 13:36 EDT us Roger Pabon MD IMMUNOLOGY AND SEROLOGY ORDERABLES Final Result [facility] [address] [place] [address] * QUANTIFERON TB2 (PERFORMABLE) (03/07/2021 13:36 EDT) Blood VENOUS BLOOD / Unknown Venipuncture / Unknown 03/07/2021 13:36 EDT 03/07/2021 13:36 EDT Roger Pabon MD IMMUNOLOGY AND SEROLOGY ORDERABLES Final Result [facility] [address] [place] [address] * QUANTIFERON TB1 (PERFORMABLE) (03/07/2021 13:36 EDT) Blood VENOUS BLOOD / Unknown Venipuncture / Unknown 03/07/2021 13:36 EDT 03/07/2021 13:36 EDT Roger Pabon MD IMMUNOLOGY AND SEROLOGY ORDERABLES Final Result Performing Organization Address City/[facility]/ZIP Co de Phone Number [facility] [address] [place] [address] * QUANTIFERON NIL (PERFORMABLE) (03/07/2021 13:36 EDT) Blood VENOUS BLOOD / Unknown Venipuncture / Unknown 03/07/2021 13:36 EDT 03/07/2021 13:36 EDT Roger Pabon MD IMMUNOLOGY AND SEROLOGY ORDERABLES Final Result [facility] [address] [place] [address] * HEPATITIS B SURFACE ANTIBODY (03/07/2021 13:36 EDT) Hep B Surface Ab, Quantitative 517.3 See Note mIU/mL 03/08/2021 9:[address] [facility] Comment: Reference Range for Hep B Surface Ab, Quant: Positive: >= 10.0 mIU/mL Negative: ??< 10.0 mIU/mL Patient is presumed to be immune to infection with Hepatitis B Virus. Hep B Surface Ab, Qualitative Positive See Note 03/08/2021 9:[address] ED[address] [facility] Comment: Reference Range for Hep B Surface Ab, Qual: Unvaccinated: ??Negative Vaccinated: ??Positive Blood VENOUS BLOOD / Unknown Venipuncture / Unknown 03/07/2021 13:36 EDT 03/07/2021 13:36 EDT us Roger Pabon MD CHEMISTRY & BLOOD GAS O RDERABLES Final Result Performing Organization Address [facility] Co de Phone Number [facility] [address] [place] [address] * VARICELLA IGG ANTIBODY (03/07/2021 13:36 EDT) Varicella IgG Ab Positive See Note 03/08/2021 11:[address] [facility] Comment:Presence of detectab le Varicella Zoster virus IgG antibodies. Blood VENOUS BLOOD / Unknown Venipuncture / Unknown 03/07/2021 13:36 EDT 03/07/2021 13:36 EDT us Roger Pabon MD IMMUNOLOGY AND SEROLOGY ORDERABLES Final Result Performing Organization Address [facility] Co de Phone Number [facility] [address] [place] [address] documented in this encounter Visit Diagnoses Diagnosis Immunity status testing Antibody response examination Screening examination for pulmonary tuberculosis documented in this encounter Care Teams Stone Splitter Relationship Specialty Start Date End Date Blanche Holder NP [address] [place] [address] PCP - General 03/21/15 06/20/21 documented as of this encounter
--- OUTSIDE RECORDS SUMMARY | 2024-04-20 14:24 | XMS_ITS | Encounter Summary ---
Author Organization [facility] Address [address] [place] [address] Care Team Providers Care Caterer Helper Name Role Phone Unavailable Primary Care Provider Unavailabl e Encounter Details Date Type Department Care Team (Late st Contact Info) Description 09/07/2002 Results Only [facility] [address] [place] [address] Sung Holder NP [address] [place], [place] [address] Social History Tobacco Use Types Packs/Day Years [...] Procedure Name Priority Date/Time Associated Diagnosis Comments CYTOPATHOLOGY Routine 09/07/2002 0:00 EDT documented in this encounter Results * CYTOPATHOLOGY (09/07/2002 0:00 EDT) Pathology Report: CYTOPATHOLOGY REPORT Reports generated via electronic interface contain original data; however they are lacking the format of the original report. Caution should be taken when reading/interpreti ng unformatted reports. Name: ? JULIANA KINNEY ? Accession #: ? [id number] : ? 1975 (Age: 26) ??F ?Collect Date: ? 09/07/2002 Location: ? [facility] ? Receive Date: ? 09/09/2002 Provider: ?SUNG GRIJALVAGRACE PHYSICIST [facility] Copy to: ? Specimen/Source: ?ThinPrep Pap Test, Endocervix Last Menstrual Period: ? 08/20/02 Previous Gynecologic Pathology: ? ASC-US: Other: ? HPVL - HPV testing requested if LSIL/ASCUS/MALENA on the current ThinPrep Pap test. ? SPECIMEN ADEQUACY ? Satisfactory for Evaluation - transformation zone component present GENERAL CATEGORIZATION ? Negative for Intraepithelial Lesion or Malignancy ? Document reviewed and electronically signed by: ? JANELL Velazquez(ASCP) ? Report Date: ??09/15/2002 14:49 End of Report [facility] 09/07/2002 09/09/2002 us Sung GrijalvaGrace PHYSICIST [facility] PATHOLOGY ORDERABLES Fi nal Result [facility] [address] [place] [address] documented in this encounter Visit Diagnoses Not on filedocumented in this encounter
--- OUTSIDE RECORDS SUMMARY | 2024-04-20 14:24 | XMS_ITS | Encounter Summary ---
Author Organization [facility] Address [address] [place] [address] Care Team Providers Care Welfare Centre Manager Name Role Phone Out Of Area, Pcp-Mp Primary Care Provider Honey ceja Reason for Referral * Referral (Routine/Next Available) - Receiving Office to Obtain Authorization Specialty Diagnoses / Procedures Referred By Olamide aldana Referred To Contact Diagnoses Encounter for screening for malignant neoplasm of colon Family history of malignant neoplasm of digestive organs Procedures COLONOSCOPY Manisha Mane FNP-BC [address] [place] [address] Phone: tel: fax: Referral ID Status Reason Start Date Expiration Date Visits Requested Visits Authorized [id number] Receiving Office to Obtain Authorization 08/30/2021 1 1 Reason for Visit * Referral (Routine/Next Available) - Receiving Office to Obtain Authorization Specialty Diagnoses / Procedures Referred By Olamide aldana Referred To Contact Diagnoses Encounter for screening for malignant neoplasm of colon Family history of malignant neoplasm of digestive organs Procedures COLONOSCOPY Manisha Mane FNP-BC [address] [place] [address] Phone: tel: fax: Referral ID Status Reason Start Date Expiration Date Visits Requested Visits Authorized [id number] Receiving Office to Obtain Authorization 08/30/2021 1 1 Encounter Details Date Type Department Care Team (Latest Contact Info) Description 10/28/2021 8:01 EDT - 10/28/2021 23:59 EDT Hospital Encounter [facility] Endoscopy [address] [place] [address] Avi Pedraza MD [facility] [address] [place] [address] Encounter for screening for malignant neoplasm of colon; Family history of malignant neoplasm of digestive organs Discharge Disposition: Home or Self Care Social [...] Blood Pressure 107/74 10/28/2021 0924 EDT Pulse - - Temperature 36.7 ??C (98 ??F) 10/28/2021 0820 EDT Respiratory Rate 25 10/28/2021 0924 EDT Oxygen Saturation 88% 10/28/2021 0924 EDT Inhaled Oxygen Concentration - - Weight 73 kg (161 lb) 10/28/2021 0820 EDT Height 172.7 cm (5' 8) 10/28/2021 0820 EDT Body Mass Index 24.48 10/28/2021 0820 EDT documented in this encounter Functional Status * Are you deaf or do you have serious difficulty hearing? Answer Date of Assessment Author No 06/21/2021 18:32 EST Moni Painter, RN * Because of a physical, mental, [...] 07/11/2021 8:33 EST documented in this encounter Medications at Time of Discharge acetaminophen (TYLENOL) 500 mg tablet Take 500 mg by mouth every 6 hours as needed for Pain. B Complex Vitamins tablet Take 1 Tablet by mouth if needed. Cod Liver Oil oil Take 750 mg by mouth daily. ibuprofen (ADVIL) 200 mg tablet Take 400 mg by mouth every 6 hours as needed for Pain. MAGNESIUM ORAL Take by mouth daily. TURMERIC ORALIndications:s upplement Take 1 Each by mouth. documented as of this encounter Discharge Disposition Disposition Code Departure Means Destination Home or Self Prison documented in this encounter H&P Notes * Avi Pedraza MD - 10/28/2021 0900 EDT Endoscopy Sedation for Procedure History & Physical Date: 10/28/2021 Time: 8:54 Location: [facility] Endoscopy Planned Procedure: Colonoscopy Chief Complaint/Indications for Procedure: Encounter for screening for malignant neoplasm of colon.Father with colon cancer Dx 65yo History Previous Complication with Sedation and/or Anesthesia? No Allergies: No Known Allergies Current Medications: Current Outpatient Medications Medication ??? acetaminophen (TYLENOL) 500 mg tablet ??? B Complex Vitamins tablet ??? Cod Liver Oil oil ??? ibuprofen (ADVIL) 200 mg tablet ??? MAGNESIUM ORAL ??? TURMERIC ORAL Current Facility-Administered Medications Medication Route Frequency ??? sodium chloride 0.9 % (NS) infusion intravenous PRN Or ??? lactated ringers (LR) infusion intravenous PRN ??? lidocaine (PF) 10 mg/mL (1 %) injection 2 mg intradermal PRN ??? lidocaine (PF) 10 mg/mL (1 %) injection 2 mg intradermal PRN ??? ondansetron (PF) (ZOFRAN) injection 4 mg intravenous Once PRN ??? sodium chloride 0.9 % (flush) flush 5 mL intravenous PRN Past Medical History: History reviewed. No pertinent past medical history. Social History: Past Surgical History: Procedure Laterality Date ??? BREAST BIOPSY Left 1993 Benign Social History Tobacco Use ??? Smoking status: Former Smoker Types: Cigarettes ??? Smokeless tobacco: Never Used Substance Use Topics ??? Alcohol use: Yes Alcohol/week: 2.0 standard drinks Types: 2 Cans of beer per week Family History: Family History Problem Relation Age of Onset ??? Cancer Father ??? Colon Cancer Father 65 Review of Systems as pertinent: Physical Exam Vital Signs: BP 117/68 Temp 36.7 ??C (98 ??F) (Oral) Resp 12 Ht 172.7 cm (68) Wt 73 kg (161 lb) SpO2 97% BMI 24.48 kg/m?? Heart Examination: Cardiac Regularity: Regular Respiratory Examination: Respiratory Pattern: Regular Breath Sounds Right: Clear Breath Sounds Left: Clear Abdominal Examination: Additional physical exam related to the proposed procedure, patient activity, disease state and treatment as pertinent: Assessment Previous complications with sedation or anesthesia?: No Airway Concerns: None/NA Anesthesia Classification: ASA 1 Plan: Proceed with sedation for procedure Fasting Time: Date of Last Liquid: 10/28/21 Time of Last Liquid: 0400 Date of Last Solid: 10/27/21 Time of Last Solid: 1000 Patient Appropriate Candidate for Planned Sedation?: Yes Avi Pedraza MD 10/28/2021 8:54 documented in this encounter Plan of Treatment Not on file documented as of this encounter Procedures Procedure Name Priority Date/Time Associated Diagnosis Comments ECG REPORT - SCANNED 10/31/2021 9:35 EDT COLONOSCOPY Routine 10/28/2021 9:00 EDT Encounter for screening for malignant neoplasm of colon Family history of malignant neoplasm of digestive organs documented in this encounter Results * ECG REPORT - SCANNED (10/31/2021 9:35 EDT) 10/31/2021 9:35 EDT us Scan 2 [employer] PROCEDURE/MINOR SURGICAL OR DERABLES Final Result * COLONOSCOPY (10/28/2021 9:00 EDT) Anatomical Region Laterality Modality Endoscopy Narrative 10/28/2021 9:00 EDT [facility] ?? [address], [place], [place] [address] ?? Patient Name ? JULIANA KINNEY Date of ? 1975 Record Number ? [id number] Date/Time of Procedure ?10/28/2021, 09:00:00 AM Endoscopist ?Avi Pedraza ?? Chief Estimator ? Referring Physician(s) ?? Gabrielle Cody Anesthesiologist ? PROCEDURE PERFORMED: COLONOSCOPY INDICATIONS FOR EXAMINATION: Screening Colonoscopy. Father with colon cancer age 65 Instruments: ? [facility]-[id number] ([id number]) Medications: ?None ? Visualization: ? Good ?Tolerance: Good ?Complications: None ? Extent of Exam: ?terminal ileum ? Limitations: ?? Procedure Technique: A physical exam was performed. Informed consent was obtained from the patient after explaining all the risks (perforation, bleeding, infection and adverse effects to the medicine) , benefits and alternatives to the procedure which the patient appeared to understand and so stated. ??The patient was connected to the monitoring devices and placed in the left lateral position. A digital exam was performed and the colonoscope introduced into the rectum and advanced under direct visualization to the terminal ileum which was identified by visual landmarks. The scope was subsequently removed slowly while carefully examining the color, texture, anatomy, and integrity of the mucosa on the way out. In the rectum the scope was retroflexed to evaluate for internal hemorrhoids and anorectal pathology. ?? The patient was subsequently transferred to the recovery area in satisfactory condition. The following findings were noted: FINDINGS: 2 to 4 mm sessile polyp in the rectum. Polypectomy performed with cold snare. Polyp completely removed, but failed to be captured by the trap despite suctioning into the colonoscope ENDOSCOPIC DIAGNOSIS: Colon polyp RECOMMENDATIONS: Repeat colonoscopy in 5 years due to family history of colon cancer Sedation Start: ?Sedation End: Signature: Avi Pedraza M.D. This note was electronically signed on 10/28/2021 09:22:13 AM By Avi Pedraza M.D. Manisha Mills Antonietta DIABETES EDUCATION COORDINATOR- GI PROCEDURE ORDERAB LES Final Result documented in this encounter Visit Diagnoses Diagnosis Encounter for screening for malignant neoplasm of colon Special screening for malignant neoplasms, colon Family history of malignant neoplasm of digestive organs documented in this encounter Discontinued Medications Medication Sig Discontinue Reason Start Date End Da te UNABLE TO FIND Tumeric as needed Error 10/28/2021 documented as of this encounter Historical Medications * This list may reflect changes made after this encounter. TURMERIC ORALIndications:ricks pplement Take 1 Each by mouth. added in this encounter Orders Medications Ordered That Eliel ht Not Have Been Administered Count Last Ordered Date First Ordered Date lactated ringers (LR) infusion 1 10/28/2021 lidocaine (PF) 10 mg/mL (1 % ) injection 2 mg 2 10/28/2021 ondansetron (PF) (ZOFRAN) injection 4 mg 1 10/28/2021 sodium chloride 0.9 % (flush) flush 5 mL 1 10/28/2021 sodium chloride 0.9 % (NS) infusion 1 10/28 documented in this encounter Care Teams Welfare Centre Manager Relationship Specialty Start Date End Date Out Of Area, Pcp-Mp PCP - General 06/21/21 documented as of this encounter
--- OUTSIDE RECORDS SUMMARY | 2024-04-20 14:24 | XMS_ITS | Encounter Summary ---
Author Organization [facility] Address [address] [place] [address] Care Team Providers Care Electrocardiograph Repairer Name Role Phone Blanche Holder MANAGER STORY Primary Care Provider Encounter Details Date Type Department Care Team ([facility] st Contact Info) Description 03/07/2021 Orders Only [facility] [place] [facility] [address] [address] Morenita Nieves, RN [address] [place] [address] Social History Tobacco Use Types Packs/Day Years [...] on filedocumented in this encounter Care Teams Electrocardiograph Repairer Relationship Specialty Start Date End Date Blanche Holder NP [address] [place] [address] PCP - General 03/21/15 06/20/21 documented as of this encounter
--- OUTSIDE RECORDS SUMMARY | 2024-04-20 14:24 | XMS_ITS | Encounter Summary ---
Author Organization [facility] Address [address] [place] [address] Care Team Providers Care Residential Living Assistant Name Role Phone Out Of Area, Pcp-Mp Primary Care Provider Honey ceja Reason for Referral * Radiology Services (STAT) - Authorization Not Required Specialty Diagnoses / Procedures Referred By Contac t Referred To Contact Diagnoses Strain of muscle, fascia and tendon at neck level, initial encounter Procedures XR CERVICAL SPINE 4-5 VIEWS Dania Linton MD [facility] [employer] [address] [place] [address] Phone: tel: fax: [facility] Referral ID Status Reason Start Date Expiration Date Visits Requested Visits Authorized [id number] Authorization Not Required 10/18/2021 1 1 Reason for Visit * Radiology Services (STAT) - Authorization Not Required Specialty Diagnoses / Procedures Referred By Contac t Referred To Contact Diagnoses Strain of muscle, fascia and tendon at neck level, initial encounter Procedures XR CERVICAL SPINE 4-5 VIEWS Dania Linton MD [facility] [employer] [address] [place] [address] Phone: tel: fax: [facility] Referral ID Status Reason Start Date Expiration Date Visits Requested Visits Authorized [id number] Authorization Not Required 10/18/2021 1 1 Encounter Details Date Type Department Care Team (Latest Contact Info) Description 10/18/2021 9:52 EDT - 10/18/2021 23:59 EDT Hospital Encounter [facility] Xray [address] [place] [address] Strain of muscle, fascia and tendon at neck level, initial encounter Discharge Disposition: Home or Self Care Social [...] Pain. MAGNESIUM ORAL Take by mouth daily. UNABLE TO FIND Tumeric as needed 10/28/2021 documented as of this encounter Discharge Disposition Disposition Code Departure Means Destination Home or Self Care documented in this encounter Plan of Treatment Not on file documented as of this encounter Procedures Procedure Name Priority Date/Time Associated Diagnosis Comments XR CERVICAL SPINE 4-5 VIEWS STAT 10/18/2021 10:17 EDT Strain of muscle, fascia and tendon at neck level, initial encounter documented in this encounter Results * XR CERVICAL SPINE 4-5 VIEWS (10/18/2021 10:17 EDT) Anatomical Region Laterality Modality Left Computed Radiogr aphy 10/18/2021 10:2 7 EDT Narrative 10/18/2021 10:27 EDT INDICATION: Neck Strain TECHNIQUE: 4 views cervical spine COMPARISON: None FINDINGS: There is mild degenerative straightening of the cervical lordosis. Cervical spine disc space narrowing and endplate osteophyte formation as well as hypertrophic facet disease is seen more advanced spanning C5-7. On oblique imaging, there are uncovertebral osteophytes and degenerative facet changes with mild/moderate bilateral osseous neural foraminal narrowing at C4/5 and C5/6. Procedure Note Vj Rodriguez MD - 10/18/2021 INDICATION: Neck Strain TECHNIQUE: 4 views cervical spine COMPARISON: None FINDINGS: There is mild degenerative straightening of the cervicallordosis. Cervical spine disc space narrowing and endplate osteophyteformation as well as hypertrophic facet disease is seen more advancedspanning C5-7. On oblique imaging, there are uncovertebral osteophytes anddegenerative facet changes with mild/moderate bilateral osseous neuralforaminal narrowing at C4/5 and C5/6. Dania Linton MD IMG DIAGNOSTIC IMAGING ORDERABLES Final Result documented in this encounter Visit Diagnoses Diagnosis Strain of muscle, fascia and tendon at neck level, initial encounter documented in this encounter Care Teams Residential Living Assistant Relationship Specialty Start Date End Date Out Of Area, Pcp-Mp PCP - General 06/21/21 documented as of this encounter
--- OUTSIDE RECORDS SUMMARY | 2024-04-20 14:24 | XMS_ITS | Encounter Summary ---
Author Organization [facility] Address [address] [place] [address] Care Team Providers Care Patient Support Tech Name Role Phone Blanche Holder NP Primary Care Provider Encounter Details Date Type Department Care Team ([facility] st Contact Info) Description 03/06/2021 Orders Only [facility] [place] [address] [address] Morenita Nieves, RN [address] [place] [address] Screening examination for pulmonary tuberculosis (Primary Dx); Immunity status testing Social History Tobacco Use Types Packs/Day Years Used Date Smoking Tobacco: Never Assessed Comments Unknown Sex and Gender Information Value Date Recorded Sex Assigned at Not on file Legal Sex Female 18:01 EST Gender Identity Female 03/07/2021 13:29 EDT Sexual Orientation Not on file documented as of this encounter Plan of Treatment Not on file documented as of this encounter Results * HEPATITIS B SURFACE ANTIBODY (03/07/2021 13:36 EDT) Hep B Surface Ab, Quantitative 517.3 See Note mIU/mL 03/08/2021 9:27 EDT [facility] Comment: Reference Range for Hep B Surface Ab, Quant: Positive: >= 10.0 mIU/mL Negative: ??< 10.0 mIU/mL Patient is presumed to be immune to infection with Hepatitis B Virus. Hep B Surface Ab, Qualitative Positive See Note 03/08/2021 9:27 EDT [facility] Comment: Reference Range for Hep B Surface Ab, Qual: Unvaccinated: ??Negative Vaccinated: ??Positive Blood VENOUS BLOOD / Unknown Venipuncture / Unknown 03/07/2021 13:36 EDT 03/07/2021 13:36 EDT us Roger Pabon MD CHEMISTRY & BLOOD GAS O RDERABLES Final Result Performing Organization Address City/[facility]/ZIP Co de Phone Number [facility] [address] [place] [address] * VARICELLA IGG ANTIBODY (03/07/2021 13:36 EDT) Varicella IgG Ab Positive See Note 03/08/2021 11:25 EDT [facility] Comment:Presence of detectab le Varicella Zoster virus IgG antibodies. Blood VENOUS BLOOD / Unknown Venipuncture / Unknown 03/07/2021 13:36 EDT 03/07/2021 13:36 EDT Roger Pabon MD IMMUNOLOGY AND SEROLOGY ORDERABLES Final Result Performing Organization Address City/[facility] Co de Phone Number [facility] [address] [place] [address] documented in this encounter Visit Diagnoses Diagnosis Screening examination for pulmonary tuberculosis- Primary Immunity status testing Antibody response examination documented in this encounter Care Teams Patient Support Tech Relationship Specialty Start Date End Date Blanche Holder NP [address] [place] [address] PCP - General 03/21/15 06/20/21 documented as of this encounter
--- OUTSIDE RECORDS SUMMARY | 2024-04-20 14:24 | XMS_ITS | Encounter Summary ---
Author Organization [facility] Address [address] [place] [address] Care Team Providers Care Service Operator Name Role Phone Blanche Holder CLIPPER MACHINE Primary Care Provider Out Of Area, Pcp-Mp Primary Care Provider Honey ceja Encounter Details Date Type Department Care Team (Late st Contact Info) Description 04/12/2021 Lab Requisition [facility] - [address] [address] Social History Tobacco Use Types Packs/Day Years [...] on filedocumented in this encounter Care Teams Service Operator Relationship Specialty Start Date End Date Blanche Holder NP [address] [place] [address] PCP - General 03/21/15 06/20/21 Out Of Area, Pcp-Mp PCP - General 06/21/21 documented as of this encounter
--- OUTSIDE RECORDS SUMMARY | 2024-04-20 14:24 | XMS_ITS | Encounter Summary ---
Author Organization [facility] Address [address] [place] [address] Care Team Providers Care Customer Leader Name Role Phone Unavailable Primary Care Provider Unavailabl e Encounter Details Date Type Department Care Team (Late st Contact Info) Description 04/21/2000 18:53 EST Hospital Encounter [facility] - Other [address] [place] [address] Sung Holder NP [address] [place] [address] Unknown, Provider, Social History Tobacco Use Types Packs/Day Years Used Date Smoking Tobacco: Former Cigarettes Smokeless Tobacco: Never Alcohol Use Standard Drinks/Week Comments Yes 2 (1 standard drink = 0.6 oz pur e alcohol) Comments No Sex and Gender Information Value Date Recorded Sex Assigned at Not on file Legal Sex Female 18:01 EST Gender Identity Female 03/07/2021 13:29 EDT Sexual Orientation Not on file COVID-19 Exposure Response Date Recorded In the last month, have you been in contact with someone who was confirmed or suspected to have Coronavirus / COVID-19? No / Unsure 07/11/2021 8:24 EST documented as of this encounter Plan of Treatment Not on file documented as of this encounter Procedures Procedure Name Priority Date/Time Associated Diagnosis Comments CYTOPATHOLOGY Routine 04/21/2000 0:00 EST documented in this encounter Results * CYTOPATHOLOGY (04/21/2000 0:00 EST) Pathology Report: CYTOPATHOLOGY REPORT Reports generated via electronic interface contain original data; however they are lacking the format of the original report. Caution should be taken when reading/interpreti ng unformatted reports. Name: ? JULIANA KINNEY ? Accession #: ? [id number] : ? 1975 (Age: 24) ??F ?Collect Date: ? 04/21/2000 Location: ? [facility] ? Receive Date: ? 04/24/2000 Provider: ?SUNG GRIJALVA-[employer] Copy to: ? Specimen/Source: ?ThinPrep Pap Test, Endocervix Last Menstrual Period: ? 04/13/00 Previous Gynecologic Pathology: ? RONY ASC-US: with low grade HPV Treatment History: ? LEEP: 1998 Other: ? Additional clinical information: Hx HSV ? SPECIMEN ADEQUACY ? Satisfactory for evaluation but limited by an absence of a transformation zone component. GENERAL CATEGORIZATION ? Benign Cellular Changes DESCRIPTIVE DIAGNOSIS ? Parakeratosis - surface reaction present. ? Document reviewed and electronically signed by: ? AURORA MAURER MD [facility] ? Report Date: ??05/08/2000 17:22 End of Report [facility]IA MADRID 04/21/2000 04/24/2000 us Sungtomas Grijalva-[employer] PATHOLOGY ORDERABLES Fi nal Result SAMARIA MADRID [address] [place] [address] documented in this encounter Visit Diagnoses Not on filedocumented in this encounter
--- OUTSIDE RECORDS SUMMARY | 2024-04-20 14:24 | XMS_ITS | Encounter Summary ---
Author Organization [facility] Address [address] [place] [address] Care Team Providers Care Paint Grinder Name Role Phone Out Of Area, Pcp-Mp Primary Care Provider Honey ceja Reason for Visit * Reason Onset Date Comments Follow-up 10/25/2021 Encounter Details Date Type Department Care Team (Late st Contact Info) Description 10/25/2021 Telephone [facility] [place] [address] [place], [place] [id number] Mecca Beltre MD [address] [facility] [address] [address] Follow-up Social History Tobacco Use Types Packs/Day Years [...] 07/11/2021 8:33 EST documented in this encounter Miscellaneous Notes * Telephone Encounter - Mecca Beltre MD - 10/25/2021 1430 EDT I informed Ms. Cooley that a family member tested positive for COVID and if I develop COVID over theeke, then Dr. Pedraza of gastroenterology has agreed to step in and do my procedures for me on Thursday10/28/2021. She was fine with this arrangement. Mecca Beltre MD documented in this encounter Plan of Treatment Not on file documented as of this encounter Visit Diagnoses Not on filedocumented in this encounter Care Teams Paint Grinder Relationship Specialty Start Date End Date Out Of Area, Pcp-Mp PCP - General 06/21/21 documented as of this encounter
--- OUTSIDE RECORDS SUMMARY | 2024-04-20 14:24 | XMS_ITS | Encounter Summary ---
Author Organization [facility] Address [address] [place] [address] Care Team Providers Care Stitching Machine Setter Name Role Phone Out Of Area, Pcp-Mp Primary Care Provider Honey ceja Encounter Details Date Type Department Care Team ([facility] st Contact Info) Description 09/26/2021 Orders Only [facility] [place] - [address] [id number] Roger Pabon MD [address] [place] [address] [address] [place] [address] Social History Tobacco Use Types Packs/Day Years Used Date Smoking Tobacco: Former Cigarettes Smokeless Tobacco: Never Alcohol Use Standard Drinks/Week Comments Yes 2 (1 standard drink = 0.6 oz pur e alcohol) Comments Unknown Sex and Gender Information Value [...] on filedocumented in this encounter Care Teams Stitching Machine Setter Relationship Specialty Start Date End Date Out Of Area, Pcp-Mp PCP - General 06/21/21 documented as of this encounter
--- OUTSIDE RECORDS SUMMARY | 2024-04-20 14:24 | XMS_ITS | Encounter Summary ---
Author Organization [facility] Address [address] [place] [address] Care Team Providers Care Support Clerk Name Role Phone Unavailable Primary Care Provider Unavailabl e Encounter Details Date Type Department Care Team (Late st Contact Info) Description 01/08/2004 Results Only [facility] [place] [facility] [address] [place] [address] Valerio Holm MD Social History Tobacco Use Types Packs/Day Years [...] Procedure Name Priority Date/Time Associated Diagnosis Comments MONO-TEST Routine 01/08/2004 13:27 EDT SED RATE Routine 01/08/2004 13:27 EDT COMPLETE BLOOD COUNT AND DIFFERENTIAL Routine 01/08/2004 13:27 EDT HIV 1/2 ANTIGEN AND ANTIBODY, 4TH GENERATION Routine 01/08/2004 13:27 EDT C REACTIVE PROTEIN Routine 01/08/2004 13 :27 EDT documented in this encounter Results * SED. RATE:THADDEUS (01/08/2004 13:27 EDT) Sed. Rate Westergren 1 0 - 20 mm/hr [facility] 01/08/2004 13:2 7 EDT 01/08/2004 13:28 EDT Valerio Holm MD HEMATOLOGY & PF4 ORDERABLES Final Result Performing Organization Address [facility] Co de Phone Number [facility] [address] [place] [address] * MONO-TEST (01/08/2004 13:27 EDT) Dimmit-Test Neg NEG [facility] 01/08/2004 13:2 7 EDT 01/08/2004 13:28 EDT Valerio Holm MD CHEMISTRY & BLOOD GAS ORDERA BLES Final Result Performing Organization Address [facility] de Phone Number [facility] [address] [place] [address] * HIV ANTIBODY (01/08/2004 13:27 EDT) Pathologist [facility] HIV 1/2 Antibody NONREACT. NR [facility] 01/08/2004 13:2 7 EDT 01/08/2004 13:28 EDT Valerio Holm MD IMMUNOLOGY AND SEROLOGY ORDE RABLES Final Result Performing Organization Address [facility] de Phone Number [facility] [address] [place] [address] * C-REACTIVE PROTEIN (01/08/2004 13:27 EDT) Pathologist [facility] C-Reactive Protein <0.7 <1.0 mg/dl [facility] 01/08/2004 13:2 7 EDT 01/08/2004 13:28 EDT Valerio Holm MD CHEMISTRY & BLOOD GAS ORDERA BLES Final Result Performing Organization Address [facility] Co de Phone Number [facility] [address] [place] [phone] * (ABNORMAL) HEMAGRAM AND DIFFERENTIAL (01/08/2004 13:27 EDT) WBC 7.93 4.0 - 12.4 K/cmm [facility] RBC 4.35 3.86 - 5.04 M/cmm [facility] Hemoglobin 13.2 11.6 - 15.2 gm/dl [facility] HCT 39.7 34.9 - 44.4 % [facility] MCV 91 81 - 98 fl [facility] MCH 30.3 26.7 - 33.3 pg [facility] MCHC 33.2 32.1 - 35.9 gm/dl [facility] PLT 315 141 - 320 K/cmm [facility] RDW-CV 11.2(L) 11.7 - 14.6 % [facility] % Neutrophils 68.5 45.5 - 79.7 % [facility] % Lymphocytes 21.5 15.0 - 46.8 % [facility] % Monocytes 7.4 1.8 - 12.0 % [facility] % Eosinophils 1.3 0.6 - 6.9 % [facility] % Basophils 1.3 0.2 - 1.4 % [facility] ABS Neutrophils 5.44 2.20 - 8.85 K/cmm [facility] ABS Lymphs 1.70 1.09 - 3.30 K/cmm [facility] ABS Monocytes 0.59 0.1 - 0.8 K/cmm [facility] ABS Eosinophils 0.10 0.03 - 0.61 K/cmm [facility] ABS Basophils 0.10 0.01 - 0.11 K/cmm [facility] Type of Diff: Automated [facility] 01/08/2004 13:2 7 EDT 01/08/2004 13:28 EDT us Valerio Holm MD PACKAGES & DNA PROBE ORDERAB LES Final Result [facility] [address] [place] [address] documented in this encounter Visit Diagnoses Not on filedocumented in this encounter
--- OUTSIDE RECORDS SUMMARY | 2024-04-20 14:24 | XMS_ITS | Encounter Summary ---
Author Organization [facility] Address [address] [place] [address] Care Team Providers Care Dining Car Waiter/Waitress Name Role Phone Out Of Area, Pcp-Mp Primary Care Provider Honey ceja Reason for Visit * Reason Comments Fall PT FELL ABOUT 2 OVIDIO HS AGO OFF GOAT STAND.STILL HAS RT HIP PAIN Encounter Details Date Type Department Care Team (Late st Contact Info) Description 06/21/2021 12:45 EST Walk[facility] [address] [place] [address] Zaira Roberts PA-C [address] [place] [address] [address] [place], [place] [phone] Hip pain (Primary Dx) Social History Tobacco Use Types Packs/Day Years Used Date Smoking Tobacco: Never Smokeless Tobacco: Never Alcohol Use Standard Drinks/Week [...] have Coronavirus / COVID-19? No / Unsure 06/21/2021 18:35 EST documented as of this encounter Last Filed Vital Signs Vital Sign Reading Time Taken Comments Blood Pressure 127/68 06/21/2021 1255 EST Pulse 62 06/21/2021 1255 EST Temperature 36.1 ??C (96.9 ??F) 06/21/2021 1255 EST Respiratory Rate - - Oxygen Saturation 97% 06/21/2021 1255 EST Inhaled Oxygen Concentration - - Weight - - Height - - Body Mass Index - - documented in this encounter Functional Status * Are you deaf or do you have serious difficulty hearing? Answer Date of Assessment Author No 06/21/2021 18:32 EST Moni Painter RN documented as of this encounter Progress Notes * Louise Garcia LPN - 06/21/2021 1245 EST CC/HPI: Covid Screening: In the last 72 hours, has the patient had: New or unusual cough, shortness of breath, new nasal congestion, sore throat, fever, chills, body aches, or new loss of taste or smell without a reasonable alternative diagnosis*? (If yes, assign to ARC) NO In the past 10 days, has the patient had a positive Covid test OR a confirmed close Covid exposure (<6ft for > 15mins in 24hr period)? (if yes, assign to ARC, regardless of vaccination status) NO Is the patient fully Covid vaccinated? YES-PLUS BOOSTER Approximate date of last dose? 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 Musculoskeletal: Positive for falls and joint pain. Right hip and buttock pain x2 months s/p fall Objective: Examination: Vitals: BP 127/68 Pulse 62 Temp 36.1 ??C (96.9 ??F) (Skin) SpO2 97% Physical Exam Vitals reviewed. Constitutional: General: She is not in acute distress. Appearance: She is not ill-appearing. Pulmonary: Effort: Pulmonary effort is normal. No respiratory distress. Musculoskeletal: General: No swelling, tenderness, deformity or signs of injury. Comments: No discomfort with internal or external rotation of the right hip, skin is intact, no erythema or ecchymosis, patient can fully flex and extend left leg, no discomfort over the greater trochanter Neurological: Mental Status: She is alert. Gait: Gait normal. Procedures Assessment & Plan: 1. Hip pain - XR HIP RIGHT 2-3 VIEWS, OPTIONAL PELVIS Visit was not completed as patient reported she was not able to stay any longer to 10 strengths, patient reported that her lunch hour from the hospital was one hour, AVS was not given-pt left before visit was complete documented in this encounter Plan of Treatment Not on file documented as of this encounter Visit Diagnoses Diagnosis Hip pain- Primary Pain in joint, pelvic region and thigh documented in this encounter Historical Medications * This list may reflect changes made after this encounter. ibuprofen (ADVIL) 200 mg tablet Take 400 mg by mouth every 6 hours as needed for Pain. MAGNESIUM ORAL Take by mouth daily. Cod Liver Oil oil Take 750 mg by mouth daily. added in this encounter Care Teams Dining Car Waiter/Waitress Relationship Specialty Start Date End Date Out Of Area, Pcp-Mp PCP - General 06/21/21 documented as of this encounter
--- OUTSIDE RECORDS SUMMARY | 2024-04-20 14:24 | XMS_ITS | Encounter Summary ---
Author Organization [facility] Address [address] [place] [address] Care Team Providers Care Medical Underwriter Name Role Phone Out Of Area, Pcp-Mp Primary Care Provider Honey ceja Reason for Visit * Reason Onset Date Comments Colonoscopy 10/22/2021 Encounter Details Date Type Department Care Team (Late st Contact Info) Description 10/22/[address] [facility] General Surgery [address] [place] [address] Mecca Beltre MD [address] [facility] [address] [address] Colonoscopy Social History Tobacco Use Types Packs/Day Years [...] Miscellaneous Notes * Telephone Encounter - Zandra Guerrero - 10/22/2021 1516 EDT Called pt Asked her to call endo to confirm * Telephone Encounter - Opal Almanza - 10/22/2021 1507 EDT FYI. Patient is calling back to confirm her colonoscopy on 10/28/[address] Beltre. She received a message to call back to confirm. documented in this encounter Plan of Treatment Not on file documented as of this encounter Visit Diagnoses Not on filedocumented in this encounter Care Teams Medical Underwriter Relationship Specialty Start Date End Date Out Of Area, Pcp-Mp PCP - General 06/21/21 documented as of this encounter
--- OUTSIDE RECORDS SUMMARY | 2024-04-20 14:24 | XMS_ITS | Encounter Summary ---
Author Organization [facility] Address [address] [place] [address] Care Team Providers Care Chief Mate Name Role Phone Out Of Area, Pcp-Mp Primary Care Provider Honey ceja Encounter Details Date Type Department Care Team (Late st Contact Info) Description 11/04/2023 Lab Requisition [facility] Pathology & Laboratory Medicine - [facility] [address] [place] [address] Outr Resulting Lab, Provider Social History Tobacco Use Types Packs/Day Years [...] Procedure Name Priority Date/Time Associated Diagnosis Comments PROLACTIN Routine 11/04/2023 8:50 EDT documented in this encounter Results * PROLACTIN (11/04/2023 8:50 EDT) Prolactin 104.3 See Note ng/mL 11/04/2023 19:56 EDT [facility] Comment: NOTE: Female Reference Ranges: PHYSIOLOGICAL STATUS ?REFERENCE RANGE ? Postmenopausal ?1.8 - 20.3 ng/mL ?9.7 - 208.5 ng/mL Non- ?2.8 - 29.2 ng/mL Blood VENOUS BLOOD / Unknown 11/04/2023 8:50 EDT 11/04/2023 19:26 EDT us Provider Outr Resulting Lab CHEMISTRY & BLOOD GA S ORDERABLES Final Result [facility] [address] [place], [place] [address] documented in this encounter Visit Diagnoses Not on filedocumented in this encounter Care Teams Chief Mate Relationship Specialty Start Date End Date Out Of Area, Pcp-Mp PCP - General 06/21/21 documented as of this encounter
--- OUTSIDE RECORDS SUMMARY | 2024-04-20 14:24 | XMS_ITS | Encounter Summary ---
Author Organization [facility] Address [address] [place] [address] Care Team Providers Care Principal Software Architect Name Role Phone Out Of Area, Pcp-Mp Primary Care Provider Honey ceja Reason for Visit * Reason Comments Pain buttock Pain * Consult (See Order Priority) - Order Cancelled Specialty Diagnoses / Procedures Referred By Olamide aldana Referred To Contact Orthopedic Surgery Diagnoses Right-sided low back pain without sciatica, unspecified chronicity Cleveland Escobar PA-C Phone: tel: fax: Mecca Hsu NP Phone: tel: fax: Referral ID Status Reason Start Date Expiration Date Visits Requested Visits Authorized [id number] Order Cancelled Specialty Services Required 06/21/2021 1 1 Encounter Details Date Type Department Care Team (Late st Contact Info) Description 07/11/2021 8:15 EST Office Visit [facility]opedics & Sp[facility] Medicine [address], [address] [place], [place] [address] Mecca Hsu NP [address] [place] [address] [place] [address] Lumbar pain (Primary Dx); Right buttock pain Social History Tobacco Use Types Packs/Day [...] 8:24 EST documented as of this encounter Last Filed Vital Signs Vital Sign Reading Time Taken Comments Blood Pressure 102/56 07/11/2021 0833 EST Pulse 91 07/11/2021 0833 EST Temperature - - Respiratory Rate - - Oxygen Saturation 98% 07/11/2021 0833 EST Inhaled Oxygen Concentration - - Weight 73.8 kg (162 lb 12.8 oz) 07/11/2021 0833 EST Height 172.7 cm (5' 8) 07/11/2021 0833 EST Body Mass Index 24.75 07/11/2021 0833 EST documented in this encounter Functional Status [...] 07/11/2021 8:33 EST documented in this encounter Patient Instructions * Patient Instructions* Mecca Hsu NP - 07/11/2021 8:15 EST [facility] [address] [place] [address], [address] [place], [place] [address] Website: [email or web address] documented in this encounter Progress Notes * Mecca Hsu NP - 07/11/2021 0815 EST Medical Decision Making Juliana is a pleasant 45 y.o. female seen in evaluation for her chief complaint of right buttock and slightly lateral hip discomfort. Today, I discussed with the patient that her x-rays were quite encouraging. She has some mild degenerative facet arthropathy on the right greater than the left at L5-S1 but this is not in the region where her pain seems to be localized. Additionally, physical stress t esting of the SI joints did not elicit pain and there were no significant abnormalities noted on her x-rays and subsequently, I discussed with the patient that she reasonably could have irritated herright piriformis muscle which would correlate with the mechanism of her injury. She could reasonably consider a trigger point injection of the piriformis but really has not trialed an extensive amount of conservative treatment at this point. Thus, we discussed a trial of massage therapy as well as physical therapy to see if this could improve any of her symptoms. The patient is amenable to both of these options. I gave her the contact information for [facility] who employs a massage therapist that I think could adequately meet this patient's needs. I will also place a formalreferral to physical therapy. I am happy to see the patient back at any point if she has any issuesor does not feel as though she is moving in the right direction at which point, we could explore her injection options. The patient has mentioned some right-sided upper cervical spine complaints and she will consider making an additional appointment for evaluation of this specific issue. I spent a total of 30 minutes on the date of this encounter meeting with the patient and reviewing documentation/coordinating care as described in this note. No procedure was performed at today's visit. Imaging/Test Review On the day of this encounter, I reviewed x-rays of the lumbar spine completed 07/11/2021 demonstrating overall good alignment and good preservation of disc height. There is some mild degenerative facetchanges at L5-S1 on the right greater than the left. No instability is noted on flexion versus extension views. Imaging was reviewed by me. Diagnosis 1. Lumbar pain XR LUMBAR SPINE 4 OR MORE VIEWS AMB CONS/FOLLOW UP PHYSICAL THERAPY - [facility] 2. Right buttock pain AMB CONS/FOLLOW UP PHYSICAL THERAPY - [facility] Plan 1. Consider massage therapy-information given for [facility]-massage therapist 2. Physical therapy-referral given 3. Follow-up with me as needed for this issue with consideration of trigger point/piriformis injections if needed HPI Juliana is a 45 y.o. female seen in referral today upon the request of Cleveland Escobar PA-C for evaluation of a chief complaint of right-sided hip and low back pain. The patient was seen at the [facility] emergency room on 06/21/2021 reporting right hip and right-sided lower back pain that have been presentfor approximately 2 months after falling approximately 2 feet onto her right posterior lateral buttock region after slipping while stepping off of a goat milking platform. At the emergency room, she had normal range of motion and no tenderness elicited. She was neurologically intact. X-rays of the right hip did not demonstrate a fracture and subsequently, she was advised to trial some gentle stretches and utilize ibuprofen and Tylenol. She was subsequently referred here for further evaluation. Currently, the patient endorses 100% right posterior buttock pain that seems to be over the mid to slightly lateral aspect of the buttock. She does endorse that the pain can refer to the lateral aspect of the hip but not necessarily into the groin. She denies any radiating pain to the lower extremities. She denies any numbness, tingling, or sense of weakness. She denies any alteration in bowel or bladder function. The severity of pain today is a 3-4 over 10. No neurogenic claudication is present. The patient's medical profile was reviewed and dated today. It contains a detailed past medical history, past surgical history, list of medications, allergies, social history and family medical history and was reviewed and updated in the EMR. reports that she has quit smoking. Her smoking use included cigarettes. She has never used smokeless tobacco. She reports current alcohol use of about 2.0 standard drinks of alcohol per week. Conservative Treatment: Physical Therapy: She was given some gentle stretching exercises from her emergency room visit Home Exercise Program: She performs as tolerated Medications: Tylenol, ibuprofen Other: None Injections: 1. None ROS A 10 point review of systems was completed today and of note, pertinent positives and negatives areindicated in the HPI. Physical Examination BP 102/56 (BP Cuff Location: Left arm, BP Patient Position: Sitting, BP Cuff Sizes: Adult, regular) Pulse 91 Ht 172.7 cm (68) Wt 73.8 kg (162 lb 12.8 oz) SpO2 98% BMI 24.75 kg/m?? Pain Ratin-4 General: Pleasant, cooperative, mood and affect are appropriate. Neuro: Alert and oriented to person, place, time and purpose. Posture: Upright Gait: Nonantalgic Palpation: There are no palpable masses, lesions or deformities. Skin: Intact with no stigmata of underlying disease. ROM: She has full range of motion with forward flexion to the floor Sensation: Grossly intact throughout all dermatomes Strength: LOWER Right Left Hip flex 5/5 5/5 Hip abd 5/5 5/5 Knee flex 5/5 5/5 Knee ext 5/5 5/5 Ank dors 5/5 5/5 Ank inv 5/5 5/5 Ank plant 5/5 5/5 Toe ext 5/5 5/5 Reflexes: Right Left Patellar L3-4 2/4 2/4 Provocative Maneuvers: Negative Khoa, compression, thigh thrust Stephanie Signs: 0/5 CC: Primary Care Provider: Pcp-Mp Out Of Area No address on file Phone: None Fax: None Referring Provider: JAIDA Mackenzie DICTATION WAS USED FOR NOTE COMPLETION. PLEASE EXCUSE ALL MISSPELLINGS AND PUNCTUATION ERRORS. MELODIE Troncoso 07/11/21 [facility] Orthopedic Spine and Neurosurgery documented in this encounter Plan of Treatment Not on file documented as of this encounter Results * XR LUMBAR SPINE 4 OR MORE VIEWS (07/11/2021 8:41 EST) Anatomical Region Laterality Modality Computed Radiogr aphy 07/11/2021 8:57 EST Impressions 07/11/2021 8:57 EST 1. L5/S1 level degenerative disc and facet changes. Narrative 07/11/2021 8:57 EST INDICATION: lumbar pain TECHNIQUE: AP, lateral, flexion and extension. COMPARISON: None. FINDINGS: Lower lumbar spine degenerative disc space narrowing and hypertrophic facet disease is seen at L5/S1. No gross change in subluxation with flexion or extension is seen. The lumbar vertebral bodies maintain normal height. The sacroiliac joints are symmetric. Procedure Note Vj Rodriguez MD - 07/11/2021 INDICATION: lumbar pain TECHNIQUE: AP, lateral, flexion and extension. COMPARISON: None. FINDINGS: Lower lumbar spine degenerative disc space narrowing andhypertrophic facet disease is seen at L5/S1. No gross change insubluxation with flexion or extension is seen. The lumbar vertebral bodiesmaintain normal height. The sacroiliac joints are symmetric. IMPRESSION 1. L5/S1 level degenerative disc and facet changes. us Mecca Hsu NP [facility] DI[facility]NOST[facility] IMAGING ORDERA BLES Final Result documented in this encounter Visit Diagnoses Diagnosis Lumbar pain- Primary Lumbago Right buttock pain Mylagia and myositis, unspecified documented in this encounter Historical Medications * This list may reflect changes made after this encounter. acetaminophen (TYLENOL) 500 mg tablet Take 500 mg by mouth every 6 hours as needed for Pain. B Complex Vitamins tablet Take 1 Tablet by mouth if needed. UNABLE TO FIND Tumeric as needed 10/28/2021 added in this encounter Care Teams Principal Software Architect Relationship Specialty Start Date End Date Out Of Area, Pcp-Mp PCP - General 06/21/21 documented as of this encounter
--- OUTSIDE RECORDS SUMMARY | 2024-04-20 14:24 | XMS_ITS | Encounter Summary ---
Author Organization [facility] Address [address] [place] [address] Care Team Providers Care Iron Carrier Name Role Phone Out Of Area, Pcp-Mp Primary Care Provider Honey ceja Reason for Visit * Reason Comments Hip Pain Patient fell off a g oat milking stand 2mos ago and she has had right hip pain ever since. 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 Encounter Details Date Type Department Care Team (Late st Contact Info) Description 06/21/2021 20:03 EST - 06/21/2021 21:11 EST Emergency [facility] Emergency Department [address] [place] [address] Cleveland Escobar PA-C [address] [place] [address] Right-sided low back pain without sciatica, unspecified chronicity (Primary Dx) Discharge Disposition: Home or Self Care Social [...] Sign Reading Time Taken Comments Blood Pressure 159/129 06/21/2021 1834 EST Pulse 90 06/21/2021 1834 EST Temperature 36.4 ??C (97.5 ??F) 06/21/2021 1834 EST Respiratory Rate 16 06/21/2021 1834 EST Oxygen Saturation 98% 06/21/2021 1834 EST Inhaled Oxygen Concentration - - Weight 68 kg (150 lb) 06/21/2021 1834 EST Height 172.7 cm (5' 8) 06/21/2021 1834 EST Body Mass Index 22.81 06/21/2021 1834 EST documented in this encounter Functional Status * Are you deaf or do you have serious difficulty hearing? Answer Date of Assessment Author No 06/21/2021 18:32 EST Moni Painter RN documented as of this encounter Discharge Instructions * Discharge Instructions* Cleveland Escobar PA-C - 06/21/2021 21:07 EST You were seen today for right hip and low back pain. I suspect this is musculoskeletal. X-ray of your hip did not show any acute fractures. I recommend gentle stretching, alternating Tylenol and ibuprofen, and staying active to avoid letting this area get stiff. You were given a referral to orthospine, call them in 1 to 2 weeks if the pain does not improve with gentle stretching, Tylenol, and ibuprofen. Return to the ED if you develop new or worsening symptoms. * Attachments The following attachments cannot be sent through Care Everywhere. * Back: Therapeutic Ball: Exercises (Italian) documented in this encounter Medications at Time of Discharge Cod Liver Oil oil Take 750 mg by mouth daily. ibuprofen (ADVIL) 200 mg tablet Take 400 mg by mouth every 6 hours as needed for Pain. MAGNESIUM ORAL Take by mouth daily. 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 ) Assessment and ED Course Final diagnoses: Right-sided low back pain without sciatica, unspecified chronicity 45-year-old female presents with 2 months of right hip/right low back pain that started after she fell about 2 feet onto her right posterior lateral buttock off of a goat milking stool. The pain is improved when she walks and worse when she sits. Denies any red flag symptoms. On exam she is in no acute distress with stable vitals. She has no hip or back tenderness. Normal range of motion. She does report feeling sore after palpation of her right low back and right superior buttock. Normal range of motion. Normal strength in bilateral lower extremities. Normal reflexes bilaterally. X-ray of her right hip did not show any fractures. Of note there was a mixup in the radiology orders, the x-ray was viewable under [facility] as there was a right hip x-ray ordered at [facility] today which was not performed. Patient declines any medications for pain or muscle relaxants. Stable for discharge home. Encouraged symptomatic treatment with gentle stretching, Tylenol, ibuprofen. She was given a referral to the spine clinic, and instructed to follow-up with them if her symptoms not begin to improve in 1 to 2 weeks with symptomatic treatment. Return precautions provided. Relevant Data as of Jun 21 [id number] 21, [id number] XR HIP RIGHT 2-3 VIEWS, OPTIONAL PELVIS [MS] Relevant Data User Index [MS] Cleveland Escobar PA-C Disposition: Discharged HPI Juliana Cooley is a 45 y.o. female who presents today with Hip Pain (Patient fell off a goat milkingstand 2mos ago and she has had right hip pain ever since. 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 ) 45-year-old female presents complaining of about 2 months right hip pain that is worse when sittingstarted after she fell about 2 feet off of a goat milking stand, landing on her right posterior lateral buttock. She does not have pain when walking. The pain worsened after she had some manipulationdone by froylan SANTIAGO, and after manipulation during evaluation at [facility] today. She left before an x-ray could be performed as she had to get back to work. She also has mild right-sided low back pain. Denies leg weakness, leg numbness, saddle paresthesia, bowel or bladder incontinence, or any other complaint. Data reviewed this visit: The patient's past medical, family and social history was reviewed and updated as needed. Allergies: No Known Allergies Review of Systems Review of Systems- see HPI Physical Exam Vital Signs Temp: 36.4 ??C (97.5 ??F) Temp src: Oral Pulse: 90 Heart Rate: 90 BPM Resp: 16 SpO2: 98 % BP: (!) 159/129 BP Device: BP Machine BP Patient Position: Sitting BP Cuff Location: Left arm O2 Device: None (Room air) Body mass index is 22.81 kg/m??. A medical screening exam was performed. Physical Exam Vitals and nursing note reviewed. Constitutional: General: She is not in acute distress. Appearance: She is well-developed and well-nourished. HENT: Mouth/Throat: Mouth: Mucous membranes are moist. Pharynx: Oropharynx is clear. Eyes: Extraocular Movements: EOM normal. Conjunctiva/sclera: Conjunctivae normal. Pupils: Pupils are equal, round, and reactive to light. Cardiovascular: Rate and Rhythm: Normal rate and regular rhythm. Pulmonary: Effort: Pulmonary effort is normal. Musculoskeletal: General: Normal range of motion. Right hip: No deformity, tenderness, bony tenderness or crepitus. Normal range of motion. Normal strength. Comments: 2+ patellar reflexes bilaterally. 5/5 strength with bilateral knee, hip, and ankle flexion and extension. Skin: General: Skin is warm and dry. Neurological: Mental Status: She is alert and oriented to person, place, and time. Cranial Nerves: No cranial nerve deficit. Psychiatric: Mood and Affect: Mood and affect normal. Results Radiology orders: XR HIP RIGHT 2-3 VIEWS, OPTIONAL PELVIS Imaging Reviewed. I have independently reviewed the images. There are no significant abnormalities Procedures Procedures Ray Joy was available for supervision. 06/21/2021 21:11 documented in this encounter Plan of Treatment Not on file documented as of this encounter Procedures Procedure Name Priority Date/Time Associated Diagnosis Comments XR HIP RIGHT 2-3 VIEWS, OPTIONAL PELVIS STAT 06/21/2021 19:15 EST documented in this encounter Results * XR HIP RIGHT 2-3 VIEWS, OPTIONAL PELVIS (06/21/2021 19:15 EST) Anatomical Region Laterality Modality Lower Extremities Right Radio Fluorosc opy 06/21/2021 19:0 3 EST Narrative 06/25/2021 17:39 EST Studies of the right hip, not the left. ??Corrected report follows. PROCEDURE INFORMATION: Exam: XR Right Hip Exam date and time: 06/21/2021 7:03 PM Age: 45 years old Clinical indication: Hip pain; Left hip; Additional info: Tripped/foot pain and bruising. Fell 2 months ago TECHNIQUE: Imaging protocol: XR Right hip. Views: 2 or 3 views hip with pelvis when performed. COMPARISON: No relevant prior studies available. FINDINGS: Bones/joints: Unremarkable. No acute fracture. Soft tissues: Unremarkable. IMPRESSION: No acute findings. THIS DOCUMENT HAS BEEN ELECTRONICALLY SIGNED BY VENTURA PICHARDO MD FOR ANY QUESTIONS OR CONCERNS REGARDING THIS REPORT PLEASE CALL [employer] AT [phone] Procedure Note Ventura Pichardo MD - 06/27/2021 Studies of the right hip, not the left. Corrected report follows. PROCEDURE INFORMATION: Exam: XR Right Hip Exam date and time: 06/21/2021 7:03 PM Age: 45 years old Clinical indication: Hip pain; Left hip; Additional info: Tripped/foot pain and bruising. Fell 2 months ago TECHNIQUE: Imaging protocol: XR Right hip. Views: 2 or 3 views hip with pelvis when performed. COMPARISON: No relevant prior studies available. FINDINGS: Bones/joints: Unremarkable. No acute fracture. Soft tissues: Unremarkable. IMPRESSION: No acute findings. THIS DOCUMENT HAS BEEN ELECTRONICALLY SIGNED BY VENTURA PICHARDO MD FOR ANY QUESTIONS OR CONCERNS REGARDING THIS REPORT PLEASE CALL [employer] [phone] Cleveland Escobar PA-C [facility] ORDER LEO Final Result documented in this encounter Visit Diagnoses Diagnosis Right-sided low back pain without sciatica, unspecified chronicity- Primary documented in this encounter Care Teams Iron Carrier Relationship Specialty Start Date End Date Out Of Area, Pcp-Mp PCP - General 06/21/21 documented as of this encounter
--- OUTSIDE RECORDS SUMMARY | 2024-04-20 14:24 | XMS_ITS | Encounter Summary ---
Author Organization [facility] Address [address] [place] [address] Care Team Providers Care Mold Breaker Name Role Phone Out Of Area, Pcp-Mp Primary Care Provider Honey ceja Encounter Details Date Type Department Care Team (Latest Contact Info) Description 07/11/2021 Travel Social History Tobacco Use Types Packs/Day [...] 8:24 EST documented as of this encounter Functional Status [...] on filedocumented in this encounter Care Teams Mold Breaker Relationship Specialty Start Date End Date Out Of Area, Pcp-Mp PCP - General 06/21/21 documented as of this encounter
--- OUTSIDE RECORDS SUMMARY | 2024-04-20 14:24 | XMS_ITS | Encounter Summary ---
Author Organization [facility] Address [address] [place] [address] Care Team Providers Care Recruiting And Selection Consultant Name Role Phone Out Of Area, Pcp-Mp Primary Care Provider Honey ceja Encounter Details Date Type Department Care Team (Late st Contact Info) Description 05/02/2022 Lab Requisition [facility] Pathology & Laboratory Medicine - [facility] [address] [place] [address] Outr Resulting Lab, Provider Social History Tobacco [...] Priority Date/Time Associated Diagnosis Comments PROLACTIN Routine 05/01/2022 17:05 EST RHEUMATOID FACTOR Routine 05/01/2022 17: 05 EST documented in this encounter Results * RHEUMATOID FACTOR (05/01/2022 17:05 EST) Rheumatoid Factor <8.6 <12.0 IU/mL 05/02/2022 19:27 EST [facility] Blood VENOUS BLOOD / Unknown 05/01/2022 17:05 EST 05/02/2022 19:05 EST us Provider Outr Resulting Lab CHEMISTRY & BLOOD GA S ORDERABLES Final Result Performing Organization Address City/State/[facility] Co de Phone Number [facility] [address] [place] [address] * PROLACTIN (05/01/2022 17:05 EST) Prolactin 121.3 See Note ng/mL 05/02/2022 20:10 EST [facility] Comment: NOTE: Female Reference Ranges: PHYSIOLOGICAL STATUS ?REFERENCE RANGE ? Postmenopausal ?1.8 - 20.3 ng/mL ?9.7 - 208.5 ng/mL Non- ?2.8 - 29.2 ng/mL Blood VENOUS BLOOD / Unknown 05/01/2022 17:05 EST 05/02/2022 19:05 EST us Provider Outr Resulting Lab CHEMISTRY & BLOOD GA S ORDERABLES Final Result [facility] [address] [place] [address] documented in this encounter Visit Diagnoses Not on filedocumented in this encounter Care Teams Recruiting And Selection Consultant Relationship Specialty Start Date End Date Out Of Area, Pcp-Mp PCP - General 06/21/21 documented as of this encounter
--- OUTSIDE RECORDS SUMMARY | 2024-04-20 14:24 | XMS_ITS | Encounter Summary ---
Author Organization [facility] Address [address] [place] [address] Care Team Providers Care Business Management Intern Name Role Phone Unavailable Primary Care Provider Unavailabl e Encounter Details Date Type Department Care Team (Late st Contact Info) Description 01/08/2004 19:08 EDT Hospital Encounter [facility] [address] [place] [address] Valerio Holm MD Social History Tobacco Use [...]
--- OUTSIDE RECORDS SUMMARY | 2024-04-20 14:24 | XMS_ITS | Encounter Summary ---
Author Organization [facility] Address [address] [place] [address] Care Team Providers Care Continuous Dryout Operator Helper Name Role Phone Blanche Holder NP Primary Care Provider Out Of Area, Pcp-Mp Primary Care Provider Honey ceja Encounter Details Date Type Department Care Team (Late st Contact Info) Description 04/12/2021 Lab Requisition [facility] Lab - Main [place] [address] [place] [id number] Health, [facility] Employee Contact with and (suspected) exposure to covid-19 Social History Tobacco Use Types Packs/Day Years [...] Procedure Name Priority Date/Time Associated Diagnosis Comments ZZCOVID-19 TESTING ([facility]) Today 04/12/2021 8:00 EST Contact with and (suspected) exposure to covid-19 ZZCOVID-19 TEST [facility] PCR Today 04/12/2021 8:00 EST Contact with and (suspected) exposure to covid-19 COVID-19 TESTING Today 04/12/2021 8:00 EST Contact with and (suspected) exposure to covid-19 documented in this encounter Results * COVID-19 TEST [facility] PCR (04/12/2021 8:00 EST) Swab 04/12/2021 8:00 EST 04/12/2021 17:17 EST [facility] MICROBIOLOGY - GENERA L ORDERABLES Final Result Performing Organization Address [facility] Co de Phone Number [facility] [address] [place] [address] * COVID-19 TESTING (04/12/2021 8:00 EST) COVID-19 rt-PCR Result Negative Negative 04/13/2021 1:17 EST [facility] Comment: This test has not been FDA cleared or approved. This test has been authorized by FDA under an EUA for use by authorized laboratories. This test has been authorized only for detection of nucleic acid from 2019-nCoV, not for any other viruses or pathogens. This test is only authorized for the duration of the declaration that circumstances exist justifying the authorization of emergency use of in vitro diagnostic tests for detection and/or diagnosis of 2019-nCoV under section 564(b)(1) of Act, 21 U.S.C ?? 360bbb-3(b) (1), unless the authorization is terminated or revoked sooner. Negative results do not preclude 2019-nCoV infection and should not be used as the sole basis for treatment or other patient management decisions. Negative results must be combined with clinical observations, patient history, and epidemiological information. Performed on the Roomsterher Fusion instrument Performing Lab [facility] 04/13/2021 1:17 EST [facility] Swab 04/12/2021 8:00 EST 04/12/2021 17:17 EST [facility] MICROBIOLOGY - GENERA L ORDERABLES Final Result Performing Organization Address [facility]/ZIP Co de Phone Number [facility] [address] [place] [address] * COVID-19 TESTING ([facility]) (04/12/2021 8:00 EST) Performing Lab [facility] Lab 04/12/2021 17:17 EST [facility] Swab 04/12/2021 8:00 EST 04/12/2021 14:00 EST Narrative [facility] - 04/12/2021 17:17 EST [facility] Tier 1 Covid test [facility] Employee Health MICROBIOLOGY - GENERA L ORDERABLES Final Result [facility] [address] [place] [address] documented in this encounter Visit Diagnoses Diagnosis Contact with and (suspected) exposure to covid-19 documented in this encounter Care Teams Continuous Dryout Operator Helper Relationship Specialty Start Date End Date Blanche Holder NP [address] [place] [id number] PCP - General 03/21/15 06/20/21 Out Of Area, Pcp-Mp PCP - General 06/21/21 documented as of this encounter
--- OUTSIDE RECORDS SUMMARY | 2024-04-20 14:24 | XMS_ITS | Referral Summary ---
Author Organization [facility] Address [address] [place] [address] Care Team Providers Care Water Quality Control Engineer Name Role Phone Out Of Area, Pcp-Mp [...] Active Active Problems No known active problems Social History Tobacco Use Types Packs/Day Years Used Date Smoking Tobacco: Former Cigarettes Smokeless Tobacco: Never Alcohol Use Standard Drinks/Week Comments Yes 2 (1 standard drink = 0.6 oz pur e alcohol) Comments No Sex and Gender Information Value Date Recorded Sex Assigned at Not on file Legal Sex Female 18:01 EST Gender Identity Female 03/07/2021 13:29 EDT Sexual Orientation Not on file Last Filed [...] Body Mass Index 24.48 10/28/2021 0820 EDT Functional Status * Are you deaf or do you have serious difficulty hearing? Answer Date of Assessment Author No 06/21/2021 18:32 EST Moni Painter RN * Because of a physical, mental, or emotional condition, does this person have difficulty doing errands alone such as visiting a doctor's office or shopping? Answer Date of Assessment Author No 07/11/2021 8:33 EST Mental Status * Because of a physical, mental, or emotional condition, does this person have serious difficulty concentrating, remembering, or making decisions? Answer Entry Date Author No 07/11/2021 8:33 EST Plan of Treatment Not on file Insurance [facility] [address] Care Teams Water Quality Control Engineer Relationship Specialty Start Date End Date Out Of Area, Pcp-Mp PCP - General 06/21/21
--- OUTSIDE RECORDS SUMMARY | 2024-04-20 14:24 | XMS_ITS | Encounter Summary ---
Author Organization [facility] Address [address] [place] [address] Care Team Providers Care Market Research Specialist Name Role Phone Unavailable Primary Care Provider Unavailabl e Encounter Details Date Type Department Care Team (Late st Contact Info) Description 09/07/2001 19:45 EDT Hospital Encounter [facility] - Other [address] [place] [address] Sung Marie NP [address] [place], [place] [id number] Unknown, Provider, Social History Tobacco Use Types [...] Priority Date/Time Associated Diagnosis Comments CYTOPATHOLOGY Routine 09/07/2001 0:00 EDT documented in this encounter Results * CYTOPATHOLOGY (09/07/2001 0:00 EDT) Pathology Report: CYTOPATHOLOGY REPORT Reports generated via electronic interface contain original data; however they are lacking the format of the original report. Caution should be taken when reading/interpreti ng unformatted reports. Name: ? JULIANA KINNEY ? Accession #: ? [id number] : ? 1975 (Age: 25) ??F ?Collect Date: ? 09/07/2001 Location: ? [facility] ? Receive Date: ? 09/09/2001 Provider: ?SUNG MARIE WRAPPER DIPPER Copy to: ? Specimen/Source: ?ThinPrep Pap Test, Source Not Provided Last Menstrual Period: ? 08/07/01 Previous Gynecologic Pathology: ? ASC-US: LSIL HPV Treatment History: ? Miscellaneous treatment: Cervical bx 1997 ? SPECIMEN ADEQUACY ? Satisfactory for Evaluation - transformation zone component present GENERAL CATEGORIZATION ? Negative for Intraepithelial Lesion or Malignancy ? Document reviewed and electronically signed by: ? SUKH Kraus(ASCP) ? Report Date: ??09/14/2001 08:36 End of Report SAMARIA MADRID 09/07/2001 09/09/2001 us Sungtomas CorreiaScarlet WRAPPER DIPPER PATHOLOGY ORDERABLES Fi nal Result SAMARIA MADRID [address] [place] [address] documented in this encounter Visit Diagnoses Not on filedocumented in this encounter
--- OUTSIDE RECORDS SUMMARY | 2024-04-20 14:24 | XMS_ITS | Encounter Summary ---
Author Organization [facility] Address [address] [place] [address] Care Team Providers Care Banbury Operator Name Role Phone Unavailable Primary Care Provider Unavailabl e Encounter Details Date Type Department Care Team (Late st Contact Info) Description 02/15/1999 7:29 EDT Hospital Encounter [facility] - Other [address] [place] [address] Blanche Holder, LAURIE [address] [place] [address] Unknown, Provider, Social History Tobacco Use Types [...]
--- OUTSIDE RECORDS SUMMARY | 2024-04-20 14:24 | XMS_ITS | Encounter Summary ---
Author Organization [facility] Address [address] [place] [address] Care Team Providers Care Crew Mess Attendant Name Role Phone Out Of Area, Pcp-Mp Primary Care Provider Honey ceja Encounter Details Date Type Department Care Team (Late st Contact Info) Description 10/25/2021 Prep for Procedure [facility] General Surgery [address] [place] [address] Mecca Beltre MD [address] [facility] [address] [place] [address] Social History Tobacco Use Types Packs/Day Years [...] filedocumented in this encounter Care Teams Crew Mess Attendant Relationship Specialty Start Date End Date Out Of Area, Pcp-Mp PCP - General 06/21/21 documented as of this encounter
--- OUTSIDE RECORDS SUMMARY | 2024-04-20 14:24 | XMS_ITS | Encounter Summary ---
Author Organization [facility] Address [address] [place] [address] Care Team Providers Care Machine Joiner Cementer Name Role Phone Out Of Area, Pcp-Mp Primary Care Provider Honey ceja Encounter Details Date Type Department Care Team (Latest Contact Info) Description 06/21/2021 Travel Social History Tobacco Use Types Packs/Day [...] 18:35 EST documented as of this encounter Functional Status * Are you deaf or do you have serious difficulty hearing? Answer Date of Assessment Author No 06/21/2021 18:32 EST Moni Painter, RN documented as of this encounter Plan of Treatment Not on file documented as of this encounter Visit Diagnoses Not on filedocumented in this encounter Care Teams Machine Joiner Cementer Relationship Specialty Start Date End Date Out Of Area, Pcp-Mp PCP - General 06/21/21 documented as of this encounter
--- OUTSIDE RECORDS SUMMARY | 2024-04-20 14:24 | XMS_ITS | Encounter Summary ---
Author Organization [facility] Address [address] [place] [address] Care Team Providers Care Sports Information Director Name Role Phone Out Of Area, Pcp-Mp Primary Care Provider Honey ceja Reason for Referral * Radiology Services (Routine/Next Available) - Authorization Not Required Specialty Diagnoses / Procedures Referred By Olamide aldana Referred To Contact Diagnoses Encounter for screening mammogram for malignant neoplasm of breast Procedures MA BREAST SCREENING KAILEE BILATERAL Manisha Mane FNP-BC Phone: tel: fax: [facility] Referral ID Status Reason Start Date Expiration Date Visits Requested Visits Authorized [id number] Authorization Not Required 10/08/2021 1 1 Reason for Visit * Radiology Services (Routine/Next Available) - Authorization Not Required Specialty Diagnoses / Procedures Referred By Olamide aldana Referred To Contact Diagnoses Encounter for screening mammogram for malignant neoplasm of breast Procedures MA BREAST SCREENING KAILEE BILATERAL Manisha Mane FNP-BC Phone: tel: fax: [facility] Referral ID Status Reason Start Date Expiration Date Visits Requested Visits Authorized [id number] Authorization Not Required 10/08/2021 1 1 Encounter Details Date Type Department Care Team (Latest Contact Info) Description 10/09/2021 7:58 EDT - 10/09/2021 23:59 EDT Hospital Encounter [facility] Mamm[facility] [address] [place], [place] [address] Encounter for screening mammogram for malignant neoplasm of breast Discharge Disposition: Home or Self Care Social [...] - Inhaled Oxygen Concentration - - Weight 70.3 kg (155 lb) 10/09/2021 0806 EDT Height 172.7 cm (5' 8) 10/09/2021 0806 EDT Body Mass Index 23.57 10/09/2021 0806 EDT documented in this encounter Functional Status [...] Procedure Name Priority Date/Time Associated Diagnosis Comments MA BREAST SCREENING KAILEE BILATERAL Routine 10/09/2021 8:15 EDT Encounter for screening mammogram for malignant neoplasm of breast documented in this encounter Results * MA BREAST SCREENING KAILEE BILATERAL (10/09/2021 8:15 EDT) Anatomical Region Laterality Modality Breast Bilateral Mammography 10/10/2021 14:1 2 EDT Impressions 10/10/2021 14:12 EDT Negative, no evidence of malignancy. RECOMMENDATION: Routine screening mammography is recommended. OVERALL ASSESSMENT: BI-RADS 1: Negative These results will be communicated to your patient via a lay letter from Radiology. If any additional imaging is needed we will contact your patient directly. Narrative 10/10/2021 14:12 EDT MA BREAST SCREENING KAILEE BILATERAL ??10/09/2021 8:10 AM History: screening Comparison: ??Comparison has been made to previous images. Technique: Routine 3D tomosynthesis with synthesized 2D views with CAD Bilateral Breast Composition: There are scattered areas of fibroglandular density. Bilateral Breast Findings: ??No significant masses, calcifications or other abnormalities are seen. Procedure Note Дмитрий Macias MD - 10/10/2021 MA BREAST SCREENING KAILEE BILATERAL 10/09/2021 8:10 AM History: screening Comparison: Comparison has been made to previous images. Technique: Routine 3D tomosynthesis with synthesized 2D views with CAD Bilateral Breast Composition: There are scattered areas of fibroglandulardensity. Bilateral Breast Findings: No significant masses, calcifications or otherabnormalities are seen. IMPRESSION Negative, no evidence of malignancy. RECOMMENDATION: Routine screening mammography is recommended. OVERALL ASSESSMENT: BI-RADS 1: Negative These results will be communicated to your patient via a lay letter fromRadiology. If any additional imaging is needed we will contact yourpatient directly. Manisha Mane BLUEPRINT READER-BC IMG MAMMOGRAPHY ORDE JOSE Final Result documented in this encounter Visit Diagnoses Diagnosis Encounter for screening mammogram for malignant neoplasm of breast Other screening mammogram documented in this encounter Care Teams Sports Information Director Relationship Specialty Start Date End Date Out Of Area, Pcp-Mp PCP - General 06/21/21 documented as of this encounter
--- OUTSIDE RECORDS SUMMARY | 2024-04-20 14:24 | XMS_ITS | Encounter Summary ---
Author Organization [facility] Address [address] [place] [address] Care Team Providers Care Cascara Bark Cutter Name Role Phone Blanche Holder NP Primary Care Provider Out Of Area, Pcp-Mp Primary Care Provider Honey ceja Encounter Details Date Type Department Care Team (Late st Contact Info) Description 05/23/2021 Lab Requisition [facility] Lab - Main [address] [address] Health, [facility] Employee Encounter for screening for COVID-19 Social History Tobacco Use Types Packs/Day Years [...] Priority Date/Time Associated Diagnosis Comments ZZCOVID-19 TESTING ([facility]) Today 05/23/2021 17:15 EST Encounter for screening for COVID-19 ZZCOVID-19 TEST [facility] PCR Today 05/23/2021 17:15 EST Encounter for screening for COVID-19 COVID-19 TESTING Today 05/23/2021 17:1 5 EST Encounter for screening for COVID-19 documented in this encounter Results * COVID-19 TEST [facility] PCR (05/23/2021 17:15 EST) Swab 05/23/2021 17:1 5 EST 05/23/2021 17:15 EST [facility] Employee [facility] MICROBIOLOGY - GENERA L ORDERABLES Final Result Performing Organization Address City/[facility]/ZIP Co de Phone Number [facility] [address] [place] [address] * COVID-19 TESTING (05/23/2021 17:15 EST) Pathologist [facility] COVID-19 rt-PCR Result Negative Negative 05/24/2021 10:24 EST [facility] Comment: This test has not [...] history, and epidemiological information. Performed on the Clioher Fusion instrument Performing Lab [place] [facility] 05/24/2021 10:24 EST [facility] Swab 05/23/2021 17:1 5 EST 05/23/2021 17:15 EST [facility] Employee Health MICROBIOLOGY - GENERA L ORDERABLES Final Result Performing Organization Address City/[facility]/ZIP Co de Phone Number [facility] [address] [place] [address] * COVID-19 TESTING ([facility]) (05/23/2021 17:15 EST) Pathologist [facility] Performing Lab [facility] Hospital Lab 05/23/2021 17:15 EST [facility] Swab 05/23/2021 17:1 5 EST 05/23/2021 17:15 EST Narrative [facility] - 05/23/2021 17:15 EST [facility] Tier 1 Covid test [facility] Employee Health MICROBIOLOGY - GENERA L ORDERABLES Final Result [facility] [address] [place] [address] documented in this encounter Visit Diagnoses Diagnosis Encounter for screening for COVID-19 documented in this encounter Care Teams Cascara Bark Cutter Relationship Specialty Start Date End Date Blanche Holder NP [address] [place] [id number] PCP - General 03/21/15 06/20/21 Out Of Area, Pcp-Mp PCP - General 06/21/21 documented as of this encounter
--- OUTSIDE RECORDS SUMMARY | 2024-04-20 14:24 | XMS_ITS | Encounter Summary ---
Author Organization [facility] Address [address] [place] [address] Care Team Providers Care Power Equipment Mechanics Instructor Name Role Phone Unavailable Primary Care Provider Unavailabl e Encounter Details Date Type Department Care Team (Late st Contact Info) Description 09/07/2002 11:17 EDT Hospital Encounter [facility] - Other [address] [place] [address] Blanche Holder NP [address] [place] [address] Social History Tobacco Use Types Packs/Day Years [...]
--- OUTSIDE RECORDS SUMMARY | 2024-04-20 14:24 | XMS_ITS | Encounter Summary ---
Author Organization [facility] Address [address] [place] [address] Care Team Providers Care Managing Consultant Clinical Professor Name Role Phone Unavailable Primary Care Provider Unavailabl e Encounter Details Date Type Department Care Team (Late st Contact Info) Description 12/22/2000 8:[address] [facility] - Other [address] [place] [address] Sung Marie NP [address] [place], [place] [phone] Unknown, Provider, Social History Tobacco Use Types [...] Priority Date/Time Associated Diagnosis Comments CYTOPATHOLOGY Routine 12/22/2000 0:00 EDT documented in this encounter Results * CYTOPATHOLOGY (12/22/2000 0:00 EDT) Pathology Report: CYTOPATHOLOGY REPORT Reports generated via electronic interface contain original data; however they are lacking the format of the original report. Caution should be taken when reading/interpreti ng unformatted reports. Name: ? JULIANA KINNEY ? Accession #: ? [id number] : ? 1975 (Age: 25) ??F ?Collect Date: ? 12/22/2000 Location: ? [facility] ? Receive Date: ? 12/24/2000 Provider: ?SUNG MARIE NP Copy to: ? Specimen/Source: ?ThinPrep Pap Test, Source Not Provided Last Menstrual Period: ? 12/14/00 Previous Gynecologic Pathology: ? ASC-US: HPV: known low grade Treatment History: ? LEEP: 1998 Other: ? Additional clinical information: Benign since now on every 6 month checks HPVL - HPV testing requested if LSIL/ASCUS/MALENA on the current ThinPrep Pap test. ? SPECIMEN ADEQUACY ? Satisfactory for evaluation but limited by an absence of a transformation zone component. GENERAL CATEGORIZATION ? Within Normal Limits ? Document reviewed and electronically signed by: ? JANELL Gray(ASCP) ? Report Date: ??12/29/2000 15:03 End of Report SAMARIA MADRID 12/22/2000 12/24/2000 us Sung Marie [employer] SALESPERSON PATHOLOGY ORDERABLES Fi nal Result SAMARIA MENDOZA [facility] [address] [place] [address] documented in this encounter Visit Diagnoses Not on filedocumented in this encounter
[2024-04-20 21:56] LABS: Prolactin 98.1 ng/mL (See Note)
== END 2024-04-20 14:19 | disposition home or self-care (01) ==
LOC: LBO 14:19
PROVIDERS: PCP Family Medicine; Visit Provider Student in an Organized Health Care Education/Training Program
DX: D35.2 Benign neoplasm of pituitary gland (principal); E22.9 Hyperfunction of pituitary gland, unspecified
CPT/HCPCS: 36415; 84146